=== PATIENT | male | born 1970 | race Caucasian/White ===

== ENCOUNTER 2021-04-05 02:18 | Inpatient (IN) | payer BC ==
[~2021-04-05] VITALS: Ht 180.3 cm; Wt 99.9 kg
[2021-04-05] VITALS (26 sets, daily range): BP systolic 67–100; BP diastolic 36–59
[~2021-04-05 02:18] MED LIST: ALLO300T PO; AMLO-187 PO; CELE200C PO; COLC0.6T34 PO; FEBU40TA PO; FERR325T14 PO; FOLI1TAB16 PO; LOSA100T14 PO; OMEP20CA16 PO; OXYC1TAB15 PO; OXYC1TAB7 PO; THIA100T57 PO; VALS320T2 PO
[2021-04-05] MEDS ORDERED: ALBU2.5V8 IH (04:04)
[2021-04-05] MEDS ORDERED: FEBU80TA2 PO (04:04)
[2021-04-05] MEDS ORDERED: LOSA100T14 PO (04:04)
--- NOTE | 2021-04-05 04:47 | NUR ---
Patient admitted from [facility] and arrived by ambulance. Orders verified. Patient had NG tube placed at [place] and while hooking patient up to suction patient sat up and NG tube dislodged. Attempted to replace NG unsuccessful and patient continued to cough up blood.
[2021-04-05] MEDS: PANTOPRAZOLE SODIUM IV DRIP 80 MG in IV NORMAL SALINE 100ML 100 ML IV SCH ×2 (04:56→14:00)
[2021-04-05 05:11] LABS: BASO % 0 % (0-3); EOS % 0 % (0-3); HEMATOCRIT 25.9 % (39.0-53.0); HEMOGLOBIN 8.4 g/dL (13.0-17.5); LYMPH # 1.1 x10^3/uL (1.0-4.8); LYMPH % 7 % (24-48); MEAN CORPUSCULAR HEMOGLOBIN 40 pg (25-35); MEAN CORPUSCULAR HGB CONC 33 g/dL (31-37); MONO # 1.6 x10^3/uL (0.0-1.1); MONO % 10 % (0-9); NEUT # 12.5 x10^3/uL (1.8-7.7); NEUT % 82 % (31-73); PLATELET COUNT 115 x10^3/uL (140-400); RED BLOOD COUNT 2.13 x10^6/uL (4.30-5.70); RED CELL DISTRIBUTION WIDTH 15.3 % (11.5-14.5); WHITE BLOOD COUNT 15.2 x10^3/uL (4.0-11.0)
[2021-04-05 05:20] LABS: MEAN CORPUSCULAR VOLUME 122 fL (79-100)
[2021-04-05 05:46] LABS: PLT ESTIMATE DECREASED (ADEQUATE)
[2021-04-05] MEDS ORDERED: IV NORMAL SALINE 500ML BAG 500 ML IV ONE (06:00)
[2021-04-05 06:09] LABS: ALBUMIN 1.8 g/dL (3.4-5.0); ALBUMIN/GLOBULIN RATIO 0.4 (1.0-1.7); CALCIUM 8.6 mg/dL (8.5-10.1); CREATININE 3.5 mg/dL (0.7-1.3); GFR 18.6; POTASSIUM 5.4 mmol/L (3.5-5.1); TOTAL BILIRUBIN 5.2 mg/dL (0.2-1.0); TOTAL PROTEIN 6.7 g/dL (6.4-8.2)
[2021-04-05 07:51] LABS: PROTHROMBIN TIME PATIENT 20.7 SEC (11.7-14.0)
[2021-04-05] MEDS ORDERED: PIP/TAZO PER PHARMACY MC PRN (08:00)
[2021-04-05] MEDS: IV NORMAL SALINE 1000ML BAG 1,000 ML IV SCH ×2 (08:00→16:48)
[2021-04-05] MEDS ORDERED: PIPERACILLIN/TAZOBACTAM 3.375 GM in IV NORMAL SALINE 50ML 50 ML IV SCH (08:00)
--- NOTE | 2021-04-05 08:40 | PDOC2 ---
BRINA BIGGS RETAIL SALES ASSISTANT 04/05/21 0840: CONSULT Date of Consult Date of Consult DATE: 04/05/21 TIME: 08:21 Reason for Consult Reason for Consult: pneumoperitoneum Referring Physician Referring Physician: ER [facility] Identification/Chief Complaint Chief Complaint abdominal pain Source Source: Chart review, Patient History of Present Illness Reason for Visit: Presented to [facility] ER with abdominal pain, swelling--reports started yesterday am. Does report has not felt well in about a week. Nausea and emesis for last week, low appetite. Heavy alcohol hx, reports no intake in one month. Denies ulcer hx. Uses NSAIDS on occasion, 1 ppd smoker Past Medical History Cardiovascular: HTN Pulmonary: Asthma, COPD GI: Constipation Hepatobiliary: Cirrhosis Rheumatologic: Gout Past Surgical History Past Surgical History: Hernia Repair (umbilical) Family History Family History: Family History Unknown Social History 1 pack per day ALCOHOL: heavy Drugs: None Lives: Alone Current Medications Current Medications Current Medications Pantoprazole Sodium 80 mg/ Sodium Chloride 100 ml @ 10 mls/hr Q10H IV Last administered on 04/05/21at 04:56; Start 04/05/21 at 04:00; Stop 04/08/21 at 03:59 Sodium Chloride 500 ml @ 500 mls/hr 1X ONCE IV Last administered on 04/05/21at 05:31; Start 04/05/21 at 06:00; Stop 04/05/21 at 06:59; Status DC Piperacillin Sod/ Tazobactam Sod (Zosyn Per Pharmacy) 1 each PRN DAILY PRN [facility] SEE COMMENTS; Start 04/05/21 at 08:00 Piperacillin Sod/ Tazobactam Sod 3.375 gm/Sodium Chloride 50 ml @ 100 mls/hr Q6HRS IV ; Start 04/05/21 at 08:00 Active Scripts Active Reported Proair Hfa Inhaler (Albuterol Sulfate) 8.5 Gm Hfa.aer.ad 2 Puff IH PRN Q4-6HRS PRN 21 Days Uloric (Febuxostat) 80 Mg Tablet 1 Tab PO DAILY 30 Days Losartan Potassium 100 Mg Tablet 100 Mg PO DAILY Folic Acid 1 Mg Tablet 1 Mg PO DAILY Amlodipine Besylate 10 Mg Tablet 10 Mg PO DAILY Losartan Potassium 100 Mg Tablet 100 Mg PO DAILY Colcrys (Colchicine) 0.6 Mg Tablet 0.6 Mg PO DAILY Uloric (Febuxostat) 40 Mg Tablet 1 Tab PO DAILY Allergies Allergies: Coded Allergies: No Known Drug Allergies (Unverified , 05/31/16) ROS General: YES: Chills, Fatigue, Malaise PSYCHOLOGICAL ROS: No: Anxiety, Depression Eyes: No Blurry vision, No Double vision HEENT: No: Heacaches, Sore Throat Hematological and Lymphatic: YES: Blood Clots (hx of dvt); No: Bleeding Problems Respiratory: YES: Cough, SOB with excertion Cardiovascular: No Chest Pain, No Palpitations Gastrointestinal: Yes Other (see hpi) Genitourinary: No Dysuria, No Hematuria Musculoskeletal: Yes Muscular Weakness; No Joint Pain Neurological: No Impaired Coord/balance, No Numbness/Tingling Skin: Yes Pruritus; No Rash Physical Exam General: Cooperative, Other (acute pain) HEENT: Other (jaundice) Lungs: Other (diminished) Heart: Regular rate, Normal S1, Normal S2 Abdomen: Soft, Other (distended, ttp on exam with peritoneal signs ) Extremities: No clubbing, No edema Skin: No rashes, No breakdown Neuro: Normal speech, Sensation intact Psych/Mental Status: Mental status NL, Mood NL MUSCULOSKELETAL: No deformity, No swelling Vitals VITALS Vital Signs Date Time Temp Pulse Resp B/P (MAP) Pulse Ox O2 Delivery O2 Flow Rate FiO2 04/05/21 06:22 93 79/41 (54) 98 Room Air 04/05/21 03:15 97.6 22 97.6 Labs Labs Laboratory Tests Test 04/05/21 05:03 White Blood Count 15.2 x10^3/uL (4.0-11.0) Red Blood Count 2.13 x10^6/uL (4.30-5.70) Hemoglobin 8.4 g/dL (13.0-17.5) Hematocrit 25.9 % (39.0-53.0) Mean Corpuscular Volume 122 fL (79-100) Mean Corpuscular Hemoglobin 40 pg (25-35) Mean Corpuscular Hemoglobin Concent 33 g/dL (31-37) Red Cell Distribution Width 15.3 % (11.5-14.5) Platelet Count 115 x10^3/uL (140-400) Neutrophils (%) (Auto) 82 % (31-73) Lymphocytes (%) (Auto) 7 % (24-48) Monocytes (%) (Auto) 10 % (0-9) Eosinophils (%) (Auto) 0 % (0-3) Basophils (%) (Auto) 0 % (0-3) Neutrophils # (Auto) 12.5 x10^3/uL (1.8-7.7) Lymphocytes # (Auto) 1.1 x10^3/uL (1.0-4.8) Monocytes # (Auto) 1.6 x10^3/uL (0.0-1.1) Eosinophils # (Auto) 0.0 x10^3/uL (0.0-0.7) Basophils # (Auto) 0.0 x10^3/uL (0.0-0.2) Platelet Estimate Decreased (ADEQUATE) Macrocytosis Marked Prothrombin Time 20.7 SEC (11.7-14.0) Prothromb Time International Ratio 1.8 (0.8-1.1) Sodium Level 137 mmol/L (136-145) Potassium Level 5.4 mmol/L (3.5-5.1) Chloride Level 105 mmol/L (98-107) Carbon Dioxide Level 14 mmol/L (21-32) Anion Gap 18 (6-14) Blood Urea Nitrogen 58 mg/dL (8-26) Creatinine 3.5 mg/dL (0.7-1.3) Estimated GFR (Cockcroft-Gault) 18.6 BUN/Creatinine Ratio 17 (6-20) Glucose Level 132 mg/dL (70-99) Lactic Acid Level 6.7 mmol/L (0.4-2.0) Calcium Level 8.6 mg/dL (8.5-10.1) Total Bilirubin 5.2 mg/dL (0.2-1.0) Aspartate Amino Transf (AST/SGOT) 113 U/L (15-37) Alanine Aminotransferase (ALT/SGPT) 66 U/L (16-63) Alkaline Phosphatase 107 U/L (46-116) Total Protein 6.7 g/dL (6.4-8.2) Albumin 1.8 g/dL (3.4-5.0) Albumin/Globulin Ratio 0.4 (1.0-1.7) Laboratory Tests Test 04/05/21 05:03 White Blood Count 15.2 x10^3/uL (4.0-11.0) Red Blood Count 2.13 x10^6/uL (4.30-5.70) Hemoglobin 8.4 g/dL (13.0-17.5) Hematocrit 25.9 % (39.0-53.0) Mean Corpuscular Volume 122 fL (79-100) Mean Corpuscular Hemoglobin 40 pg (25-35) Mean Corpuscular Hemoglobin Concent 33 g/dL (31-37) Red Cell Distribution Width 15.3 % (11.5-14.5) Platelet Count 115 x10^3/uL (140-400) Neutrophils (%) (Auto) 82 % (31-73) Lymphocytes (%) (Auto) 7 % (24-48) Monocytes (%) (Auto) 10 % (0-9) Eosinophils (%) (Auto) 0 % (0-3) Basophils (%) (Auto) 0 % (0-3) Neutrophils # (Auto) 12.5 x10^3/uL (1.8-7.7) Lymphocytes # (Auto) 1.1 x10^3/uL (1.0-4.8) Monocytes # (Auto) 1.6 x10^3/uL (0.0-1.1) Eosinophils # (Auto) 0.0 x10^3/uL (0.0-0.7) Basophils # (Auto) 0.0 x10^3/uL (0.0-0.2) Platelet Estimate Decreased (ADEQUATE) Macrocytosis Marked Prothrombin Time 20.7 SEC (11.7-14.0) Prothromb Time International Ratio 1.8 (0.8-1.1) Sodium Level 137 mmol/L (136-145) Potassium Level 5.4 mmol/L (3.5-5.1) Chloride Level 105 mmol/L (98-107) Carbon Dioxide Level 14 mmol/L (21-32) Anion Gap 18 (6-14) Blood Urea Nitrogen 58 mg/dL (8-26) Creatinine 3.5 mg/dL (0.7-1.3) Estimated GFR (Cockcroft-Gault) 18.6 BUN/Creatinine Ratio 17 (6-20) Glucose Level 132 mg/dL (70-99) Lactic Acid Level 6.7 mmol/L (0.4-2.0) Calcium Level 8.6 mg/dL (8.5-10.1) Total Bilirubin 5.2 mg/dL (0.2-1.0) Aspartate Amino Transf (AST/SGOT) 113 U/L (15-37) Alanine Aminotransferase (ALT/SGPT) 66 U/L (16-63) Alkaline Phosphatase 107 U/L (46-116) Total Protein 6.7 g/dL (6.4-8.2) Albumin 1.8 g/dL (3.4-5.0) Albumin/Globulin Ratio 0.4 (1.0-1.7) Assessment/Plan Assessment/Plan pneumoperitoneum, hypotension, sepsis cirrhosis INR 1.8 current MELD score 31, very high mortality PPI, FFP , abx tentative plan for OR 1130 have reviewed with LIZET Wellington MD 04/05/21 1146: CONSULT Assessment/Plan Assessment/Plan Pt seen and examined; 50 year old male reported to [facility] with acute onset abdominal pain starting yesterday; CT scan showing free fluid, pneumoperitoneum; PMH/PSH/ROS/SH as above; exam: alert, uncomfortable, conversant, no neck masses, lungs clear, heart RR and R, abdomen obese, tender diffusely, peritoneal signs present, ext with some pitting edema; labs and xrays reviewed; 50 year old male with free air, suspect perf viscus, peptic ulcer most likely, colon perf possible also; generally requires surgical correction; pt is very high risk of any surgical intervention, (Mckinley class 3, MELD score 31); very high chance of morbidity and potential mortality; his ability to heal and recover is markedly impaired by his comorbidities (ETOH cirrhosis, manager long term care smoker, hepatorenal dysfunction etc); the patient seems to understand and is agreeable for surgery. BRINA BIGGS RETAIL SALES ASSISTANT April 05, 2021 08:40 LIZET HERNANDEZ MD April 05, 2021 11:46
--- NOTE | 2021-04-05 08:47 | PDOC1 ---
History and Physical Date of Admission Date of Admission DATE: 04/05/21 TIME: 08:29 Identification/Chief Complaint Chief Complaint Abdominal pain Source Source: Chart review, Patient History of Present Illness History of Present Illness Patient is a 50-year-old male with past medical history alcohol abuse, who presents as a transfer from [facility] due to pneumoperitoneum. Initially at [facility] ER he complained of abdominal pain and abdominal swelling over the past week, 07/03. He reports associated nausea and vomiting over this time, and is not amenable to take his home medications. Patient also reports noticing some discoloration of his eyes, discoloration of the skin, and dark urine over the past several days. He denies recent NSAID use. [facility] and admitted to the ICU for further medical management. Past Medical History Past Medical History Alcoholism, COPD, HTN Past Surgical History Past Surgical History Abdominal hernia, knee surgery Family History Family History [place] Social History Smoke: 1 pack per day ALCOHOL: heavy Drugs: None Current Medications Current Medications Current Medications Pantoprazole Sodium 80 mg/ Sodium Chloride 100 ml @ 10 mls/hr Q10H IV Last administered on 04/05/21at 04:56; Start 04/05/21 at 04:00; Stop 04/08/21 at 03:59 Sodium Chloride 500 ml @ 500 mls/hr 1X ONCE IV Last administered on 04/05/21at 05:31; Start 04/05/21 at 06:00; Stop 04/05/21 at 06:59; Status DC Piperacillin Sod/ Tazobactam Sod (Zosyn Per Pharmacy) 1 each PRN DAILY PRN [facility] SEE COMMENTS; Start 04/05/21 at 08:00 Piperacillin Sod/ Tazobactam Sod 3.375 gm/Sodium Chloride 50 ml @ 100 mls/hr Q6HRS IV ; Start 04/05/21 at 08:00 Active Scripts Active Reported Proair Hfa Inhaler (Albuterol Sulfate) 8.5 Gm Hfa.aer.ad 2 Puff IH PRN Q4-6HRS PRN 21 Days Uloric (Febuxostat) 80 Mg Tablet 1 Tab PO DAILY 30 Days Losartan Potassium 100 Mg Tablet 100 Mg PO DAILY Folic Acid 1 Mg Tablet 1 Mg PO DAILY Amlodipine Besylate 10 Mg Tablet 10 Mg PO DAILY Losartan Potassium 100 Mg Tablet 100 Mg PO DAILY Colcrys (Colchicine) 0.6 Mg Tablet 0.6 Mg PO DAILY Uloric (Febuxostat) 40 Mg Tablet 1 Tab PO DAILY Allergies Allergies: Coded Allergies: No Known Drug Allergies (Unverified , 05/31/16) ROS Review of System GENERAL: No history of weight change, weakness or fevers. SKIN: No bruising, hair changes or rashes. EYES: No blurred, double or loss of vision. NOSE AND THROAT: No history of nosebleeds, hoarseness or sore throat. HEART: Denies chest pain, denies palpitations. LUNGS: Denies cough, hemoptysis, wheezing or shortness of breath. GASTROINTESTINAL: Abdominal pain, nausea, vomiting. GENITOURINARY: Denies dysuria, frequency, urgency, hematuria. NEUROLOGIC: Denies history of numbness, tingling, tremor or weakness. PSYCHIATRIC: Denies anxiety, denies depression. ENDOCRINE: No history of heat or cold intolerance, polyuria or polydipsia. EXTREMITIES: Denies muscle weakness, joint pain, pain on walking or stiffness. Physical Exam Physical Exam General: Alert, Oriented X3, Cooperative, mild distress. HEENT: PERRLA, EOMI Lungs: Clear to auscultation, Normal air movement Heart: RRR, no murmurs Cardiovascular: S1, S2 Abdomen: Abdominal distention, abdomen feels tight and rigid, generalized abdominal tenderness. Extremities: No clubbing, No cyanosis Skin: No rashes, No significant lesion Neuro: Normal speech, Normal tone, Sensation intact Psych/Mental Status: Mental status NL, Mood NL Vitals Vitals Vital Signs Date Time Temp Pulse Resp B/P (MAP) Pulse Ox O2 Delivery O2 Flow Rate FiO2 04/05/21 06:22 93 79/41 (54) 98 Room Air 04/05/21 03:15 97.6 22 97.6 Labs Labs Laboratory Tests Test 04/05/21 05:03 White Blood Count 15.2 x10^3/uL (4.0-11.0) Red Blood Count 2.13 x10^6/uL (4.30-5.70) Hemoglobin 8.4 g/dL (13.0-17.5) Hematocrit 25.9 % (39.0-53.0) Mean Corpuscular Volume 122 fL (79-100) Mean Corpuscular Hemoglobin 40 pg (25-35) Mean Corpuscular Hemoglobin Concent 33 g/dL (31-37) Red Cell Distribution Width 15.3 % (11.5-14.5) Platelet Count 115 x10^3/uL (140-400) Neutrophils (%) (Auto) 82 % (31-73) Lymphocytes (%) (Auto) 7 % (24-48) Monocytes (%) (Auto) 10 % (0-9) Eosinophils (%) (Auto) 0 % (0-3) Basophils (%) (Auto) 0 % (0-3) Neutrophils # (Auto) 12.5 x10^3/uL (1.8-7.7) Lymphocytes # (Auto) 1.1 x10^3/uL (1.0-4.8) Monocytes # (Auto) 1.6 x10^3/uL (0.0-1.1) Eosinophils # (Auto) 0.0 x10^3/uL (0.0-0.7) Basophils # (Auto) 0.0 x10^3/uL (0.0-0.2) Platelet Estimate Decreased (ADEQUATE) Macrocytosis Marked Prothrombin Time 20.7 SEC (11.7-14.0) Prothromb Time International Ratio 1.8 (0.8-1.1) Sodium Level 137 mmol/L (136-145) Potassium Level 5.4 mmol/L (3.5-5.1) Chloride Level 105 mmol/L (98-107) Carbon Dioxide Level 14 mmol/L (21-32) Anion Gap 18 (6-14) Blood Urea Nitrogen 58 mg/dL (8-26) Creatinine 3.5 mg/dL (0.7-1.3) Estimated GFR (Cockcroft-Gault) 18.6 BUN/Creatinine Ratio 17 (6-20) Glucose Level 132 mg/dL (70-99) Lactic Acid Level 6.7 mmol/L (0.4-2.0) Calcium Level 8.6 mg/dL (8.5-10.1) Total Bilirubin 5.2 mg/dL (0.2-1.0) Aspartate Amino Transf (AST/SGOT) 113 U/L (15-37) Alanine Aminotransferase (ALT/SGPT) 66 U/L (16-63) Alkaline Phosphatase 107 U/L (46-116) Total Protein 6.7 g/dL (6.4-8.2) Albumin 1.8 g/dL (3.4-5.0) Albumin/Globulin Ratio 0.4 (1.0-1.7) Laboratory Tests Test 04/05/21 05:03 White Blood Count 15.2 x10^3/uL (4.0-11.0) Red Blood Count 2.13 x10^6/uL (4.30-5.70) Hemoglobin 8.4 g/dL (13.0-17.5) Hematocrit 25.9 % (39.0-53.0) Mean Corpuscular Volume 122 fL (79-100) Mean Corpuscular Hemoglobin 40 pg (25-35) Mean Corpuscular Hemoglobin Concent 33 g/dL (31-37) Red Cell Distribution Width 15.3 % (11.5-14.5) Platelet Count 115 x10^3/uL (140-400) Neutrophils (%) (Auto) 82 % (31-73) Lymphocytes (%) (Auto) 7 % (24-48) Monocytes (%) (Auto) 10 % (0-9) Eosinophils (%) (Auto) 0 % (0-3) Basophils (%) (Auto) 0 % (0-3) Neutrophils # (Auto) 12.5 x10^3/uL (1.8-7.7) Lymphocytes # (Auto) 1.1 x10^3/uL (1.0-4.8) Monocytes # (Auto) 1.6 x10^3/uL (0.0-1.1) Eosinophils # (Auto) 0.0 x10^3/uL (0.0-0.7) Basophils # (Auto) 0.0 x10^3/uL (0.0-0.2) Platelet Estimate Decreased (ADEQUATE) Macrocytosis Marked Prothrombin Time 20.7 SEC (11.7-14.0) Prothromb Time International Ratio 1.8 (0.8-1.1) Sodium Level 137 mmol/L (136-145) Potassium Level 5.4 mmol/L (3.5-5.1) Chloride Level 105 mmol/L (98-107) Carbon Dioxide Level 14 mmol/L (21-32) Anion Gap 18 (6-14) Blood Urea Nitrogen 58 mg/dL (8-26) Creatinine 3.5 mg/dL (0.7-1.3) Estimated GFR (Cockcroft-Gault) 18.6 BUN/Creatinine Ratio 17 (6-20) Glucose Level 132 mg/dL (70-99) Lactic Acid Level 6.7 mmol/L (0.4-2.0) Calcium Level 8.6 mg/dL (8.5-10.1) Total Bilirubin 5.2 mg/dL (0.2-1.0) Aspartate Amino Transf (AST/SGOT) 113 U/L (15-37) Alanine Aminotransferase (ALT/SGPT) 66 U/L (16-63) Alkaline Phosphatase 107 U/L (46-116) Total Protein 6.7 g/dL (6.4-8.2) Albumin 1.8 g/dL (3.4-5.0) Albumin/Globulin Ratio 0.4 (1.0-1.7) VTE Prophylaxis Ordered VTE Prophylaxis Devices: No VTE Pharmacological Prophylaxi: Yes Assessment/Plan Assessment/Plan Sepsis Pneumoperitoneum Leukocytosis Duodenitis Probable cirrhosis Cholelithiasis History alcohol abuse History COPD Plan: Consultations placed to general surgery and GI Due to concern for perforation I believe patient will be taken to the OR this morning. We will continue treatment with Zosyn, and may need to broaden antibiotic coverage with metronidazole; will consider consulting ID following surgery. IV pain medication FEN - NPO PPX - Heparin FULL CODE; patient names his daughter as surrogate decision-maker. Dispo - inpatient for above Advance Care Planning: Total time spent [id number] with patient greater than 16 minutes in discussion with goals of care, comfort care, end-of-life care, pain management, code status. Total critical care time spent 30 minutes including reviewing charts, imaging studies, bedside evaluations, and discussion with RN. Justifications for Admission Other Justification FLEX GRAHAM MD April 05, 2021 08:47
--- NOTE | 2021-04-05 08:59 | PDOC2 ---
GI CONSULT Date of Service: DATE: 04/05/21 TIME: 08:59 Reason For Consult: pneumoperitoneum HPI: HPI: 50 y/o male sent from [facility]. Abd pain and bloating began suddenly yesterday. Previously had some decreased appetite, weight loss, and constipation. [place] achy for awhile, had been taking ibuprofen PRN for about a month. Labs noted leukocytosis, lactic acidosis, EDDI, elevated LFTs, coagulopathy, thrombocytopenia. On CT: small volume pneumoperitoneum in upper abdomen, proximal duodenum is thick-walled w/ mild surrounding induration (?source of free air), mild to moderate ascites, probable cirrhosis, moderate splenomegaly, cholelithiasis. We have seen in the past - h/o alcoholic liver disease (reports sobriety x 1 month), h/o MANFRED and B12 deficiency, negative Hepatitis panel. Recommended outpt EGD and colonoscopy when we saw in 2016 (Admitted for septic joint then). Additional h/o perirectal abscess. H/o GERD - untreated. No dysphagia, n/v, bleeding, or diarrhea. No previous scopes. Cholelithiasis noted in past. No pancreas or PUD history. PMH: PMH: HTN, MSSA septic joint, nephrolithiasis, COPD, DVT, CVA umbilical hernia repair, I&D perirectal abscess, left knee arthroscopy FH: Family History: No pertinent hx (no GI cancers) Social History: Smoke: 1 pack per day ALCOHOL: heavy (sober x 1 month) Drugs: None ROS: GEN: +bodyaches HEENT: Denies blurred vision, sore throat CV: Denies chest pain RESP: Denies shortness of air, cough GI: Per HPI : +dark urine ENDO: +weight loss NEURO: Denies confusion, dizziness MSK: Denies weakness SKIN: +jaundice Vitals: Vitals: Vital Signs Date Time Temp Pulse Resp B/P (MAP) Pulse Ox O2 Delivery O2 Flow Rate FiO2 04/05/21 06:22 93 79/41 (54) 98 Room Air 04/05/21 03:15 97.6 22 97.6 Labs: Labs: Laboratory Tests Test 04/05/21 05:03 White Blood Count 15.2 x10^3/uL (4.0-11.0) Red Blood Count 2.13 x10^6/uL (4.30-5.70) Hemoglobin 8.4 g/dL (13.0-17.5) Hematocrit 25.9 % (39.0-53.0) Mean Corpuscular Volume 122 fL (79-100) Mean Corpuscular Hemoglobin 40 pg (25-35) Mean Corpuscular Hemoglobin Concent 33 g/dL (31-37) Red Cell Distribution Width 15.3 % (11.5-14.5) Platelet Count 115 x10^3/uL (140-400) Neutrophils (%) (Auto) 82 % (31-73) Lymphocytes (%) (Auto) 7 % (24-48) Monocytes (%) (Auto) 10 % (0-9) Eosinophils (%) (Auto) 0 % (0-3) Basophils (%) (Auto) 0 % (0-3) Neutrophils # (Auto) 12.5 x10^3/uL (1.8-7.7) Lymphocytes # (Auto) 1.1 x10^3/uL (1.0-4.8) Monocytes # (Auto) 1.6 x10^3/uL (0.0-1.1) Eosinophils # (Auto) 0.0 x10^3/uL (0.0-0.7) Basophils # (Auto) 0.0 x10^3/uL (0.0-0.2) Platelet Estimate Decreased (ADEQUATE) Macrocytosis Marked Prothrombin Time 20.7 SEC (11.7-14.0) Prothromb Time International Ratio 1.8 (0.8-1.1) Sodium Level 137 mmol/L (136-145) Potassium Level 5.4 mmol/L (3.5-5.1) Chloride Level 105 mmol/L (98-107) Carbon Dioxide Level 14 mmol/L (21-32) Anion Gap 18 (6-14) Blood Urea Nitrogen 58 mg/dL (8-26) Creatinine 3.5 mg/dL (0.7-1.3) Estimated GFR (Cockcroft-Gault) 18.6 BUN/Creatinine Ratio 17 (6-20) Glucose Level 132 mg/dL (70-99) Lactic Acid Level 6.7 mmol/L (0.4-2.0) Calcium Level 8.6 mg/dL (8.5-10.1) Total Bilirubin 5.2 mg/dL (0.2-1.0) Aspartate Amino Transf (AST/SGOT) 113 U/L (15-37) Alanine Aminotransferase (ALT/SGPT) 66 U/L (16-63) Alkaline Phosphatase 107 U/L (46-116) Total Protein 6.7 g/dL (6.4-8.2) Albumin 1.8 g/dL (3.4-5.0) Albumin/Globulin Ratio 0.4 (1.0-1.7) Allergies: Coded Allergies: No Known Drug Allergies (Unverified , 05/31/16) Medications: Current Medications Medications (Trade) Dose Ordered Sig/Ada Route PRN Reason Start Time Stop Time Status Last Admin Dose Admin Pantoprazole Sodium 80 mg/ Sodium Chloride 100 ml @ 10 mls/hr Q10H IV 04/05/21 04:00 04/08/21 03:59 04/05/21 04:56 Sodium Chloride 500 ml @ 500 mls/hr 1X ONCE IV 04/05/21 06:00 04/05/21 06:59 DC 04/05/21 05:31 Piperacillin Sod/ Tazobactam Sod 3.375 gm/Sodium Chloride 50 ml @ 100 mls/hr Q6HRS IV 04/05/21 08:00 04/05/21 08:32 Imaging: Imaging: per HPI PE: GEN: looks ill HEENT: Atraumatic, PERRL LUNGS: CTAB HEART: RRR ABD: distended, tender to placement of stethoscope, quiet EXTREMITY: No edema SKIN: +jaundice NEURO/PSYCH: A & O 3 A/P: A/P: Abd pain - pneumoperitoneum (?DU) Lactic acidosis, leukocytosis, EDDI, hypotension Anemia - h/o iron and B12 deficiency Alcoholic liver disease w/ coagulopathy, thrombocytopenia, elevated LFTs CRC screen - none H/o perirectal abscess Cholelithiasis NSAID use -- D/w surgery - to OR today - very high risk w/ liver disease, EDDI, etc. Agree w/ PPI, FFP transfusion, atbx. CHRISTIANE BRIONES April 05, 2021 08:59
[2021-04-05] MEDS ORDERED: PROCHLORPERAZINE 10 MG/2 ML VIAL. IVP PRN (09:00)
[2021-04-05] MEDS ORDERED: IV RINGERS,LACTATED 1000ML 1,000 ML IV SCH (09:00)
[2021-04-05] MEDS ORDERED: HYDROmorphone 2 MG/ML VIAL IVP PRN (09:00)
[2021-04-05] MEDS ORDERED: fentaNYL PF VIAL 100 MCG/2 ML VIAL IVP PRN ×2 (09:00)
[2021-04-05] MEDS ORDERED: ETOMIDATE 20 MG/10 ML VIAL. IV ONE (09:22)
[2021-04-05] MEDS ORDERED: ONDANSETRON PF 4 MG/2 ML VIAL. ONE (09:22)
[2021-04-05] MEDS ORDERED: PHENYLEPHRINE 10 MG/ML VIAL. ONE (09:22)
[2021-04-05] MEDS ORDERED: DEXAMETHASONE SOD PHOS 4 MG/ML VIAL ONE (09:22)
[2021-04-05] MEDS ORDERED: fentaNYL PF VIAL 100 MCG/2 ML VIAL ONE (09:22)
[2021-04-05] MEDS ORDERED: ROCURONIUM 50 MG/5 ML VIAL. ONE ×2 (09:22→12:36)
[2021-04-05] MEDS ORDERED: LIDOCAINE 2% PF 5 ML VIAL. ONE ×2 (09:22→12:58)
--- NOTE | 2021-04-05 10:40 | PDOC2 ---
CONSULT Date of Consult Date of Consult DATE: 04/05/21 TIME: 10:33 Reason for Consult Reason for Consult: EDDI Referring Physician Referring Physician: SANTOS Identification/Chief Complaint Chief Complaint ABD PAIN Source Source: Chart review, Patient History of Present Illness Reason for Visit: THIS IS A 50 YR OLD WITH ABD PAIN. DX WITH PNEUMOPERITONEUM AND TRANSFERRED HERE FROM [facility]. HE IS UNDERGOING SURGICAL EVALUATION AT THIS TIME. IN HE ICU NOW WITH HYPOTENSION. LABS INDICATE LEUCOCYTOSIS, ACIDOSIS, HYPERKALEMIA AND EDDI WITH A CR OF 3.5. NO KNOWN CKD. HE HAS A HX OF ETOH ABUSE AND CIRRHOSIS AND COAGULOPATHY RELATED TO THAT. STATES THAT HE HAS NOT EATEN WELL IN OVER A WEEK AND HAS HAD SOME EPISODES OF N/V. NO OTHER HX. NO NEPHROTOXINS IDENTIFIED. Past Medical History Cardiovascular: HTN Pulmonary: Asthma, COPD GI: Constipation Hepatobiliary: Cirrhosis Musculoskeletal: Other Rheumatologic: Gout Past Surgical History Past Surgical History: Hernia Repair (umbilical) Family History Family History: Family History Unknown Social History 1 pack per day ALCOHOL: heavy Drugs: None Lives: Alone Current Medications Current Medications Current Medications Pantoprazole Sodium 80 mg/ Sodium Chloride 100 ml @ 10 mls/hr Q10H IV Last administered on 04/05/21at 04:56; Start 04/05/21 at 04:00; Stop 04/08/21 at 03:59 Sodium Chloride 500 ml @ 500 mls/hr 1X ONCE IV Last administered on 04/05/21at 05:31; Start 04/05/21 at 06:00; Stop 04/05/21 at 06:59; Status DC Piperacillin Sod/ Tazobactam Sod (Zosyn Per Pharmacy) 1 each PRN DAILY PRN MC SEE COMMENTS; Start 04/05/21 at 08:00 Piperacillin Sod/ Tazobactam Sod 3.375 gm/Sodium Chloride 50 ml @ 100 mls/hr Q6HRS IV Last administered on 04/05/21at 08:32; Start 04/05/21 at 08:00 Fentanyl Citrate (Fentanyl 2ml Vial) 25 mcg PRN Q5MIN PRN IVP MILD PAIN 1-3; Start 04/05/21 at 09:00; Stop 04/05/21 at 18:00 Fentanyl Citrate (Fentanyl 2ml Vial) 50 mcg PRN Q5MIN PRN IVP MODERATE PAIN 4- 6; Start 04/05/21 at 09:00; Stop 04/05/21 at 18:00 Morphine Sulfate (Morphine Sulfate) 1 mg PRN Q10MIN PRN IVP SEVERE PAIN 7-10; Start 04/05/21 at 09:00; Stop 04/05/21 at 18:00 Ringer's Solution 1,000 ml @ 30 mls/hr Q24H IV ; Start 04/05/21 at 09:00; Stop 04/05/21 at 20:59 Hydromorphone HCl (Dilaudid) 0.5 mg PRN Q10MIN PRN IVP SEVERE PAIN 7-10, 2nd CHOICE; Start 04/05/21 at 09:00; Stop 04/05/21 at 18:00 Prochlorperazine Edisylate (Compazine) 5 mg PACU PRN PRN IVP NAUSEA, MRX1; Start 04/05/21 at 09:00; Stop 04/05/21 at 18:00 Etomidate (Amidate) 20 mg STK-MED ONCE IV ; Start 04/05/21 at 09:22; Stop 04/05/21 at 09:22; Status DC Dexamethasone Sodium Phosphate (Decadron) 4 mg STK-MED ONCE .ROUTE ; Start 04/05/21 at 09:22; Stop 04/05/21 at 09:22; Status DC Lidocaine HCl (Lidocaine Pf 2% Vial) 5 ml STK-MED ONCE .ROUTE ; Start 04/05/21 at 09:22; Stop 04/05/21 at 09:22; Status DC Ondansetron HCl (Zofran) 4 mg STK-MED ONCE .ROUTE ; Start 04/05/21 at 09:22; Stop 04/05/21 at 09:22; Status DC Rocuronium [place] (Zemuron) 50 mg STK-MED ONCE .ROUTE ; Start 04/05/21 at 09:22; Stop 04/05/21 at 09:22; Status DC Fentanyl Citrate (Fentanyl 2ml Vial) 100 mcg STK-MED ONCE .ROUTE ; Start 04/05/21 at 09:22; Stop 04/05/21 at 09:23; Status DC Phenylephrine HCl (Pavel-Synephrine Inj) 10 mg STK-MED ONCE .ROUTE ; Start 04/05/21 at 09:22; Stop 04/05/21 at 09:23; Status DC Active Scripts Active Reported Proair Hfa Inhaler (Albuterol Sulfate) 8.5 Gm Hfa.aer.ad 2 Puff IH PRN Q4-6HRS PRN 21 Days Uloric (Febuxostat) 80 Mg Tablet 1 Tab PO DAILY 30 Days Losartan Potassium 100 Mg Tablet 100 Mg PO DAILY Folic Acid 1 Mg Tablet 1 Mg PO DAILY Amlodipine Besylate 10 Mg Tablet 10 Mg PO DAILY Losartan Potassium 100 Mg Tablet 100 Mg PO DAILY Colcrys (Colchicine) 0.6 Mg Tablet 0.6 Mg PO DAILY Uloric (Febuxostat) 40 Mg Tablet 1 Tab PO DAILY Allergies Allergies: Coded Allergies: No Known Drug Allergies (Unverified , 05/31/16) ROS General: YES: Fatigue, Malaise, Appetite PSYCHOLOGICAL ROS: YES: Anxiety, Depression Eyes: Yes Decreased vision Respiratory: YES: Cough Gastrointestinal: Yes Nausea, Yes Vomiting, Yes Abdominal Pain Genitourinary: YES Other (LESS UO) Musculoskeletal: Yes Gait Disturbance, Yes Muscular Weakness Neurological: Yes Dizziness, Yes Weakness Skin: Yes Dry Skin Physical Exam General: Alert, Oriented X3, Cooperative, No acute distress HEENT: Atraumatic, PERRLA Lungs: Clear to auscultation Heart: Regular rate Abdomen: Soft, Other (HYPOACTIVE) Extremities: No cyanosis Skin: No rashes Neuro: Normal speech Psych/Mental Status: Mental status NL, Mood NL MUSCULOSKELETAL: No joint tenderness, No deformity, No swelling Vitals VITALS Vital Signs Date Time Temp Pulse Resp B/P (MAP) Pulse Ox O2 Delivery O2 Flow Rate FiO2 04/05/21 09:55 97.5 78 16 87/44 97.5 04/05/21 09:00 98 Room Air Labs Labs Laboratory Tests Test 04/05/21 05:03 04/05/21 09:05 White Blood Count 15.2 x10^3/uL (4.0-11.0) Red Blood Count 2.13 x10^6/uL (4.30-5.70) Hemoglobin 8.4 g/dL (13.0-17.5) Hematocrit 25.9 % (39.0-53.0) Mean Corpuscular Volume 122 fL (79-100) Mean Corpuscular Hemoglobin 40 pg (25-35) Mean Corpuscular Hemoglobin Concent 33 g/dL (31-37) Red Cell Distribution Width 15.3 % (11.5-14.5) Platelet Count 115 x10^3/uL (140-400) Neutrophils (%) (Auto) 82 % (31-73) Lymphocytes (%) (Auto) 7 % (24-48) Monocytes (%) (Auto) 10 % (0-9) Eosinophils (%) (Auto) 0 % (0-3) Basophils (%) (Auto) 0 % (0-3) Neutrophils # (Auto) 12.5 x10^3/uL (1.8-7.7) Lymphocytes # (Auto) 1.1 x10^3/uL (1.0-4.8) Monocytes # (Auto) 1.6 x10^3/uL (0.0-1.1) Eosinophils # (Auto) 0.0 x10^3/uL (0.0-0.7) Basophils # (Auto) 0.0 x10^3/uL (0.0-0.2) Platelet Estimate Decreased (ADEQUATE) Macrocytosis Marked Prothrombin Time 20.7 SEC (11.7-14.0) Prothromb Time International Ratio 1.8 (0.8-1.1) Sodium Level 137 mmol/L (136-145) Potassium Level 5.4 mmol/L (3.5-5.1) Chloride Level 105 mmol/L (98-107) Carbon Dioxide Level 14 mmol/L (21-32) Anion Gap 18 (6-14) Blood Urea Nitrogen 58 mg/dL (8-26) Creatinine 3.5 mg/dL (0.7-1.3) Estimated GFR (Cockcroft-Gault) 18.6 BUN/Creatinine Ratio 17 (6-20) Glucose Level 132 mg/dL (70-99) Lactic Acid Level 6.7 mmol/L (0.4-2.0) 4.4 mmol/L (0.4-2.0) Calcium Level 8.6 mg/dL (8.5-10.1) Total Bilirubin 5.2 mg/dL (0.2-1.0) Aspartate Amino Transf (AST/SGOT) 113 U/L (15-37) Alanine Aminotransferase (ALT/SGPT) 66 U/L (16-63) Alkaline Phosphatase 107 U/L (46-116) Total Protein 6.7 g/dL (6.4-8.2) Albumin 1.8 g/dL (3.4-5.0) Albumin/Globulin Ratio 0.4 (1.0-1.7) Laboratory Tests Test 04/05/21 05:03 04/05/21 09:05 White Blood Count 15.2 x10^3/uL (4.0-11.0) Red Blood Count 2.13 x10^6/uL (4.30-5.70) Hemoglobin 8.4 g/dL (13.0-17.5) Hematocrit 25.9 % (39.0-53.0) Mean Corpuscular Volume 122 fL (79-100) Mean Corpuscular Hemoglobin 40 pg (25-35) Mean Corpuscular Hemoglobin Concent 33 g/dL (31-37) Red Cell Distribution Width 15.3 % (11.5-14.5) Platelet Count 115 x10^3/uL (140-400) Neutrophils (%) (Auto) 82 % (31-73) Lymphocytes (%) (Auto) 7 % (24-48) Monocytes (%) (Auto) 10 % (0-9) Eosinophils (%) (Auto) 0 % (0-3) Basophils (%) (Auto) 0 % (0-3) Neutrophils # (Auto) 12.5 x10^3/uL (1.8-7.7) Lymphocytes # (Auto) 1.1 x10^3/uL (1.0-4.8) Monocytes # (Auto) 1.6 x10^3/uL (0.0-1.1) Eosinophils # (Auto) 0.0 x10^3/uL (0.0-0.7) Basophils # (Auto) 0.0 x10^3/uL (0.0-0.2) Platelet Estimate Decreased (ADEQUATE) Macrocytosis Marked Prothrombin Time 20.7 SEC (11.7-14.0) Prothromb Time International Ratio 1.8 (0.8-1.1) Sodium Level 137 mmol/L (136-145) Potassium Level 5.4 mmol/L (3.5-5.1) Chloride Level 105 mmol/L (98-107) Carbon Dioxide Level 14 mmol/L (21-32) Anion Gap 18 (6-14) Blood Urea Nitrogen 58 mg/dL (8-26) Creatinine 3.5 mg/dL (0.7-1.3) Estimated GFR (Cockcroft-Gault) 18.6 BUN/Creatinine Ratio 17 (6-20) Glucose Level 132 mg/dL (70-99) Lactic Acid Level 6.7 mmol/L (0.4-2.0) 4.4 mmol/L (0.4-2.0) Calcium Level 8.6 mg/dL (8.5-10.1) Total Bilirubin 5.2 mg/dL (0.2-1.0) Aspartate Amino Transf (AST/SGOT) 113 U/L (15-37) Alanine Aminotransferase (ALT/SGPT) 66 U/L (16-63) Alkaline Phosphatase 107 U/L (46-116) Total Protein 6.7 g/dL (6.4-8.2) Albumin 1.8 g/dL (3.4-5.0) Albumin/Globulin Ratio 0.4 (1.0-1.7) Images Images IMAGES FROM OUTSIDE FACILITY REVIEWED. Assessment/Plan Assessment/Plan IMP EDDI-ATN MET ACIDOSIS HYPERKALEMIA HYPOTENSION PROB SEPSIS LEUCOCYTOSIS PNEUMOPERITONEUM ETOH ABUSE LIVER CIRRHOSIS COAGULOPATHY PLAN ANTIBIOTICS HYDRATION PRESSORS IF NEEDED HOLD HIS ARB SURGERY EVALUATION MAY NEED DIALYSIS IF CLEARANCE DOES NOT IMPROVE HERVE CHAVEZ MD April 05, 2021 10:40
[2021-04-05] MEDS ORDERED: BUPIVACAINE-EPI 0.5%-1:200000 MPF 30 ML VIAL. ONE ×2 (11:34→11:54)
[2021-04-05] MEDS ORDERED: METHYLENE BLUE 0.5% 10ml AMPULE. ONE (13:14)
[2021-04-05] MEDS ORDERED: GLYCOPYRROLATE 1 MG/5 ML VIAL. ONE (13:35)
[2021-04-05] MEDS ORDERED: NEOSTIGMINE METHYLSULFATE 5 MG/5 ML SYRINGE. ONE (13:36)
--- NOTE | 2021-04-05 13:55 | PDOC4 ---
Operative Note Operative Note Operative Note: Preoperative Diagnosis: Perforated Viscus Postoperative Diagnosis: Suspect spontaneous bacterial peritonitis Procedure: Diagnostic laparoscopy, culture abdominal fluid, placement of abdominal drain Surgeon: Tawanda [employer]uba [employer] Instructor: Peewee QUEEN Anesthesia: General EBL: 20 mL Specimen: Intra-abdominal fluid to microbiology Drains: 19 [place] ROCIO drain Complications: None Indication: The patient is a 50-year-old male who presented to the emergency department with abdominal pain. His evaluation included a CT scan which showed low volume free air and free fluid. There was some thickening of the duodenum concerning for potential prep viscus most likely of the duodenum. Based on these recommendations we recommend proceeding to the operating room for laparoscopy. The patient is a very high risk surgical candidate due to multiple comorbidities. The risks of surgery are very significant and were discussed with the patient. The risks include bleeding, infection, visceral injury, pain, wound healing problems, anesthetic risk, potential need for additional surgery procedure, multisystem organ dysfunction or failure, mortality risk. He understands and would like to proceed. Description: The patient was taken the operating room and placed supine on the operating table. General anesthesia was performed. The abdomen is prepped with ChloraPrep and draped in a standard surgical manner. An initial incision was made the patient's right abdomen through to visualize 5 mm trocar was inserted. Pneumoperitoneum was created and the laparoscope introduced. Initial inspection showed a large amount of infected appearing abdominal fluid. Another 5 mm port was placed in the patient's right abdomen. Nearly 3 L of infected appearing fluid was suctioned. We did obtain a sample of intra-abdominal fluid which was suctioned and sent to microbiology. The liver was nodular consistent with advanced cirrhosis. The stomach and visualized portion of the first part of the duodenum appeared unremarkable. There was no sign of an inflammatory reaction, perforation, or inflammatory response. We then proceeded with full laparoscopic examination of the rest of the abdomen with attention to the bowel. Two additional left abdomen 5 mm trochars were inserted to assist with this. The visualized portions of the colon appeared unremarkable which included the sigmoid colon and rectum. The cecum and visualized portions of the right colon appeared unremarkable. The multiple loops of small bowel appeared unremarkable with no signs of ischemia or perforation. Visualization was difficult due to a very thick omentum. However gradually we were able to see the majority of the large and small bowel and no abnormality was seen. 250 cc of methylene blue were then inserted into the NG tube and there was no evidence of extravasation from the stomach or duodenum. The overall appearance and lack of a visualized perforated viscus seem most consistent with spontaneous bacterial peritonitis due to ascites and cirrhosis. A 19 [place] ROCIO drain was then left in the upper abdomen with an exit site in the right lateral port incision. This was secured to the skin with 2-0 nylon. The remaining ports were removed and the p neumoperitoneum was relieved. Skin at all incisions was closed with 4 Monocryl. Sterile dressings were applied. The patient was returned back to the intensive care unit. LIZET HERNANDEZ MD April 05, 2021 13:55
[2021-04-05] MEDS ORDERED: SEVOFLURANE > 120 MINUTES. IH ONE (14:07)
--- NOTE | 2021-04-05 14:10 | NUR ---
SS following for discharge planning. SS reviewed pt chart and discussed with pt RN. Pt is from home and is currently on room air. COVID19 negative. GI, Nephrology, and Surgery consulted. Pt on IV Zosyn. Pt has history of ETOH. Pt had surgery today. SS will continue to follow for discharge planning.
[2021-04-05] MEDS: MORPHINE SULFATE 2 MG/ML VIAL. IVP PRN ×2 (15:24→15:35)
[2021-04-05 15:25] LABS: BASE EXCESS ABG -14 mmol/L (-3-3); HCO3 ABG 14 mmol/L (21-28); PCO2 ABG 42 mmHg (35-46); PO2 ABG 80 mmHg (75-108); SAT O2 ABG 92 % (92-99)
[2021-04-05] MEDS ORDERED: MIDAZOLAM HCL/PF 5 MG/5 ML VIAL. IV ONE (15:45)
[2021-04-05] MEDS ORDERED: SODIUM BICARB ADULT 8.4% 50 MEQ/50 ML DISP.SYRIN. IV ONE (15:45)
[2021-04-05] MEDS: fentaNYL PF VIAL 100 MCG/2 ML VIAL IVP PRN ×3 (15:47→21:55)
[2021-04-05] MEDS: MIDAZOLAM 100mg/100ml NS BAG 100 ML IV PRN (15:57)
[2021-04-05] MEDS: SODIUM BICARBONATE VIAL 150 MEQ in IV DEXTROSE 5% 1,000 ML IV SCH (15:58)
[2021-04-05] MEDS: PIPERACILLIN/TAZOBACTAM 2.25 GM in IV NORMAL SALINE 50ML 50 ML IV SCH ×3 (16:28→23:38)
[2021-04-05] MEDS: NOREPINEPHRINE VIAL 8 MG in IV DEXTROSE 5% 250 ML IV PRN (16:34)
[2021-04-05 22:36] LABS: BASE EXCESS ABG -8 mmol/L (-3-3); HCO3 ABG 17 mmol/L (21-28); PCO2 ABG 32 mmHg (35-46); PO2 ABG 123 mmHg (75-108); SAT O2 ABG 99 % (92-99)
[2021-04-05 22:38] LABS: FIO2 ABG 50
[2021-04-06] VITALS (31 sets, daily range): BP systolic 75–122; BP diastolic 35–61
[2021-04-06] MEDS: NOREPINEPHRINE VIAL 8 MG in IV DEXTROSE 5% 250 ML IV PRN ×4 (00:03→20:20)
[2021-04-06] MEDS: IV NORMAL SALINE 1000ML BAG 1,000 ML IV SCH ×3 (00:29→21:24)
[2021-04-06] MEDS: fentaNYL PF VIAL 100 MCG/2 ML VIAL IVP PRN ×2 (00:50→02:53)
[2021-04-06] MEDS: SODIUM BICARBONATE VIAL 150 MEQ in IV DEXTROSE 5% 1,000 ML IV SCH ×2 (00:50→14:28)
[2021-04-06] MEDS: MIDAZOLAM 100mg/100ml NS BAG 100 ML IV PRN ×2 (03:30→17:35)
[2021-04-06] MEDS: PIPERACILLIN/TAZOBACTAM 2.25 GM in IV NORMAL SALINE 50ML 50 ML IV SCH ×3 (05:30→20:32)
[2021-04-06 05:56] LABS: BASO # 0.4 x10^3/uL (0.0-0.2); BASO % 2 % (0-3); EOS % 0 % (0-3); HEMATOCRIT 24.9 % (39.0-53.0); HEMOGLOBIN 8.1 g/dL (13.0-17.5); LYMPH # 1.5 x10^3/uL (1.0-4.8); LYMPH % 6 % (24-48); MEAN CORPUSCULAR HEMOGLOBIN 39 pg (25-35); MEAN CORPUSCULAR HGB CONC 33 g/dL (31-37); MEAN CORPUSCULAR VOLUME 121 fL (79-100); MONO # 2.1 x10^3/uL (0.0-1.1); MONO % 8 % (0-9); NEUT # 23.4 x10^3/uL (1.8-7.7); NEUT % 85 % (31-73); PLATELET COUNT 275 x10^3/uL (140-400); RED BLOOD COUNT 2.07 x10^6/uL (4.30-5.70); RED CELL DISTRIBUTION WIDTH 15.4 % (11.5-14.5); WHITE BLOOD COUNT 27.4 x10^3/uL (4.0-11.0)
[2021-04-06 06:16] LABS: CALCIUM 7.2 mg/dL (8.5-10.1); CREATININE 3.1 mg/dL (0.7-1.3); GFR 21.3; MAGNESIUM 1.8 mg/dL (1.8-2.4); PHOSPHORUS 6.2 mg/dL (2.6-4.7); POTASSIUM 4.4 mmol/L (3.5-5.1)
[2021-04-06 06:30] LABS: % BANDS 7 % (0-9); % LYMPHS 4 % (24-48); % MONOS 3 % (0-10); % SEGS 86 % (35-66)
[2021-04-06 06:31] LABS: PLT ESTIMATE ADEQUATE (ADEQUATE)
[2021-04-06] MEDS: PANTOPRAZOLE IV PUSH 40 MG VIAL. IVP SCH (07:57)
[2021-04-06 07:58] LABS: BASE EXCESS ABG -5 mmol/L (-3-3); HCO3 ABG 20 mmol/L (21-28); PCO2 ABG 38 mmHg (35-46); PO2 ABG 90 mmHg (75-108); SAT O2 ABG 97 % (92-99)
[2021-04-06 08:01] LABS: FIO2 ABG 40
--- NOTE | 2021-04-06 08:17 | RAD ---
INDICATION: Reason: intubated / Spl. Instructions: / History: COMPARISON: May 31, 2016 FINDINGS: Single view of chest obtained. Cardiac silhouette is prominent in size. Elevated left hemidiaphragm. Linear opacities at lung bases. Right-sided vascular catheter with tip projecting over SVC. Endotracheal tube midthoracic trachea. E nteric tube coursing below the diaphragm. IMPRESSION: * Lines and tubes as above. * Elevated left hemidiaphragm with mild bilateral basilar airspace opacities which could be from ate lectasis or early infiltrate. Electronically signed by: Denis Raygoza MD (04/06/2021 8:15 AM) [id number]
[2021-04-06] MEDS: VASOPRESSIN 20 UNIT in IV DEXTROSE 5% 100ML 100 ML IV PRN ×2 (08:45→15:40)
--- NOTE | 2021-04-06 09:23 | PDOC ---
Renal-Progress Notes Subjective Notes Notes NONE History of Present Illness Hx of present illness POST OP ON THE VENT Vitals Vitals Vital Signs Date Time Temp Pulse Resp B/P (MAP) Pulse Ox O2 Delivery O2 Flow Rate FiO2 04/06/21 09:00 84 17 122/61 (81) 97 Ventilator 04/06/21 08:00 98.5 98.5 Weight Weight [ ] I.O. Intake and Output Intake and Output 04/06/21 07:00 Intake Total 6054.14 ml Output Total 6490 ml Balance -435.86 ml IV Total 5207.14 ml Blood Product 847 ml Output Urine Total 1290 ml Gastric Drainage Total 100 ml Drainage Total 2080 ml Estimated Blood Loss 20 ml Other 3000 ml # Voids 235 Labs Labs Laboratory Tests Test 04/05/21 10:35 04/05/21 13:08 04/05/21 15:20 04/05/21 20:17 SARS-CoV-2 Antigen (Rapid) Negative (NEGATIVE) Glucose (Fingerstick) 99 mg/dL (70-99) O2 Saturation 92 % (92-99) 99 % (92-99) Arterial Blood pH 7.14 (7.35-7.45) 7.33 (7.35-7.45) Arterial Blood pCO2 at Patient Temp 42 mmHg (35-46) 32 mmHg (35-46) Arterial Blood pO2 at Patient Temp 80 mmHg (75-108) 123 mmHg (75-108) Arterial Blood HCO3 14 mmol/L (21-28) 17 mmol/L (21-28) Arterial Blood Base Excess -14 mmol/L (-3-3) -8 mmol/L (-3-3) FiO2 40% 08/28 50 Test 04/06/21 05:40 04/06/21 07:35 White Blood Count 27.4 x10^3/uL (4.0-11.0) Red Blood Count 2.07 x10^6/uL (4.30-5.70) Hemoglobin 8.1 g/dL (13.0-17.5) Hematocrit 24.9 % (39.0-53.0) Mean Corpuscular Volume 121 fL (79-100) Mean Corpuscular Hemoglobin 39 pg (25-35) Mean Corpuscular Hemoglobin Concent 33 g/dL (31-37) Red Cell Distribution Width 15.4 % (11.5-14.5) Platelet Count 275 x10^3/uL (140-400) Neutrophils (%) (Auto) 85 % (31-73) Lymphocytes (%) (Auto) 6 % (24-48) Monocytes (%) (Auto) 8 % (0-9) Eosinophils (%) (Auto) 0 % (0-3) Basophils (%) (Auto) 2 % (0-3) Neutrophils # (Auto) 23.4 x10^3/uL (1.8-7.7) Lymphocytes # (Auto) 1.5 x10^3/uL (1.0-4.8) Monocytes # (Auto) 2.1 x10^3/uL (0.0-1.1) Eosinophils # (Auto) 0.0 x10^3/uL (0.0-0.7) Basophils # (Auto) 0.4 x10^3/uL (0.0-0.2) Segmented Neutrophils % 86 % (35-66) Band Neutrophils % 7 % (0-9) Lymphocytes % 4 % (24-48) Monocytes % 3 % (0-10) Platelet Estimate Adequate (ADEQUATE) Macrocytosis Present Sodium Level 139 mmol/L (136-145) Potassium Level 4.4 mmol/L (3.5-5.1) Chloride Level 106 mmol/L (98-107) Carbon Dioxide Level 21 mmol/L (21-32) Anion Gap 12 (6-14) Blood Urea Nitrogen 61 mg/dL (8-26) Creatinine 3.1 mg/dL (0.7-1.3) Estimated GFR (Cockcroft-Gault) 21.3 Glucose Level 174 mg/dL (70-99) Calcium Level 7.2 mg/dL (8.5-10.1) Phosphorus Level 6.2 mg/dL (2.6-4.7) Magnesium Level 1.8 mg/dL (1.8-2.4) O2 Saturation 97 % (92-99) Arterial Blood pH 7.34 (7.35-7.45) Arterial Blood pCO2 at Patient Temp 38 mmHg (35-46) Arterial Blood pO2 at Patient Temp 90 mmHg (75-108) Arterial Blood HCO3 20 mmol/L (21-28) Arterial Blood Base Excess -5 mmol/L (-3-3) FiO2 40 Micro Micro Microbiology 5/13/21 Gram Stain - Final, Resulted 04/05/21 Aerobic and Anaerobic Culture - Preliminary, Resulted Review of Systems Constitutional: yes: other (UNABLE TO OBTAIN) Physical Exam General Appearance: no apparent distress Skin: warm Respiratory: ventilator (Mode:A/C), decreased breath sounds Heart: S1S2 Abdomen: soft, other (HYPOACTIVE) Genitourinary: bladder flat, mcleod catheter Extremities: pulses present, no edema Musculoskeletal: Other Assessment Assessment MP EDDI-ATN-CR IMPROVED TO 3.1 FROM 3.5 MET ACIDOSIS HYPERKALEMIA-RESOLVED HYPOTENSION PROB SEPSIS LEUCOCYTOSIS PNEUMOPERITONEUM S/P REPAIR AND PLACEMENT OF DRAIN PROB SBP ETOH ABUSE LIVER CIRRHOSIS COAGULOPATHY PLAN ANTIBIOTICS HYDRATION PRESSORS IF NEEDED START TPN HOLD HIS ARB SURGERY EVALUATION MAY NEED DIALYSIS IF CLEARANCE DOES NOT IMPROVE HERVE CHAVEZ MD April 06, 2021 09:23
--- NOTE | 2021-04-06 09:48 | PDOC ---
[employer] 04/06/21 0948: SURGICAL PROGRESS NOTE DATE: 04/06/21 TIME: 09:46 Subjective vent pressors Vital Signs Vital Signs Date Time Temp Pulse Resp B/P (MAP) Pulse Ox O2 Delivery O2 Flow Rate FiO2 04/06/21 09:32 16 98 Ventilator 04/06/21 09:30 81 114/57 (76) 04/06/21 08:00 98.5 98.5 I&O Intake and Output 04/06/21 07:00 Intake Total 6054.14 ml Output Total 6490 ml Balance -435.86 ml IV Total 5207.14 ml Blood Product 847 ml Output Urine Total 1290 ml Gastric Drainage Total 100 ml Drainage Total 2080 ml Estimated Blood Loss 20 ml Other 3000 ml # Voids 235 PATIENT HAS A WARREN: Yes General: Other (sedated ) HEENT: Other (vent) Abdomen: Other (drains serosang) Labs Laboratory Tests Test 04/05/21 05:03 04/05/21 09:05 04/05/21 10:35 04/05/21 13:08 White Blood Count 15.2 x10^3/uL (4.0-11.0) Red Blood Count 2.13 x10^6/uL (4.30-5.70) Hemoglobin 8.4 g/dL (13.0-17.5) Hematocrit 25.9 % (39.0-53.0) Mean Corpuscular Volume 122 fL (79-100) Mean Corpuscular Hemoglobin 40 pg (25-35) Mean Corpuscular Hemoglobin Concent 33 g/dL (31-37) Red Cell Distribution Width 15.3 % (11.5-14.5) Platelet Count 115 x10^3/uL (140-400) Neutrophils (%) (Auto) 82 % (31-73) Lymphocytes (%) (Auto) 7 % (24-48) Monocytes (%) (Auto) 10 % (0-9) Eosinophils (%) (Auto) 0 % (0-3) Basophils (%) (Auto) 0 % (0-3) Neutrophils # (Auto) 12.5 x10^3/uL (1.8-7.7) Lymphocytes # (Auto) 1.1 x10^3/uL (1.0-4.8) Monocytes # (Auto) 1.6 x10^3/uL (0.0-1.1) Eosinophils # (Auto) 0.0 x10^3/uL (0.0-0.7) Basophils # (Auto) 0.0 x10^3/uL (0.0-0.2) Platelet Estimate Decreased (ADEQUATE) Macrocytosis Marked Prothrombin Time 20.7 SEC (11.7-14.0) Prothromb Time International Ratio 1.8 (0.8-1.1) Sodium Level 137 mmol/L (136-145) Potassium Level 5.4 mmol/L (3.5-5.1) Chloride Level 105 mmol/L (98-107) Carbon Dioxide Level 14 mmol/L (21-32) Anion Gap 18 (6-14) Blood Urea Nitrogen 58 mg/dL (8-26) Creatinine 3.5 mg/dL (0.7-1.3) Estimated GFR (Cockcroft-Gault) 18.6 BUN/Creatinine Ratio 17 (6-20) Glucose Level 132 mg/dL (70-99) Lactic Acid Level 6.7 mmol/L (0.4-2.0) 4.4 mmol/L (0.4-2.0) Calcium Level 8.6 mg/dL (8.5-10.1) Total Bilirubin 5.2 mg/dL (0.2-1.0) Aspartate Amino Transf (AST/SGOT) 113 U/L (15-37) Alanine Aminotransferase (ALT/SGPT) 66 U/L (16-63) Alkaline Phosphatase 107 U/L (46-116) Total Protein 6.7 g/dL (6.4-8.2) Albumin 1.8 g/dL (3.4-5.0) Albumin/Globulin Ratio 0.4 (1.0-1.7) SARS-CoV-2 Antigen (Rapid) Negative (NEGATIVE) Glucose (Fingerstick) 99 mg/dL (70-99) Test 04/05/21 15:20 04/05/21 20:17 04/06/21 05:40 04/06/21 07:35 O2 Saturation 92 % (92-99) 99 % (92-99) 97 % (92-99) Arterial Blood pH 7.14 (7.35-7.45) 7.33 (7.35-7.45) 7.34 (7.35-7.45) Arterial Blood pCO2 at Patient Temp 42 mmHg (35-46) 32 mmHg (35-46) 38 mmHg (35-46) Arterial Blood pO2 at Patient Temp 80 mmHg (75-108) 123 mmHg (75-108) 90 mmHg (75-108) Arterial Blood HCO3 14 mmol/L (21-28) 17 mmol/L (21-28) 20 mmol/L (21-28) Arterial Blood Base Excess -14 mmol/L (-3-3) -8 mmol/L (-3-3) -5 mmol/L (-3-3) FiO2 40% 10/5 50 40 White Blood Count 27.4 x10^3/uL (4.0-11.0) Red Blood Count 2.07 x10^6/uL (4.30-5.70) Hemoglobin 8.1 g/dL (13.0-17.5) Hematocrit 24.9 % (39.0-53.0) Mean Corpuscular Volume 121 fL (79-100) Mean Corpuscular Hemoglobin 39 pg (25-35) Mean Corpuscular Hemoglobin Concent 33 g/dL (31-37) Red Cell Distribution Width 15.4 % (11.5-14.5) Platelet Count 275 x10^3/uL (140-400) Neutrophils (%) (Auto) 85 % (31-73) Lymphocytes (%) (Auto) 6 % (24-48) Monocytes (%) (Auto) 8 % (0-9) Eosinophils (%) (Auto) 0 % (0-3) Basophils (%) (Auto) 2 % (0-3) Neutrophils # (Auto) 23.4 x10^3/uL (1.8-7.7) Lymphocytes # (Auto) 1.5 x10^3/uL (1.0-4.8) Monocytes # (Auto) 2.1 x10^3/uL (0.0-1.1) Eosinophils # (Auto) 0.0 x10^3/uL (0.0-0.7) Basophils # (Auto) 0.4 x10^3/uL (0.0-0.2) Segmented Neutrophils % 86 % (35-66) Band Neutrophils % 7 % (0-9) Lymphocytes % 4 % (24-48) Monocytes % 3 % (0-10) Platelet Estimate Adequate (ADEQUATE) Macrocytosis Present Sodium Level 139 mmol/L (136-145) Potassium Level 4.4 mmol/L (3.5-5.1) Chloride Level 106 mmol/L (98-107) Carbon Dioxide Level 21 mmol/L (21-32) Anion Gap 12 (6-14) Blood Urea Nitrogen 61 mg/dL (8-26) Creatinine 3.1 mg/dL (0.7-1.3) Estimated GFR (Cockcroft-Gault) 21.3 Glucose Level 174 mg/dL (70-99) Calcium Level 7.2 mg/dL (8.5-10.1) Phosphorus Level 6.2 mg/dL (2.6-4.7) Magnesium Level 1.8 mg/dL (1.8-2.4) Test 04/06/21 08:30 Lactic Acid Level 2.5 mmol/L (0.4-2.0) Laboratory Tests Test 04/05/21 10:35 04/05/21 13:08 04/05/21 15:20 04/05/21 20:17 SARS-CoV-2 Antigen (Rapid) Negative (NEGATIVE) Glucose (Fingerstick) 99 mg/dL (70-99) O2 Saturation 92 % (92-99) 99 % (92-99) Arterial Blood pH 7.14 (7.35-7.45) 7.33 (7.35-7.45) Arterial Blood pCO2 at Patient Temp 42 mmHg (35-46) 32 mmHg (35-46) Arterial Blood pO2 at Patient Temp 80 mmHg (75-108) 123 mmHg (75-108) Arterial Blood HCO3 14 mmol/L (21-28) 17 mmol/L (21-28) Arterial Blood Base Excess -14 mmol/L (-3-3) -8 mmol/L (-3-3) FiO2 40% 08/28 50 Test 04/06/21 05:40 04/06/21 07:35 04/06/21 08:30 White Blood Count 27.4 x10^3/uL (4.0-11.0) Red Blood Count 2.07 x10^6/uL (4.30-5.70) Hemoglobin 8.1 g/dL (13.0-17.5) Hematocrit 24.9 % (39.0-53.0) Mean Corpuscular Volume 121 fL (79-100) Mean Corpuscular Hemoglobin 39 pg (25-35) Mean Corpuscular Hemoglobin Concent 33 g/dL (31-37) Red Cell Distribution Width 15.4 % (11.5-14.5) Platelet Count 275 x10^3/uL (140-400) Neutrophils (%) (Auto) 85 % (31-73) Lymphocytes (%) (Auto) 6 % (24-48) Monocytes (%) (Auto) 8 % (0-9) Eosinophils (%) (Auto) 0 % (0-3) Basophils (%) (Auto) 2 % (0-3) Neutrophils # (Auto) 23.4 x10^3/uL (1.8-7.7) Lymphocytes # (Auto) 1.5 x10^3/uL (1.0-4.8) Monocytes # (Auto) 2.1 x10^3/uL (0.0-1.1) Eosinophils # (Auto) 0.0 x10^3/uL (0.0-0.7) Basophils # (Auto) 0.4 x10^3/uL (0.0-0.2) Segmented Neutrophils % 86 % (35-66) Band Neutrophils % 7 % (0-9) Lymphocytes % 4 % (24-48) Monocytes % 3 % (0-10) Platelet Estimate Adequate (ADEQUATE) Macrocytosis Present Sodium Level 139 mmol/L (136-145) Potassium Level 4.4 mmol/L (3.5-5.1) Chloride Level 106 mmol/L (98-107) Carbon Dioxide Level 21 mmol/L (21-32) Anion Gap 12 (6-14) Blood Urea Nitrogen 61 mg/dL (8-26) Creatinine 3.1 mg/dL (0.7-1.3) Estimated GFR (Cockcroft-Gault) 21.3 Glucose Level 174 mg/dL (70-99) Calcium Level 7.2 mg/dL (8.5-10.1) Phosphorus Level 6.2 mg/dL (2.6-4.7) Magnesium Level 1.8 mg/dL (1.8-2.4) O2 Saturation 97 % (92-99) Arterial Blood pH 7.34 (7.35-7.45) Arterial Blood pCO2 at Patient Temp 38 mmHg (35-46) Arterial Blood pO2 at Patient Temp 90 mmHg (75-108) Arterial Blood HCO3 20 mmol/L (21-28) Arterial Blood Base Excess -5 mmol/L (-3-3) FiO2 40 Lactic Acid Level 2.5 mmol/L (0.4-2.0) Problem List supportive care, critical care drain, abx Justicifation of Admission Dx: Justifications for Admission: Justification of Admission Dx: Yes Comments: sepsis LIZET HERNANDEZ MD 04/09/21 0733: SURGICAL PROGRESS NOTE Assessment/Plan Agree with above BRINA BIGGS APRN April 06, 2021 09:48 LIZET HERNANDEZ MD April 09, 2021 07:33
--- NOTE | 2021-04-06 10:01 | CONS ---
DATE OF CONSULTATION: 04/06/2021 PULMONARY CONSULTATION ATTENDING PHYSICIAN: Dr. Natty Jansen. REASON FOR CONSULTATION: Respiratory failure, septic shock. HISTORY OF PRESENT ILLNESS: The patient is a 50-year-old male who has history of alcohol abuse and history of tobacco use. He was brought in from [facility] due to pneumoperitoneum. He presented initially at [facility] with abdominal pain and abdominal distention. He had some associated nausea and vomiting. The patient was seen by General Surgery at [facility] and was taken to the operating room. The patient did not have any significant bowel perforation. The patient was found to have findings consistent with spontaneous bacterial peritonitis. The patient was kept on mechanical ventilation. He had increasing metabolic acidosis as well as lactic acidosis. He also has EDDI. This morning, he was doing paradoxical breathing. As a result, we had to put him on fentanyl drip. He is requiring 2 vasopressors. His serum chemistries from yesterday showed a BUN of 58 and a creatinine of 3.5 with a bicarbonate of 18. He has been on a bicarbonate drip. The patient's lactic acid was 6.7, now down to 4.4 and this morning it is down to 2.5. He has received aggressive IV fluid resuscitation. His INR is 1.8. White cell count has jumped up to 27,000. He was COVID negative. Chest x-ray post-intubation was reviewed. The patient has bibasilar atelectasis versus infiltrate, more on the left base than the right. His arterial blood gases latest have shown a pH of 7.34, pCO2 of 38 and a pO2 of 90 with a bicarbonate of 20 on 40% FiO2. I have been asked to see him for further evaluation. PAST MEDICAL HISTORY: Significant for history of alcoholism, history of tobaccoism, history of hypertension. PAST SURGICAL HISTORY: Abdominal hernia surgery and knee surgery. FAMILY HISTORY: FL. SOCIAL HISTORY: One pack per day for 20 years and history of heavy alcohol use. ALLERGIES: None. MEDICATIONS: Reviewed as listed in the MRAD including vasopressors and Zosyn. REVIEW OF SYSTEMS: System review is unable to obtain from the patient. PHYSICAL EXAMINATION: VITAL SIGNS: Reviewed. Blood pressure stable on 2 pressors, afebrile, pulse ox is 98%. HEENT: Sclerae are nonicteric. NECK: Supple. LUNGS: With diminished breath sounds. CARDIOVASCULAR: Regular rate. ABDOMEN: Distended. He does have bowel sounds. EXTREMITIES: With no pitting edema. LABORATORY DATA: Reviewed. His BUN is 61, creatinine of 3.1. Lactic acid is trending down. INR 1.8. ABGs discussed in my history of present illness. White cell count 27,000, platelets are 275. IMPRESSION: 1. Acute hypoxic respiratory failure secondary to septic shock. 2. Septic shock secondary to spontaneous bacterial peritonitis in a patient who has alcoholism and cirrhosis along with ascites. 3. Acute kidney injury. 4. Lactic acidosis secondary to septic shock, now improved. 5. History of tobaccoism. 6. History of alcoholism. 7. Cirrhosis secondary to alcoholism. 8. Coagulopathy secondary to cirrhosis. 9. COVID negative. RECOMMENDATIONS: 1. Continue with present assist control mode. We will make necessary adjustment based on ABGs. 2. At this point, he is not ready for any weaning trial until he is off of the vasopressors. 3. Continue present vasopressor support. 4. Broad spectrum antibiotics per infectious disease recommendation. 5. Monitor renal function. Follow renal recommendations. 6. TPN per Nephrology. 7. Follow all cultures. 8. Follow Surgery recommendations. 9. Continue bicarbonate drip. 10. Discussed with RN and RT. Chart reviewed. Imaging studies reviewed. Critical care time [address]: hPan TID: [id number]
--- NOTE | 2021-04-06 10:44 | CONS ---
DATE OF CONSULTATION: 04/06/2021 REFERRING PHYSICIAN: Dr. Gallegos. REASON FOR CONSULTATION: Spontaneous bacterial peritonitis, antibiotic management. Source, chart review and staff. HISTORY OF PRESENT ILLNESS: A 50-year-old male with history of heavy alcohol dependence, presented to [facility] ER with abdominal pain, nausea, vomiting, poor appetite, not feeling well a week prior to admission. The patient is currently intubated and admitted to ICU. Further evaluation revealed pneumoperitoneum. The patient had a leukocytosis, lactic acidosis, EDDI, hyperkalemia, elevated LFTs, coagulopathy, thrombocytopenia. The patient was evaluated by General Surgery. He underwent diagnostic laparoscopy due to high risk surgical candidate due to multiple comorbidities on 04/05/2021. Visualized portion of the colon were unremarkable. Intraoperative findings were negative for perforated viscus. It appeared that changes were suggestive of spontaneous bacterial peritonitis due to ascites and cirrhosis. The patient is currently on Zosyn. ID consultation has been requested for antibiotic management. The patient was intubated postoperatively. Currently, he is on vasopressin and Levophed, has a central line placement, Hwang catheter placement. ROCIO drain in place. Hwang catheter and NG tube placement. PAST MEDICAL HISTORY: Hypertension, MSSA septic joint, nephrolithiasis, COPD, DVT, CVA. PAST SURGICAL HISTORY: Umbilical hernia repair, I and D of perirectal abscess, left knee arthroscopy. FAMILY HISTORY: Noncontributory. SOCIAL HISTORY: Smoker, 1 pack per day, heavy ETOH use, no drug use. REVIEW OF SYSTEMS: Unable to obtain. MEDICATIONS: Zosyn. Other medications reviewed in medication list. PHYSICAL EXAMINATION: VITAL SIGNS: Temperature 98.5, pulse 81, respirations 16, blood pressure 114/57, oxygen saturation 98% on FIO2 of 40, PEEP of 5. GENERAL: Intubated and sedated. HEENT: Atraumatic. NECK: Right IJ clean. LUNGS: Decreased breath sounds at the bases, otherwise clear. No wheezing. HEART: S1, S2. ABDOMEN: Distended, laparoscopy dressing intact, not taken down. ROCIO drain in place. Bowel sounds hypoactive. EXTREMITIES: No edema. Hyperpigmentation. Slight mottling. GENITOURINARY: Hwang in place. No generalized rash except for above. PSYCHIATRIC: Unable to assess. The patient was alert, oriented x 3 prior to surgery. LABORATORY DATA: WBC 27.4, was 15.2, hemoglobin 8.1, hematocrit 24.9, platelets 275. Sodium 139, potassium 4.4, chloride 106, bicarbonate 21, BUN 61, creatinine 3.1. Lactate 6.7, was 2.5. INR 1.8. SARS-COVID rapid negative. Micro abdominal fluid, no organisms seen, WBC, moderate. IMAGING: Chest x-ray here showed lines and tubes in place, elevated left hemidiaphragm and mild bibasilar airspace opacities, could be atelectasis or early infiltrate. IMPRESSION: 1. Severe sepsis. 2. Abdominal pain, nausea, vomiting. Pneumoperitoneum on CT, status post diagnostic laparoscopy, placement of abdominal drain. No evidence of perforated viscus. Findings were consistent with spontaneous bacterial peritonitis. 3. Ascites and cirrhosis. 4. ETOH dependence. 5. Acute kidney injury with hyperkalemia. 6. Thrombocytopenia. 7. Coagulopathy. 8. Increased LFTs. 9. Postoperative intubation. RECOMMENDATIONS: 1. Continue Zosyn, renal dosing. 2. Start Zyvox. 3. Start micafungin. 4. Follow up labs and cultures. 5. Drain management as directed. 6. Critically ill. 7. Discussed with nursing staff. Thank you for allowing me to participate in this patient's care. If you have any questions, do not hesitate to contact me. VINCENZO ARGUETA: Earnestine TID: [id number]
[2021-04-06] MEDS: TPN PER PHARMACY MC PRN (10:54)
--- NOTE | 2021-04-06 10:55 | NUR ---
Pharmacy TPN Dosing Note S: ALEXANDREABHISHEK is a 50 year old M Currently receiving Central Continuous TPN started 04/06/21 B:Pertinent PMH: NPO- s/p ex lap Height: 5 feet, 11 inches Weight: 110.5 kg Current diet: NPO LABS: Sodium: 139 Potassium: 4.4 Chloride: 106 Calcium: 7.2 Corrected Calcium: 8.96 Magnesium: 1.8 CO2: 21 SCr: 3.1 Glucose: 174 Albumin: 1.8 AST: 113 ALT: 66 TPN FORMULA: TPN TYPE: Central Continuous AMINO ACIDS: 60 gm DEXTROSE: 195 gm SODIUM CHLORIDE: 90 mEq POTASSIUM CHLORIDE: 35 mEq MAGNESIUM: 10 mEq CALCIUM: 10 mEq MULTIPLE VITAMIN: 5 ml TRACE ELEMENTS: 1 ml(s) TPN PLAN: EDDI is improving but will start with lower KCl value than standard formula. Patient w/ cirrhosis and elevated LFTs- will hold lipids for now. Phos elevated- hold in TPN. -CMP, Mag, Phos and TG in AM. R: Begin TPN as noted above. Will monitor electrolytes, glucose, and tolerance to TPN. DHARA GONZALES [facility], 04/06/21 [id number]
--- NOTE | 2021-04-06 11:02 | PDOC ---
Date of Service: DATE: 04/06/21 TIME: 10:57 Objective: Objective: Operative Note: Preoperative Diagnosis: Perforated Viscus Postoperative Diagnosis: Suspect spontaneous bacterial peritonitis Procedure: Diagnostic laparoscopy, culture abdominal fluid, placement of abdominal drain D/w nurse - on pressors, 90cc/hr from drain, not much NGT output. Vital Signs: Vital Signs Date Time Temp Pulse Resp B/P (MAP) Pulse Ox O2 Delivery O2 Flow Rate FiO2 04/06/21 10:45 78 95/43 (60) 04/06/21 10:00 17 98 Ventilator 04/06/21 08:00 98.5 98.5 Labs: Laboratory Tests Test 04/05/21 13:08 04/05/21 15:20 04/05/21 20:17 04/06/21 05:40 Glucose (Fingerstick) 99 mg/dL O2 Saturation 92 % 99 % Arterial Blood pH 7.14 7.33 Arterial Blood pCO2 at Patient Temp 42 mmHg 32 mmHg Arterial Blood pO2 at Patient Temp 80 mmHg 123 mmHg Arterial Blood HCO3 14 mmol/L 17 mmol/L Arterial Blood Base Excess -14 mmol/L -8 mmol/L FiO2 40% 10/5 50 White Blood Count 27.4 x10^3/uL Red Blood Count 2.07 x10^6/uL Hemoglobin 8.1 g/dL Hematocrit 24.9 % Mean Corpuscular Volume 121 fL Mean Corpuscular Hemoglobin 39 pg Mean Corpuscular Hemoglobin Concent 33 g/dL Red Cell Distribution Width 15.4 % Platelet Count 275 x10^3/uL Neutrophils (%) (Auto) 85 % Lymphocytes (%) (Auto) 6 % Monocytes (%) (Auto) 8 % Eosinophils (%) (Auto) 0 % Basophils (%) (Auto) 2 % Neutrophils # (Auto) 23.4 x10^3/uL Lymphocytes # (Auto) 1.5 x10^3/uL Monocytes # (Auto) 2.1 x10^3/uL Eosinophils # (Auto) 0.0 x10^3/uL Basophils # (Auto) 0.4 x10^3/uL Segmented Neutrophils % 86 % Band Neutrophils % 7 % Lymphocytes % 4 % Monocytes % 3 % Platelet Estimate Adequate Macrocytosis Present Sodium Level 139 mmol/L Potassium Level 4.4 mmol/L Chloride Level 106 mmol/L Carbon Dioxide Level 21 mmol/L Anion Gap 12 Blood Urea Nitrogen 61 mg/dL Creatinine 3.1 mg/dL Estimated GFR (Cockcroft-Gault) 21.3 Glucose Level 174 mg/dL Calcium Level 7.2 mg/dL Phosphorus Level 6.2 mg/dL Magnesium Level 1.8 mg/dL Test 04/06/21 07:35 04/06/21 08:30 O2 Saturation 97 % Arterial Blood pH 7.34 Arterial Blood pCO2 at Patient Temp 38 mmHg Arterial Blood pO2 at Patient Temp 90 mmHg Arterial Blood HCO3 20 mmol/L Arterial Blood Base Excess -5 mmol/L FiO2 40 Lactic Acid Level 2.5 mmol/L GRAM STAIN Final Final NO ORGANISMS SEEN. SQUAMOUS EPI CELL:NOT APPLICABLE PMN (WBCs):MODERATE Unless otherwise specified, Testing Performed by: [address] [id number] For Inquires, the Physician may contact the Microbiology department at [phone] ANAEROBIC-AEROBIC CULTURE Preliminary Preliminary No Growth on 04/06/21 at 0838 Unless otherwise specified, Testing Performed by: [address] [address] For Inquires, the Physician may contact the Microbiology department at [phone] Imaging: CXR 04/06 IMPRESSION: * Lines and tubes as above. * Elevated left hemidiaphragm with mild bilateral basilar airspace opacities which could be from atelectasis or early infiltrate. PE: GEN: intubated LUNGS: vent HEART: RRR ABD: drain serosanguineous, distended, few quiet BS, NG bilious NEURO/PSYCH: sedated A/P: Suspected SBP Leukocytosis, EDDI, hypotension Anemia - h/o iron and B12 deficiency - stable Alcoholic liver disease w/ coagulopathy, thrombocytopenia (better s/p FFP), elevated LFTs Cholelithiasis -- Continue support, await pending studies, follow labs. Justicifation of Admission Dx: Justifications for Admission: Justification of Admission Dx: Yes CHRISTIANE BRIONES April 06, 2021 11:02
[2021-04-06] MEDS: MICAFUNGIN 100 MG in IV DEXTROSE 5% 100ML 100 ML IV SCH (12:28)
--- NOTE | 2021-04-06 14:50 | PDOC ---
[employer] PROGRESS NOTE Date of Service DOS: DATE: 04/06/21 TIME: 14:34 Chief Complaint Chief Complaint Sepsis Pneumoperitoneum Suspect spontaneous bacterial peritonitis Leukocytosis Duodenitis Ascites Probable cirrhosis Cholelithiasis History alcohol abuse History COPD Severe malnutrition Plan: Consultations placed to general surgery and GI Due to concern for perforation I believe patient will be taken to the OR this morning. We will continue treatment with Zosyn, and may need to broaden antibiotic coverage with metronidazole; will consider consulting ID following surgery. IV pain medication FEN - NPO PPX - Heparin FULL CODE; patient names his daughter as surrogate decision-maker. Dispo - inpatient for above History of Present Illness History of Present Illness Patient is a 50-year-old male with past medical history alcohol abuse, who presents as a transfer from [facility] due to pneumoperitoneum. Initially at [facility] ER he complained of abdominal pain and abdominal swelling over the past week, 07/03. He reports associated nausea and vomiting over this time, and is not amenable to take his home medications. Patient also reports noticing alysas e discoloration of his eyes, discoloration of the skin, and dark urine over the past several days. He denies recent NSAID use. He was transferred to [facility] and admitted to the ICU for further medical management. 04/06/2021 Patient seen in ICU s/p diagnostic laparoscopy with culture abdominal fluid and placement of abdominal drain. Suspect spontaneous bacterial peritonitis. He is currently on 2 vasopressors. Continue linezolid, Zosyn, and micafungin, per ID. No organisms seen on Gram stain of abdominal fluid and preliminary abdominal fluid cultures with no growth to date. 30 minutes critical care time spent reviewing charts, reviewing labs, reviewing imaging, and discussion with RN. Vitals/I&O Vitals/I&O: Vital Signs Date Time Temp Pulse Resp B/P (MAP) Pulse Ox O2 Delivery O2 Flow Rate FiO2 04/06/21 14:00 84 17 105/58 (74) 98 Ventilator 04/06/21 12:00 99.0 99.0 I & O 04/05/21 04/05/21 04/06/21 15:00 23:00 07:00 Intake Total 3000 ml 1257.44 ml 1796.7 ml Output Total 3710 ml 1275 ml 1505 ml Balance -710 ml -17.56 ml 291.7 ml Physical Exam General: Other (sedated ) Heart: Regular rate Lungs: Clear Abdomen: Other (drains serosang) Extremities: No cyanosis Skin: No rashes Labs Labs: Laboratory Tests Test 04/05/21 15:20 04/05/21 20:17 04/06/21 05:40 04/06/21 07:35 O2 Saturation 92 % (92-99) 99 % (92-99) 97 % (92-99) Arterial Blood pH 7.14 (7.35-7.45) 7.33 (7.35-7.45) 7.34 (7.35-7.45) Arterial Blood pCO2 at Patient Temp 42 mmHg (35-46) 32 mmHg (35-46) 38 mmHg (35-46) Arterial Blood pO2 at Patient Temp 80 mmHg (75-108) 123 mmHg (75-108) 90 mmHg (75-108) Arterial Blood HCO3 14 mmol/L (21-28) 17 mmol/L (21-28) 20 mmol/L (21-28) Arterial Blood Base Excess -14 mmol/L (-3-3) -8 mmol/L (-3-3) -5 mmol/L (-3-3) FiO2 40% 10/5 50 40 White Blood Count 27.4 x10^3/uL (4.0-11.0) Red Blood Count 2.07 x10^6/uL (4.30-5.70) Hemoglobin 8.1 g/dL (13.0-17.5) Hematocrit 24.9 % (39.0-53.0) Mean Corpuscular Volume 121 fL (79-100) Mean Corpuscular Hemoglobin 39 pg (25-35) Mean Corpuscular Hemoglobin Concent 33 g/dL (31-37) Red Cell Distribution Width 15.4 % (11.5-14.5) Platelet Count 275 x10^3/uL (140-400) Neutrophils (%) (Auto) 85 % (31-73) Lymphocytes (%) (Auto) 6 % (24-48) Monocytes (%) (Auto) 8 % (0-9) Eosinophils (%) (Auto) 0 % (0-3) Basophils (%) (Auto) 2 % (0-3) Neutrophils # (Auto) 23.4 x10^3/uL (1.8-7.7) Lymphocytes # (Auto) 1.5 x10^3/uL (1.0-4.8) Monocytes # (Auto) 2.1 x10^3/uL (0.0-1.1) Eosinophils # (Auto) 0.0 x10^3/uL (0.0-0.7) Basophils # (Auto) 0.4 x10^3/uL (0.0-0.2) Segmented Neutrophils % 86 % (35-66) Band Neutrophils % 7 % (0-9) Lymphocytes % 4 % (24-48) Monocytes % 3 % (0-10) Platelet Estimate Adequate (ADEQUATE) Macrocytosis Present Sodium Level 139 mmol/L (136-145) Potassium Level 4.4 mmol/L (3.5-5.1) Chloride Level 106 mmol/L (98-107) Carbon Dioxide Level 21 mmol/L (21-32) Anion Gap 12 (6-14) Blood Urea Nitrogen 61 mg/dL (8-26) Creatinine 3.1 mg/dL (0.7-1.3) Estimated GFR (Cockcroft-Gault) 21.3 Glucose Level 174 mg/dL (70-99) Calcium Level 7.2 mg/dL (8.5-10.1) Phosphorus Level 6.2 mg/dL (2.6-4.7) Magnesium Level 1.8 mg/dL (1.8-2.4) Test 04/06/21 08:30 Lactic Acid Level 2.5 mmol/L (0.4-2.0) Comment Review of Relevant I have reviewed the following items jeff (where applicable) has been applied. Medications: Current Medications Medications (Trade) Dose Ordered Sig/Ada Route PRN Reason Start Time Stop Time Status Last Admin Dose Admin Sodium Bicarbonate 150 meq/Dextrose 1,150 ml @ 100 mls/hr [id number] IV 04/05/21 16:00 04/06/21 14:28 Sodium Bicarbonate (Sodium Bicarb Adult 8.4% Syr) 100 meq 1X ONCE IV 04/05/21 15:45 04/05/21 15:46 DC 04/05/21 15:46 Midazolam HCl 100 ml @ 1 mls/hr CONT PRN IV SEE I/O RECORD 04/05/21 16:00 04/06/21 03:30 Midazolam HCl (Versed) 5 mg 1X ONCE IV 04/05/21 15:45 04/05/21 15:46 DC 04/05/21 15:46 Fentanyl Citrate (Fentanyl 2ml Vial) 100 mcg PRN Q2HR PRN IVP PAIN 04/05/21 15:45 04/06/21 08:25 DC 04/06/21 02:53 Norepinephrine Bitartrate 8 mg/ Dextrose 258 ml @ 21.537 mls/ hr CONT PRN IV PER PROTOCOL 04/05/21 16:15 04/06/21 14:00 Pantoprazole Sodium (PROTONIX VIAL for IV PUSH) 40 mg DAILYAC IVP 04/06/21 07:30 04/06/21 07:57 Vasopressin 20 unit/Dextrose 101 ml @ 12 mls/hr CONT PRN IV SEE I/O RECORD 04/06/21 08:30 04/06/21 08:45 Fentanyl Citrate 30 ml @ 0 mls/hr CONT PRN IV SEE PROTOCOL 04/06/21 08:30 04/06/21 08:50 Info (Tpn Per Pharmacy) 1 each PRN DAILY PRN MC SEE COMMENTS 04/06/21 09:30 04/06/21 10:54 Linezolid/Dextrose 300 ml @ 300 mls/hr Q12HR IV 04/06/21 11:00 04/06/21 11:16 Micafungin Sodium 100 mg/Dextrose 100 ml @ 100 mls/hr Q24H IV 04/06/21 12:00 04/06/21 12:28 Justifications for Admission Other Justification LFEX GRAHAM MD April 06, 2021 14:50
--- NOTE | 2021-04-06 15:38 | NUR ---
SS following up with discharge planning. SS reviewed pt chart and discussed with pt RN. Pt is currently on the vent at 40%. COVID19 negative. Pt had surgery on 04/05/2021. Pt on IV Zyvox, IV Micafungin, and IV Zosyn. TPN. NG tube in place. Pt has Hwang and ROCIO drain. Pt on Vasopressin, Levophed, and Bicarb drip. Not stable. SS will continue to follow for discharge planning.
[2021-04-06] MEDS ORDERED: TOTAL PARENTERAL NUTRITION IV SCH (22:00)
[2021-04-06] MEDS ORDERED: [UNRECOGNIZED DRUG - OTHER] IV SCH (22:00)
[2021-04-06] MEDS ORDERED: DEXTROSE 70% IV SCH (22:00)
[2021-04-06] MEDS ORDERED: AMINO ACID IV SCH (22:00)
[2021-04-07] VITALS (25 sets, daily range): BP systolic 96–117; BP diastolic 46–60
[2021-04-07] MEDS: VASOPRESSIN 20 UNIT in IV DEXTROSE 5% 100ML 100 ML IV PRN ×3 (00:27→18:06)
[2021-04-07] MEDS: PIPERACILLIN/TAZOBACTAM 2.25 GM in IV NORMAL SALINE 50ML 50 ML IV SCH ×5 (00:28→23:59)
[2021-04-07] MEDS: SODIUM BICARBONATE VIAL 150 MEQ in IV DEXTROSE 5% 1,000 ML IV SCH (03:21)
[2021-04-07] MEDS: NOREPINEPHRINE VIAL 8 MG in IV DEXTROSE 5% 250 ML IV PRN ×3 (04:04→22:54)
[2021-04-07 06:12] LABS: HEMATOCRIT 22.7 % (39.0-53.0); HEMOGLOBIN 7.6 g/dL (13.0-17.5); RED BLOOD COUNT 1.89 x10^6/uL (4.30-5.70); RED CELL DISTRIBUTION WIDTH 15.2 % (11.5-14.5); WHITE BLOOD COUNT 15.7 x10^3/uL (4.0-11.0)
[2021-04-07 06:24] LABS: PROTHROMBIN TIME PATIENT 17.8 SEC (11.7-14.0)
[2021-04-07 06:38] LABS: ALBUMIN 1.5 g/dL (3.4-5.0); ALBUMIN/GLOBULIN RATIO 0.3 (1.0-1.7); CALCIUM 6.7 mg/dL (8.5-10.1); CREATININE 1.7 mg/dL (0.7-1.3); GFR 42.7; MAGNESIUM 1.4 mg/dL (1.8-2.4); PHOSPHORUS 4.2 mg/dL (2.6-4.7); POTASSIUM 3.7 mmol/L (3.5-5.1); TOTAL BILIRUBIN 3.3 mg/dL (0.2-1.0); TOTAL PROTEIN 6.2 g/dL (6.4-8.2)
--- NOTE | 2021-04-07 06:41 | PDOC ---
PULMONARY PROGRESS NOTES DATE: 04/07/21 TIME: 06:40 Subjective on vent sedated on fentanyl versed small ett secretion on vaso and levo Vitals Vital Signs Date Time Temp Pulse Resp B/P (MAP) Pulse Ox O2 Delivery O2 Flow Rate FiO2 04/07/21 04:30 99 Ventilator 04/07/21 04:05 16 04/07/21 04:00 100.0 90 106/53 (70) 100.0 Comments on vent sedated not able to obtain ros HEENT: Other (nc at perrl nose clear orally intubated neck no lad thyromegaly) Lungs: Crackles Cardiovascular: S1, S2 Abdomen: Soft, Non-tender, Other (obese) Extremities: Other (edema ) Skin: Warm Labs Laboratory Tests Test 04/05/21 09:05 04/05/21 10:35 04/05/21 13:08 04/05/21 15:20 Lactic Acid Level 4.4 mmol/L (0.4-2.0) SARS-CoV-2 Antigen (Rapid) Negative (NEGATIVE) Glucose (Fingerstick) 99 mg/dL (70-99) O2 Saturation 92 % (92-99) Arterial Blood pH 7.14 (7.35-7.45) Arterial Blood pCO2 at Patient Temp 42 mmHg (35-46) Arterial Blood pO2 at Patient Temp 80 mmHg (75-108) Arterial Blood HCO3 14 mmol/L (21-28) Arterial Blood Base Excess -14 mmol/L (-3-3) FiO2 40% 08/28 Test 04/05/21 20:17 04/06/21 05:40 04/06/21 07:35 04/06/21 08:30 O2 Saturation 99 % (92-99) 97 % (92-99) Arterial Blood pH 7.33 (7.35-7.45) 7.34 (7.35-7.45) Arterial Blood pCO2 at Patient Temp 32 mmHg (35-46) 38 mmHg (35-46) Arterial Blood pO2 at Patient Temp 123 mmHg (75-108) 90 mmHg (75-108) Arterial Blood HCO3 17 mmol/L (21-28) 20 mmol/L (21-28) Arterial Blood Base Excess -8 mmol/L (-3-3) -5 mmol/L (-3-3) FiO2 50 40 White Blood Count 27.4 x10^3/uL (4.0-11.0) Red Blood Count 2.07 x10^6/uL (4.30-5.70) Hemoglobin 8.1 g/dL (13.0-17.5) Hematocrit 24.9 % (39.0-53.0) Mean Corpuscular Volume 121 fL (79-100) Mean Corpuscular Hemoglobin 39 pg (25-35) Mean Corpuscular Hemoglobin Concent 33 g/dL (31-37) Red Cell Distribution Width 15.4 % (11.5-14.5) Platelet Count 275 x10^3/uL (140-400) Neutrophils (%) (Auto) 85 % (31-73) Lymphocytes (%) (Auto) 6 % (24-48) Monocytes (%) (Auto) 8 % (0-9) Eosinophils (%) (Auto) 0 % (0-3) Basophils (%) (Auto) 2 % (0-3) Neutrophils # (Auto) 23.4 x10^3/uL (1.8-7.7) Lymphocytes # (Auto) 1.5 x10^3/uL (1.0-4.8) Monocytes # (Auto) 2.1 x10^3/uL (0.0-1.1) Eosinophils # (Auto) 0.0 x10^3/uL (0.0-0.7) Basophils # (Auto) 0.4 x10^3/uL (0.0-0.2) Segmented Neutrophils % 86 % (35-66) Band Neutrophils % 7 % (0-9) Lymphocytes % 4 % (24-48) Monocytes % 3 % (0-10) Platelet Estimate Adequate (ADEQUATE) Macrocytosis Present Sodium Level 139 mmol/L (136-145) Potassium Level 4.4 mmol/L (3.5-5.1) Chloride Level 106 mmol/L (98-107) Carbon Dioxide Level 21 mmol/L (21-32) Anion Gap 12 (6-14) Blood Urea Nitrogen 61 mg/dL (8-26) Creatinine 3.1 mg/dL (0.7-1.3) Estimated GFR (Cockcroft-Gault) 21.3 Glucose Level 174 mg/dL (70-99) Calcium Level 7.2 mg/dL (8.5-10.1) Phosphorus Level 6.2 mg/dL (2.6-4.7) Magnesium Level 1.8 mg/dL (1.8-2.4) Lactic Acid Level 2.5 mmol/L (0.4-2.0) Test 04/07/21 05:55 White Blood Count 15.7 x10^3/uL (4.0-11.0) Red Blood Count 1.89 x10^6/uL (4.30-5.70) Hemoglobin 7.6 g/dL (13.0-17.5) Hematocrit 22.7 % (39.0-53.0) Mean Corpuscular Volume 120 fL (79-100) Mean Corpuscular Hemoglobin 40 pg (25-35) Mean Corpuscular Hemoglobin Concent 33 g/dL (31-37) Red Cell Distribution Width 15.2 % (11.5-14.5) Platelet Count 151 x10^3/uL (140-400) Prothrombin Time 17.8 SEC (11.7-14.0) Prothromb Time International Ratio 1.5 (0.8-1.1) Laboratory Tests Test 04/06/21 07:35 04/06/21 08:30 04/07/21 05:55 O2 Saturation 97 % (92-99) Arterial Blood pH 7.34 (7.35-7.45) Arterial Blood pCO2 at Patient Temp 38 mmHg (35-46) Arterial Blood pO2 at Patient Temp 90 mmHg (75-108) Arterial Blood HCO3 20 mmol/L (21-28) Arterial Blood Base Excess -5 mmol/L (-3-3) FiO2 40 Lactic Acid Level 2.5 mmol/L (0.4-2.0) White Blood Count 15.7 x10^3/uL (4.0-11.0) Red Blood Count 1.89 x10^6/uL (4.30-5.70) Hemoglobin 7.6 g/dL (13.0-17.5) Hematocrit 22.7 % (39.0-53.0) Mean Corpuscular Volume 120 fL (79-100) Mean Corpuscular Hemoglobin 40 pg (25-35) Mean Corpuscular Hemoglobin Concent 33 g/dL (31-37) Red Cell Distribution Width 15.2 % (11.5-14.5) Platelet Count 151 x10^3/uL (140-400) Prothrombin Time 17.8 SEC (11.7-14.0) Prothromb Time International Ratio 1.5 (0.8-1.1) Medications Active Scripts Medications Dose Route/Sig Max Daily Dose Days Date Category Proair Hfa Inhaler (Albuterol Sulfate) 8.5 Gm Hfa.aer.ad 2 Puff IH PRN Q4-6HRS PRN 21 04/05/21 Reported Uloric (Febuxostat) 80 Mg Tablet 1 Tab PO DAILY 30 04/05/21 Reported Losartan Potassium 100 Mg Tablet 100 Mg PO DAILY 04/05/21 Reported Folic Acid 1 Mg Tablet 1 Mg PO DAILY 08/05/16 Reported Amlodipine Besylate 10 Mg Tablet 10 Mg PO DAILY 08/05/16 Reported Losartan Potassium 100 Mg Tablet 100 Mg PO DAILY 08/05/16 Reported Colcrys (Colchicine) 0.6 Mg Tablet 0.6 Mg PO DAILY 08/05/16 Reported Uloric (Febuxostat) 40 Mg Tablet 1 Tab PO DAILY 08/05/16 Reported Comments cxr reviewed ett ok Elevated left hemidiaphragm with mild bilateral basilar airspace opacities which could be from atelectasis or early infiltrate. Impression . IMPRESSION: 1. Acute hypoxic respiratory failure secondary to septic shock. 2. Septic shock secondary to spontaneous bacterial peritonitis in a patient who has alcoholism and cirrhosis along with ascites. 3. Acute kidney injury. cr coming down 1.7 4. Lactic acidosis secondary to septic shock, now improved. 5. History of tobaccoism. ? copd 6. History of alcoholism. 7. Cirrhosis secondary to alcoholism. 8. Coagulopathy secondary to cirrhosis. 9. COVID negative. Plan . RECOMMENDATIONS: 1. cont vent support setting reviewed, not stable for sbt. We will make necessary adjustment based on ABGs. 2. cont pressors to keep map 65 3. protonix for stress ulcer prophylaxis. 4. Broad spectrum antibiotics per infectious disease recommendation. 5. Monitor renal function. Follow renal recommendations. 6. TPN per Nephrology. 7. Follow all cultures. 8. Follow Surgery recommendations. 9. bicarbonate drip per nephro. 10. Discussed with ALEXIA COFFEY MD April 07, 2021 06:41
[2021-04-07] MEDS: PANTOPRAZOLE IV PUSH 40 MG VIAL. IVP SCH (08:09)
[2021-04-07 08:32] LABS: BASE EXCESS ABG -1 mmol/L (-3-3); HCO3 ABG 25 mmol/L (21-28); PCO2 ABG 46 mmHg (35-46); PO2 ABG 113 mmHg (75-108); SAT O2 ABG 98 % (92-99)
[2021-04-07 08:34] LABS: FIO2 ABG 40/VENT
[2021-04-07] MEDS: TPN PER PHARMACY MC PRN ×2 (10:13→12:14)
[2021-04-07] MEDS: MICAFUNGIN 100 MG in IV DEXTROSE 5% 100ML 100 ML IV SCH (11:29)
--- NOTE | 2021-04-07 12:49 | PDOC ---
DATE OF SERVICE: DOS: DATE: 04/07/21 TIME: 12:46 SUBJECTIVE ROS Follow-up for acute kidney injury Patient remains sedated intubated on the ventilator. Intraoperative findings noted OBJECTIVE Vital Signs Vital Signs Date Time Temp Pulse Resp B/P (MAP) Pulse Ox O2 Delivery O2 Flow Rate FiO2 04/07/21 11:41 96 Ventilator 04/07/21 11:00 80 16 110/54 (72) 04/07/21 08:03 98.9 98.9 I & 0 Intake and Output 04/07/21 07:00 Intake Total 6053.2 ml Output Total 6975 ml Balance -921.8 ml IV Total 6053.2 ml Output Urine Total 2745 ml Gastric Drainage Total 1550 ml Drainage Total 2680 ml PHYSICAL EXAM Physical Exam GEN: Sedated intubated on the ventilator EYES: Sclera anicteric, Conjunctiva Normal EN: No EN Drainage, Mucous Membranes moist, orally intubated NECK: no JVD, no JVP, Supple, no Thyromegaly CVS: S1S2, no obvious audible murmur, No Gallop, No Rub,no Edema RESP: no Rales, no Rhonchi,no Acc. Muscle Use GI: BS minimal, NO Bruit, Non Tender, Non Distended : no CVA tenderness, no Suprapubic Tenderness DIAGNOSIS/ASSESSMENT Diagnosis EDDI-ATN-CR IMPROVED with good urine output MET ACIDOSIS: Much improved HYPOTENSION: Much improved PROB SEPSIS suspect intra-abdominal source in the setting of pneumoperitoneum. Status post repair and drain. ETOH ABUSE with possible LIVER CIRRHOSIS underlying. May explain hypoalbuminemia Hypomagnesemia: Replace Continue TPN for now COMMENT/RELEVANT DATA Meds Current Medications Medications (Trade) Dose Ordered Sig/Ada Start Time Stop Time Status Last Admin Dose Admin Bupivacaine HCl/ Epinephrine Bitart (Sensorcain-Epi 0.5%-1:[id number] Mpf) 30 ml STK-MED ONCE 04/05/21 11:54 04/05/21 11:54 DC Dexamethasone Sodium Phosphate (Decadron) 4 mg STK-MED ONCE 04/05/21 09:22 04/05/21 09:22 DC Etomidate (Amidate) 20 mg STK-MED ONCE 04/05/21 09:22 04/05/21 09:22 DC Fentanyl Citrate 30 ml @ 0 mls/hr CONT PRN 04/06/21 08:30 04/07/21 04:05 2.5 MLS/HR Fentanyl Citrate (Fentanyl 2ml Vial) 100 mcg PRN Q2HR PRN 04/05/21 15:45 04/06/21 08:25 DC 04/06/21 02:53 100 MCG Glycopyrrolate (Robinul) 1 mg STK-MED ONCE 04/05/21 13:35 04/05/21 13:35 DC Hydromorphone HCl (Dilaudid) 0.5 mg PRN Q10MIN PRN 04/05/21 09:00 04/05/21 18:00 DC Info (Tpn Per Pharmacy) 1 each PRN DAILY PRN 04/06/21 09:30 04/07/21 12:14 1 EACH Lidocaine HCl (Lidocaine Pf 2% Vial) 5 ml STK-MED ONCE 04/05/21 12:58 04/05/21 12:59 DC Linezolid/Dextrose 300 ml @ 300 mls/hr Q12HR 04/06/21 11:00 04/07/21 08:10 300 MLS/HR Magnesium Sulfate 50 ml @ 25 mls/hr 1X ONCE 04/07/21 13:00 04/07/21 14:59 Methylene Blue (Provayblue) 10 ml STK-MED ONCE 04/05/21 13:14 04/05/21 13:14 DC Micafungin Sodium 100 mg/Dextrose 100 ml @ 100 mls/hr Q24H 04/06/21 12:00 04/07/21 11:29 100 MLS/HR Midazolam HCl (Versed) 5 mg 1X ONCE 04/05/21 15:45 04/05/21 15:46 DC 04/05/21 15:46 5 MG Morphine Sulfate (Morphine Sulfate) 1 mg PRN Q10MIN PRN 04/05/21 09:00 04/05/21 18:00 DC 04/05/21 15:35 1 MG Neostigmine [place] (Neostigmine Methylsulfate) 5 mg STK-MED ONCE 04/05/21 13:36 04/05/21 13:36 DC Norepinephrine Bitartrate 8 mg/ Dextrose 258 ml @ 21.537 mls/ hr CONT PRN 04/05/21 16:15 04/07/21 04:04 30.151 MLS/HR Ondansetron HCl (Zofran) 4 mg STK-MED ONCE 04/05/21 09:22 04/05/21 09:22 DC Pantoprazole Sodium (PROTONIX VIAL for IV PUSH) 40 mg DAILYAC 04/06/21 07:30 04/07/21 08:09 40 MG Pantoprazole Sodium 80 mg/ Sodium Chloride 100 ml @ 10 mls/hr Q10H 04/05/21 04:00 04/05/21 16:46 DC 04/05/21 04:56 10 MLS/HR Phenylephrine HCl (Pavel-Synephrine Inj) 10 mg STK-MED ONCE 04/05/21 09:22 04/05/21 09:23 DC Piperacillin Sod/ Tazobactam Sod (Zosyn Per Pharmacy) 1 each PRN DAILY PRN 04/05/21 08:00 Piperacillin Sod/ Tazobactam Sod 2.25 gm/Sodium Chloride 50 ml @ 100 mls/hr Q6HRS 04/05/21 13:00 04/07/21 05:55 100 MLS/HR Piperacillin Sod/ Tazobactam Sod 3.375 gm/Sodium Chloride 50 ml @ 100 mls/hr Q6HRS 04/05/21 08:00 04/05/21 10:49 DC 04/05/21 08:32 100 MLS/HR Prochlorperazine Edisylate (Compazine) 5 mg PACU PRN PRN 04/05/21 09:00 04/05/21 18:00 DC Ringer's Solution 1,000 ml @ 30 mls/hr Q24H 04/05/21 09:00 04/05/21 20:59 DC Rocuronium [place] (Zemuron) 50 mg STK-MED ONCE 04/05/21 12:36 04/05/21 12:36 DC Sevoflurane (Ultane) 90 ml STK-MED ONCE 04/05/21 14:07 04/05/21 14:07 DC Sodium Bicarbonate 150 meq/Dextrose 1,150 ml @ 100 mls/hr [id number] 04/05/21 16:00 04/07/21 03:21 100 MLS/HR Sodium Bicarbonate (Sodium Bicarb Adult 8.4% Syr) 100 meq 1X ONCE 04/05/21 15:45 04/05/21 15:46 DC 04/05/21 15:46 100 MEQ Sodium Chloride 90 meq/Potassium Chloride 35 meq/ Magnesium Sulfate 10 meq/Calcium Gluconate 10 meq/ Multivitamins 5 ml/Zinc/Copper/ Manganese/ Selenium 1 ml/ Total Parenteral Nutrition/Amino Acids/Dextrose 1,512 ml @ 63 mls/hr TPN CONT 04/06/21 22:00 04/07/21 21:59 04/06/21 21:25 63 MLS/HR Sodium Chloride 90 meq/Potassium Chloride 50 meq/ Magnesium Sulfate 12 meq/Calcium Gluconate 10 meq/ Multivitamins 5 ml/Zinc/Copper/ Manganese/ Selenium 1 ml/ Total Parenteral Nutrition/Amino Acids/Dextrose 1,512 ml @ 63 mls/hr TPN CONT 04/07/21 22:00 04/08/21 21:59 Vasopressin 20 unit/Dextrose 101 ml @ 12 mls/hr CONT PRN 04/06/21 08:30 04/07/21 08:09 12 MLS/HR Lab Laboratory Tests Test 04/07/21 05:55 04/07/21 08:00 White Blood Count 15.7 x10^3/uL (4.0-11.0) Red Blood Count 1.89 x10^6/uL (4.30-5.70) Hemoglobin 7.6 g/dL (13.0-17.5) Hematocrit 22.7 % (39.0-53.0) Mean Corpuscular Volume 120 fL (79-100) Mean Corpuscular Hemoglobin 40 pg (25-35) Mean Corpuscular Hemoglobin Concent 33 g/dL (31-37) Red Cell Distribution Width 15.2 % (11.5-14.5) Platelet Count 151 x10^3/uL (140-400) Prothrombin Time 17.8 SEC (11.7-14.0) Prothromb Time International Ratio 1.5 (0.8-1.1) Sodium Level 140 mmol/L (136-145) Potassium Level 3.7 mmol/L (3.5-5.1) Chloride Level 106 mmol/L (98-107) Carbon Dioxide Level 27 mmol/L (21-32) Anion Gap 7 (6-14) Blood Urea Nitrogen 51 mg/dL (8-26) Creatinine 1.7 mg/dL (0.7-1.3) Estimated GFR (Cockcroft-Gault) 42.7 BUN/Creatinine Ratio 30 (6-20) Glucose Level 186 mg/dL (70-99) Calcium Level 6.7 mg/dL (8.5-10.1) Phosphorus Level 4.2 mg/dL (2.6-4.7) Magnesium Level 1.4 mg/dL (1.8-2.4) Total Bilirubin 3.3 mg/dL (0.2-1.0) Aspartate Amino Transf (AST/SGOT) 80 U/L (15-37) Alanine Aminotransferase (ALT/SGPT) 52 U/L (16-63) Alkaline Phosphatase 79 U/L (46-116) Total Protein 6.2 g/dL (6.4-8.2) Albumin 1.5 g/dL (3.4-5.0) Albumin/Globulin Ratio 0.3 (1.0-1.7) Triglycerides Level 138 mg/dL (0-150) O2 Saturation 98 % (92-99) Arterial Blood pH 7.34 (7.35-7.45) Arterial Blood pCO2 at Patient Temp 46 mmHg (35-46) Arterial Blood pO2 at Patient Temp 113 mmHg (75-108) Arterial Blood HCO3 25 mmol/L (21-28) Arterial Blood Base Excess -1 mmol/L (-3-3) FiO2 40/vent Results All relevant outside records, renal labs, imaging studies, telemetry/EKG's were reviewed. Justicifation of Admission Dx: Justifications for Admission: Justification of Admission Dx: Yes PARESH BANSAL MD April 07, 2021 12:49
[2021-04-07] MEDS ORDERED: MAGNESIUM SULFATE 2GM 50 ML IV ONE (13:00)
--- NOTE | 2021-04-07 13:28 | NUR ---
Pharmacy TPN Dosing Note S: ALEXANDREABHISHEK is a 50 year old M Currently receiving Central Continuous TPN started 04/06/21 B:Pertinent PMH: NPO- s/p ex lap Height: 5 feet, 11 inches Weight: 111.1 kg Current diet: NPO LABS: Sodium: 140 Potassium: 3.7 Chloride: 106 Calcium: 6.7 Corrected Calcium: 8.70 Magnesium: 1.4 CO2: 27 SCr: 3.1 Glucose: 186 Albumin: 1.5 AST: 80 ALT: 66 TPN FORMULA: TPN TYPE: Central Continuous AMINO ACIDS: 60 gm DEXTROSE: 195 gm LIPIDS: 0 gm SODIUM CHLORIDE: 90 mEq SODIUM ACETATE: -- mEq SODIUM PHOSPHATE: -- mmol POTASSIUM CHLORIDE: 50 mEq POTASSIUM ACETATE: -- mEq POTASSIUM PHOSPHATE: -- mmol MAGNESIUM: 12 mEq CALCIUM: 10 mEq INSULIN: -- units MULTIPLE VITAMIN: 5 ml TRACE ELEMENTS: 1 ml(s) TPN PLAN: MAG LEVEL 1.4, 2GM MAGSO4 BOLUS AND INCREASE KCL 50 MEQ, MAGSO4 TO 12 MEQ, R: Continue TPN AT 63 ML/HR Will monitor electrolytes, glucose, and tolerance to TPN. [facility], 04/07/21 [id number]
--- NOTE | 2021-04-07 13:33 | PDOC ---
Infectious Disease Note Subjective Subjective pt is intubated on vent ROS ROS no n/v/d/ Vital Sign Vital Signs Vital Signs Date Time Temp Pulse Resp B/P (MAP) Pulse Ox O2 Delivery O2 Flow Rate FiO2 04/07/21 12:00 Mechanical Ventilator 04/07/21 11:41 96 04/07/21 11:00 80 16 110/54 (72) 04/07/21 08:03 98.9 98.9 Physical Exam PHYSICAL EXAM VITAL SIGNS: stable GENERAL: Intubated and sedated. HEENT: Atraumatic. NECK: Right IJ clean. LUNGS: Decreased breath sounds at the bases, otherwise clear. No wheezing. HEART: S1, S2. ABDOMEN: Distended, laparoscopy dressing intact, not taken down. ROCIO drain in place. Bowel sounds hypoactive. EXTREMITIES: No edema. Hyperpigmentation. Slight mottling. GENITOURINARY: Hwang in place. No generalized rash except for above. PSYCHIATRIC: Unable to assess. The patient was alert, oriented x 3 prior to surgery. Labs Lab Laboratory Tests Test 04/07/21 05:55 04/07/21 08:00 White Blood Count 15.7 x10^3/uL (4.0-11.0) Red Blood Count 1.89 x10^6/uL (4.30-5.70) Hemoglobin 7.6 g/dL (13.0-17.5) Hematocrit 22.7 % (39.0-53.0) Mean Corpuscular Volume 120 fL (79-100) Mean Corpuscular Hemoglobin 40 pg (25-35) Mean Corpuscular Hemoglobin Concent 33 g/dL (31-37) Red Cell Distribution Width 15.2 % (11.5-14.5) Platelet Count 151 x10^3/uL (140-400) Prothrombin Time 17.8 SEC (11.7-14.0) Prothromb Time International Ratio 1.5 (0.8-1.1) Sodium Level 140 mmol/L (136-145) Potassium Level 3.7 mmol/L (3.5-5.1) Chloride Level 106 mmol/L (98-107) Carbon Dioxide Level 27 mmol/L (21-32) Anion Gap 7 (6-14) Blood Urea Nitrogen 51 mg/dL (8-26) Creatinine 1.7 mg/dL (0.7-1.3) Estimated GFR (Cockcroft-Gault) 42.7 BUN/Creatinine Ratio 30 (6-20) Glucose Level 186 mg/dL (70-99) Calcium Level 6.7 mg/dL (8.5-10.1) Phosphorus Level 4.2 mg/dL (2.6-4.7) Magnesium Level 1.4 mg/dL (1.8-2.4) Total Bilirubin 3.3 mg/dL (0.2-1.0) Aspartate Amino Transf (AST/SGOT) 80 U/L (15-37) Alanine Aminotransferase (ALT/SGPT) 52 U/L (16-63) Alkaline Phosphatase 79 U/L (46-116) Total Protein 6.2 g/dL (6.4-8.2) Albumin 1.5 g/dL (3.4-5.0) Albumin/Globulin Ratio 0.3 (1.0-1.7) Triglycerides Level 138 mg/dL (0-150) O2 Saturation 98 % (92-99) Arterial Blood pH 7.34 (7.35-7.45) Arterial Blood pCO2 at Patient Temp 46 mmHg (35-46) Arterial Blood pO2 at Patient Temp 113 mmHg (75-108) Arterial Blood HCO3 25 mmol/L (21-28) Arterial Blood Base Excess -1 mmol/L (-3-3) FiO2 40/vent Micro Microbiology 04/06/21 Blood Culture - Preliminary, Resulted NO GROWTH AFTER 1 DAY 04/05/21 Gram Stain - Final, Resulted 04/05/21 Aerobic and Anaerobic Culture - Preliminary, Resulted Objective Assessment 1. Severe sepsis. 2. Abdominal pain, nausea, vomiting. Pneumoperitoneum on CT, status post diagnostic laparoscopy, placement of abdominal drain. No evidence of perforated viscus. Findings were consistent with spontaneous bacterial peritonitis. 3. Ascites and cirrhosis. 4. ETOH dependence. 5. Acute kidney injury with hyperkalemia. 6. Thrombocytopenia. 7. Coagulopathy. 8. Increased LFTs. 9. Postoperative intubation. Plan Plan of Care cont antibiotics cont supportive care HIREN BANSAL MD April 07, 2021 13:33
[2021-04-07] MEDS: ALBUMIN HUMAN 25% 100 ML IV SCH ×2 (13:37→21:02)
--- NOTE | 2021-04-07 13:51 | PDOC ---
[employer] PROGRESS NOTE Date of Service DOS: DATE: 04/07/21 TIME: 13:45 Chief Complaint Chief Complaint Sepsis Pneumoperitoneum Suspect spontaneous bacterial peritonitis Leukocytosis Duodenitis Ascites Probable cirrhosis Cholelithiasis History alcohol abuse History COPD Severe malnutrition Plan: Consultations placed to general surgery and GI Due to concern for perforation I believe patient will be taken to the OR this morning. We will continue treatment with Zosyn, and may need to broaden antibiotic coverage with metronidazole; will consider consulting ID following surgery. IV pain medication FEN - NPO PPX - Heparin FULL CODE; patient names his daughter as surrogate decision-maker. Dispo - inpatient for above History of Present Illness History of Present Illness Patient is a 50-year-old male with past medical history alcohol abuse, who presents as a transfer from [facility] due to pneumoperitoneum. Initially at [facility] ER he complained of abdominal pain and abdominal swelling over the past week, 07/03. He reports associated nausea and vomiting over this time, and is not amenable to take his home medications. Patient also reports noticing alyssa e discoloration of his eyes, discoloration of the skin, and dark urine over the past several days. He denies recent NSAID use. He was transferred to [facility] and admitted to the ICU for further medical management. 04/07/2021 Afebrile. Intubated, with FiO2 40%, PEEP 5. Requiring 2 vasopressors. Abdominal drain with clear serous output. Continue Zosyn, Zyvox, and micafungin, per ID. Blood cultures and abdominal fluid cultures with no growth to date. 30 minutes critical care time spent reviewing charts, reviewing labs, and discussion with RN. 04/06/2021 Patient seen in ICU s/p diagnostic laparoscopy with culture abdominal fluid and placement of abdominal drain. Suspect spontaneous bacterial peritonitis. He is currently on 2 vasopressors. Continue linezolid, Zosyn, and micafungin, per ID. No organisms seen on Gram stain of abdominal fluid and preliminary abdominal fluid cultures with no growth to date. 30 minutes critical care time spent reviewing charts, reviewing labs, reviewing imaging, and discussion with RN. Vitals/I&O Vitals/I&O: Vital Signs Date Time Temp Pulse Resp B/P (MAP) Pulse Ox O2 Delivery O2 Flow Rate FiO2 04/07/21 13:39 96 Ventilator 04/07/21 11:00 80 16 110/54 (72) 04/07/21 08:03 98.9 98.9 I & O 04/06/21 04/06/21 04/07/21 15:00 23:00 07:00 Intake Total 450 ml 1790 ml 3813.2 ml Output Total 1415 ml 2430 ml 3130 ml Balance -965 ml -640 ml 683.2 ml Physical Exam Physical Exam: VITAL SIGNS: stable GENERAL: Intubated and sedated. HEENT: Atraumatic. NECK: Right IJ clean. LUNGS: Decreased breath sounds at the bases, otherwise clear. No wheezing. HEART: S1, S2. ABDOMEN: Distended, laparoscopy dressing intact, not taken down. ROCIO drain in place. Bowel sounds hypoactive. EXTREMITIES: No edema. Hyperpigmentation. Slight mottling. GENITOURINARY: Hwang in place. No generalized rash except for above. PSYCHIATRIC: Unable to assess. The patient was alert, oriented x 3 prior to surgery. General: Other (sedated ) Heart: Regular rate Lungs: Crackles Abdomen: Other (drains serosang) Extremities: No cyanosis Skin: No rashes Labs Labs: Laboratory Tests Test 04/07/21 05:55 04/07/21 08:00 White Blood Count 15.7 x10^3/uL (4.0-11.0) Red Blood Count 1.89 x10^6/uL (4.30-5.70) Hemoglobin 7.6 g/dL (13.0-17.5) Hematocrit 22.7 % (39.0-53.0) Mean Corpuscular Volume 120 fL (79-100) Mean Corpuscular Hemoglobin 40 pg (25-35) Mean Corpuscular Hemoglobin Concent 33 g/dL (31-37) Red Cell Distribution Width 15.2 % (11.5-14.5) Platelet Count 151 x10^3/uL (140-400) Prothrombin Time 17.8 SEC (11.7-14.0) Prothromb Time International Ratio 1.5 (0.8-1.1) Sodium Level 140 mmol/L (136-145) Potassium Level 3.7 mmol/L (3.5-5.1) Chloride Level 106 mmol/L (98-107) Carbon Dioxide Level 27 mmol/L (21-32) Anion Gap 7 (6-14) Blood Urea Nitrogen 51 mg/dL (8-26) Creatinine 1.7 mg/dL (0.7-1.3) Estimated GFR (Cockcroft-Gault) 42.7 BUN/Creatinine Ratio 30 (6-20) Glucose Level 186 mg/dL (70-99) Calcium Level 6.7 mg/dL (8.5-10.1) Phosphorus Level 4.2 mg/dL (2.6-4.7) Magnesium Level 1.4 mg/dL (1.8-2.4) Total Bilirubin 3.3 mg/dL (0.2-1.0) Aspartate Amino Transf (AST/SGOT) 80 U/L (15-37) Alanine Aminotransferase (ALT/SGPT) 52 U/L (16-63) Alkaline Phosphatase 79 U/L (46-116) Total Protein 6.2 g/dL (6.4-8.2) Albumin 1.5 g/dL (3.4-5.0) Albumin/Globulin Ratio 0.3 (1.0-1.7) Triglycerides Level 138 mg/dL (0-150) O2 Saturation 98 % (92-99) Arterial Blood pH 7.34 (7.35-7.45) Arterial Blood pCO2 at Patient Temp 46 mmHg (35-46) Arterial Blood pO2 at Patient Temp 113 mmHg (75-108) Arterial Blood HCO3 25 mmol/L (21-28) Arterial Blood Base Excess -1 mmol/L (-3-3) FiO2 40/vent Comment Review of Relevant I have reviewed the following items jeff (where applicable) has been applied. Medications: Current Medications Medications (Trade) Dose Ordered Sig/Ada Route PRN Reason Start Time Stop Time Status Last Admin Dose Admin Sodium Chloride 90 meq/Potassium Chloride 35 meq/ Magnesium Sulfate 10 meq/Calcium Gluconate 10 meq/ Multivitamins 5 ml/Zinc/Copper/ Manganese/ Selenium 1 ml/ Total Parenteral Nutrition/Amino Acids/Dextrose 1,512 ml @ 63 mls/hr TPN CONT IV 04/06/21 22:00 04/07/21 21:59 04/06/21 21:25 Magnesium Sulfate 50 ml @ 25 mls/hr 1X ONCE IV 04/07/21 13:00 04/07/21 14:59 04/07/21 13:42 Albumin Human 100 ml @ 100 mls/hr TID IV 04/07/21 14:00 04/09/21 09:59 04/07/21 13:37 Justifications for Admission Other Justification FLEX GRAHAM MD April 07, 2021 13:51
--- NOTE | 2021-04-07 13:59 | PDOC ---
SURGICAL PROGRESS NOTE DATE: 04/07/21 TIME: 13:58 Subjective Pt intubated and sedated, on pressors Vital Signs Vital Signs Date Time Temp Pulse Resp B/P (MAP) Pulse Ox O2 Delivery O2 Flow Rate FiO2 04/07/21 13:39 96 Ventilator 04/07/21 13:00 80 16 103/52 (69) 04/07/21 12:00 99.1 99.1 I&O Intake and Output 04/07/21 07:00 Intake Total 6053.2 ml Output Total 6975 ml Balance -921.8 ml IV Total 6053.2 ml Output Urine Total 2745 ml Gastric Drainage Total 1550 ml Drainage Total 2680 ml PATIENT HAS A WARREN: Yes (accurate i and os) General: No acute distress Abdomen: Soft, No tenderness, Other (ROCIO serous) Labs Laboratory Tests Test 04/05/21 15:20 04/05/21 20:17 04/06/21 05:40 04/06/21 07:35 O2 Saturation 92 % (92-99) 99 % (92-99) 97 % (92-99) Arterial Blood pH 7.14 (7.35-7.45) 7.33 (7.35-7.45) 7.34 (7.35-7.45) Arterial Blood pCO2 at Patient Temp 42 mmHg (35-46) 32 mmHg (35-46) 38 mmHg (35-46) Arterial Blood pO2 at Patient Temp 80 mmHg (75-108) 123 mmHg (75-108) 90 mmHg (75-108) Arterial Blood HCO3 14 mmol/L (21-28) 17 mmol/L (21-28) 20 mmol/L (21-28) Arterial Blood Base Excess -14 mmol/L (-3-3) -8 mmol/L (-3-3) -5 mmol/L (-3-3) FiO2 40% 10/5 50 40 White Blood Count 27.4 x10^3/uL (4.0-11.0) Red Blood Count 2.07 x10^6/uL (4.30-5.70) Hemoglobin 8.1 g/dL (13.0-17.5) Hematocrit 24.9 % (39.0-53.0) Mean Corpuscular Volume 121 fL (79-100) Mean Corpuscular Hemoglobin 39 pg (25-35) Mean Corpuscular Hemoglobin Concent 33 g/dL (31-37) Red Cell Distribution Width 15.4 % (11.5-14.5) Platelet Count 275 x10^3/uL (140-400) Neutrophils (%) (Auto) 85 % (31-73) Lymphocytes (%) (Auto) 6 % (24-48) Monocytes (%) (Auto) 8 % (0-9) Eosinophils (%) (Auto) 0 % (0-3) Basophils (%) (Auto) 2 % (0-3) Neutrophils # (Auto) 23.4 x10^3/uL (1.8-7.7) Lymphocytes # (Auto) 1.5 x10^3/uL (1.0-4.8) Monocytes # (Auto) 2.1 x10^3/uL (0.0-1.1) Eosinophils # (Auto) 0.0 x10^3/uL (0.0-0.7) Basophils # (Auto) 0.4 x10^3/uL (0.0-0.2) Segmented Neutrophils % 86 % (35-66) Band Neutrophils % 7 % (0-9) Lymphocytes % 4 % (24-48) Monocytes % 3 % (0-10) Platelet Estimate Adequate (ADEQUATE) Macrocytosis Present Sodium Level 139 mmol/L (136-145) Potassium Level 4.4 mmol/L (3.5-5.1) Chloride Level 106 mmol/L (98-107) Carbon Dioxide Level 21 mmol/L (21-32) Anion Gap 12 (6-14) Blood Urea Nitrogen 61 mg/dL (8-26) Creatinine 3.1 mg/dL (0.7-1.3) Estimated GFR (Cockcroft-Gault) 21.3 Glucose Level 174 mg/dL (70-99) Calcium Level 7.2 mg/dL (8.5-10.1) Phosphorus Level 6.2 mg/dL (2.6-4.7) Magnesium Level 1.8 mg/dL (1.8-2.4) Test 04/06/21 08:30 04/07/21 05:55 04/07/21 08:00 Lactic Acid Level 2.5 mmol/L (0.4-2.0) White Blood Count 15.7 x10^3/uL (4.0-11.0) Red Blood Count 1.89 x10^6/uL (4.30-5.70) Hemoglobin 7.6 g/dL (13.0-17.5) Hematocrit 22.7 % (39.0-53.0) Mean Corpuscular Volume 120 fL (79-100) Mean Corpuscular Hemoglobin 40 pg (25-35) Mean Corpuscular Hemoglobin Concent 33 g/dL (31-37) Red Cell Distribution Width 15.2 % (11.5-14.5) Platelet Count 151 x10^3/uL (140-400) Prothrombin Time 17.8 SEC (11.7-14.0) Prothromb Time International Ratio 1.5 (0.8-1.1) Sodium Level 140 mmol/L (136-145) Potassium Level 3.7 mmol/L (3.5-5.1) Chloride Level 106 mmol/L (98-107) Carbon Dioxide Level 27 mmol/L (21-32) Anion Gap 7 (6-14) Blood Urea Nitrogen 51 mg/dL (8-26) Creatinine 1.7 mg/dL (0.7-1.3) Estimated GFR (Cockcroft-Gault) 42.7 BUN/Creatinine Ratio 30 (6-20) Glucose Level 186 mg/dL (70-99) Calcium Level 6.7 mg/dL (8.5-10.1) Phosphorus Level 4.2 mg/dL (2.6-4.7) Magnesium Level 1.4 mg/dL (1.8-2.4) Total Bilirubin 3.3 mg/dL (0.2-1.0) Aspartate Amino Transf (AST/SGOT) 80 U/L (15-37) Alanine Aminotransferase (ALT/SGPT) 52 U/L (16-63) Alkaline Phosphatase 79 U/L (46-116) Total Protein 6.2 g/dL (6.4-8.2) Albumin 1.5 g/dL (3.4-5.0) Albumin/Globulin Ratio 0.3 (1.0-1.7) Triglycerides Level 138 mg/dL (0-150) O2 Saturation 98 % (92-99) Arterial Blood pH 7.34 (7.35-7.45) Arterial Blood pCO2 at Patient Temp 46 mmHg (35-46) Arterial Blood pO2 at Patient Temp 113 mmHg (75-108) Arterial Blood HCO3 25 mmol/L (21-28) Arterial Blood Base Excess -1 mmol/L (-3-3) FiO2 40/vent Laboratory Tests Test 04/07/21 05:55 04/07/21 08:00 White Blood Count 15.7 x10^3/uL (4.0-11.0) Red Blood Count 1.89 x10^6/uL (4.30-5.70) Hemoglobin 7.6 g/dL (13.0-17.5) Hematocrit 22.7 % (39.0-53.0) Mean Corpuscular Volume 120 fL (79-100) Mean Corpuscular Hemoglobin 40 pg (25-35) Mean Corpuscular Hemoglobin Concent 33 g/dL (31-37) Red Cell Distribution Width 15.2 % (11.5-14.5) Platelet Count 151 x10^3/uL (140-400) Prothrombin Time 17.8 SEC (11.7-14.0) Prothromb Time International Ratio 1.5 (0.8-1.1) Sodium Level 140 mmol/L (136-145) Potassium Level 3.7 mmol/L (3.5-5.1) Chloride Level 106 mmol/L (98-107) Carbon Dioxide Level 27 mmol/L (21-32) Anion Gap 7 (6-14) Blood Urea Nitrogen 51 mg/dL (8-26) Creatinine 1.7 mg/dL (0.7-1.3) Estimated GFR (Cockcroft-Gault) 42.7 BUN/Creatinine Ratio 30 (6-20) Glucose Level 186 mg/dL (70-99) Calcium Level 6.7 mg/dL (8.5-10.1) Phosphorus Level 4.2 mg/dL (2.6-4.7) Magnesium Level 1.4 mg/dL (1.8-2.4) Total Bilirubin 3.3 mg/dL (0.2-1.0) Aspartate Amino Transf (AST/SGOT) 80 U/L (15-37) Alanine Aminotransferase (ALT/SGPT) 52 U/L (16-63) Alkaline Phosphatase 79 U/L (46-116) Total Protein 6.2 g/dL (6.4-8.2) Albumin 1.5 g/dL (3.4-5.0) Albumin/Globulin Ratio 0.3 (1.0-1.7) Triglycerides Level 138 mg/dL (0-150) O2 Saturation 98 % (92-99) Arterial Blood pH 7.34 (7.35-7.45) Arterial Blood pCO2 at Patient Temp 46 mmHg (35-46) Arterial Blood pO2 at Patient Temp 113 mmHg (75-108) Arterial Blood HCO3 25 mmol/L (21-28) Arterial Blood Base Excess -1 mmol/L (-3-3) FiO2 40/vent Problem List s/p lap exploration cont critical care pt is poor prognosis Justicifation of Admission Dx: Justifications for Admission: Justification of Admission Dx: Yes URSZULA WATSON MD April 07, 2021 13:59
[2021-04-07] MEDS: MIDAZOLAM 100mg/100ml NS BAG 100 ML IV PRN (15:46)
[2021-04-07] MEDS ORDERED: TOTAL PARENTERAL NUTRITION IV SCH (22:00)
[2021-04-07] MEDS ORDERED: [UNRECOGNIZED DRUG - OTHER] IV SCH (22:00)
[2021-04-07] MEDS ORDERED: AMINO ACID IV SCH (22:00)
[2021-04-07] MEDS ORDERED: DEXTROSE 70% IV SCH (22:00)
[2021-04-08] VITALS (25 sets, daily range): BP systolic 90–135; BP diastolic 44–70
[2021-04-08] MEDS: VASOPRESSIN 20 UNIT in IV DEXTROSE 5% 100ML 100 ML IV PRN ×3 (02:36→20:06)
[2021-04-08] MEDS: PIPERACILLIN/TAZOBACTAM 2.25 GM in IV NORMAL SALINE 50ML 50 ML IV SCH ×3 (05:53→18:14)
[2021-04-08 06:20] LABS: ALBUMIN 2.1 g/dL (3.4-5.0); CALCIUM 7.4 mg/dL (8.5-10.1); CREATININE 1.1 mg/dL (0.7-1.3); GFR 70.6; POTASSIUM 3.5 mmol/L (3.5-5.1)
--- NOTE | 2021-04-08 06:42 | PDOC ---
PULMONARY PROGRESS NOTES DATE: 04/08/21 TIME: 06:34 Subjective on vent peep 5 fio2 35%, sedated on fentanyl versed small ett secretion on vaso and levo Vitals Vital Signs Date Time Temp Pulse Resp B/P (MAP) Pulse Ox O2 Delivery O2 Flow Rate FiO2 04/08/21 05:19 99 Ventilator 04/08/21 05:00 67 16 108/56 (73) 04/08/21 04:00 98.6 98.6 Comments on vent sedated not able to obtain ros HEENT: Other (nc at perrl nose clear orally intubated neck no lad thyromegaly) Lungs: Crackles Cardiovascular: S1, S2 Abdomen: Soft, Non-tender, Other (obese) Extremities: Other (edema ) Skin: Warm Labs Laboratory Tests Test 04/06/21 07:35 04/06/21 08:30 04/07/21 05:55 04/07/21 08:00 O2 Saturation 97 % (92-99) 98 % (92-99) Arterial Blood pH 7.34 (7.35-7.45) 7.34 (7.35-7.45) Arterial Blood pCO2 at Patient Temp 38 mmHg (35-46) 46 mmHg (35-46) Arterial Blood pO2 at Patient Temp 90 mmHg (75-108) 113 mmHg (75-108) Arterial Blood HCO3 20 mmol/L (21-28) 25 mmol/L (21-28) Arterial Blood Base Excess -5 mmol/L (-3-3) -1 mmol/L (-3-3) FiO2 40 40/vent Lactic Acid Level 2.5 mmol/L (0.4-2.0) White Blood Count 15.7 x10^3/uL (4.0-11.0) Red Blood Count 1.89 x10^6/uL (4.30-5.70) Hemoglobin 7.6 g/dL (13.0-17.5) Hematocrit 22.7 % (39.0-53.0) Mean Corpuscular Volume 120 fL (79-100) Mean Corpuscular Hemoglobin 40 pg (25-35) Mean Corpuscular Hemoglobin Concent 33 g/dL (31-37) Red Cell Distribution Width 15.2 % (11.5-14.5) Platelet Count 151 x10^3/uL (140-400) Prothrombin Time 17.8 SEC (11.7-14.0) Prothromb Time International Ratio 1.5 (0.8-1.1) Sodium Level 140 mmol/L (136-145) Potassium Level 3.7 mmol/L (3.5-5.1) Chloride Level 106 mmol/L (98-107) Carbon Dioxide Level 27 mmol/L (21-32) Anion Gap 7 (6-14) Blood Urea Nitrogen 51 mg/dL (8-26) Creatinine 1.7 mg/dL (0.7-1.3) Estimated GFR (Cockcroft-Gault) 42.7 BUN/Creatinine Ratio 30 (6-20) Glucose Level 186 mg/dL (70-99) Calcium Level 6.7 mg/dL (8.5-10.1) Phosphorus Level 4.2 mg/dL (2.6-4.7) Magnesium Level 1.4 mg/dL (1.8-2.4) Total Bilirubin 3.3 mg/dL (0.2-1.0) Aspartate Amino Transf (AST/SGOT) 80 U/L (15-37) Alanine Aminotransferase (ALT/SGPT) 52 U/L (16-63) Alkaline Phosphatase 79 U/L (46-116) Total Protein 6.2 g/dL (6.4-8.2) Albumin 1.5 g/dL (3.4-5.0) Albumin/Globulin Ratio 0.3 (1.0-1.7) Triglycerides Level 138 mg/dL (0-150) Test 04/08/21 05:45 Hemoglobin 7.4 g/dL (13.0-17.5) Sodium Level 141 mmol/L (136-145) Potassium Level 3.5 mmol/L (3.5-5.1) Chloride Level 105 mmol/L (98-107) Carbon Dioxide Level 29 mmol/L (21-32) Anion Gap 7 (6-14) Blood Urea Nitrogen 41 mg/dL (8-26) Creatinine 1.1 mg/dL (0.7-1.3) Estimated GFR (Cockcroft-Gault) 70.6 Glucose Level 160 mg/dL (70-99) Calcium Level 7.4 mg/dL (8.5-10.1) Phosphorus Level 2.0 mg/dL (2.6-4.7) Albumin 2.1 g/dL (3.4-5.0) Laboratory Tests Test 04/07/21 08:00 04/08/21 05:45 O2 Saturation 98 % (92-99) Arterial Blood pH 7.34 (7.35-7.45) Arterial Blood pCO2 at Patient Temp 46 mmHg (35-46) Arterial Blood pO2 at Patient Temp 113 mmHg (75-108) Arterial Blood HCO3 25 mmol/L (21-28) Arterial Blood Base Excess -1 mmol/L (-3-3) FiO2 40/vent Hemoglobin 7.4 g/dL (13.0-17.5) Sodium Level 141 mmol/L (136-145) Potassium Level 3.5 mmol/L (3.5-5.1) Chloride Level 105 mmol/L (98-107) Carbon Dioxide Level 29 mmol/L (21-32) Anion Gap 7 (6-14) Blood Urea Nitrogen 41 mg/dL (8-26) Creatinine 1.1 mg/dL (0.7-1.3) Estimated GFR (Cockcroft-Gault) 70.6 Glucose Level 160 mg/dL (70-99) Calcium Level 7.4 mg/dL (8.5-10.1) Phosphorus Level 2.0 mg/dL (2.6-4.7) Albumin 2.1 g/dL (3.4-5.0) Medications Active Scripts Medications Dose Route/Sig Max Daily Dose Days Date Category Proair Hfa Inhaler (Albuterol Sulfate) 8.5 Gm Hfa.aer.ad 2 Puff IH PRN Q4-6HRS PRN 21 04/05/21 Reported Uloric (Febuxostat) 80 Mg Tablet 1 Tab PO DAILY 30 04/05/21 Reported Losartan Potassium 100 Mg Tablet 100 Mg PO DAILY 04/05/21 Reported Folic Acid 1 Mg Tablet 1 Mg PO DAILY 08/05/16 Reported Amlodipine Besylate 10 Mg Tablet 10 Mg PO DAILY 08/05/16 Reported Losartan Potassium 100 Mg Tablet 100 Mg PO DAILY 08/05/16 Reported Colcrys (Colchicine) 0.6 Mg Tablet 0.6 Mg PO DAILY 08/05/16 Reported Uloric (Febuxostat) 40 Mg Tablet 1 Tab PO DAILY 08/05/16 Reported Comments cxr reviewed ett ok Elevated left hemidiaphragm with mild bilateral basilar airspace opacities which could be from atelectasis or early infiltrate. Impression . IMPRESSION: 1. Acute hypoxic respiratory failure secondary to septic shock. 2. Septic shock secondary to spontaneous bacterial peritonitis in a patient who has alcoholism and cirrhosis along with ascites. s/p Diagnostic laparoscopy, culture abdominal fluid, placement of abdominal drain 04/05 3. Acute kidney injury. cr coming down 1.7 4. Lactic acidosis secondary to septic shock, now improved. 5. History of tobaccoism. ? copd 6. History of alcoholism. 7. Cirrhosis secondary to alcoholism. 8. Coagulopathy secondary to cirrhosis. 9. COVID negative. Plan . updated 04/08 1. cont vent support setting reviewed, still on 2 pressors, not stable for sbt. abg reviewed no vent change 2. cont pressors to keep map 65 3. protonix for stress ulcer prophylaxis. 4. Broad spectrum antibiotics per infectious disease recommendation. 5. Monitor renal function. Follow renal recommendations. 6. TPN per Nephrology. 7. Follow all cultures. neg so far 8. Follow Surgery recommendations. 9. bicarbonate drip stopped by nephro. 10. Discussed with RN RECOMMENDATIONS: 1. cont vent support setting reviewed, not stable for sbt. We will make necessary adjustment based on ABGs. 2. cont pressors to keep map 65 3. protonix for stress ulcer prophylaxis. 4. Broad spectrum antibiotics per infectious disease recommendation. 5. Monitor renal function. Follow renal recommendations. 6. TPN per Nephrology. 7. Follow all cultures. 8. Follow Surgery recommendations. 9. bicarbonate drip per nephro. 10. Discussed with RN ALEXIA BLACKWELL MD April 08, 2021 06:42
[2021-04-08] MEDS: NOREPINEPHRINE VIAL 8 MG in IV DEXTROSE 5% 250 ML IV PRN ×2 (07:33→20:23)
[2021-04-08] MEDS: PANTOPRAZOLE IV PUSH 40 MG VIAL. IVP SCH (07:50)
[2021-04-08] MEDS: ALBUMIN HUMAN 25% 100 ML IV SCH ×3 (07:59→20:52)
[2021-04-08 08:16] LABS: BASE EXCESS ABG 1 mmol/L (-3-3); HCO3 ABG 26 mmol/L (21-28); PCO2 ABG 42 mmHg (35-46); PO2 ABG 102 mmHg (75-108); SAT O2 ABG 98 % (92-99)
[2021-04-08] MEDS: POTASSIUM PHOSPHATE DIBASIC IV SCH ×2 (10:59→12:52)
[2021-04-08] MEDS: NS IV SCH ×2 (10:59→12:52)
[2021-04-08] MEDS: MAGNESIUM SULFATE 2GM 50 ML IV PRN (11:03)
--- NOTE | 2021-04-08 11:39 | PDOC ---
Infectious Disease Note Subjective Subjective pt is intubated on vent ROS ROS no n/v/d/ Vital Sign Vital Signs Vital Signs Date Time Temp Pulse Resp B/P (MAP) Pulse Ox O2 Delivery O2 Flow Rate FiO2 04/08/21 11:00 82 16 118/65 (82) 97 Ventilator 04/08/21 08:00 98.7 98.7 Physical Exam PHYSICAL EXAM VITAL SIGNS: stable GENERAL: Intubated and sedated. HEENT: Atraumatic. NECK: Right IJ clean. LUNGS: Decreased breath sounds at the bases, otherwise clear. No wheezing. HEART: S1, S2. ABDOMEN: Distended, laparoscopy dressing intact, not taken down. ROCIO drain in place. Bowel sounds hypoactive. EXTREMITIES: No edema. Hyperpigmentation. Slight mottling. GENITOURINARY: Hwang in place. No generalized rash except for above. PSYCHIATRIC: Unable to assess. The patient was alert, oriented x 3 prior to surgery. Labs Lab Laboratory Tests Test 04/08/21 05:45 04/08/21 08:00 Hemoglobin 7.4 g/dL (13.0-17.5) Sodium Level 141 mmol/L (136-145) Potassium Level 3.5 mmol/L (3.5-5.1) Chloride Level 105 mmol/L (98-107) Carbon Dioxide Level 29 mmol/L (21-32) Anion Gap 7 (6-14) Blood Urea Nitrogen 41 mg/dL (8-26) Creatinine 1.1 mg/dL (0.7-1.3) Estimated GFR (Cockcroft-Gault) 70.6 Glucose Level 160 mg/dL (70-99) Calcium Level 7.4 mg/dL (8.5-10.1) Phosphorus Level 2.0 mg/dL (2.6-4.7) Magnesium Level 1.6 mg/dL (1.8-2.4) Albumin 2.1 g/dL (3.4-5.0) O2 Saturation 98 % (92-99) Arterial Blood pH 7.41 (7.35-7.45) Arterial Blood pCO2 at Patient Temp 42 mmHg (35-46) Arterial Blood pO2 at Patient Temp 102 mmHg (75-108) Arterial Blood HCO3 26 mmol/L (21-28) Arterial Blood Base Excess 1 mmol/L (-3-3) FiO2 35/vent Micro Microbiology 04/06/21 Blood Culture - Preliminary, Resulted NO GROWTH AFTER 1 DAY 04/05/21 Gram Stain - Final, Resulted 04/05/21 Aerobic and Anaerobic Culture - Preliminary, Resulted Objective Assessment 1. Severe sepsis. 2. Abdominal pain, nausea, vomiting. Pneumoperitoneum on CT, status post diagnostic laparoscopy, placement of abdominal drain. No evidence of perforated viscus. Findings were consistent with spontaneous bacterial peritonitis. 3. Ascites and cirrhosis. 4. ETOH dependence. 5. Acute kidney injury with hyperkalemia. 6. Thrombocytopenia. 7. Coagulopathy. 8. Increased LFTs. 9. Postoperative intubation. Plan Plan of Care cont antibiotics cont supportive care HIREN BANSAL MD April 08, 2021 11:39
--- NOTE | 2021-04-08 12:25 | PDOC ---
DATE OF SERVICE: DOS: DATE: 04/08/21 TIME: 12:19 SUBJECTIVE ROS Follow-up for acute kidney injury Patient remains sedated intubated on the ventilator. OBJECTIVE Vital Signs Vital Signs Date Time Temp Pulse Resp B/P (MAP) Pulse Ox O2 Delivery O2 Flow Rate FiO2 04/08/21 11:00 82 16 118/65 (82) 97 Ventilator 04/08/21 08:00 98.7 98.7 I & 0 Intake and Output 04/08/21 07:00 Intake Total 5032.08 ml Output Total 7705 ml Balance -2672.92 ml IV Total 5032.08 ml Output Urine Total 2570 ml Gastric Drainage Total 1850 ml Drainage Total 3285 ml PHYSICAL EXAM Physical Exam GEN: Sedated intubated on the ventilator EYES: Sclera anicteric, Conjunctiva Normal EN: No EN Drainage, Mucous Membranes moist, orally intubated NECK: no JVD, no JVP, Supple, no Thyromegaly CVS: S1S2, no obvious audible murmur, No Gallop, No Rub,no Edema RESP: no Rales, no Rhonchi,no Acc. Muscle Use GI: BS minimal, NO Bruit, Non Tender, Non Distended : no CVA tenderness, no Suprapubic Tenderness DIAGNOSIS/ASSESSMENT Diagnosis EDDI-ATN-CR IMPROVED with good urine output. PROB SEPSIS suspect intra-abdominal source in the setting of pneumoperitoneum. Status post repair and drainage. ETOH ABUSE with possible LIVER CIRRHOSIS underlying. May explain hypoalbuminemia Hypomagnesemia: Replace as ordered Continue TPN for now. Pharmacy to manage electrolytes via TPN. Resume tube feeds when okayed by general surgery We will be available if needed please call with questions concerns COMMENT/RELEVANT DATA Meds Current Medications Medications (Trade) Dose Ordered Sig/Ada Start Time Stop Time Status Last Admin Dose Admin Albumin Human 100 ml @ 100 mls/hr TID 04/07/21 14:00 04/09/21 09:59 04/08/21 07:59 100 MLS/HR Bupivacaine HCl/ Epinephrine Bitart (Sensorcain-Epi 0.5%-1:037559 Mpf) 30 ml STK-MED ONCE 04/05/21 11:54 04/05/21 11:54 DC Dexamethasone Sodium Phosphate (Decadron) 4 mg STK-MED ONCE 04/05/21 09:22 04/05/21 09:22 DC Etomidate (Amidate) 20 mg STK-MED ONCE 04/05/21 09:22 04/05/21 09:22 DC Fentanyl Citrate 30 ml @ 0 mls/hr CONT PRN 04/06/21 08:30 04/08/21 04:28 2.5 MLS/HR Fentanyl Citrate (Fentanyl 2ml Vial) 100 mcg PRN Q2HR PRN 04/05/21 15:45 04/06/21 08:25 DC 04/06/21 02:53 100 MCG Glycopyrrolate (Robinul) 1 mg STK-MED ONCE 04/05/21 13:35 04/05/21 13:35 DC Hydromorphone HCl (Dilaudid) 0.5 mg PRN Q10MIN PRN 04/05/21 09:00 04/05/21 18:00 DC Info (Tpn Per Pharmacy) 1 each PRN DAILY PRN 04/06/21 09:30 04/07/21 12:14 1 EACH Lidocaine HCl (Lidocaine Pf 2% Vial) 5 ml STK-MED ONCE 04/05/21 12:58 04/05/21 12:59 DC Linezolid/Dextrose 300 ml @ 300 mls/hr Q12HR 04/06/21 11:00 04/08/21 07:59 300 MLS/HR Magnesium Sulfate 50 ml @ 25 mls/hr PRN DAILY PRN 04/07/21 13:00 04/08/21 11:03 25 MLS/HR Methylene Blue (Provayblue) 10 ml STK-MED ONCE 04/05/21 13:14 04/05/21 13:14 DC Micafungin Sodium 100 mg/Dextrose 100 ml @ 100 mls/hr Q24H 04/06/21 12:00 04/07/21 11:29 100 MLS/HR Midazolam HCl (Versed) 5 mg 1X ONCE 04/05/21 15:45 04/05/21 15:46 DC 04/05/21 15:46 5 MG Morphine Sulfate (Morphine Sulfate) 1 mg PRN Q10MIN PRN 04/05/21 09:00 04/05/21 18:00 DC 04/05/21 15:35 1 MG Neostigmine [place] (Neostigmine Methylsulfate) 5 mg STK-MED ONCE 04/05/21 13:36 04/05/21 13:36 DC Norepinephrine Bitartrate 8 mg/ Dextrose 258 ml @ 21.537 mls/ hr CONT PRN 04/05/21 16:15 04/08/21 07:33 25 MLS/HR Ondansetron HCl (Zofran) 4 mg STK-MED ONCE 04/05/21 09:22 04/05/21 09:22 DC Pantoprazole Sodium (PROTONIX VIAL for IV PUSH) 40 mg DAILYAC 04/06/21 07:30 04/08/21 07:50 40 MG Pantoprazole Sodium 80 mg/ Sodium Chloride 100 ml @ 10 mls/hr Q10H 04/05/21 04:00 04/05/21 16:46 DC 04/05/21 04:56 10 MLS/HR Phenylephrine HCl (Pavel-Synephrine Inj) 10 mg STK-MED ONCE 04/05/21 09:22 04/05/21 09:23 DC Piperacillin Sod/ Tazobactam Sod (Zosyn Per Pharmacy) 1 each PRN DAILY PRN 04/05/21 08:00 Piperacillin Sod/ Tazobactam Sod 2.25 gm/Sodium Chloride 50 ml @ 100 mls/hr Q6HRS 04/05/21 13:00 04/08/21 05:53 100 MLS/HR Piperacillin Sod/ Tazobactam Sod 3.375 gm/Sodium Chloride 50 ml @ 100 mls/hr Q6HRS 04/05/21 08:00 04/05/21 10:49 DC 04/05/21 08:32 100 MLS/HR Potassium Phosphate 10 mmol/ Sodium Chloride 103.3333 ml @ 51.667 m... Q2H 04/08/21 09:00 04/08/21 12:59 04/08/21 10:59 51.667 MLS/HR Prochlorperazine Edisylate (Compazine) 5 mg PACU PRN PRN 04/05/21 09:00 04/05/21 18:00 DC Ringer's Solution 1,000 ml @ 30 mls/hr Q24H 04/05/21 09:00 04/05/21 20:59 DC Rocuronium [place] (Zemuron) 50 mg STK-MED ONCE 04/05/21 12:36 04/05/21 12:36 DC Sevoflurane (Ultane) 90 ml STK-MED ONCE 04/05/21 14:07 04/05/21 14:07 DC Sodium Bicarbonate 150 meq/Dextrose 1,150 ml @ 100 mls/hr [id number] 04/05/21 16:00 04/07/21 13:34 DC 04/07/21 03:21 100 MLS/HR Sodium Bicarbonate (Sodium Bicarb Adult 8.4% Syr) 100 meq 1X ONCE 04/05/21 15:45 04/05/21 15:46 DC 04/05/21 15:46 100 MEQ Sodium Chloride 90 meq/Potassium Chloride 35 meq/ Magnesium Sulfate 10 meq/Calcium Gluconate 10 meq/ Multivitamins 5 ml/Zinc/Copper/ Manganese/ Selenium 1 ml/ Total Parenteral Nutrition/Amino Acids/Dextrose 1,512 ml @ 63 mls/hr TPN CONT 04/06/21 22:00 04/07/21 21:59 DC 04/06/21 21:25 63 MLS/HR Sodium Chloride 90 meq/Potassium Chloride 50 meq/ Magnesium Sulfate 12 meq/Calcium Gluconate 10 meq/ Multivitamins 5 ml/Zinc/Copper/ Manganese/ Selenium 1 ml/ Total Parenteral Nutrition/Amino Acids/Dextrose 1,512 ml @ 63 mls/hr TPN CONT 04/07/21 22:00 04/08/21 21:59 04/07/21 22:55 63 MLS/HR Vasopressin 20 unit/Dextrose 101 ml @ 12 mls/hr CONT PRN 04/06/21 08:30 04/08/21 11:51 12 MLS/HR Lab Laboratory Tests Test 04/08/21 05:45 04/08/21 08:00 Hemoglobin 7.4 g/dL (13.0-17.5) Sodium Level 141 mmol/L (136-145) Potassium Level 3.5 mmol/L (3.5-5.1) Chloride Level 105 mmol/L (98-107) Carbon Dioxide Level 29 mmol/L (21-32) Anion Gap 7 (6-14) Blood Urea Nitrogen 41 mg/dL (8-26) Creatinine 1.1 mg/dL (0.7-1.3) Estimated GFR (Cockcroft-Gault) 70.6 Glucose Level 160 mg/dL (70-99) Calcium Level 7.4 mg/dL (8.5-10.1) Phosphorus Level 2.0 mg/dL (2.6-4.7) Magnesium Level 1.6 mg/dL (1.8-2.4) Albumin 2.1 g/dL (3.4-5.0) O2 Saturation 98 % (92-99) Arterial Blood pH 7.41 (7.35-7.45) Arterial Blood pCO2 at Patient Temp 42 mmHg (35-46) Arterial Blood pO2 at Patient Temp 102 mmHg (75-108) Arterial Blood HCO3 26 mmol/L (21-28) Arterial Blood Base Excess 1 mmol/L (-3-3) FiO2 35/vent Results All relevant outside records, renal labs, imaging studies, telemetry/EKG's were reviewed. Justicifation of Admission Dx: Justifications for Admission: Justification of Admission Dx: Yes PARESH BANSAL MD April 08, 2021 12:25
[2021-04-08] MEDS: TPN PER PHARMACY MC PRN (12:55)
[2021-04-08] MEDS: MICAFUNGIN 100 MG in IV DEXTROSE 5% 100ML 100 ML IV SCH (13:36)
--- NOTE | 2021-04-08 14:50 | PDOC ---
[employer] PROGRESS NOTE Date of Service DOS: DATE: 04/08/21 TIME: 14:48 Chief Complaint Chief Complaint Sepsis Pneumoperitoneum Suspect spontaneous bacterial peritonitis Leukocytosis Duodenitis Ascites Probable cirrhosis Cholelithiasis History alcohol abuse History COPD Severe malnutrition Plan: Consultations placed to general surgery and GI Due to concern for perforation I believe patient will be taken to the OR this morning. We will continue treatment with Zosyn, and may need to broaden antibiotic coverage with metronidazole; will consider consulting ID following surgery. IV pain medication FEN - NPO PPX - Heparin FULL CODE; patient names his daughter as surrogate decision-maker. Dispo - inpatient for above History of Present Illness History of Present Illness Patient is a 50-year-old male with past medical history alcohol abuse, who presents as a transfer from [facility] due to pneumoperitoneum. Initially at [facility] ER he complained of abdominal pain and abdominal swelling over the past week, 07/03. He reports associated nausea and vomiting over this time, and is not amenable to take his home medications. Patient also reports noticing alyssa e discoloration of his eyes, discoloration of the skin, and dark urine over the past several days. He denies recent NSAID use. He was transferred to [facility] and admitted to the ICU for further medical management. 04/08/2021 Patient remains intubated, FiO2 35%, PEEP 5. Afebrile. Continue antibiotics, per ID. Abdominal fluid cultures and blood cultures with no growth to date. 30 minutes critical care time spent, reviewing labs, reviewing charts, and discussion with RN. 04/07/2021 Afebrile. Intubated, with FiO2 40%, PEEP 5. Requiring 2 vasopressors. Abdominal drain with clear serous output. Continue Zosyn, Zyvox, and micafungin, per ID. Blood cultures and abdominal fluid cultures with no growth to date. 30 minutes critical care time spent reviewing charts, reviewing labs, and discussion with RN. 04/06/2021 Patient seen in ICU s/p diagnostic laparoscopy with culture abdominal fluid and placement of abdominal drain. Suspect spontaneous bacterial peritonitis. He is currently on 2 vasopressors. Continue linezolid, Zosyn, and micafungin, per ID. No organisms seen on Gram stain of abdominal fluid and preliminary abdominal fluid cultures with no growth to date. 30 minutes critical care time spent reviewing charts, reviewing labs, reviewing imaging, and discussion with RN. Vitals/I&O Vitals/I&O: Vital Signs Date Time Temp Pulse Resp B/P (MAP) Pulse Ox O2 Delivery O2 Flow Rate FiO2 04/08/21 14:42 98 Ventilator 04/08/21 14:00 83 16 119/66 (83) 04/08/21 12:00 98.1 98.1 I & O 04/07/21 04/07/21 04/08/21 15:00 23:00 07:00 Intake Total 2261.48 ml 683.6 ml 2087 ml Output Total 2875 ml 2855 ml 1975 ml Balance -613.52 ml -2171.4 ml 112 ml Physical Exam Physical Exam: VITAL SIGNS: stable GENERAL: Intubated and sedated. HEENT: Atraumatic. NECK: Right IJ clean. LUNGS: Decreased breath sounds at the bases, otherwise clear. No wheezing. HEART: S1, S2. ABDOMEN: Distended, laparoscopy dressing intact, not taken down. ROCIO drain in place. Bowel sounds hypoactive. EXTREMITIES: No edema. Hyperpigmentation. Slight mottling. GENITOURINARY: Hwang in place. No generalized rash except for above. PSYCHIATRIC: Unable to assess. The patient was alert, oriented x 3 prior to surgery. General: No acute distress Heart: Regular rate Lungs: Crackles Abdomen: Soft, No tenderness, Other (ROCIO serous) Extremities: No cyanosis Skin: No rashes Labs Labs: Laboratory Tests Test 04/08/21 05:45 04/08/21 08:00 Hemoglobin 7.4 g/dL (13.0-17.5) Sodium Level 141 mmol/L (136-145) Potassium Level 3.5 mmol/L (3.5-5.1) Chloride Level 105 mmol/L (98-107) Carbon Dioxide Level 29 mmol/L (21-32) Anion Gap 7 (6-14) Blood Urea Nitrogen 41 mg/dL (8-26) Creatinine 1.1 mg/dL (0.7-1.3) Estimated GFR (Cockcroft-Gault) 70.6 Glucose Level 160 mg/dL (70-99) Calcium Level 7.4 mg/dL (8.5-10.1) Phosphorus Level 2.0 mg/dL (2.6-4.7) Magnesium Level 1.6 mg/dL (1.8-2.4) Albumin 2.1 g/dL (3.4-5.0) O2 Saturation 98 % (92-99) Arterial Blood pH 7.41 (7.35-7.45) Arterial Blood pCO2 at Patient Temp 42 mmHg (35-46) Arterial Blood pO2 at Patient Temp 102 mmHg (75-108) Arterial Blood HCO3 26 mmol/L (21-28) Arterial Blood Base Excess 1 mmol/L (-3-3) FiO2 35/vent Comment Review of Relevant I have reviewed the following items jeff (where applicable) has been applied. Medications: Current Medications Medications (Trade) Dose Ordered Sig/Ada Route PRN Reason Start Time Stop Time Status Last Admin Dose Admin Sodium Chloride 90 meq/Potassium Chloride 50 meq/ Magnesium Sulfate 12 meq/Calcium Gluconate 10 meq/ Multivitamins 5 ml/Zinc/Copper/ Manganese/ Selenium 1 ml/ Total Parenteral Nutrition/Amino Acids/Dextrose 1,512 ml @ 63 mls/hr TPN CONT IV 04/07/21 22:00 04/08/21 21:59 04/07/21 22:55 Potassium Phosphate 10 mmol/ Sodium Chloride 103.3333 ml @ 51.667 m... Q2H IV 04/08/21 09:00 04/08/21 13:00 DC 04/08/21 12:52 Justifications for Admission Other Justification FLEX GRAHAM MD April 08, 2021 14:50
[2021-04-08] MEDS ORDERED: MINERAL OIL/PETROLATUM,WHITE OPHTH OINT 3.5GM TUBE. OU PRN (15:30)
[2021-04-08] MEDS: MIDAZOLAM 100mg/100ml NS BAG 100 ML IV PRN (16:17)
--- NOTE | 2021-04-08 16:43 | PDOC ---
SURGICAL PROGRESS NOTE DATE: 04/08/21 TIME: 16:42 Subjective Pt intubated and sedated Vital Signs Vital Signs Date Time Temp Pulse Resp B/P (MAP) Pulse Ox O2 Delivery O2 Flow Rate FiO2 04/08/21 16:31 99 Ventilator 04/08/21 16:00 98.4 80 16 98/48 (65) 98.4 I&O Intake and Output 04/08/21 07:00 Intake Total 5032.08 ml Output Total 7705 ml Balance -2672.92 ml IV Total 5032.08 ml Output Urine Total 2570 ml Gastric Drainage Total 1850 ml Drainage Total 3285 ml General: No acute distress Abdomen: Soft, No tenderness, Other (ROCIO serous) Labs Laboratory Tests Test 04/07/21 05:55 04/07/21 08:00 04/08/21 05:45 04/08/21 08:00 White Blood Count 15.7 x10^3/uL (4.0-11.0) Red Blood Count 1.89 x10^6/uL (4.30-5.70) Hemoglobin 7.6 g/dL (13.0-17.5) 7.4 g/dL (13.0-17.5) Hematocrit 22.7 % (39.0-53.0) Mean Corpuscular Volume 120 fL (79-100) Mean Corpuscular Hemoglobin 40 pg (25-35) Mean Corpuscular Hemoglobin Concent 33 g/dL (31-37) Red Cell Distribution Width 15.2 % (11.5-14.5) Platelet Count 151 x10^3/uL (140-400) Prothrombin Time 17.8 SEC (11.7-14.0) Prothromb Time International Ratio 1.5 (0.8-1.1) Sodium Level 140 mmol/L (136-145) 141 mmol/L (136-145) Potassium Level 3.7 mmol/L (3.5-5.1) 3.5 mmol/L (3.5-5.1) Chloride Level 106 mmol/L (98-107) 105 mmol/L (98-107) Carbon Dioxide Level 27 mmol/L (21-32) 29 mmol/L (21-32) Anion Gap 7 (6-14) 7 (6-14) Blood Urea Nitrogen 51 mg/dL (8-26) 41 mg/dL (8-26) Creatinine 1.7 mg/dL (0.7-1.3) 1.1 mg/dL (0.7-1.3) Estimated GFR (Cockcroft-Gault) 42.7 70.6 BUN/Creatinine Ratio 30 (6-20) Glucose Level 186 mg/dL (70-99) 160 mg/dL (70-99) Calcium Level 6.7 mg/dL (8.5-10.1) 7.4 mg/dL (8.5-10.1) Phosphorus Level 4.2 mg/dL (2.6-4.7) 2.0 mg/dL (2.6-4.7) Magnesium Level 1.4 mg/dL (1.8-2.4) 1.6 mg/dL (1.8-2.4) Total Bilirubin 3.3 mg/dL (0.2-1.0) Aspartate Amino Transf (AST/SGOT) 80 U/L (15-37) Alanine Aminotransferase (ALT/SGPT) 52 U/L (16-63) Alkaline Phosphatase 79 U/L (46-116) Total Protein 6.2 g/dL (6.4-8.2) Albumin 1.5 g/dL (3.4-5.0) 2.1 g/dL (3.4-5.0) Albumin/Globulin Ratio 0.3 (1.0-1.7) Triglycerides Level 138 mg/dL (0-150) O2 Saturation 98 % (92-99) 98 % (92-99) Arterial Blood pH 7.34 (7.35-7.45) 7.41 (7.35-7.45) Arterial Blood pCO2 at Patient Temp 46 mmHg (35-46) 42 mmHg (35-46) Arterial Blood pO2 at Patient Temp 113 mmHg (75-108) 102 mmHg (75-108) Arterial Blood HCO3 25 mmol/L (21-28) 26 mmol/L (21-28) Arterial Blood Base Excess -1 mmol/L (-3-3) 1 mmol/L (-3-3) FiO2 40/vent 35/vent Laboratory Tests Test 04/08/21 05:45 04/08/21 08:00 Hemoglobin 7.4 g/dL (13.0-17.5) Sodium Level 141 mmol/L (136-145) Potassium Level 3.5 mmol/L (3.5-5.1) Chloride Level 105 mmol/L (98-107) Carbon Dioxide Level 29 mmol/L (21-32) Anion Gap 7 (6-14) Blood Urea Nitrogen 41 mg/dL (8-26) Creatinine 1.1 mg/dL (0.7-1.3) Estimated GFR (Cockcroft-Gault) 70.6 Glucose Level 160 mg/dL (70-99) Calcium Level 7.4 mg/dL (8.5-10.1) Phosphorus Level 2.0 mg/dL (2.6-4.7) Magnesium Level 1.6 mg/dL (1.8-2.4) Albumin 2.1 g/dL (3.4-5.0) O2 Saturation 98 % (92-99) Arterial Blood pH 7.41 (7.35-7.45) Arterial Blood pCO2 at Patient Temp 42 mmHg (35-46) Arterial Blood pO2 at Patient Temp 102 mmHg (75-108) Arterial Blood HCO3 26 mmol/L (21-28) Arterial Blood Base Excess 1 mmol/L (-3-3) FiO2 35/vent Problem List s/p lap exploration appears stable although buttermaker prognosis grim Justicifation of Admission Dx: Justifications for Admission: Justification of Admission Dx: Yes URSZULA WATSON MD April 08, 2021 16:43
[2021-04-08] MEDS ORDERED: AMINO ACID IV SCH (22:00)
[2021-04-08] MEDS ORDERED: DEXTROSE 70% IV SCH (22:00)
[2021-04-08] MEDS ORDERED: TOTAL PARENTERAL NUTRITION IV SCH (22:00)
[2021-04-08] MEDS ORDERED: [UNRECOGNIZED DRUG - OTHER] IV SCH (22:00)
[2021-04-09] VITALS (35 sets, daily range): BP systolic 80–129; BP diastolic 44–71
[2021-04-09] MEDS: PIPERACILLIN/TAZOBACTAM 2.25 GM in IV NORMAL SALINE 50ML 50 ML IV SCH ×5 (00:42→23:49)
[2021-04-09] MEDS: VASOPRESSIN 20 UNIT in IV DEXTROSE 5% 100ML 100 ML IV PRN ×2 (05:22→16:30)
[2021-04-09 06:53] LABS: BASO # 0.1 x10^3/uL (0.0-0.2); BASO % 1 % (0-3); EOS # 0.5 x10^3/uL (0.0-0.7); EOS % 4 % (0-3); LYMPH # 1.8 x10^3/uL (1.0-4.8); LYMPH % 15 % (24-48); MEAN CORPUSCULAR HEMOGLOBIN 40 pg (25-35); MEAN CORPUSCULAR HGB CONC 33 g/dL (31-37); MEAN CORPUSCULAR VOLUME 121 fL (79-100); MONO % 9 % (0-9); NEUT # 8.4 x10^3/uL (1.8-7.7); NEUT % 72 % (31-73); PLATELET COUNT 99 x10^3/uL (140-400); RED BLOOD COUNT 1.71 x10^6/uL (4.30-5.70); RED CELL DISTRIBUTION WIDTH 14.6 % (11.5-14.5); WHITE BLOOD COUNT 11.7 x10^3/uL (4.0-11.0)
[2021-04-09 07:07] LABS: HEMOGLOBIN 6.8 g/dL (13.0-17.5)
[2021-04-09 07:08] LABS: HEMATOCRIT 20.7 % (39.0-53.0)
[2021-04-09] MEDS: NOREPINEPHRINE VIAL 8 MG in IV DEXTROSE 5% 250 ML IV PRN (08:29)
--- NOTE | 2021-04-09 08:34 | RAD ---
EXAM: Chest, single view. HISTORY: Respiratory support. COMPARISON: 04/06/2021. FINDINGS: A frontal view of the chest is obtained. There is an endotracheal tube within the trachea. There is nasogastric tube within the stomach. There is a right internal jugular catheter with the tip in the superior vena cava or superior cavoatrial junction. There is bilateral infrahilar linear atel ectasis or interstitial infiltrate. No consolidation is seen. There is no pneumothorax or pleural eff usion. There is a stable prominent cardiac silhouette. IMPRESSION: 1. Bilateral infrahilar linear atelectasis or interstitial infiltrate. 2. Support lines and tubes, described above. Electronically signed by: Silke Jimenez MD (04/09/2021 8:31 AM) [id number]
[2021-04-09 08:37] LABS: BASE EXCESS ABG 0 mmol/L (-3-3); HCO3 ABG 25 mmol/L (21-28); PCO2 ABG 44 mmHg (35-46); PO2 ABG 116 mmHg (75-108); SAT O2 ABG 98 % (92-99)
[2021-04-09 08:39] LABS: FIO2 ABG 35
--- NOTE | 2021-04-09 08:49 | PDOC ---
Infectious Disease Note Subjective Subjective pt is intubated on vent ROS ROS no n/v/d/ Vital Sign Vital Signs Vital Signs Date Time Temp Pulse Resp B/P (MAP) Pulse Ox O2 Delivery O2 Flow Rate FiO2 04/09/21 07:55 99 Ventilator 04/09/21 07:00 98.5 75 16 118/71 (87) 98.5 Physical Exam PHYSICAL EXAM VITAL SIGNS: stable GENERAL: Intubated and sedated. HEENT: Atraumatic. NECK: Right IJ clean. LUNGS: Decreased breath sounds at the bases, otherwise clear. No wheezing. HEART: S1, S2. ABDOMEN: Distended, laparoscopy dressing intact, not taken down. ROCIO drain in place. Bowel sounds hypoactive. EXTREMITIES: No edema. Hyperpigmentation. Slight mottling. GENITOURINARY: Hwang in place. No generalized rash except for above. PSYCHIATRIC: Unable to assess. The patient was alert, oriented x 3 prior to surgery. Labs Lab Laboratory Tests Test 04/09/21 05:50 04/09/21 08:00 White Blood Count 11.7 x10^3/uL (4.0-11.0) Red Blood Count 1.71 x10^6/uL (4.30-5.70) Hemoglobin 6.8 g/dL (13.0-17.5) Hematocrit 20.7 % (39.0-53.0) Mean Corpuscular Volume 121 fL (79-100) Mean Corpuscular Hemoglobin 40 pg (25-35) Mean Corpuscular Hemoglobin Concent 33 g/dL (31-37) Red Cell Distribution Width 14.6 % (11.5-14.5) Platelet Count 99 x10^3/uL (140-400) Neutrophils (%) (Auto) 72 % (31-73) Lymphocytes (%) (Auto) 15 % (24-48) Monocytes (%) (Auto) 9 % (0-9) Eosinophils (%) (Auto) 4 % (0-3) Basophils (%) (Auto) 1 % (0-3) Neutrophils # (Auto) 8.4 x10^3/uL (1.8-7.7) Lymphocytes # (Auto) 1.8 x10^3/uL (1.0-4.8) Monocytes # (Auto) 1.0 x10^3/uL (0.0-1.1) Eosinophils # (Auto) 0.5 x10^3/uL (0.0-0.7) Basophils # (Auto) 0.1 x10^3/uL (0.0-0.2) Sodium Level 143 mmol/L (136-145) Potassium Level 3.7 mmol/L (3.5-5.1) Chloride Level 107 mmol/L (98-107) Carbon Dioxide Level 29 mmol/L (21-32) Anion Gap 7 (6-14) Blood Urea Nitrogen 33 mg/dL (8-26) Creatinine 0.9 mg/dL (0.7-1.3) Estimated GFR (Cockcroft-Gault) 89.0 Glucose Level 156 mg/dL (70-99) Calcium Level 8.1 mg/dL (8.5-10.1) Magnesium Level 1.7 mg/dL (1.8-2.4) O2 Saturation 98 % (92-99) Arterial Blood pH 7.38 (7.35-7.45) Arterial Blood pCO2 at Patient Temp 44 mmHg (35-46) Arterial Blood pO2 at Patient Temp 116 mmHg (75-108) Arterial Blood HCO3 25 mmol/L (21-28) Arterial Blood Base Excess 0 mmol/L (-3-3) FiO2 35 Micro Microbiology 04/06/21 Blood Culture - Preliminary, Resulted NO GROWTH AFTER 1 DAY 04/05/21 Gram Stain - Final, Resulted 04/05/21 Aerobic and Anaerobic Culture - Preliminary, Resulted Objective Assessment 1. Severe sepsis. 2. Abdominal pain, nausea, vomiting. Pneumoperitoneum on CT, status post diagnostic laparoscopy, placement of abdominal drain. No evidence of perforated viscus. Findings were consistent with spontaneous bacterial peritonitis. 3. Ascites and cirrhosis. 4. ETOH dependence. 5. Acute kidney injury with hyperkalemia. 6. Thrombocytopenia. 7. Coagulopathy. 8. Increased LFTs. 9. Postoperative intubation. Plan Plan of Care cont antibiotics cont supportive care HIREN BANSAL MD April 09, 2021 08:49
[2021-04-09] MEDS: PANTOPRAZOLE IV PUSH 40 MG VIAL. IVP SCH (08:52)
[2021-04-09] MEDS: MAGNESIUM SULFATE 2GM 50 ML IV PRN (08:52)
[2021-04-09] MEDS: ALBUMIN HUMAN 25% 100 ML IV SCH (10:13)
--- NOTE | 2021-04-09 10:54 | PDOC ---
Date of Service: DATE: 04/09/21 TIME: 10:46 Objective: Objective: D/w nurse - on pressors, 100cc from every 30-60 minutes, plans for transfusion. Vital Signs: Vital Signs Date Time Temp Pulse Resp B/P (MAP) Pulse Ox O2 Delivery O2 Flow Rate FiO2 04/09/21 08:00 70 16 120/62 (81) 99 Ventilator 04/09/21 07:00 98.5 98.5 Labs: Laboratory Tests Test 04/09/21 05:50 04/09/21 08:00 White Blood Count 11.7 x10^3/uL Red Blood Count 1.71 x10^6/uL Hemoglobin 6.8 g/dL Hematocrit 20.7 % Mean Corpuscular Volume 121 fL Mean Corpuscular Hemoglobin 40 pg Mean Corpuscular Hemoglobin Concent 33 g/dL Red Cell Distribution Width 14.6 % Platelet Count 99 x10^3/uL Neutrophils (%) (Auto) 72 % Lymphocytes (%) (Auto) 15 % Monocytes (%) (Auto) 9 % Eosinophils (%) (Auto) 4 % Basophils (%) (Auto) 1 % Neutrophils # (Auto) 8.4 x10^3/uL Lymphocytes # (Auto) 1.8 x10^3/uL Monocytes # (Auto) 1.0 x10^3/uL Eosinophils # (Auto) 0.5 x10^3/uL Basophils # (Auto) 0.1 x10^3/uL Phosphorus Level 1.7 mg/dL O2 Saturation 98 % Arterial Blood pH 7.38 Arterial Blood pCO2 at Patient Temp 44 mmHg Arterial Blood pO2 at Patient Temp 116 mmHg Arterial Blood HCO3 25 mmol/L Arterial Blood Base Excess 0 mmol/L FiO2 35 GRAM STAIN Final Final NO ORGANISMS SEEN. SQUAMOUS EPI CELL:NOT APPLICABLE PMN (WBCs):MODERATE ANAEROBIC-AEROBIC CULTURE Preliminary Preliminary BLOOD CULTURE Preliminary NO GROWTH AFTER 2 DAYS Imaging: CXR 04/09 IMPRESSION: 1. Bilateral infrahilar linear atelectasis or interstitial infiltrate. 2. Support lines and tubes, described above. PE: GEN: intubated LUNGS: vent/clear HEART: RRR ABD: softer, drain serous NEURO/PSYCH: sedated A/P: Suspected SBP - on atbx Hypotension, resp failure - intubated on pressors, TPN Anemia - h/o iron and B12 deficiency - Hgb drift, plans for transfusion Alcoholic liver disease w/ coagulopathy, thrombocytopenia (s/p FFP), elevated LFTs -- Plans as above, continue support. Justicifation of Admission Dx: Justifications for Admission: Justification of Admission Dx: Yes CHRISTIANE BRIONES April 09, 2021 10:54
[2021-04-09 11:01] LABS: ALBUMIN 2.7 g/dL (3.4-5.0); CALCIUM 8.1 mg/dL (8.5-10.1); CREATININE 0.9 mg/dL (0.7-1.3); PHOSPHORUS 1.6 mg/dL (2.6-4.7); POTASSIUM 3.8 mmol/L (3.5-5.1)
--- NOTE | 2021-04-09 11:31 | PDOC ---
[employer] PROGRESS NOTE Date of Service DOS: DATE: 04/09/21 TIME: 11:27 Chief Complaint Chief Complaint Sepsis Respiratory failure Postop exploratory laparotomy Severe cirrhosis Coagulopathy Pneumoperitoneum Suspect spontaneous bacterial peritonitis Leukocytosis Duodenitis Ascites Cholelithiasis History alcohol abuse History COPD Severe malnutrition History of Present Illness History of Present Illness 04/09/2021 Patient seen and examined in the ICU He remains mechanically ventilated ///30 5% with 5 of PEEP Discussed with case management Discussed with RN Chart reviewed He is sedated with fentanyl He is on IV vasopressin Has TPN hanging Abdomen with 4 clean dry intact trocar sites and a ROCIO drain in the lower right quadrant He remains critically ill Patient is a 50-year-old male with past medical history alcohol abuse, who presents as a transfer from [facility] due to pneumoperitoneum. Initially at [facility] ER he complained of abdominal pain and abdominal swelling over the past week, 07/03. He reports associated nausea and vomiting over this time, and is not amenable to take his home medications. Patient also reports noticing some discoloration of his eyes, discoloration of the skin, and dark urine over the past several days. He denies recent NSAID use. He was transferred to [facility] and admitted to the ICU for further medical management. 04/08/2021 Patient remains intubated, FiO2 35%, PEEP 5. Afebrile. Continue antibiotics, per ID. Abdominal fluid cultures and blood cultures with no growth to date. 30 minutes critical care time spent, reviewing labs, reviewing charts, and discussion with RN. 04/07/2021 Afebrile. Intubated, with FiO2 40%, PEEP 5. Requiring 2 vasopressors. Abdominal drain with clear serous output. Continue Zosyn, Zyvox, and micafungin, per ID. Blood cultures and abdominal fluid cultures with no growth to date. 30 minutes critical care time spent reviewing charts, reviewing labs, and discussion with RN. 04/06/2021 Patient seen in ICU s/p diagnostic laparoscopy with culture abdominal fluid and placement of abdominal drain. Suspect spontaneous bacterial peritonitis. He is currently on 2 vasopressors. Continue linezolid, Zosyn, and micafungin, per ID. No organisms seen on Gram stain of abdominal fluid and preliminary abdominal fluid cultures with no growth to date. 30 minutes critical care time spent reviewing charts, reviewing labs, reviewing imaging, and discussion with RN. Vitals/I&O Vitals/I&O: Vital Signs Date Time Temp Pulse Resp B/P (MAP) Pulse Ox O2 Delivery O2 Flow Rate FiO2 04/09/21 08:00 70 16 120/62 (81) 99 Ventilator 04/09/21 07:00 98.5 98.5 I & O 04/08/21 04/08/21 04/09/21 15:00 23:00 07:00 Intake Total 2548 ml 823 ml Output Total 1860 ml 2425 ml 1370 ml Balance -1860 ml 123 ml -547 ml Physical Exam Physical Exam: VITAL SIGNS: stable GENERAL: Intubated and sedated. HEENT: Atraumatic. NECK: Right IJ clean. LUNGS: Decreased breath sounds at the bases, otherwise clear. No wheezing. HEART: S1, S2. ABDOMEN: Distended, laparoscopy dressing intact, not taken down. ROCIO drain in place. Bowel sounds hypoactive. EXTREMITIES: No edema. Hyperpigmentation. Slight mottling. GENITOURINARY: Hwang in place. No generalized rash except for above. PSYCHIATRIC: Unable to assess. The patient was alert, oriented x 3 prior to surgery. General: No acute distress Heart: Regular rate Lungs: Crackles Abdomen: Soft, No tenderness, Other (ROCIO serous) Extremities: No cyanosis Skin: No rashes Labs Labs: Laboratory Tests Test 04/09/21 05:50 04/09/21 08:00 White Blood Count 11.7 x10^3/uL (4.0-11.0) Red Blood Count 1.71 x10^6/uL (4.30-5.70) Hemoglobin 6.8 g/dL (13.0-17.5) Hematocrit 20.7 % (39.0-53.0) Mean Corpuscular Volume 121 fL (79-100) Mean Corpuscular Hemoglobin 40 pg (25-35) Mean Corpuscular Hemoglobin Concent 33 g/dL (31-37) Red Cell Distribution Width 14.6 % (11.5-14.5) Platelet Count 99 x10^3/uL (140-400) Neutrophils (%) (Auto) 72 % (31-73) Lymphocytes (%) (Auto) 15 % (24-48) Monocytes (%) (Auto) 9 % (0-9) Eosinophils (%) (Auto) 4 % (0-3) Basophils (%) (Auto) 1 % (0-3) Neutrophils # (Auto) 8.4 x10^3/uL (1.8-7.7) Lymphocytes # (Auto) 1.8 x10^3/uL (1.0-4.8) Monocytes # (Auto) 1.0 x10^3/uL (0.0-1.1) Eosinophils # (Auto) 0.5 x10^3/uL (0.0-0.7) Basophils # (Auto) 0.1 x10^3/uL (0.0-0.2) Sodium Level 142 mmol/L (136-145) Potassium Level 3.8 mmol/L (3.5-5.1) Chloride Level 107 mmol/L (98-107) Carbon Dioxide Level 27 mmol/L (21-32) Anion Gap 8 (6-14) Blood Urea Nitrogen 32 mg/dL (8-26) Creatinine 0.9 mg/dL (0.7-1.3) Estimated GFR (Cockcroft-Gault) 89.0 Glucose Level 155 mg/dL (70-99) Calcium Level 8.1 mg/dL (8.5-10.1) Phosphorus Level 1.6 mg/dL (2.6-4.7) Albumin 2.7 g/dL (3.4-5.0) O2 Saturation 98 % (92-99) Arterial Blood pH 7.38 (7.35-7.45) Arterial Blood pCO2 at Patient Temp 44 mmHg (35-46) Arterial Blood pO2 at Patient Temp 116 mmHg (75-108) Arterial Blood HCO3 25 mmol/L (21-28) Arterial Blood Base Excess 0 mmol/L (-3-3) FiO2 35 Assessment and Plan Assessmemt and Plan Sepsis Respiratory failure Postop exploratory laparotomy Severe cirrhosis Coagulopathy Pneumoperitoneum Suspect spontaneous bacterial peritonitis Leukocytosis Duodenitis Ascites Cholelithiasis History alcohol abuse History COPD Severe malnutrition Plan: ICU monitoring Wound care Monitor right lower quadrant ROCIO drain Trend labs Home meds if possible DVT prophylaxis Full code Prognosis extremely guarded at best Might need hospice if he does not improve soon Appreciate subspecialist input He remains critically ill Consultations placed to general surgery and GI CC time 34 minutes Comment Review of Relevant I have reviewed the following items jeff (where applicable) has been applied. Medications: Current Medications Medications (Trade) Dose Ordered Sig/Ada Route PRN Reason Start Time Stop Time Status Last Admin Dose Admin Sodium Chloride 90 meq/Potassium Chloride 70 meq/ Magnesium Sulfate 15 meq/Calcium Gluconate 10 meq/ Multivitamins 5 ml/Zinc/Copper/ Manganese/ Selenium 1 ml/ Potassium Phosphate 10 mmol/ Total Parenteral Nutrition/Amino Acids/Dextrose 1,512 ml @ 63 mls/hr TPN CONT IV 04/08/21 22:00 04/09/21 21:59 04/08/21 22:08 Multi-Ingred Cream/Lotion/Oil/ Oint (Artificial Tears Eye Ointment) 1 jennifer PRN Q1HR PRN OU DRY EYE 04/08/21 15:30 04/08/21 18:16 Justifications for Admission Other Justification MANUEL CARDONA III DO April 09, 2021 11:31
--- NOTE | 2021-04-09 11:39 | PDOC ---
PULMONARY PROGRESS NOTES DATE: 04/09/21 TIME: 11:36 Subjective Patient remains on ventilatory support Sedated with Versed and fentanyl Continues on vasopressor medications currently on vasopressin and Levophed Anemia today on lab values Vitals Vital Signs Date Time Temp Pulse Resp B/P (MAP) Pulse Ox O2 Delivery O2 Flow Rate FiO2 04/09/21 08:00 70 16 120/62 (81) 99 Ventilator 04/09/21 07:00 98.5 98.5 Comments on vent sedated not able to obtain ros HEENT: Other (Orally intubated) Lungs: Crackles Cardiovascular: S1, S2 Abdomen: Soft, Non-tender Extremities: Other (edema ) Skin: Warm Labs Laboratory Tests Test 04/08/21 05:45 04/08/21 08:00 04/09/21 05:50 04/09/21 08:00 Hemoglobin 7.4 g/dL (13.0-17.5) 6.8 g/dL (13.0-17.5) Sodium Level 141 mmol/L (136-145) 142 mmol/L (136-145) Potassium Level 3.5 mmol/L (3.5-5.1) 3.8 mmol/L (3.5-5.1) Chloride Level 105 mmol/L (98-107) 107 mmol/L (98-107) Carbon Dioxide Level 29 mmol/L (21-32) 27 mmol/L (21-32) Anion Gap 7 (6-14) 8 (6-14) Blood Urea Nitrogen 41 mg/dL (8-26) 32 mg/dL (8-26) Creatinine 1.1 mg/dL (0.7-1.3) 0.9 mg/dL (0.7-1.3) Estimated GFR (Cockcroft-Gault) 70.6 89.0 Glucose Level 160 mg/dL (70-99) 155 mg/dL (70-99) Calcium Level 7.4 mg/dL (8.5-10.1) 8.1 mg/dL (8.5-10.1) Phosphorus Level 2.0 mg/dL (2.6-4.7) 1.6 mg/dL (2.6-4.7) Magnesium Level 1.6 mg/dL (1.8-2.4) Albumin 2.1 g/dL (3.4-5.0) 2.7 g/dL (3.4-5.0) O2 Saturation 98 % (92-99) 98 % (92-99) Arterial Blood pH 7.41 (7.35-7.45) 7.38 (7.35-7.45) Arterial Blood pCO2 at Patient Temp 42 mmHg (35-46) 44 mmHg (35-46) Arterial Blood pO2 at Patient Temp 102 mmHg (75-108) 116 mmHg (75-108) Arterial Blood HCO3 26 mmol/L (21-28) 25 mmol/L (21-28) Arterial Blood Base Excess 1 mmol/L (-3-3) 0 mmol/L (-3-3) FiO2 35/vent 35 White Blood Count 11.7 x10^3/uL (4.0-11.0) Red Blood Count 1.71 x10^6/uL (4.30-5.70) Hematocrit 20.7 % (39.0-53.0) Mean Corpuscular Volume 121 fL (79-100) Mean Corpuscular Hemoglobin 40 pg (25-35) Mean Corpuscular Hemoglobin Concent 33 g/dL (31-37) Red Cell Distribution Width 14.6 % (11.5-14.5) Platelet Count 99 x10^3/uL (140-400) Neutrophils (%) (Auto) 72 % (31-73) Lymphocytes (%) (Auto) 15 % (24-48) Monocytes (%) (Auto) 9 % (0-9) Eosinophils (%) (Auto) 4 % (0-3) Basophils (%) (Auto) 1 % (0-3) Neutrophils # (Auto) 8.4 x10^3/uL (1.8-7.7) Lymphocytes # (Auto) 1.8 x10^3/uL (1.0-4.8) Monocytes # (Auto) 1.0 x10^3/uL (0.0-1.1) Eosinophils # (Auto) 0.5 x10^3/uL (0.0-0.7) Basophils # (Auto) 0.1 x10^3/uL (0.0-0.2) Laboratory Tests Test 04/09/21 05:50 04/09/21 08:00 White Blood Count 11.7 x10^3/uL (4.0-11.0) Red Blood Count 1.71 x10^6/uL (4.30-5.70) Hemoglobin 6.8 g/dL (13.0-17.5) Hematocrit 20.7 % (39.0-53.0) Mean Corpuscular Volume 121 fL (79-100) Mean Corpuscular Hemoglobin 40 pg (25-35) Mean Corpuscular Hemoglobin Concent 33 g/dL (31-37) Red Cell Distribution Width 14.6 % (11.5-14.5) Platelet Count 99 x10^3/uL (140-400) Neutrophils (%) (Auto) 72 % (31-73) Lymphocytes (%) (Auto) 15 % (24-48) Monocytes (%) (Auto) 9 % (0-9) Eosinophils (%) (Auto) 4 % (0-3) Basophils (%) (Auto) 1 % (0-3) Neutrophils # (Auto) 8.4 x10^3/uL (1.8-7.7) Lymphocytes # (Auto) 1.8 x10^3/uL (1.0-4.8) Monocytes # (Auto) 1.0 x10^3/uL (0.0-1.1) Eosinophils # (Auto) 0.5 x10^3/uL (0.0-0.7) Basophils # (Auto) 0.1 x10^3/uL (0.0-0.2) Sodium Level 142 mmol/L (136-145) Potassium Level 3.8 mmol/L (3.5-5.1) Chloride Level 107 mmol/L (98-107) Carbon Dioxide Level 27 mmol/L (21-32) Anion Gap 8 (6-14) Blood Urea Nitrogen 32 mg/dL (8-26) Creatinine 0.9 mg/dL (0.7-1.3) Estimated GFR (Cockcroft-Gault) 89.0 Glucose Level 155 mg/dL (70-99) Calcium Level 8.1 mg/dL (8.5-10.1) Phosphorus Level 1.6 mg/dL (2.6-4.7) Albumin 2.7 g/dL (3.4-5.0) O2 Saturation 98 % (92-99) Arterial Blood pH 7.38 (7.35-7.45) Arterial Blood pCO2 at Patient Temp 44 mmHg (35-46) Arterial Blood pO2 at Patient Temp 116 mmHg (75-108) Arterial Blood HCO3 25 mmol/L (21-28) Arterial Blood Base Excess 0 mmol/L (-3-3) FiO2 35 Medications Active Scripts Medications Dose Route/Sig Max Daily Dose Days Date Category Proair Hfa Inhaler (Albuterol Sulfate) 8.5 Gm Hfa.aer.ad 2 Puff IH PRN Q4-6HRS PRN 21 04/05/21 Reported Uloric (Febuxostat) 80 Mg Tablet 1 Tab PO DAILY 30 04/05/21 Reported Losartan Potassium 100 Mg Tablet 100 Mg PO DAILY 04/05/21 Reported Folic Acid 1 Mg Tablet 1 Mg PO DAILY 08/05/16 Reported Amlodipine Besylate 10 Mg Tablet 10 Mg PO DAILY 08/05/16 Reported Losartan Potassium 100 Mg Tablet 100 Mg PO DAILY 08/05/16 Reported Colcrys (Colchicine) 0.6 Mg Tablet 0.6 Mg PO DAILY 08/05/16 Reported Uloric (Febuxostat) 40 Mg Tablet 1 Tab PO DAILY 08/05/16 Reported Comments CXR IMPRESSION: 1. Bilateral infrahilar linear atelectasis or interstitial infiltrate. 2. Support lines and tubes, described above. Impression . IMPRESSION: 1. Acute hypoxic respiratory failure secondary to septic shock. 2. Septic shock secondary to spontaneous bacterial peritonitis in a patient who has alcoholism and cirrhosis along with ascites. s/p Diagnostic laparoscopy, culture abdominal fluid, placement of abdominal drain 04/05 3. Acute kidney injury. cr coming down 1.7 4. Lactic acidosis secondary to septic shock, now improved. 5. History of tobaccoism. ? copd 6. History of alcoholism. 7. Cirrhosis secondary to alcoholism. 8. Coagulopathy secondary to cirrhosis. 9. COVID negative. Plan . updated 04/09/21 Continue current vent support, /35% Nebs Follow chest x-ray/ABG--no changes Continue vasopressors to keep MAP greater than 65 Follow GI recommendations, monitor hemoglobin, transfuse as needed Follow nephrology recommendations Follow surgery recommendations--- status post diagnostic laparoscopic, follow abdominal cultures, continue drain to abdomen placed on 04/05 Continue antibiotics per infectious disease Continue TPN for nutritional support DVT/GI prophylaxis Discussed with RN and RT Critical care time 30 minutes updated 04/08 1. cont vent support setting reviewed, still on 2 pressors, not stable for sbt. abg reviewed no vent change 2. cont pressors to keep map 65 3. protonix for stress ulcer prophylaxis. 4. Broad spectrum antibiotics per infectious disease recommendation. 5. Monitor renal function. Follow renal recommendations. 6. TPN per Nephrology. 7. Follow all cultures. neg so far 8. Follow Surgery recommendations. 9. bicarbonate drip stopped by nephro. 10. Discussed with RN RECOMMENDATIONS: 1. cont vent support setting reviewed, not stable for sbt. We will make necessary adjustment based on ABGs. 2. cont pressors to keep map 65 3. protonix for stress ulcer prophylaxis. 4. Broad spectrum antibiotics per infectious disease recommendation. 5. Monitor renal function. Follow renal recommendations. 6. TPN per Nephrology. 7. Follow all cultures. 8. Follow Surgery recommendations. 9. bicarbonate drip per nephro. 10. Discussed with RN ISRRAEL WALTERS MD April 09, 2021 11:39
--- NOTE | 2021-04-09 12:04 | PDOC ---
BRINA BIGGS [employer] 04/09/21 1204: SURGICAL PROGRESS NOTE DATE: 04/09/21 TIME: 12:02 Subjective vent, family present Vital Signs Vital Signs Date Time Temp Pulse Resp B/P (MAP) Pulse Ox O2 Delivery O2 Flow Rate FiO2 04/09/21 08:00 70 16 120/62 (81) 99 Ventilator 04/09/21 07:00 98.5 98.5 I&O Intake and Output 04/09/21 07:00 Intake Total 3371 ml Output Total 5655 ml Balance -2284 ml IV Total 3141 ml Other 230 ml Output Urine Total 2505 ml Gastric Drainage Total 1100 ml Drainage Total 2050 ml PATIENT HAS A WARREN: Yes General: Other (sedated ) HEENT: Other (vent) Abdomen: Soft, Other (drain serous, ascites ) Labs Laboratory Tests Test 04/08/21 05:45 04/08/21 08:00 04/09/21 05:50 04/09/21 08:00 Hemoglobin 7.4 g/dL (13.0-17.5) 6.8 g/dL (13.0-17.5) Sodium Level 141 mmol/L (136-145) 142 mmol/L (136-145) Potassium Level 3.5 mmol/L (3.5-5.1) 3.8 mmol/L (3.5-5.1) Chloride Level 105 mmol/L (98-107) 107 mmol/L (98-107) Carbon Dioxide Level 29 mmol/L (21-32) 27 mmol/L (21-32) Anion Gap 7 (6-14) 8 (6-14) Blood Urea Nitrogen 41 mg/dL (8-26) 32 mg/dL (8-26) Creatinine 1.1 mg/dL (0.7-1.3) 0.9 mg/dL (0.7-1.3) Estimated GFR (Cockcroft-Gault) 70.6 89.0 Glucose Level 160 mg/dL (70-99) 155 mg/dL (70-99) Calcium Level 7.4 mg/dL (8.5-10.1) 8.1 mg/dL (8.5-10.1) Phosphorus Level 2.0 mg/dL (2.6-4.7) 1.6 mg/dL (2.6-4.7) Magnesium Level 1.6 mg/dL (1.8-2.4) Albumin 2.1 g/dL (3.4-5.0) 2.7 g/dL (3.4-5.0) O2 Saturation 98 % (92-99) 98 % (92-99) Arterial Blood pH 7.41 (7.35-7.45) 7.38 (7.35-7.45) Arterial Blood pCO2 at Patient Temp 42 mmHg (35-46) 44 mmHg (35-46) Arterial Blood pO2 at Patient Temp 102 mmHg (75-108) 116 mmHg (75-108) Arterial Blood HCO3 26 mmol/L (21-28) 25 mmol/L (21-28) Arterial Blood Base Excess 1 mmol/L (-3-3) 0 mmol/L (-3-3) FiO2 35/vent 35 White Blood Count 11.7 x10^3/uL (4.0-11.0) Red Blood Count 1.71 x10^6/uL (4.30-5.70) Hematocrit 20.7 % (39.0-53.0) Mean Corpuscular Volume 121 fL (79-100) Mean Corpuscular Hemoglobin 40 pg (25-35) Mean Corpuscular Hemoglobin Concent 33 g/dL (31-37) Red Cell Distribution Width 14.6 % (11.5-14.5) Platelet Count 99 x10^3/uL (140-400) Neutrophils (%) (Auto) 72 % (31-73) Lymphocytes (%) (Auto) 15 % (24-48) Monocytes (%) (Auto) 9 % (0-9) Eosinophils (%) (Auto) 4 % (0-3) Basophils (%) (Auto) 1 % (0-3) Neutrophils # (Auto) 8.4 x10^3/uL (1.8-7.7) Lymphocytes # (Auto) 1.8 x10^3/uL (1.0-4.8) Monocytes # (Auto) 1.0 x10^3/uL (0.0-1.1) Eosinophils # (Auto) 0.5 x10^3/uL (0.0-0.7) Basophils # (Auto) 0.1 x10^3/uL (0.0-0.2) Laboratory Tests Test 04/09/21 05:50 04/09/21 08:00 White Blood Count 11.7 x10^3/uL (4.0-11.0) Red Blood Count 1.71 x10^6/uL (4.30-5.70) Hemoglobin 6.8 g/dL (13.0-17.5) Hematocrit 20.7 % (39.0-53.0) Mean Corpuscular Volume 121 fL (79-100) Mean Corpuscular Hemoglobin 40 pg (25-35) Mean Corpuscular Hemoglobin Concent 33 g/dL (31-37) Red Cell Distribution Width 14.6 % (11.5-14.5) Platelet Count 99 x10^3/uL (140-400) Neutrophils (%) (Auto) 72 % (31-73) Lymphocytes (%) (Auto) 15 % (24-48) Monocytes (%) (Auto) 9 % (0-9) Eosinophils (%) (Auto) 4 % (0-3) Basophils (%) (Auto) 1 % (0-3) Neutrophils # (Auto) 8.4 x10^3/uL (1.8-7.7) Lymphocytes # (Auto) 1.8 x10^3/uL (1.0-4.8) Monocytes # (Auto) 1.0 x10^3/uL (0.0-1.1) Eosinophils # (Auto) 0.5 x10^3/uL (0.0-0.7) Basophils # (Auto) 0.1 x10^3/uL (0.0-0.2) Sodium Level 142 mmol/L (136-145) Potassium Level 3.8 mmol/L (3.5-5.1) Chloride Level 107 mmol/L (98-107) Carbon Dioxide Level 27 mmol/L (21-32) Anion Gap 8 (6-14) Blood Urea Nitrogen 32 mg/dL (8-26) Creatinine 0.9 mg/dL (0.7-1.3) Estimated GFR (Cockcroft-Gault) 89.0 Glucose Level 155 mg/dL (70-99) Calcium Level 8.1 mg/dL (8.5-10.1) Phosphorus Level 1.6 mg/dL (2.6-4.7) Albumin 2.7 g/dL (3.4-5.0) O2 Saturation 98 % (92-99) Arterial Blood pH 7.38 (7.35-7.45) Arterial Blood pCO2 at Patient Temp 44 mmHg (35-46) Arterial Blood pO2 at Patient Temp 116 mmHg (75-108) Arterial Blood HCO3 25 mmol/L (21-28) Arterial Blood Base Excess 0 mmol/L (-3-3) FiO2 35 Assessment/Plan supportive care, ongoing critical care needed vent, pressor support, transfusions Justicifation of Admission Dx: Justifications for Admission: Justification of Admission Dx: Yes LIZET HERNANDEZ MD 04/10/21 0718: SURGICAL PROGRESS NOTE Assessment/Plan Agree with above BRINA BIGGS APRN April 09, 2021 12:04 LIZET HERNANDEZ MD April 10, 2021 07:18
[2021-04-09] MEDS: MICAFUNGIN 100 MG in IV DEXTROSE 5% 100ML 100 ML IV SCH (12:39)
[2021-04-09] MEDS: NS IV SCH ×2 (14:10→17:05)
[2021-04-09] MEDS: POTASSIUM PHOSPHATE DIBASIC IV SCH ×2 (14:10→17:05)
[2021-04-09] MEDS: TPN PER PHARMACY MC PRN (14:27)
--- NOTE | 2021-04-09 14:27 | NUR ---
Pharmacy TPN Dosing Note S: ALEXANDREABHISHEK is a 50 year old M Currently receiving Central Continuous TPN started 04/06/21 B:Pertinent PMH: NPO- s/p ex lap Height: 5 feet, 11 inches Weight: 104.6 kg Current diet: NPO LABS: Sodium: 142 Potassium: 3.8 Chloride: 107 Calcium: 8.1 Corrected Calcium: 9.14 Magnesium: 1.7 CO2: 27 SCr: 0.9 Glucose: 155-166 Albumin: 2.7 AST: 80 ALT: 66 TPN FORMULA: TPN TYPE: Central Continuous AMINO ACIDS: 60 gm DEXTROSE: 195 gm SODIUM CHLORIDE: 90 mEq POTASSIUM CHLORIDE: 70 mEq POTASSIUM PHOSPHATE: 18 mmol MAGNESIUM: 20 mEq CALCIUM: 10 mEq MULTIPLE VITAMIN: 5 ml TRACE ELEMENTS: 1 ml(s) TPN PLAN: MagSul 2 gm IVPB x 1 dose and increase to 20 meq in the TPN. KPhos 20 mmol IVPB x 1 dose and increase to 18 mmol in TPN. -Renal Panel ordered for AM R: Change TPN as noted above. Will monitor electrolytes, glucose, and tolerance to TPN. DHARA GONZALES [facility], 04/09/21 [id number]
[2021-04-09] MEDS: MIDAZOLAM 100mg/100ml NS BAG 100 ML IV PRN (14:40)
--- NOTE | 2021-04-09 15:58 | NUR ---
SS following up with discharge planning. SS reviewed pt chart and discussed with pt RN. Pt is currently on the vent at 35%. COVID19 negative. Pt on Levophed and Vasopressin. Pt on IV Micafungin, IV Zyvox, and IV Zosyn. NG tube in place. Pt on TPN. ROCIO drain with significant output. Not stable. SS will continue to follow for discharge planning.
[2021-04-09] MEDS ORDERED: [UNRECOGNIZED DRUG - OTHER] IV SCH (22:00)
[2021-04-09] MEDS ORDERED: AMINO ACID IV SCH (22:00)
[2021-04-09] MEDS ORDERED: DEXTROSE 70% IV SCH (22:00)
[2021-04-09] MEDS ORDERED: TOTAL PARENTERAL NUTRITION IV SCH (22:00)
[2021-04-10] VITALS (31 sets, daily range): BP systolic 78–122; BP diastolic 43–63
[2021-04-10] MEDS: VASOPRESSIN 20 UNIT in IV DEXTROSE 5% 100ML 100 ML IV PRN ×3 (00:01→15:46)
[2021-04-10] MEDS: PIPERACILLIN/TAZOBACTAM 2.25 GM in IV NORMAL SALINE 50ML 50 ML IV SCH (05:39)
[2021-04-10 05:53] LABS: BASO # 0.1 x10^3/uL (0.0-0.2); BASO % 1 % (0-3); EOS # 0.4 x10^3/uL (0.0-0.7); EOS % 4 % (0-3); HEMATOCRIT 21.7 % (39.0-53.0); HEMOGLOBIN 7.4 g/dL (13.0-17.5); LYMPH # 1.3 x10^3/uL (1.0-4.8); LYMPH % 13 % (24-48); MEAN CORPUSCULAR HEMOGLOBIN 40 pg (25-35); MEAN CORPUSCULAR HGB CONC 34 g/dL (31-37); MEAN CORPUSCULAR VOLUME 116 fL (79-100); MONO # 0.8 x10^3/uL (0.0-1.1); MONO % 7 % (0-9); NEUT # 7.9 x10^3/uL (1.8-7.7); NEUT % 75 % (31-73); PLATELET COUNT 95 x10^3/uL (140-400); RED BLOOD COUNT 1.86 x10^6/uL (4.30-5.70); RED CELL DISTRIBUTION WIDTH 19.2 % (11.5-14.5); WHITE BLOOD COUNT 10.5 x10^3/uL (4.0-11.0)
[2021-04-10 06:08] LABS: ALBUMIN 2.6 g/dL (3.4-5.0); CALCIUM 8.3 mg/dL (8.5-10.1); CREATININE 0.9 mg/dL (0.7-1.3); PHOSPHORUS 2.8 mg/dL (2.6-4.7); POTASSIUM 4.5 mmol/L (3.5-5.1)
[2021-04-10] MEDS: PANTOPRAZOLE IV PUSH 40 MG VIAL. IVP SCH (07:46)
--- NOTE | 2021-04-10 08:07 | PDOC ---
Infectious Disease Note Subjective Subjective pt is intubated on vent ROS ROS no n/v/d/ Vital Sign Vital Signs Vital Signs Date Time Temp Pulse Resp B/P (MAP) Pulse Ox O2 Delivery O2 Flow Rate FiO2 04/10/21 07:00 98.4 66 16 107/55 (72) 99 Ventilator 98.4 Physical Exam PHYSICAL EXAM VITAL SIGNS: stable GENERAL: Intubated and sedated. HEENT: Atraumatic. NECK: Right IJ clean. LUNGS: Decreased breath sounds at the bases, otherwise clear. No wheezing. HEART: S1, S2. ABDOMEN: Distended, laparoscopy dressing intact, not taken down. ROCIO drain in place. Bowel sounds hypoactive. EXTREMITIES: No edema. Hyperpigmentation. Slight mottling. GENITOURINARY: Hwang in place. No generalized rash except for above. PSYCHIATRIC: Unable to assess. The patient was alert, oriented x 3 prior to surgery. Labs Lab Laboratory Tests Test 04/09/21 12:38 04/09/21 17:11 04/09/21 23:53 04/10/21 05:40 Glucose (Fingerstick) 161 mg/dL (70-99) 151 mg/dL (70-99) 181 mg/dL (70-99) White Blood Count 10.5 x10^3/uL (4.0-11.0) Red Blood Count 1.86 x10^6/uL (4.30-5.70) Hemoglobin 7.4 g/dL (13.0-17.5) Hematocrit 21.7 % (39.0-53.0) Mean Corpuscular Volume 116 fL (79-100) Mean Corpuscular Hemoglobin 40 pg (25-35) Mean Corpuscular Hemoglobin Concent 34 g/dL (31-37) Red Cell Distribution Width 19.2 % (11.5-14.5) Platelet Count 95 x10^3/uL (140-400) Neutrophils (%) (Auto) 75 % (31-73) Lymphocytes (%) (Auto) 13 % (24-48) Monocytes (%) (Auto) 7 % (0-9) Eosinophils (%) (Auto) 4 % (0-3) Basophils (%) (Auto) 1 % (0-3) Neutrophils # (Auto) 7.9 x10^3/uL (1.8-7.7) Lymphocytes # (Auto) 1.3 x10^3/uL (1.0-4.8) Monocytes # (Auto) 0.8 x10^3/uL (0.0-1.1) Eosinophils # (Auto) 0.4 x10^3/uL (0.0-0.7) Basophils # (Auto) 0.1 x10^3/uL (0.0-0.2) Sodium Level 141 mmol/L (136-145) Potassium Level 4.5 mmol/L (3.5-5.1) Chloride Level 108 mmol/L (98-107) Carbon Dioxide Level 27 mmol/L (21-32) Anion Gap 6 (6-14) Blood Urea Nitrogen 38 mg/dL (8-26) Creatinine 0.9 mg/dL (0.7-1.3) Estimated GFR (Cockcroft-Gault) 89.0 Glucose Level 146 mg/dL (70-99) Calcium Level 8.3 mg/dL (8.5-10.1) Phosphorus Level 2.8 mg/dL (2.6-4.7) Magnesium Level 2.1 mg/dL (1.8-2.4) Albumin 2.6 g/dL (3.4-5.0) Micro GRAM STAIN Final Final NO ORGANISMS SEEN. SQUAMOUS EPI CELL:NOT APPLICABLE PMN (WBCs):MODERATE Unless otherwise specified, Testing Performed by: [address] [id number] For Inquires, the Physician may contact the Microbiology department at [phone] ANAEROBIC-AEROBIC CULTURE Preliminary Preliminary No Growth on 04/06/21 at 0838 No Growth on 04/07/21 at 1116 Unless otherwise specified, Testing Performed by: [address] [address] For Inquires, the Physician may contact the Microbiology department at [phone] Objective Assessment 1. Severe sepsis. 2. Abdominal pain, nausea, vomiting. Pneumoperitoneum on CT, status post diagnostic laparoscopy, placement of abdominal drain. No evidence of perforated viscus. Findings were consistent with spontaneous bacterial peritonitis. 3. Ascites and cirrhosis. 4. ETOH dependence. 5. Acute kidney injury with hyperkalemia. 6. Thrombocytopenia. 7. Coagulopathy. 8. Increased LFTs. 9. Postoperative intubation. Plan Plan of Care cont zosyn, d/c neeru and zyvox cont supportive care HIREN BANSAL MD April 10, 2021 08:07
--- NOTE | 2021-04-10 08:13 | RAD ---
EXAM: Chest, single view. HISTORY: Ventilatory support. COMPARISON: 04/09/2021 FINDINGS: A frontal view of the chest obtained. There is an endotracheal tube within the mid trachea. There is a nasogastric tube within the stomach. There is a right internal jugular catheter with the tip in the superior cavoatrial junction. There is stable small pleural effusions and bilateral lower lobe interstitial infiltrate. There is no pneumothorax. There is a stable prominent cardiac silhouett e. IMPRESSION: 1. Stable suspected small pleural effusions and bilateral lower lobe atelectasis or interstitial infi ltrate. 2. Stable support lines and tubes. Electronically signed by: Silke Jimenez MD (04/10/2021 8:11 AM) [id number]
[2021-04-10 08:46] LABS: BASE EXCESS ABG -1 mmol/L (-3-3); HCO3 ABG 24 mmol/L (21-28); PCO2 ABG 40 mmHg (35-46); PO2 ABG 133 mmHg (75-108); SAT O2 ABG 99 % (92-99)
[2021-04-10 08:49] LABS: FIO2 ABG 35
--- NOTE | 2021-04-10 10:02 | PDOC ---
SURGICAL PROGRESS NOTE DATE: 04/10/21 TIME: 10:01 Subjective unchanged pressor support d/w nurse Vital Signs Vital Signs Date Time Temp Pulse Resp B/P (MAP) Pulse Ox O2 Delivery O2 Flow Rate FiO2 04/10/21 09:30 80 16 93/49 (64) 100 Ventilator 04/10/21 07:00 98.4 98.4 I&O Intake and Output 04/10/21 07:00 Intake Total 3258.5 ml Output Total 4038 ml Balance -779.5 ml Intake Oral 47 ml IV Total 2566.5 ml Blood Product 320 ml Blood Product IV Normal Saline Flush 325 ml Output Urine Total 578 ml Gastric Drainage Total 2115 ml Drainage Total 1345 ml PATIENT HAS A WARREN: Yes General: Other (sedated ) Abdomen: Soft, Other (drain serous ) Labs Laboratory Tests Test 04/09/21 05:50 04/09/21 08:00 04/09/21 12:38 04/09/21 17:11 White Blood Count 11.7 x10^3/uL (4.0-11.0) Red Blood Count 1.71 x10^6/uL (4.30-5.70) Hemoglobin 6.8 g/dL (13.0-17.5) Hematocrit 20.7 % (39.0-53.0) Mean Corpuscular Volume 121 fL (79-100) Mean Corpuscular Hemoglobin 40 pg (25-35) Mean Corpuscular Hemoglobin Concent 33 g/dL (31-37) Red Cell Distribution Width 14.6 % (11.5-14.5) Platelet Count 99 x10^3/uL (140-400) Neutrophils (%) (Auto) 72 % (31-73) Lymphocytes (%) (Auto) 15 % (24-48) Monocytes (%) (Auto) 9 % (0-9) Eosinophils (%) (Auto) 4 % (0-3) Basophils (%) (Auto) 1 % (0-3) Neutrophils # (Auto) 8.4 x10^3/uL (1.8-7.7) Lymphocytes # (Auto) 1.8 x10^3/uL (1.0-4.8) Monocytes # (Auto) 1.0 x10^3/uL (0.0-1.1) Eosinophils # (Auto) 0.5 x10^3/uL (0.0-0.7) Basophils # (Auto) 0.1 x10^3/uL (0.0-0.2) Sodium Level 142 mmol/L (136-145) Potassium Level 3.8 mmol/L (3.5-5.1) Chloride Level 107 mmol/L (98-107) Carbon Dioxide Level 27 mmol/L (21-32) Anion Gap 8 (6-14) Blood Urea Nitrogen 32 mg/dL (8-26) Creatinine 0.9 mg/dL (0.7-1.3) Estimated GFR (Cockcroft-Gault) 89.0 Glucose Level 155 mg/dL (70-99) Calcium Level 8.1 mg/dL (8.5-10.1) Phosphorus Level 1.6 mg/dL (2.6-4.7) Albumin 2.7 g/dL (3.4-5.0) O2 Saturation 98 % (92-99) Arterial Blood pH 7.38 (7.35-7.45) Arterial Blood pCO2 at Patient Temp 44 mmHg (35-46) Arterial Blood pO2 at Patient Temp 116 mmHg (75-108) Arterial Blood HCO3 25 mmol/L (21-28) Arterial Blood Base Excess 0 mmol/L (-3-3) FiO2 35 Glucose (Fingerstick) 161 mg/dL (70-99) 151 mg/dL (70-99) Test 04/09/21 23:53 04/10/21 05:40 04/10/21 08:00 Glucose (Fingerstick) 181 mg/dL (70-99) White Blood Count 10.5 x10^3/uL (4.0-11.0) Red Blood Count 1.86 x10^6/uL (4.30-5.70) Hemoglobin 7.4 g/dL (13.0-17.5) Hematocrit 21.7 % (39.0-53.0) Mean Corpuscular Volume 116 fL (79-100) Mean Corpuscular Hemoglobin 40 pg (25-35) Mean Corpuscular Hemoglobin Concent 34 g/dL (31-37) Red Cell Distribution Width 19.2 % (11.5-14.5) Platelet Count 95 x10^3/uL (140-400) Neutrophils (%) (Auto) 75 % (31-73) Lymphocytes (%) (Auto) 13 % (24-48) Monocytes (%) (Auto) 7 % (0-9) Eosinophils (%) (Auto) 4 % (0-3) Basophils (%) (Auto) 1 % (0-3) Neutrophils # (Auto) 7.9 x10^3/uL (1.8-7.7) Lymphocytes # (Auto) 1.3 x10^3/uL (1.0-4.8) Monocytes # (Auto) 0.8 x10^3/uL (0.0-1.1) Eosinophils # (Auto) 0.4 x10^3/uL (0.0-0.7) Basophils # (Auto) 0.1 x10^3/uL (0.0-0.2) Sodium Level 141 mmol/L (136-145) Potassium Level 4.5 mmol/L (3.5-5.1) Chloride Level 108 mmol/L (98-107) Carbon Dioxide Level 27 mmol/L (21-32) Anion Gap 6 (6-14) Blood Urea Nitrogen 38 mg/dL (8-26) Creatinine 0.9 mg/dL (0.7-1.3) Estimated GFR (Cockcroft-Gault) 89.0 Glucose Level 146 mg/dL (70-99) Calcium Level 8.3 mg/dL (8.5-10.1) Phosphorus Level 2.8 mg/dL (2.6-4.7) Magnesium Level 2.1 mg/dL (1.8-2.4) Albumin 2.6 g/dL (3.4-5.0) O2 Saturation 99 % (92-99) Arterial Blood pH 7.39 (7.35-7.45) Arterial Blood pCO2 at Patient Temp 40 mmHg (35-46) Arterial Blood pO2 at Patient Temp 133 mmHg (75-108) Arterial Blood HCO3 24 mmol/L (21-28) Arterial Blood Base Excess -1 mmol/L (-3-3) FiO2 35 Laboratory Tests Test 04/09/21 12:38 04/09/21 17:11 04/09/21 23:53 04/10/21 05:40 Glucose (Fingerstick) 161 mg/dL (70-99) 151 mg/dL (70-99) 181 mg/dL (70-99) White Blood Count 10.5 x10^3/uL (4.0-11.0) Red Blood Count 1.86 x10^6/uL (4.30-5.70) Hemoglobin 7.4 g/dL (13.0-17.5) Hematocrit 21.7 % (39.0-53.0) Mean Corpuscular Volume 116 fL (79-100) Mean Corpuscular Hemoglobin 40 pg (25-35) Mean Corpuscular Hemoglobin Concent 34 g/dL (31-37) Red Cell Distribution Width 19.2 % (11.5-14.5) Platelet Count 95 x10^3/uL (140-400) Neutrophils (%) (Auto) 75 % (31-73) Lymphocytes (%) (Auto) 13 % (24-48) Monocytes (%) (Auto) 7 % (0-9) Eosinophils (%) (Auto) 4 % (0-3) Basophils (%) (Auto) 1 % (0-3) Neutrophils # (Auto) 7.9 x10^3/uL (1.8-7.7) Lymphocytes # (Auto) 1.3 x10^3/uL (1.0-4.8) Monocytes # (Auto) 0.8 x10^3/uL (0.0-1.1) Eosinophils # (Auto) 0.4 x10^3/uL (0.0-0.7) Basophils # (Auto) 0.1 x10^3/uL (0.0-0.2) Sodium Level 141 mmol/L (136-145) Potassium Level 4.5 mmol/L (3.5-5.1) Chloride Level 108 mmol/L (98-107) Carbon Dioxide Level 27 mmol/L (21-32) Anion Gap 6 (6-14) Blood Urea Nitrogen 38 mg/dL (8-26) Creatinine 0.9 mg/dL (0.7-1.3) Estimated GFR (Cockcroft-Gault) 89.0 Glucose Level 146 mg/dL (70-99) Calcium Level 8.3 mg/dL (8.5-10.1) Phosphorus Level 2.8 mg/dL (2.6-4.7) Magnesium Level 2.1 mg/dL (1.8-2.4) Albumin 2.6 g/dL (3.4-5.0) Test 04/10/21 08:00 O2 Saturation 99 % (92-99) Arterial Blood pH 7.39 (7.35-7.45) Arterial Blood pCO2 at Patient Temp 40 mmHg (35-46) Arterial Blood pO2 at Patient Temp 133 mmHg (75-108) Arterial Blood HCO3 24 mmol/L (21-28) Arterial Blood Base Excess -1 mmol/L (-3-3) FiO2 35 Assessment/Plan supportive care, critical, poor prognosis Justicifation of Admission Dx: Justifications for Admission: Justification of Admission Dx: Yes BRINA BIGGS [employer] April 10, 2021 10:02
[2021-04-10] MEDS: TPN PER PHARMACY MC PRN (10:19)
--- NOTE | 2021-04-10 10:21 | NUR ---
Pharmacy TPN Dosing Note S: ALEXANDREABHISHEK is a 50 year old M Currently receiving Central Continuous TPN started 04/06/21 B:Pertinent PMH: NPO- s/p ex lap Height: 5 feet, 11 inches Weight: 104.3 kg Current diet: NPO LABS: Sodium: 141 Potassium: 4.5 Chloride: 108 Calcium: 8.3 Corrected Calcium: 9.42 Magnesium: 2.1 CO2: 27 SCr: 0.9 Glucose: 146 Albumin: 2.6 AST: 80 ALT: 66 TPN FORMULA: TPN TYPE: Central Continuous AMINO ACIDS: 115 gm DEXTROSE: 225 gm LIPIDS: 20 gm SODIUM CHLORIDE: 90 mEq POTASSIUM CHLORIDE: 50 mEq POTASSIUM PHOSPHATE: 18 mmol MAGNESIUM: 18 mEq CALCIUM: 10 mEq MULTIPLE VITAMIN: 5 ml TRACE ELEMENTS: 1 ml(s) TPN PLAN: K and Mag trending up, decrease slightly in TPN. Adjusted macros per RD recommendations. -Renal panel and Mag labs in AM. R: Change TPN as noted above. Will monitor electrolytes, glucose, and tolerance to TPN. DHARA GONZALES [facility], 04/10/21 1024
--- NOTE | 2021-04-10 11:25 | PDOC ---
[employer] PROGRESS NOTE Date of Service DOS: DATE: 04/10/21 TIME: 11:23 Chief Complaint Chief Complaint Sepsis Respiratory failure Postop exploratory laparotomy Severe cirrhosis Coagulopathy Pneumoperitoneum Suspect spontaneous bacterial peritonitis Leukocytosis Duodenitis Ascites Cholelithiasis History alcohol abuse History COPD Severe malnutrition History of Present Illness History of Present Illness 04/10/2021 Patient seen and examined in the ICU He is still mechanically ventilated AC/16/500/30 5% with 5 of PEEP Sedated with Versed fentanyl On epinephrine drip and vasopressin drip Also getting IV TPN Also on IV micafungin and IV antibiotics Discussed with RN Discussed with case management Chart reviewed He remains extremely critically ill 04/09/2021 Patient seen and examined in the ICU He remains mechanically ventilated AC/16/500/30 5% with 5 of PEEP Discussed with case management Discussed with RN Chart reviewed He is sedated with fentanyl He is on IV vasopressin Has TPN hanging Abdomen with 4 clean dry intact trocar sites and a ROCIO drain in the lower right quadrant He remains critically ill Patient is a 50-year-old male with past medical history alcohol abuse, who presents as a transfer from [facility] due to pneumoperitoneum. Initially at [facility] ER he complained of abdominal pain and abdominal swelling over the past week, 07/03. He reports associated nausea and vomiting over this time, and is not amenable to take his home medications. Patient also reports noticing some discoloration of his eyes, discoloration of the skin, and dark urine over the past several days. He denies recent NSAID use. He was transferred to [facility] and admitted to the ICU for further medical management. 04/08/2021 Patient remains intubated, FiO2 35%, PEEP 5. Afebrile. Continue antibiotics, per ID. Abdominal fluid cultures and blood cultures with no growth to date. 30 minutes critical care time spent, reviewing labs, reviewing charts, and discussion with RN. 04/07/2021 Afebrile. Intubated, with FiO2 40%, PEEP 5. Requiring 2 vasopressors. Abdominal drain with clear serous output. Continue Zosyn, Zyvox, and micafungin, per ID. Blood cultures and abdominal fluid cultures with no growth to date. 30 minutes critical care time spent reviewing charts, reviewing labs, and discussion with RN. 04/06/2021 Patient seen in ICU s/p diagnostic laparoscopy with culture abdominal fluid and placement of abdominal drain. Suspect spontaneous bacterial peritonitis. He is currently on 2 vasopressors. Continue linezolid, Zosyn, and micafungin, per ID. No organisms seen on Gram stain of abdominal fluid and preliminary abdominal fluid cultures with no growth to date. 30 minutes critical care time spent reviewing charts, reviewing labs, reviewing imaging, and discussion with RN. Vitals/I&O Vitals/I&O: Vital Signs Date Time Temp Pulse Resp B/P (MAP) Pulse Ox O2 Delivery O2 Flow Rate FiO2 04/10/21 09:30 80 16 93/49 (64) 100 Ventilator 04/10/21 07:00 98.4 98.4 I & O 04/09/21 04/09/21 04/10/21 15:00 23:00 07:00 Intake Total 375 ml 2314.5 ml 569 ml Output Total 1680 ml 1585 ml 773 ml Balance -1305 ml 729.5 ml -204 ml Physical Exam Physical Exam: VITAL SIGNS: stable GENERAL: Intubated and sedated. HEENT: Atraumatic. NECK: Right IJ clean. LUNGS: Decreased breath sounds at the bases, otherwise clear. No wheezing. HEART: S1, S2. ABDOMEN: Distended, laparoscopy dressing intact, not taken down. ROCIO drain in place. Bowel sounds hypoactive. EXTREMITIES: No edema. Hyperpigmentation. Slight mottling. GENITOURINARY: Hwang in place. No generalized rash except for above. PSYCHIATRIC: Unable to assess. The patient was alert, oriented x 3 prior to surgery. General: Other (sedated ) Heart: Regular rate Lungs: Crackles Abdomen: Soft, Other (drain serous ) Extremities: No cyanosis Skin: No rashes Labs Labs: Laboratory Tests Test 04/09/21 12:38 04/09/21 17:11 04/09/21 23:53 04/10/21 05:40 Glucose (Fingerstick) 161 mg/dL (70-99) 151 mg/dL (70-99) 181 mg/dL (70-99) White Blood Count 10.5 x10^3/uL (4.0-11.0) Red Blood Count 1.86 x10^6/uL (4.30-5.70) Hemoglobin 7.4 g/dL (13.0-17.5) Hematocrit 21.7 % (39.0-53.0) Mean Corpuscular Volume 116 fL (79-100) Mean Corpuscular Hemoglobin 40 pg (25-35) Mean Corpuscular Hemoglobin Concent 34 g/dL (31-37) Red Cell Distribution Width 19.2 % (11.5-14.5) Platelet Count 95 x10^3/uL (140-400) Neutrophils (%) (Auto) 75 % (31-73) Lymphocytes (%) (Auto) 13 % (24-48) Monocytes (%) (Auto) 7 % (0-9) Eosinophils (%) (Auto) 4 % (0-3) Basophils (%) (Auto) 1 % (0-3) Neutrophils # (Auto) 7.9 x10^3/uL (1.8-7.7) Lymphocytes # (Auto) 1.3 x10^3/uL (1.0-4.8) Monocytes # (Auto) 0.8 x10^3/uL (0.0-1.1) Eosinophils # (Auto) 0.4 x10^3/uL (0.0-0.7) Basophils # (Auto) 0.1 x10^3/uL (0.0-0.2) Sodium Level 141 mmol/L (136-145) Potassium Level 4.5 mmol/L (3.5-5.1) Chloride Level 108 mmol/L (98-107) Carbon Dioxide Level 27 mmol/L (21-32) Anion Gap 6 (6-14) Blood Urea Nitrogen 38 mg/dL (8-26) Creatinine 0.9 mg/dL (0.7-1.3) Estimated GFR (Cockcroft-Gault) 89.0 Glucose Level 146 mg/dL (70-99) Calcium Level 8.3 mg/dL (8.5-10.1) Phosphorus Level 2.8 mg/dL (2.6-4.7) Magnesium Level 2.1 mg/dL (1.8-2.4) Albumin 2.6 g/dL (3.4-5.0) Test 04/10/21 08:00 O2 Saturation 99 % (92-99) Arterial Blood pH 7.39 (7.35-7.45) Arterial Blood pCO2 at Patient Temp 40 mmHg (35-46) Arterial Blood pO2 at Patient Temp 133 mmHg (75-108) Arterial Blood HCO3 24 mmol/L (21-28) Arterial Blood Base Excess -1 mmol/L (-3-3) FiO2 35 Assessment and Plan Assessmemt and Plan Sepsis Respiratory failure Postop exploratory laparotomy Severe cirrhosis Coagulopathy Pneumoperitoneum Suspect spontaneous bacterial peritonitis Leukocytosis Duodenitis Ascites Cholelithiasis History alcohol abuse History COPD Severe malnutrition Plan: ICU monitoring Wound care IV microfungi IV antibiotics Vent weaning Monitor right lower quadrant ROCIO drain Trend labs Home meds if possible DVT prophylaxis Full code Prognosis extremely guarded at best Might need hospice if he does not improve soon Appreciate subspecialist input He remains critically ill CC time 33 minutes Comment Review of Relevant I have reviewed the following items jeff (where applicable) has been applied. Medications: Current Medications Medications (Trade) Dose Ordered Sig/Ada Route PRN Reason Start Time Stop Time Status Last Admin Dose Admin Potassium Phosphate 10 mmol/ Sodium Chloride 103.3333 ml @ 51.667 m... Q2H IV 04/09/21 14:00 04/09/21 17:59 DC 04/09/21 17:05 Sodium Chloride 90 meq/Potassium Chloride 70 meq/ Magnesium Sulfate 20 meq/Calcium Gluconate 10 meq/ Multivitamins 5 ml/Zinc/Copper/ Manganese/ Selenium 1 ml/ Potassium Phosphate 18 mmol/ Total Parenteral Nutrition/Amino Acids/Dextrose 1,512 ml @ 63 mls/hr TPN CONT IV 04/09/21 22:00 04/10/21 21:59 04/09/21 22:18 Justifications for Admission Other Justification MANUEL CARDONA III DO April 10, 2021 11:25
[2021-04-10] MEDS: PIPERACILLIN/TAZOBACTAM 3.375 GM in IV NORMAL SALINE 50ML 50 ML IV SCH ×2 (13:21→18:29)
[2021-04-10] MEDS ORDERED: ALBUMIN HUMAN 5% 250 ML IV ONE ×2 (13:30)
--- NOTE | 2021-04-10 15:21 | NUR ---
SS following up with discharge planning. SS reviewed pt chart and discussed with pt RN. Pt is currently on the vent at 35%. COVID19 negative. Pt on Levophed and Vasopressin. ROCIO drain in place with significant output. Pt on IV Zosyn. NG tube in place. TPN. SS will continue to follow for discharge planning.
--- NOTE | 2021-04-10 15:51 | PDOC ---
Date of Service: DATE: 04/10/21 TIME: 15:47 Subjective: Subjective: Family in room. Objective: Objective: Reviewed chart - on pressors, maybe a little less drain output. Vital Signs: Vital Signs Date Time Temp Pulse Resp B/P (MAP) Pulse Ox O2 Delivery O2 Flow Rate FiO2 04/10/21 15:46 16 100 Ventilator 04/10/21 12:30 66 117/58 (77) 04/10/21 12:00 98.4 98.4 Labs: Laboratory Tests Test 04/09/21 17:11 04/09/21 23:53 04/10/21 05:40 04/10/21 08:00 Glucose (Fingerstick) 151 mg/dL 181 mg/dL White Blood Count 10.5 x10^3/uL Red Blood Count 1.86 x10^6/uL Hemoglobin 7.4 g/dL Hematocrit 21.7 % Mean Corpuscular Volume 116 fL Mean Corpuscular Hemoglobin 40 pg Mean Corpuscular Hemoglobin Concent 34 g/dL Red Cell Distribution Width 19.2 % Platelet Count 95 x10^3/uL Neutrophils (%) (Auto) 75 % Lymphocytes (%) (Auto) 13 % Monocytes (%) (Auto) 7 % Eosinophils (%) (Auto) 4 % Basophils (%) (Auto) 1 % Neutrophils # (Auto) 7.9 x10^3/uL Lymphocytes # (Auto) 1.3 x10^3/uL Monocytes # (Auto) 0.8 x10^3/uL Eosinophils # (Auto) 0.4 x10^3/uL Basophils # (Auto) 0.1 x10^3/uL Sodium Level 141 mmol/L Potassium Level 4.5 mmol/L Chloride Level 108 mmol/L Carbon Dioxide Level 27 mmol/L Anion Gap 6 Blood Urea Nitrogen 38 mg/dL Creatinine 0.9 mg/dL Estimated GFR (Cockcroft-Gault) 89.0 Glucose Level 146 mg/dL Calcium Level 8.3 mg/dL Phosphorus Level 2.8 mg/dL Magnesium Level 2.1 mg/dL Albumin 2.6 g/dL O2 Saturation 99 % Arterial Blood pH 7.39 Arterial Blood pCO2 at Patient Temp 40 mmHg Arterial Blood pO2 at Patient Temp 133 mmHg Arterial Blood HCO3 24 mmol/L Arterial Blood Base Excess -1 mmol/L FiO2 35 BLOOD CULTURE Preliminary NO GROWTH AFTER 4 DAYS PE: GEN: intubated LUNGS: vent ABD: some distention NEURO/PSYCH: sedated A/P: SBP - on atbx Hypotension, resp failure Anemia - improved w/ transfusion Alcoholic liver disease -- Continue support, antibiotics. Justicifation of Admission Dx: Justifications for Admission: Justification of Admission Dx: Yes CHRISTIANE BRIONES April 10, 2021 15:51
[2021-04-10] MEDS ORDERED: TOTAL PARENTERAL NUTRITION IV SCH (22:00)
[2021-04-10] MEDS ORDERED: AMINO ACID IV SCH (22:00)
[2021-04-10] MEDS ORDERED: [UNRECOGNIZED DRUG - OTHER] IV SCH (22:00)
[2021-04-10] MEDS ORDERED: DEXTROSE 70% IV SCH (22:00)
[2021-04-11] VITALS (24 sets, daily range): BP systolic 76–122; BP diastolic 40–65
[2021-04-11] MEDS: PIPERACILLIN/TAZOBACTAM 3.375 GM in IV NORMAL SALINE 50ML 50 ML IV SCH ×4 (00:38→18:33)
[2021-04-11] MEDS: VASOPRESSIN 20 UNIT in IV DEXTROSE 5% 100ML 100 ML IV PRN ×3 (01:15→19:44)
[2021-04-11 06:37] LABS: BASO # 0.1 x10^3/uL (0.0-0.2); BASO % 1 % (0-3); EOS # 0.5 x10^3/uL (0.0-0.7); EOS % 5 % (0-3); HEMATOCRIT 21.1 % (39.0-53.0); HEMOGLOBIN 7.1 g/dL (13.0-17.5); LYMPH # 1.4 x10^3/uL (1.0-4.8); LYMPH % 14 % (24-48); MEAN CORPUSCULAR HEMOGLOBIN 40 pg (25-35); MEAN CORPUSCULAR HGB CONC 34 g/dL (31-37); MEAN CORPUSCULAR VOLUME 118 fL (79-100); MONO # 0.7 x10^3/uL (0.0-1.1); MONO % 7 % (0-9); NEUT # 7.1 x10^3/uL (1.8-7.7); NEUT % 73 % (31-73); PLATELET COUNT 99 x10^3/uL (140-400); RED BLOOD COUNT 1.79 x10^6/uL (4.30-5.70); RED CELL DISTRIBUTION WIDTH 19.2 % (11.5-14.5); WHITE BLOOD COUNT 9.7 x10^3/uL (4.0-11.0)
[2021-04-11 06:51] LABS: ALBUMIN 2.6 g/dL (3.4-5.0); CALCIUM 8.7 mg/dL (8.5-10.1); GFR 78.8; PHOSPHORUS 3.7 mg/dL (2.6-4.7); POTASSIUM 4.8 mmol/L (3.5-5.1)
--- NOTE | 2021-04-11 07:46 | PDOC ---
Infectious Disease Note Subjective Subjective pt is sedated intubated on vent ROS ROS no n/v/d/ Vital Sign Vital Signs Vital Signs Date Time Temp Pulse Resp B/P (MAP) Pulse Ox O2 Delivery O2 Flow Rate FiO2 04/11/21 06:00 93 17 101/52 (68) 98 Ventilator 04/11/21 04:00 98.1 98.1 Physical Exam PHYSICAL EXAM VITAL SIGNS: stable GENERAL: Intubated and sedated. HEENT: Atraumatic. NECK: Right IJ clean. LUNGS: Decreased breath sounds at the bases, otherwise clear. No wheezing. HEART: S1, S2. ABDOMEN: Distended, laparoscopy dressing intact, not taken down. ROCIO drain in place. Bowel sounds hypoactive. EXTREMITIES: No edema. Hyperpigmentation. Slight mottling. GENITOURINARY: Hwang in place. No generalized rash except for above. PSYCHIATRIC: Unable to assess. The patient was alert, oriented x 3 prior to surgery. Labs Lab Laboratory Tests Test 04/10/21 08:00 04/11/21 06:15 O2 Saturation 99 % (92-99) Arterial Blood pH 7.39 (7.35-7.45) Arterial Blood pCO2 at Patient Temp 40 mmHg (35-46) Arterial Blood pO2 at Patient Temp 133 mmHg (75-108) Arterial Blood HCO3 24 mmol/L (21-28) Arterial Blood Base Excess -1 mmol/L (-3-3) FiO2 35 Sodium Level 142 mmol/L (136-145) Potassium Level 4.8 mmol/L (3.5-5.1) Chloride Level 110 mmol/L (98-107) Carbon Dioxide Level 26 mmol/L (21-32) Anion Gap 6 (6-14) Blood Urea Nitrogen 52 mg/dL (8-26) Creatinine 1.0 mg/dL (0.7-1.3) Estimated GFR (Cockcroft-Gault) 78.8 Glucose Level 148 mg/dL (70-99) Calcium Level 8.7 mg/dL (8.5-10.1) Phosphorus Level 3.7 mg/dL (2.6-4.7) Magnesium Level 2.4 mg/dL (1.8-2.4) Albumin 2.6 g/dL (3.4-5.0) Micro GRAM STAIN Final Final NO ORGANISMS SEEN. SQUAMOUS EPI CELL:NOT APPLICABLE PMN (WBCs):MODERATE Unless otherwise specified, Testing Performed by: [facility] [address] [place] [address] For Inquires, the Physician may contact the Microbiology department at [phone] ANAEROBIC-AEROBIC CULTURE Preliminary Preliminary No Growth on 04/06/21 at 0838 No Growth on 04/07/21 at 1116 Unless otherwise specified, Testing Performed by: [facility] [address] [place] [address] For Inquires, the Physician may contact the Microbiology department at [phone] Objective Assessment 1. Severe sepsis. 2. Abdominal pain, nausea, vomiting. Pneumoperitoneum on CT, status post diagnostic laparoscopy, placement of abdominal drain. No evidence of perforated viscus. Findings were consistent with spontaneous bacterial peritonitis. 3. Ascites and cirrhosis. 4. ETOH dependence. 5. Acute kidney injury with hyperkalemia. 6. Thrombocytopenia. 7. Coagulopathy. 8. Increased LFTs. 9. Postoperative intubation. Plan Plan of Care cont zosyn, cont supportive care HIREN BANSAL MD April 11, 2021 07:46
[2021-04-11 08:20] LABS: BASE EXCESS ABG -3 mmol/L (-3-3); HCO3 ABG 23 mmol/L (21-28); PCO2 ABG 45 mmHg (35-46); PO2 ABG 113 mmHg (75-108); SAT O2 ABG 98 % (92-99)
[2021-04-11 08:22] LABS: FIO2 ABG 35
--- NOTE | 2021-04-11 08:33 | PDOC ---
[employer] PROGRESS NOTE Date of Service DOS: DATE: 04/11/21 TIME: 08:32 Chief Complaint Chief Complaint Sepsis Respiratory failure Postop exploratory laparotomy Severe cirrhosis Coagulopathy Pneumoperitoneum Suspect spontaneous bacterial peritonitis Leukocytosis Duodenitis Ascites Cholelithiasis History alcohol abuse History COPD Severe malnutrition History of Present Illness History of Present Illness 04/11/2021 Patient seen and examined in the ICU He remains mechanically ventilated AC//500/30 5% with 5 of PEEP Has IV Zosyn hanging Sedated with fentanyl and Versed Has IV TPN On vasopressin and Levophed Has Hwang bedside drainage Abdomen distended Chart reviewed Discussed with RN Remains very critically ill 04/10/2021 Patient seen and examined in the ICU He is still mechanically ventilated AC/500/30 5% with 5 of PEEP Sedated with Versed fentanyl On epinephrine drip and vasopressin drip Also getting IV TPN Also on IV micafungin and IV antibiotics Discussed with RN Discussed with case management Chart reviewed He remains extremely critically ill 04/09/2021 Patient seen and examined in the ICU He remains mechanically ventilated AC/500/30 5% with 5 of PEEP Discussed with case management Discussed with RN Chart reviewed He is sedated with fentanyl He is on IV vasopressin Has TPN hanging Abdomen with 4 clean dry intact trocar sites and a ROCIO drain in the lower right quadrant He remains critically ill Patient is a 50-year-old male with past medical history alcohol abuse, who presents as a transfer from [facility] due to pneumoperitoneum. Initially at [facility] ER he complained of abdominal pain and abdominal swelling over the past week, 07/03. He reports associated nausea and vomiting over this time, and is not amenable to take his home medications. Patient also reports noticing some discoloration of his eyes, discoloration of the skin, and dark urine over the past several days. He denies recent NSAID use. He was transferred to [facility] and admitted to the ICU for further medical management. 04/08/2021 Patient remains intubated, FiO2 35%, PEEP 5. Afebrile. Continue antibiotics, per ID. Abdominal fluid cultures and blood cultures with no growth to date. 30 minutes critical care time spent, reviewing labs, reviewing charts, and discussion with RN. 04/07/2021 Afebrile. Intubated, with FiO2 40%, PEEP 5. Requiring 2 vasopressors. Abdominal drain with clear serous output. Continue Zosyn, Zyvox, and micafungin, per ID. Blood cultures and abdominal fluid cultures with no growth to date. 30 minutes critical care time spent reviewing charts, reviewing labs, and discussion with RN. 04/06/2021 Patient seen in ICU s/p diagnostic laparoscopy with culture abdominal fluid and placement of abdominal drain. Suspect spontaneous bacterial peritonitis. He is currently on 2 vasopressors. Continue linezolid, Zosyn, and micafungin, per ID. No organisms seen on Gram stain of abdominal fluid and preliminary abdominal fluid cultures with no growth to date. 30 minutes critical care time spent reviewing charts, reviewing labs, reviewing imaging, and discussion with RN. Vitals/I&O Vitals/I&O: Vital Signs Date Time Temp Pulse Resp B/P (MAP) Pulse Ox O2 Delivery O2 Flow Rate FiO2 04/11/21 07:45 98 Ventilator 04/11/21 06:00 93 17 101/52 (68) 04/11/21 04:00 98.1 98.1 I & O 04/10/21 04/10/21 04/11/21 15:00 23:00 07:00 Intake Total 50 ml 2094.93 ml 818.6 ml Output Total 1305 ml 905 ml 790 ml Balance -1255 ml 1189.93 ml 28.6 ml Physical Exam Physical Exam: VITAL SIGNS: stable GENERAL: Intubated and sedated. HEENT: Atraumatic. NECK: Right IJ clean. LUNGS: Decreased breath sounds at the bases, otherwise clear. No wheezing. HEART: S1, S2. ABDOMEN: Distended, laparoscopy dressing intact, not taken down. ROCIO drain in place. Bowel sounds hypoactive. EXTREMITIES: No edema. Hyperpigmentation. Slight mottling. GENITOURINARY: Hwang in place. No generalized rash except for above. PSYCHIATRIC: Unable to assess. The patient was alert, oriented x 3 prior to surgery. General: Other (sedated ) Heart: Regular rate Lungs: Crackles Abdomen: Soft, Other (drain serous ) Extremities: No cyanosis Skin: No rashes Labs Labs: Laboratory Tests Test 04/11/21 06:15 04/11/21 07:45 White Blood Count 9.7 x10^3/uL (4.0-11.0) Red Blood Count 1.79 x10^6/uL (4.30-5.70) Hemoglobin 7.1 g/dL (13.0-17.5) Hematocrit 21.1 % (39.0-53.0) Mean Corpuscular Volume 118 fL (79-100) Mean Corpuscular Hemoglobin 40 pg (25-35) Mean Corpuscular Hemoglobin Concent 34 g/dL (31-37) Red Cell Distribution Width 19.2 % (11.5-14.5) Platelet Count 99 x10^3/uL (140-400) Neutrophils (%) (Auto) 73 % (31-73) Lymphocytes (%) (Auto) 14 % (24-48) Monocytes (%) (Auto) 7 % (0-9) Eosinophils (%) (Auto) 5 % (0-3) Basophils (%) (Auto) 1 % (0-3) Neutrophils # (Auto) 7.1 x10^3/uL (1.8-7.7) Lymphocytes # (Auto) 1.4 x10^3/uL (1.0-4.8) Monocytes # (Auto) 0.7 x10^3/uL (0.0-1.1) Eosinophils # (Auto) 0.5 x10^3/uL (0.0-0.7) Basophils # (Auto) 0.1 x10^3/uL (0.0-0.2) Sodium Level 142 mmol/L (136-145) Potassium Level 4.8 mmol/L (3.5-5.1) Chloride Level 110 mmol/L (98-107) Carbon Dioxide Level 26 mmol/L (21-32) Anion Gap 6 (6-14) Blood Urea Nitrogen 52 mg/dL (8-26) Creatinine 1.0 mg/dL (0.7-1.3) Estimated GFR (Cockcroft-Gault) 78.8 Glucose Level 148 mg/dL (70-99) Calcium Level 8.7 mg/dL (8.5-10.1) Phosphorus Level 3.7 mg/dL (2.6-4.7) Magnesium Level 2.4 mg/dL (1.8-2.4) Albumin 2.6 g/dL (3.4-5.0) O2 Saturation 98 % (92-99) Arterial Blood pH 7.32 (7.35-7.45) Arterial Blood pCO2 at Patient Temp 45 mmHg (35-46) Arterial Blood pO2 at Patient Temp 113 mmHg (75-108) Arterial Blood HCO3 23 mmol/L (21-28) Arterial Blood Base Excess -3 mmol/L (-3-3) FiO2 35 Assessment and Plan Assessmemt and Plan Sepsis Cirrhosis Respiratory failure Postop exploratory laparotomy Coagulopathy Pneumoperitoneum Suspect spontaneous bacterial peritonitis Leukocytosis Duodenitis Ascites Cholelithiasis History alcohol abuse History COPD Severe malnutrition Plan: ICU monitoring Wound care IV microfungi IV antibiotics Vent weaning Monitor right lower quadrant ROCIO drain Trend labs Home meds if possible DVT prophylaxis Full code Prognosis extremely guarded at best Possible hospice candidate? Appreciate subspecialist input He remains critically ill CC time 31 minutes Comment Review of Relevant I have reviewed the following items jeff (where applicable) has been applied. Medications: Current Medications Medications (Trade) Dose Ordered Sig/Ada Route PRN Reason Start Time Stop Time Status Last Admin Dose Admin Piperacillin Sod/ Tazobactam Sod 3.375 gm/Sodium Chloride 50 ml @ 100 mls/hr Q6HRS IV 04/10/21 12:00 04/11/21 06:37 Sodium Chloride 90 meq/Potassium Chloride 50 meq/ Magnesium Sulfate 18 meq/Calcium Gluconate 10 meq/ Multivitamins 5 ml/Zinc/Copper/ Manganese/ Selenium 1 ml/ Potassium Phosphate 18 mmol/ Total Parenteral Nutrition/Amino Acids/Dextrose/ Fat Emulsion Intravenous 1,512 ml @ 63 mls/hr TPN CONT IV 04/10/21 22:00 04/11/21 21:59 04/10/21 22:25 Albumin Human 250 ml @ 62.5 mls/hr 1X ONCE IV 04/10/21 13:30 04/10/21 17:29 DC 04/10/21 14:27 Albumin Human 250 ml @ 62.5 mls/hr 1X ONCE IV 04/10/21 13:30 04/10/21 17:29 DC 04/10/21 15:26 Justifications for Admission Other Justification MANUEL CARDONA III DO April 11, 2021 08:33
[2021-04-11 09:11] LABS: ANISOCYTOSIS PRESENT; PLT ESTIMATE DECREASED (ADEQUATE)
--- NOTE | 2021-04-11 09:19 | PDOC ---
Date of Service: DATE: 04/11/21 TIME: 09:17 Objective: Objective: NG canister nearly full - not sure how much output recently, 60cc/hr from drain, sedation holiday since 7:00 today. Vital Signs: Vital Signs Date Time Temp Pulse Resp B/P (MAP) Pulse Ox O2 Delivery O2 Flow Rate FiO2 04/11/21 07:45 98 Ventilator 04/11/21 06:00 93 17 101/52 (68) 04/11/21 04:00 98.1 98.1 Labs: Laboratory Tests Test 04/11/21 06:15 04/11/21 07:45 White Blood Count 9.7 x10^3/uL Red Blood Count 1.79 x10^6/uL Hemoglobin 7.1 g/dL Hematocrit 21.1 % Mean Corpuscular Volume 118 fL Mean Corpuscular Hemoglobin 40 pg Mean Corpuscular Hemoglobin Concent 34 g/dL Red Cell Distribution Width 19.2 % Platelet Count 99 x10^3/uL Neutrophils (%) (Auto) 73 % Lymphocytes (%) (Auto) 14 % Monocytes (%) (Auto) 7 % Eosinophils (%) (Auto) 5 % Basophils (%) (Auto) 1 % Neutrophils # (Auto) 7.1 x10^3/uL Lymphocytes # (Auto) 1.4 x10^3/uL Monocytes # (Auto) 0.7 x10^3/uL Eosinophils # (Auto) 0.5 x10^3/uL Basophils # (Auto) 0.1 x10^3/uL Platelet Estimate Decreased Anisocytosis Present Macrocytosis Present Sodium Level 142 mmol/L Potassium Level 4.8 mmol/L Chloride Level 110 mmol/L Carbon Dioxide Level 26 mmol/L Anion Gap 6 Blood Urea Nitrogen 52 mg/dL Creatinine 1.0 mg/dL Estimated GFR (Cockcroft-Gault) 78.8 Glucose Level 148 mg/dL Calcium Level 8.7 mg/dL Phosphorus Level 3.7 mg/dL Magnesium Level 2.4 mg/dL Albumin 2.6 g/dL O2 Saturation 98 % Arterial Blood pH 7.32 Arterial Blood pCO2 at Patient Temp 45 mmHg Arterial Blood pO2 at Patient Temp 113 mmHg Arterial Blood HCO3 23 mmol/L Arterial Blood Base Excess -3 mmol/L FiO2 35 PE: GEN: intubated LUNGS: vent/clear HEART: RRR ABD: large, perhaps slightly more distended than yesterday but soft, ROCIO serous NEURO/PSYCH: did not respond A/P: SBP - on atbx Hypotension, resp failure Alcoholic liver disease -- Continue same per GI. Justicifation of Admission Dx: Justifications for Admission: Justification of Admission Dx: Yes CHRISTIANE BRIONES April 11, 2021 09:19
--- NOTE | 2021-04-11 11:00 | PDOC ---
PULMONARY PROGRESS NOTES DATE: 04/11/21 TIME: 10:57 Subjective Patient remains on ventilatory support Sedated with Versed and fentanyl Continues on vasopressor medications: on vasopressin and Levophed Nursing reports increased abdominal firmness and increased drainage from abdominal drains Vitals Vital Signs Date Time Temp Pulse Resp B/P (MAP) Pulse Ox O2 Delivery O2 Flow Rate FiO2 04/11/21 07:45 98 Ventilator 04/11/21 06:00 93 17 101/52 (68) 04/11/21 04:00 98.1 98.1 Comments on vent sedated not able to obtain ros HEENT: Other (Orally intubated) Lungs: Crackles Cardiovascular: S1, S2 Abdomen: Non-tender, Other (Firm) Extremities: Other (edema ) Skin: Warm Labs Laboratory Tests Test 04/09/21 12:38 04/09/21 17:11 04/09/21 23:53 04/10/21 05:40 Glucose (Fingerstick) 161 mg/dL (70-99) 151 mg/dL (70-99) 181 mg/dL (70-99) White Blood Count 10.5 x10^3/uL (4.0-11.0) Red Blood Count 1.86 x10^6/uL (4.30-5.70) Hemoglobin 7.4 g/dL (13.0-17.5) Hematocrit 21.7 % (39.0-53.0) Mean Corpuscular Volume 116 fL (79-100) Mean Corpuscular Hemoglobin 40 pg (25-35) Mean Corpuscular Hemoglobin Concent 34 g/dL (31-37) Red Cell Distribution Width 19.2 % (11.5-14.5) Platelet Count 95 x10^3/uL (140-400) Neutrophils (%) (Auto) 75 % (31-73) Lymphocytes (%) (Auto) 13 % (24-48) Monocytes (%) (Auto) 7 % (0-9) Eosinophils (%) (Auto) 4 % (0-3) Basophils (%) (Auto) 1 % (0-3) Neutrophils # (Auto) 7.9 x10^3/uL (1.8-7.7) Lymphocytes # (Auto) 1.3 x10^3/uL (1.0-4.8) Monocytes # (Auto) 0.8 x10^3/uL (0.0-1.1) Eosinophils # (Auto) 0.4 x10^3/uL (0.0-0.7) Basophils # (Auto) 0.1 x10^3/uL (0.0-0.2) Sodium Level 141 mmol/L (136-145) Potassium Level 4.5 mmol/L (3.5-5.1) Chloride Level 108 mmol/L (98-107) Carbon Dioxide Level 27 mmol/L (21-32) Anion Gap 6 (6-14) Blood Urea Nitrogen 38 mg/dL (8-26) Creatinine 0.9 mg/dL (0.7-1.3) Estimated GFR (Cockcroft-Gault) 89.0 Glucose Level 146 mg/dL (70-99) Calcium Level 8.3 mg/dL (8.5-10.1) Phosphorus Level 2.8 mg/dL (2.6-4.7) Magnesium Level 2.1 mg/dL (1.8-2.4) Albumin 2.6 g/dL (3.4-5.0) Test 04/10/21 08:00 04/11/21 06:15 04/11/21 07:45 O2 Saturation 99 % (92-99) 98 % (92-99) Arterial Blood pH 7.39 (7.35-7.45) 7.32 (7.35-7.45) Arterial Blood pCO2 at Patient Temp 40 mmHg (35-46) 45 mmHg (35-46) Arterial Blood pO2 at Patient Temp 133 mmHg (75-108) 113 mmHg (75-108) Arterial Blood HCO3 24 mmol/L (21-28) 23 mmol/L (21-28) Arterial Blood Base Excess -1 mmol/L (-3-3) -3 mmol/L (-3-3) FiO2 35 35 White Blood Count 9.7 x10^3/uL (4.0-11.0) Red Blood Count 1.79 x10^6/uL (4.30-5.70) Hemoglobin 7.1 g/dL (13.0-17.5) Hematocrit 21.1 % (39.0-53.0) Mean Corpuscular Volume 118 fL (79-100) Mean Corpuscular Hemoglobin 40 pg (25-35) Mean Corpuscular Hemoglobin Concent 34 g/dL (31-37) Red Cell Distribution Width 19.2 % (11.5-14.5) Platelet Count 99 x10^3/uL (140-400) Neutrophils (%) (Auto) 73 % (31-73) Lymphocytes (%) (Auto) 14 % (24-48) Monocytes (%) (Auto) 7 % (0-9) Eosinophils (%) (Auto) 5 % (0-3) Basophils (%) (Auto) 1 % (0-3) Neutrophils # (Auto) 7.1 x10^3/uL (1.8-7.7) Lymphocytes # (Auto) 1.4 x10^3/uL (1.0-4.8) Monocytes # (Auto) 0.7 x10^3/uL (0.0-1.1) Eosinophils # (Auto) 0.5 x10^3/uL (0.0-0.7) Basophils # (Auto) 0.1 x10^3/uL (0.0-0.2) Platelet Estimate Decreased (ADEQUATE) Anisocytosis Present Macrocytosis Present Sodium Level 142 mmol/L (136-145) Potassium Level 4.8 mmol/L (3.5-5.1) Chloride Level 110 mmol/L (98-107) Carbon Dioxide Level 26 mmol/L (21-32) Anion Gap 6 (6-14) Blood Urea Nitrogen 52 mg/dL (8-26) Creatinine 1.0 mg/dL (0.7-1.3) Estimated GFR (Cockcroft-Gault) 78.8 Glucose Level 148 mg/dL (70-99) Calcium Level 8.7 mg/dL (8.5-10.1) Phosphorus Level 3.7 mg/dL (2.6-4.7) Magnesium Level 2.4 mg/dL (1.8-2.4) Albumin 2.6 g/dL (3.4-5.0) Laboratory Tests Test 04/11/21 06:15 04/11/21 07:45 White Blood Count 9.7 x10^3/uL (4.0-11.0) Red Blood Count 1.79 x10^6/uL (4.30-5.70) Hemoglobin 7.1 g/dL (13.0-17.5) Hematocrit 21.1 % (39.0-53.0) Mean Corpuscular Volume 118 fL (79-100) Mean Corpuscular Hemoglobin 40 pg (25-35) Mean Corpuscular Hemoglobin Concent 34 g/dL (31-37) Red Cell Distribution Width 19.2 % (11.5-14.5) Platelet Count 99 x10^3/uL (140-400) Neutrophils (%) (Auto) 73 % (31-73) Lymphocytes (%) (Auto) 14 % (24-48) Monocytes (%) (Auto) 7 % (0-9) Eosinophils (%) (Auto) 5 % (0-3) Basophils (%) (Auto) 1 % (0-3) Neutrophils # (Auto) 7.1 x10^3/uL (1.8-7.7) Lymphocytes # (Auto) 1.4 x10^3/uL (1.0-4.8) Monocytes # (Auto) 0.7 x10^3/uL (0.0-1.1) Eosinophils # (Auto) 0.5 x10^3/uL (0.0-0.7) Basophils # (Auto) 0.1 x10^3/uL (0.0-0.2) Platelet Estimate Decreased (ADEQUATE) Anisocytosis Present Macrocytosis Present Sodium Level 142 mmol/L (136-145) Potassium Level 4.8 mmol/L (3.5-5.1) Chloride Level 110 mmol/L (98-107) Carbon Dioxide Level 26 mmol/L (21-32) Anion Gap 6 (6-14) Blood Urea Nitrogen 52 mg/dL (8-26) Creatinine 1.0 mg/dL (0.7-1.3) Estimated GFR (Cockcroft-Gault) 78.8 Glucose Level 148 mg/dL (70-99) Calcium Level 8.7 mg/dL (8.5-10.1) Phosphorus Level 3.7 mg/dL (2.6-4.7) Magnesium Level 2.4 mg/dL (1.8-2.4) Albumin 2.6 g/dL (3.4-5.0) O2 Saturation 98 % (92-99) Arterial Blood pH 7.32 (7.35-7.45) Arterial Blood pCO2 at Patient Temp 45 mmHg (35-46) Arterial Blood pO2 at Patient Temp 113 mmHg (75-108) Arterial Blood HCO3 23 mmol/L (21-28) Arterial Blood Base Excess -3 mmol/L (-3-3) FiO2 35 Medications Active Scripts Medications Dose Route/Sig Max Daily Dose Days Date Category Proair Hfa Inhaler (Albuterol Sulfate) 8.5 Gm Hfa.aer.ad 2 Puff IH PRN Q4-6HRS PRN 21 04/05/21 Reported Uloric (Febuxostat) 80 Mg Tablet 1 Tab PO DAILY 30 04/05/21 Reported Losartan Potassium 100 Mg Tablet 100 Mg PO DAILY 04/05/21 Reported Folic Acid 1 Mg Tablet 1 Mg PO DAILY 08/05/16 Reported Amlodipine Besylate 10 Mg Tablet 10 Mg PO DAILY 08/05/16 Reported Losartan Potassium 100 Mg Tablet 100 Mg PO DAILY 08/05/16 Reported Colcrys (Colchicine) 0.6 Mg Tablet 0.6 Mg PO DAILY 08/05/16 Reported Uloric (Febuxostat) 40 Mg Tablet 1 Tab PO DAILY 08/05/16 Reported Comments CXR IMPRESSION: 1. Bilateral infrahilar linear atelectasis or interstitial infiltrate. 2. Support lines and tubes, described above. Impression . IMPRESSION: 1. Acute hypoxic respiratory failure secondary to septic shock. 2. Septic shock secondary to spontaneous bacterial peritonitis in a patient who has alcoholism and cirrhosis along with ascites. s/p Diagnostic laparoscopy, culture abdominal fluid, placement of abdominal drain 04/05 3. Acute kidney injury. cr coming down 1.7 4. Lactic acidosis secondary to septic shock, now improved. 5. History of tobaccoism. ? copd 6. History of alcoholism. 7. Cirrhosis secondary to alcoholism. 8. Coagulopathy secondary to cirrhosis. 9. COVID negative. Plan . updated 04/11/21 Continue current vent support, 16/500//35% Nebs Follow chest x-ray/ABG--no changes Continue vasopressors to keep MAP greater than 65--remains on Levophed and vasopressin Follow GI recommendations, monitor hemoglobin, transfuse as needed Follow nephrology recommendations Follow surgery recommendations--- status post diagnostic laparoscopic, follow abdominal cultures, continue drain to abdomen placed on 04/05 Continue antibiotics per infectious disease Continue TPN for nutritional support DVT/GI prophylaxis Discussed with RN and RT I do long discussion with the patient's daughter at the bedside. Knowing patient's wishes she does not want to prolong current aggressive care if prognosis remains grim. The family is leaning towards comfort care if he does not make any clinical improvement. We will continue to review patient's clinical status. In the meantime if patient has any cardiac arrest we will not do CPR. Patient will be DNR. Critical care time 30 minutes updated 04/09/21 Continue current vent support, 16/500//35% Nebs Follow chest x-ray/ABG--no changes Continue vasopressors to keep MAP greater than 65 Follow GI recommendations, monitor hemoglobin, transfuse as needed Follow nephrology recommendations Follow surgery recommendations--- status post diagnostic laparoscopic, follow abdominal cultures, continue drain to abdomen placed on 04/05 Continue antibiotics per infectious disease Continue TPN for nutritional support DVT/GI prophylaxis Discussed with RN and RT Critical care time 30 minutes updated 04/08 1. cont vent support setting reviewed, still on 2 pressors, not stable for sbt. abg reviewed no vent change 2. cont pressors to keep map 65 3. protonix for stress ulcer prophylaxis. 4. Broad spectrum antibiotics per infectious disease recommendation. 5. Monitor renal function. Follow renal recommendations. 6. TPN per Nephrology. 7. Follow all cultures. neg so far 8. Follow Surgery recommendations. 9. bicarbonate drip stopped by nephro. 10. Discussed with RN RECOMMENDATIONS: 1. cont vent support setting reviewed, not stable for sbt. We will make necessary adjustment based on ABGs. 2. cont pressors to keep map 65 3. protonix for stress ulcer prophylaxis. 4. Broad spectrum antibiotics per infectious disease recommendation. 5. Monitor renal function. Follow renal recommendations. 6. TPN per Nephrology. 7. Follow all cultures. 8. Follow Surgery recommendations. 9. bicarbonate drip per nephro. 10. Discussed with RN ISRRAEL WALTERS MD April 11, 2021 11:00
[2021-04-11] MEDS: PANTOPRAZOLE IV PUSH 40 MG VIAL. IVP SCH (12:55)
[2021-04-11] MEDS: TPN PER PHARMACY MC PRN (13:01)
--- NOTE | 2021-04-11 13:01 | NUR ---
Pharmacy TPN Dosing Note S: ALEXANDREABHISHEK Menon is a 50 year old M Currently receiving Central Continuous TPN started 04/06/21 B:Pertinent PMH: NPO- s/p ex lap Height: 5 feet, 11 inches Weight: 104.3 kg Current diet: NPO LABS: Sodium: 142 Potassium: 4.8 Chloride: 110 Calcium: 8.7 Corrected Calcium: 9.82 Magnesium: 2.4 CO2: 26 SCr: 1 Glucose: 148 Albumin: 2.6 AST: 80 ALT: 66 TPN FORMULA: TPN TYPE: Central Continuous AMINO ACIDS: 115 gm DEXTROSE: 225 gm LIPIDS: 20 gm SODIUM CHLORIDE: 90 mEq POTASSIUM CHLORIDE: 20 mEq POTASSIUM PHOSPHATE: 18 mmol MAGNESIUM: 13 mEq CALCIUM: 10 mEq MULTIPLE VITAMIN: 5 ml TRACE ELEMENTS: 1 ml TPN PLAN: -Serum potassium and magnesium trending up still, reduce KCl and mag sulfate in TPN. -CMP, mag, phos, TG tomorrow per protocol. R: Continue TPN @ 63 ml/hr and above formula. Will monitor electrolytes, glucose, and tolerance to TPN. NICOLLE VILLA [facility], 04/11/21 1301
[2021-04-11] MEDS: NOREPINEPHRINE VIAL 8 MG in IV DEXTROSE 5% 250 ML IV PRN (19:44)
[2021-04-11] MEDS: MIDAZOLAM 100mg/100ml NS BAG 100 ML IV PRN (20:49)
[2021-04-11] MEDS ORDERED: DEXTROSE 70% IV SCH (22:00)
[2021-04-11] MEDS ORDERED: AMINO ACID IV SCH (22:00)
[2021-04-11] MEDS ORDERED: TOTAL PARENTERAL NUTRITION IV SCH (22:00)
[2021-04-11] MEDS ORDERED: [UNRECOGNIZED DRUG - OTHER] IV SCH (22:00)
--- NOTE | 2021-04-11 23:31 | NUR ---
Versed restarted at low dose for erratic tidal volumes and increased diaphoresis. Will continue to monitor.
[2021-04-12] VITALS (41 sets, daily range): BP systolic 71–116; BP diastolic 37–70
[2021-04-12] MEDS: PIPERACILLIN/TAZOBACTAM 3.375 GM in IV NORMAL SALINE 50ML 50 ML IV SCH ×5 (00:21→23:55)
[2021-04-12] MEDS: VASOPRESSIN 20 UNIT in IV DEXTROSE 5% 100ML 100 ML IV PRN ×3 (04:23→22:38)
--- NOTE | 2021-04-12 07:59 | PDOC ---
Infectious Disease Note Subjective Subjective pt is sedated intubated on vent ROS ROS no n/v/d/sob Vital Sign Vital Signs Vital Signs Date Time Temp Pulse Resp B/P (MAP) Pulse Ox O2 Delivery O2 Flow Rate FiO2 04/12/21 06:39 17 99 04/12/21 06:00 93 110/54 (72) Ventilator 04/12/21 04:00 98.7 98.7 Physical Exam PHYSICAL EXAM VITAL SIGNS: stable GENERAL: Intubated and sedated. HEENT: Atraumatic. NECK: Right IJ clean. LUNGS: Decreased breath sounds at the bases, otherwise clear. No wheezing. HEART: S1, S2. ABDOMEN: Distended, laparoscopy dressing intact, not taken down. ROCIO drain in place. Bowel sounds hypoactive. EXTREMITIES: No edema. Hyperpigmentation. Slight mottling. GENITOURINARY: Hwang in place. No generalized rash except for above. PSYCHIATRIC: Unable to assess. The patient was alert, oriented x 3 prior to surgery. Labs Micro GRAM STAIN Final Final NO ORGANISMS SEEN. SQUAMOUS EPI CELL:NOT APPLICABLE PMN (WBCs):MODERATE Unless otherwise specified, Testing Performed by: [address] [id number] For Inquires, the Physician may contact the Microbiology department at [phone] ANAEROBIC-AEROBIC CULTURE Preliminary Preliminary No Growth on 04/06/21 at 0838 No Growth on 04/07/21 at 1116 Unless otherwise specified, Testing Performed by: [address] [id number] For Inquires, the Physician may contact the Microbiology department at [phone] Objective Assessment 1. Severe sepsis. 2. Abdominal pain, nausea, vomiting. Pneumoperitoneum on CT, status post diagnostic laparoscopy, placement of abdominal drain. No evidence of perforated viscus. Findings were consistent with spontaneous bacterial peritonitis. 3. Ascites and cirrhosis. 4. ETOH dependence. 5. Acute kidney injury with hyperkalemia. 6. Thrombocytopenia. 7. Coagulopathy. 8. Increased LFTs. 9. Postoperative intubation. Plan Plan of Care cont zosyn, cont supportive care family to decide on further coarse d/w Pulmonary d/w HIREN LOFTON MD April 12, 2021 07:59
[2021-04-12 08:14] LABS: BASE EXCESS ABG -4 mmol/L (-3-3); HCO3 ABG 22 mmol/L (21-28); PCO2 ABG 44 mmHg (35-46); PO2 ABG 117 mmHg (75-108); SAT O2 ABG 98 % (92-99)
[2021-04-12 08:20] LABS: FIO2 ABG 35
[2021-04-12] MEDS: PANTOPRAZOLE IV PUSH 40 MG VIAL. IVP SCH (08:32)
[2021-04-12 09:28] LABS: BASO # 0.1 x10^3/uL (0.0-0.2); BASO % 1 % (0-3); EOS # 0.2 x10^3/uL (0.0-0.7); EOS % 2 % (0-3); HEMATOCRIT 22.6 % (39.0-53.0); HEMOGLOBIN 7.5 g/dL (13.0-17.5); LYMPH # 1.3 x10^3/uL (1.0-4.8); LYMPH % 13 % (24-48); MEAN CORPUSCULAR HEMOGLOBIN 39 pg (25-35); MEAN CORPUSCULAR HGB CONC 33 g/dL (31-37); MEAN CORPUSCULAR VOLUME 119 fL (79-100); MONO # 0.9 x10^3/uL (0.0-1.1); MONO % 8 % (0-9); NEUT % 76 % (31-73); PLATELET COUNT 95 x10^3/uL (140-400); RED CELL DISTRIBUTION WIDTH 18.9 % (11.5-14.5); WHITE BLOOD COUNT 10.6 x10^3/uL (4.0-11.0)
[2021-04-12 09:30] LABS: PROTHROMBIN TIME PATIENT 19.8 SEC (11.7-14.0)
[2021-04-12 09:35] LABS: ALBUMIN 2.6 g/dL (3.4-5.0); ALBUMIN/GLOBULIN RATIO 0.7 (1.0-1.7); CALCIUM 9.2 mg/dL (8.5-10.1); GFR 78.8; MAGNESIUM 2.5 mg/dL (1.8-2.4); PHOSPHORUS 4.2 mg/dL (2.6-4.7); POTASSIUM 5.2 mmol/L (3.5-5.1); TOTAL BILIRUBIN 8.5 mg/dL (0.2-1.0); TOTAL PROTEIN 6.4 g/dL (6.4-8.2)
--- NOTE | 2021-04-12 09:46 | PDOC ---
PULMONARY PROGRESS NOTES DATE: 04/12/21 TIME: 09:44 Subjective Patient remains on ventilatory support Sedated with Versed and fentanyl Continues on vasopressor medications: on vasopressin and Levophed Nursing reports increased abdominal firmness and increased drainage from abdominal drains Vitals Vital Signs Date Time Temp Pulse Resp B/P (MAP) Pulse Ox O2 Delivery O2 Flow Rate FiO2 04/12/21 09:35 98 Ventilator 04/12/21 07:10 16 04/12/21 06:00 93 110/54 (72) 04/12/21 04:00 98.7 98.7 Comments on vent sedated not able to obtain ros HEENT: Other (Orally intubated) Lungs: Crackles Cardiovascular: S1, S2 Abdomen: Non-tender, Other (Firm) Extremities: Other (edema ) Skin: Warm Labs Laboratory Tests Test 04/11/21 06:15 04/11/21 07:45 04/12/21 08:12 04/12/21 09:03 White Blood Count 9.7 x10^3/uL (4.0-11.0) 10.6 x10^3/uL (4.0-11.0) Red Blood Count 1.79 x10^6/uL (4.30-5.70) 1.90 x10^6/uL (4.30-5.70) Hemoglobin 7.1 g/dL (13.0-17.5) 7.5 g/dL (13.0-17.5) Hematocrit 21.1 % (39.0-53.0) 22.6 % (39.0-53.0) Mean Corpuscular Volume 118 fL (79-100) 119 fL (79-100) Mean Corpuscular Hemoglobin 40 pg (25-35) 39 pg (25-35) Mean Corpuscular Hemoglobin Concent 34 g/dL (31-37) 33 g/dL (31-37) Red Cell Distribution Width 19.2 % (11.5-14.5) 18.9 % (11.5-14.5) Platelet Count 99 x10^3/uL (140-400) 95 x10^3/uL (140-400) Neutrophils (%) (Auto) 73 % (31-73) 76 % (31-73) Lymphocytes (%) (Auto) 14 % (24-48) 13 % (24-48) Monocytes (%) (Auto) 7 % (0-9) 8 % (0-9) Eosinophils (%) (Auto) 5 % (0-3) 2 % (0-3) Basophils (%) (Auto) 1 % (0-3) 1 % (0-3) Neutrophils # (Auto) 7.1 x10^3/uL (1.8-7.7) 8.0 x10^3/uL (1.8-7.7) Lymphocytes # (Auto) 1.4 x10^3/uL (1.0-4.8) 1.3 x10^3/uL (1.0-4.8) Monocytes # (Auto) 0.7 x10^3/uL (0.0-1.1) 0.9 x10^3/uL (0.0-1.1) Eosinophils # (Auto) 0.5 x10^3/uL (0.0-0.7) 0.2 x10^3/uL (0.0-0.7) Basophils # (Auto) 0.1 x10^3/uL (0.0-0.2) 0.1 x10^3/uL (0.0-0.2) Platelet Estimate Decreased (ADEQUATE) Anisocytosis Present Macrocytosis Present Sodium Level 142 mmol/L (136-145) 146 mmol/L (136-145) Potassium Level 4.8 mmol/L (3.5-5.1) 5.2 mmol/L (3.5-5.1) Chloride Level 110 mmol/L (98-107) 114 mmol/L (98-107) Carbon Dioxide Level 26 mmol/L (21-32) 25 mmol/L (21-32) Anion Gap 6 (6-14) 7 (6-14) Blood Urea Nitrogen 52 mg/dL (8-26) 68 mg/dL (8-26) Creatinine 1.0 mg/dL (0.7-1.3) 1.0 mg/dL (0.7-1.3) Estimated GFR (Cockcroft-Gault) 78.8 78.8 Glucose Level 148 mg/dL (70-99) 177 mg/dL (70-99) Calcium Level 8.7 mg/dL (8.5-10.1) 9.2 mg/dL (8.5-10.1) Phosphorus Level 3.7 mg/dL (2.6-4.7) 4.2 mg/dL (2.6-4.7) Magnesium Level 2.4 mg/dL (1.8-2.4) 2.5 mg/dL (1.8-2.4) Albumin 2.6 g/dL (3.4-5.0) 2.6 g/dL (3.4-5.0) O2 Saturation 98 % (92-99) 98 % (92-99) Arterial Blood pH 7.32 (7.35-7.45) 7.31 (7.35-7.45) Arterial Blood pCO2 at Patient Temp 45 mmHg (35-46) 44 mmHg (35-46) Arterial Blood pO2 at Patient Temp 113 mmHg (75-108) 117 mmHg (75-108) Arterial Blood HCO3 23 mmol/L (21-28) 22 mmol/L (21-28) Arterial Blood Base Excess -3 mmol/L (-3-3) -4 mmol/L (-3-3) FiO2 35 35 Prothrombin Time 19.8 SEC (11.7-14.0) Prothromb Time International Ratio 1.7 (0.8-1.1) BUN/Creatinine Ratio 68 (6-20) Total Bilirubin 8.5 mg/dL (0.2-1.0) Aspartate Amino Transf (AST/SGOT) 158 U/L (15-37) Alanine Aminotransferase (ALT/SGPT) 78 U/L (16-63) Alkaline Phosphatase 83 U/L (46-116) Total Protein 6.4 g/dL (6.4-8.2) Albumin/Globulin Ratio 0.7 (1.0-1.7) Triglycerides Level 103 mg/dL (0-150) Laboratory Tests Test 04/12/21 08:12 04/12/21 09:03 O2 Saturation 98 % (92-99) Arterial Blood pH 7.31 (7.35-7.45) Arterial Blood pCO2 at Patient Temp 44 mmHg (35-46) Arterial Blood pO2 at Patient Temp 117 mmHg (75-108) Arterial Blood HCO3 22 mmol/L (21-28) Arterial Blood Base Excess -4 mmol/L (-3-3) FiO2 35 White Blood Count 10.6 x10^3/uL (4.0-11.0) Red Blood Count 1.90 x10^6/uL (4.30-5.70) Hemoglobin 7.5 g/dL (13.0-17.5) Hematocrit 22.6 % (39.0-53.0) Mean Corpuscular Volume 119 fL (79-100) Mean Corpuscular Hemoglobin 39 pg (25-35) Mean Corpuscular Hemoglobin Concent 33 g/dL (31-37) Red Cell Distribution Width 18.9 % (11.5-14.5) Platelet Count 95 x10^3/uL (140-400) Neutrophils (%) (Auto) 76 % (31-73) Lymphocytes (%) (Auto) 13 % (24-48) Monocytes (%) (Auto) 8 % (0-9) Eosinophils (%) (Auto) 2 % (0-3) Basophils (%) (Auto) 1 % (0-3) Neutrophils # (Auto) 8.0 x10^3/uL (1.8-7.7) Lymphocytes # (Auto) 1.3 x10^3/uL (1.0-4.8) Monocytes # (Auto) 0.9 x10^3/uL (0.0-1.1) Eosinophils # (Auto) 0.2 x10^3/uL (0.0-0.7) Basophils # (Auto) 0.1 x10^3/uL (0.0-0.2) Prothrombin Time 19.8 SEC (11.7-14.0) Prothromb Time International Ratio 1.7 (0.8-1.1) Sodium Level 146 mmol/L (136-145) Potassium Level 5.2 mmol/L (3.5-5.1) Chloride Level 114 mmol/L (98-107) Carbon Dioxide Level 25 mmol/L (21-32) Anion Gap 7 (6-14) Blood Urea Nitrogen 68 mg/dL (8-26) Creatinine 1.0 mg/dL (0.7-1.3) Estimated GFR (Cockcroft-Gault) 78.8 BUN/Creatinine Ratio 68 (6-20) Glucose Level 177 mg/dL (70-99) Calcium Level 9.2 mg/dL (8.5-10.1) Phosphorus Level 4.2 mg/dL (2.6-4.7) Magnesium Level 2.5 mg/dL (1.8-2.4) Total Bilirubin 8.5 mg/dL (0.2-1.0) Aspartate Amino Transf (AST/SGOT) 158 U/L (15-37) Alanine Aminotransferase (ALT/SGPT) 78 U/L (16-63) Alkaline Phosphatase 83 U/L (46-116) Total Protein 6.4 g/dL (6.4-8.2) Albumin 2.6 g/dL (3.4-5.0) Albumin/Globulin Ratio 0.7 (1.0-1.7) Triglycerides Level 103 mg/dL (0-150) Medications Active Scripts Medications Dose Route/Sig Max Daily Dose Days Date Category Proair Hfa Inhaler (Albuterol Sulfate) 8.5 Gm Hfa.aer.ad 2 Puff IH PRN Q4-6HRS PRN 21 04/05/21 Reported Uloric (Febuxostat) 80 Mg Tablet 1 Tab PO DAILY 30 04/05/21 Reported Losartan Potassium 100 Mg Tablet 100 Mg PO DAILY 04/05/21 Reported Folic Acid 1 Mg Tablet 1 Mg PO DAILY 08/05/16 Reported Amlodipine Besylate 10 Mg Tablet 10 Mg PO DAILY 08/05/16 Reported Losartan Potassium 100 Mg Tablet 100 Mg PO DAILY 08/05/16 Reported Colcrys (Colchicine) 0.6 Mg Tablet 0.6 Mg PO DAILY 08/05/16 Reported Uloric (Febuxostat) 40 Mg Tablet 1 Tab PO DAILY 08/05/16 Reported Comments CXR IMPRESSION: 1. Bilateral infrahilar linear atelectasis or interstitial infiltrate. 2. Support lines and tubes, described above. Impression . IMPRESSION: 1. Acute hypoxic respiratory failure secondary to septic shock. 2. Septic shock secondary to spontaneous bacterial peritonitis in a patient who has alcoholism and cirrhosis along with ascites. s/p Diagnostic laparoscopy, culture abdominal fluid, placement of abdominal drain 04/05 3. Acute kidney injury. cr coming down 1.7 4. Lactic acidosis secondary to septic shock, now improved. 5. History of tobaccoism. ? copd 6. History of alcoholism. 7. Cirrhosis secondary to alcoholism. 8. Coagulopathy secondary to cirrhosis. 9. COVID negative. Plan . updated 04/12/21 Continue current vent support, 16/500/5/35% Nebs Follow chest x-ray/ABG--no changes Continue vasopressors to keep MAP greater than 65--remains on Levophed and vasopressin Follow GI recommendations, monitor hemoglobin, transfuse as needed Follow nephrology recommendations Follow surgery recommendations--- status post diagnostic laparoscopic, follow abdominal cultures, continue drain to abdomen placed on 04/05 Continue antibiotics per infectious disease Continue TPN for nutritional support DVT/GI prophylaxis Discussed with RN and RT I did long discussion with the patient's daughter at the bedside 04/11. Knowing patient's wishes she does not want to prolong current aggressive care if prognosis remains grim. The family is leaning towards comfort care if he does not make any clinical improvement. We will continue to review patient's clinical status. In the meantime if patient has any cardiac arrest we will not do CPR. Patient will be DNR. Another discussion with family today. Both the daughters were present. They want to withdraw care by Friday if there is no clinical improvement. I concur with them. Critical care time 30 minutes updated 04/11/21 Continue current vent support, 16500/5/35% Nebs Follow chest x-ray/ABG--no changes Continue vasopressors to keep MAP greater than 65--remains on Levophed and vasopressin Follow GI recommendations, monitor hemoglobin, transfuse as needed Follow nephrology recommendations Follow surgery recommendations--- status post diagnostic laparoscopic, follow abdominal cultures, continue drain to abdomen placed on 04/05 Continue antibiotics per infectious disease Continue TPN for nutritional support DVT/GI prophylaxis Discussed with RN and RT I do long discussion with the patient's daughter at the bedside. Knowing patie nt's wishes she does not want to prolong current aggressive care if prognosis remains grim. The family is leaning towards comfort care if he does not make any clinical improvement. We will continue to review patient's clinical status. In the meantime if patient has any cardiac arrest we will not do CPR. Patient will be DNR. Critical care time 30 minutes updated 04/09/21 Continue current vent support, 16/500/5/35% Nebs Follow chest x-ray/ABG--no changes Continue vasopressors to keep MAP greater than 65 Follow GI recommendations, monitor hemoglobin, transfuse as needed Follow nephrology recommendations Follow surgery recommendations--- status post diagnostic laparoscopic, follow abdominal cultures, continue drain to abdomen placed on 04/05 Continue antibiotics per infectious disease Continue TPN for nutritional support DVT/GI prophylaxis Discussed with RN and RT Critical care time 30 minutes updated 04/08 1. cont vent support setting reviewed, still on 2 pressors, not stable for sbt. abg reviewed no vent change 2. cont pressors to keep map 65 3. protonix for stress ulcer prophylaxis. 4. Broad spectrum antibiotics per infectious disease recommendation. 5. Monitor renal function. Follow renal recommendations. 6. TPN per Nephrology. 7. Follow all cultures. neg so far 8. Follow Surgery recommendations. 9. bicarbonate drip stopped by nephro. 10. Discussed with RN RECOMMENDATIONS: 1. cont vent support setting reviewed, not stable for sbt. We will make necessary adjustment based on ABGs. 2. cont pressors to keep map 65 3. protonix for stress ulcer prophylaxis. 4. Broad spectrum antibiotics per infectious disease recommendation. 5. Monitor renal function. Follow renal recommendations. 6. TPN per Nephrology. 7. Follow all cultures. 8. Follow Surgery recommendations. 9. bicarbonate drip per nephro. 10. Discussed with RN ISRRAEL WALTERS MD April 12, 2021 09:46
--- NOTE | 2021-04-12 11:09 | PDOC ---
Date of Service: DATE: 04/12/21 TIME: 11:06 Subjective: Subjective: Two daughters present. Objective: Objective: Reviewed chart - possible withdrawal care on Friday if no improvement. D/w nurse - sedated again, still significant NG and ROCIO output. Vital Signs: Vital Signs Date Time Temp Pulse Resp B/P (MAP) Pulse Ox O2 Delivery O2 Flow Rate FiO2 04/12/21 11:00 94 16 100/53 (69) 97 Ventilator 04/12/21 08:00 98.5 98.5 Labs: Laboratory Tests Test 04/12/21 08:12 04/12/21 09:03 O2 Saturation 98 % Arterial Blood pH 7.31 Arterial Blood pCO2 at Patient Temp 44 mmHg Arterial Blood pO2 at Patient Temp 117 mmHg Arterial Blood HCO3 22 mmol/L Arterial Blood Base Excess -4 mmol/L FiO2 35 White Blood Count 10.6 x10^3/uL Red Blood Count 1.90 x10^6/uL Hemoglobin 7.5 g/dL Hematocrit 22.6 % Mean Corpuscular Volume 119 fL Mean Corpuscular Hemoglobin 39 pg Mean Corpuscular Hemoglobin Concent 33 g/dL Red Cell Distribution Width 18.9 % Platelet Count 95 x10^3/uL Neutrophils (%) (Auto) 76 % Lymphocytes (%) (Auto) 13 % Monocytes (%) (Auto) 8 % Eosinophils (%) (Auto) 2 % Basophils (%) (Auto) 1 % Neutrophils # (Auto) 8.0 x10^3/uL Lymphocytes # (Auto) 1.3 x10^3/uL Monocytes # (Auto) 0.9 x10^3/uL Eosinophils # (Auto) 0.2 x10^3/uL Basophils # (Auto) 0.1 x10^3/uL Prothrombin Time 19.8 SEC Prothromb Time International Ratio 1.7 Sodium Level 146 mmol/L Potassium Level 5.2 mmol/L Chloride Level 114 mmol/L Carbon Dioxide Level 25 mmol/L Anion Gap 7 Blood Urea Nitrogen 68 mg/dL Creatinine 1.0 mg/dL Estimated GFR (Cockcroft-Gault) 78.8 BUN/Creatinine Ratio 68 Glucose Level 177 mg/dL Calcium Level 9.2 mg/dL Phosphorus Level 4.2 mg/dL Magnesium Level 2.5 mg/dL Total Bilirubin 8.5 mg/dL Aspartate Amino Transf (AST/SGOT) 158 U/L Alanine Aminotransferase (ALT/SGPT) 78 U/L Alkaline Phosphatase 83 U/L Total Protein 6.4 g/dL Albumin 2.6 g/dL Albumin/Globulin Ratio 0.7 Triglycerides Level 103 mg/dL BLOOD CULTURE Final NO GROWTH AFTER 5 DAYS PE: GEN: chronically ill LUNGS: vent HEART: RRR ABD: distended, ROCIO serous, NGT dark bilious NEURO/PSYCH: sedated A/P: SBP, resp failure, alcoholic liver disease -- Plans as above. Justicifation of Admission Dx: Justifications for Admission: Justification of Admission Dx: Yes CHRISTIANE BRIONES April 12, 2021 11:09
--- NOTE | 2021-04-12 11:53 | PDOC ---
[employer] PROGRESS NOTE Date of Service DOS: DATE: 04/12/21 TIME: 11:50 Chief Complaint Chief Complaint Sepsis Respiratory failure Postop exploratory laparotomy Severe cirrhosis Coagulopathy Pneumoperitoneum Suspect spontaneous bacterial peritonitis Leukocytosis Duodenitis Ascites Cholelithiasis History alcohol abuse History COPD Severe malnutrition History of Present Illness History of Present Illness 04/12/2021 Patient seen and examined in the ICU He remains mechanically ventilated AC/16/500/30 percent with 5 of PEEP Has a right lower quadrant ROCIO drain His abdominal wounds look clean Has NG to suction On IV vasopressin and Levophed Sedated with fentanyl and Versed He has 2 daughters present with Valyssa and Camacho They are very good support for him Chart reviewed Discussed with RN Discussed with case management He remains very critically ill Advance Care Planning: Total time spent [id number] with patient greater than 16 minutes in discussion with goals of care, comfort care, end-of-life care, pain management, code status 04/11/2021 Patient seen and examined in the ICU He remains mechanically ventilated AC/500/30 5% with 5 of PEEP Has IV Zosyn hanging Sedated with fentanyl and Versed Has IV TPN On vasopressin and Levophed Has Hwang bedside drainage Abdomen distended Chart reviewed Discussed with RN Remains very critically ill 04/10/2021 Patient seen and examined in the ICU He is still mechanically ventilated AC/16/500/30 5% with 5 of PEEP Sedated with Versed fentanyl On epinephrine drip and vasopressin drip Also getting IV TPN Also on IV micafungin and IV antibiotics Discussed with RN Discussed with case management Chart reviewed He remains extremely critically ill 04/09/2021 Patient seen and examined in the ICU He remains mechanically ventilated AC/500/30 5% with 5 of PEEP Discussed with case management Discussed with RN Chart reviewed He is sedated with fentanyl He is on IV vasopressin Has TPN hanging Abdomen with 4 clean dry intact trocar sites and a ROCIO drain in the lower right quadrant He remains critically ill Patient is a 50-year-old male with past medical history alcohol abuse, who presents as a transfer from [facility] due to pneumoperitoneum. Initially at [facility] ER he complained of abdominal pain and abdominal swelling over the past week, 07/03. He reports associated nausea and vomiting over this time, and is not amenable to take his home medications. Patient also reports noticing some discoloration of his eyes, discoloration of the skin, and dark urine over the past several days. He denies recent NSAID use. He was transferred to [facility] and admitted to the ICU for further medical management. 04/08/2021 Patient remains intubated, FiO2 35%, PEEP 5. Afebrile. Continue antibiotics, per ID. Abdominal fluid cultures and blood cultures with no growth to date. 30 minutes critical care time spent, reviewing labs, reviewing charts, and discussion with RN. 04/07/2021 Afebrile. Intubated, with FiO2 40%, PEEP 5. Requiring 2 vasopressors. Abdominal drain with clear serous output. Continue Zosyn, Zyvox, and micafungin, per ID. Blood cultures and abdominal fluid cultures with no growth to date. 30 minutes critical care time spent reviewing charts, reviewing labs, and discussion with RN. 04/06/2021 Patient seen in ICU s/p diagnostic laparoscopy with culture abdominal fluid and placement of abdominal drain. Suspect spontaneous bacterial peritonitis. He is currently on 2 vasopressors. Continue linezolid, Zosyn, and micafungin, per ID. No organisms seen on Gram stain of abdominal fluid and preliminary abdominal fluid cultures with no growth to date. 30 minutes critical care time spent reviewing charts, reviewing labs, reviewing imaging, and discussion with RN. Vitals/I&O Vitals/I&O: Vital Signs Date Time Temp Pulse Resp B/P (MAP) Pulse Ox O2 Delivery O2 Flow Rate FiO2 04/12/21 11:30 98 96/65 (75) 04/12/21 11:29 98 Ventilator 04/12/21 11:00 16 04/12/21 08:00 98.5 98.5 I & O 04/11/21 04/11/21 04/12/21 15:00 23:00 07:00 Intake Total 102 ml 916 ml 1024.3 ml Output Total 930 ml 1595 ml 830 ml Balance -828 ml -679 ml 194.3 ml Physical Exam Physical Exam: VITAL SIGNS: stable GENERAL: Intubated and sedated. HEENT: Atraumatic. NECK: Right IJ clean. LUNGS: Decreased breath sounds at the bases, otherwise clear. No wheezing. HEART: S1, S2. ABDOMEN: Distended, laparoscopy dressing intact, not taken down. ROCIO drain in place. Bowel sounds hypoactive. EXTREMITIES: No edema. Hyperpigmentation. Slight mottling. GENITOURINARY: Hwang in place. No generalized rash except for above. PSYCHIATRIC: Unable to assess. The patient was alert, oriented x 3 prior to surgery. General: Other (sedated ) Heart: Regular rate Lungs: Crackles Abdomen: Soft, Other (drain serous ) Extremities: No cyanosis Skin: No rashes Labs Labs: Laboratory Tests Test 04/12/21 08:12 04/12/21 09:03 04/12/21 11:39 O2 Saturation 98 % (92-99) Arterial Blood pH 7.31 (7.35-7.45) Arterial Blood pCO2 at Patient Temp 44 mmHg (35-46) Arterial Blood pO2 at Patient Temp 117 mmHg (75-108) Arterial Blood HCO3 22 mmol/L (21-28) Arterial Blood Base Excess -4 mmol/L (-3-3) FiO2 35 White Blood Count 10.6 x10^3/uL (4.0-11.0) Red Blood Count 1.90 x10^6/uL (4.30-5.70) Hemoglobin 7.5 g/dL (13.0-17.5) Hematocrit 22.6 % (39.0-53.0) Mean Corpuscular Volume 119 fL (79-100) Mean Corpuscular Hemoglobin 39 pg (25-35) Mean Corpuscular Hemoglobin Concent 33 g/dL (31-37) Red Cell Distribution Width 18.9 % (11.5-14.5) Platelet Count 95 x10^3/uL (140-400) Neutrophils (%) (Auto) 76 % (31-73) Lymphocytes (%) (Auto) 13 % (24-48) Monocytes (%) (Auto) 8 % (0-9) Eosinophils (%) (Auto) 2 % (0-3) Basophils (%) (Auto) 1 % (0-3) Neutrophils # (Auto) 8.0 x10^3/uL (1.8-7.7) Lymphocytes # (Auto) 1.3 x10^3/uL (1.0-4.8) Monocytes # (Auto) 0.9 x10^3/uL (0.0-1.1) Eosinophils # (Auto) 0.2 x10^3/uL (0.0-0.7) Basophils # (Auto) 0.1 x10^3/uL (0.0-0.2) Prothrombin Time 19.8 SEC (11.7-14.0) Prothromb Time International Ratio 1.7 (0.8-1.1) Sodium Level 146 mmol/L (136-145) Potassium Level 5.2 mmol/L (3.5-5.1) Chloride Level 114 mmol/L (98-107) Carbon Dioxide Level 25 mmol/L (21-32) Anion Gap 7 (6-14) Blood Urea Nitrogen 68 mg/dL (8-26) Creatinine 1.0 mg/dL (0.7-1.3) Estimated GFR (Cockcroft-Gault) 78.8 BUN/Creatinine Ratio 68 (6-20) Glucose Level 177 mg/dL (70-99) Calcium Level 9.2 mg/dL (8.5-10.1) Phosphorus Level 4.2 mg/dL (2.6-4.7) Magnesium Level 2.5 mg/dL (1.8-2.4) Total Bilirubin 8.5 mg/dL (0.2-1.0) Aspartate Amino Transf (AST/SGOT) 158 U/L (15-37) Alanine Aminotransferase (ALT/SGPT) 78 U/L (16-63) Alkaline Phosphatase 83 U/L (46-116) Total Protein 6.4 g/dL (6.4-8.2) Albumin 2.6 g/dL (3.4-5.0) Albumin/Globulin Ratio 0.7 (1.0-1.7) Triglycerides Level 103 mg/dL (0-150) Glucose (Fingerstick) 172 mg/dL (70-99) Assessment and Plan Assessmemt and Plan Sepsis Cirrhosis Respiratory failure Postop exploratory laparotomy Coagulopathy Pneumoperitoneum Suspect spontaneous bacterial peritonitis Leukocytosis Duodenitis Ascites Cholelithiasis History alcohol abuse History COPD Severe malnutrition Plan: ICU monitoring for now but the family wants to go to comfort measures on Friday morning if he is not improved Wound care IV microfungi IV antibiotics Vent weaning Monitor right lower quadrant ROCIO drain Trend labs Home meds if possible DVT prophylaxis Full code Prognosis extremely guarded at best Possible hospice candidate? Appreciate subspecialist input He remains critically ill CC time 35 minutes Comment Review of Relevant I have reviewed the following items jeff (where applicable) has been applied. Medications: Current Medications Medications (Trade) Dose Ordered Sig/Ada Route PRN Reason Start Time Stop Time Status Last Admin Dose Admin Sodium Chloride 90 meq/Potassium Chloride 20 meq/ Potassium Phosphate 18 mmol/ Magnesium Sulfate 13 meq/Calcium Gluconate 10 meq/ Multivitamins 5 ml/Zinc/Copper/ Manganese/ Selenium 1 ml/ Total Parenteral Nutrition/Amino Acids/Dextrose/ Fat Emulsion Intravenous 1,512 ml @ 63 mls/hr TPN CONT IV 04/11/21 22:00 04/12/21 21:59 04/11/21 22:16 Justifications for Admission Other Justification MANUEL CARDONA III DO April 12, 2021 11:53
--- NOTE | 2021-04-12 12:36 | PDOC ---
BRINA BIGGS OPERATIONS CLERK 04/12/21 1236: SURGICAL PROGRESS NOTE DATE: 04/12/21 TIME: 12:35 Subjective vent family plans withdrawal of care if not improved by Friday Vital Signs Vital Signs Date Time Temp Pulse Resp B/P (MAP) Pulse Ox O2 Delivery O2 Flow Rate FiO2 04/12/21 11:57 Mechanical Ventilator 04/12/21 11:30 98 96/65 (75) 04/12/21 11:29 98 04/12/21 11:00 16 04/12/21 08:00 98.5 98.5 I&O Intake and Output 04/12/21 07:00 Intake Total 2042.3 ml Output Total 3355 ml Balance -1312.7 ml IV Total 1987.3 ml Blood Product IV Normal Saline Flush 55 ml Output Urine Total 2040 ml Drainage Total 1315 ml General: Other (sedated ) Abdomen: Soft, Other (drain serous ) Labs Laboratory Tests Test 04/11/21 06:15 04/11/21 07:45 04/12/21 08:12 04/12/21 09:03 White Blood Count 9.7 x10^3/uL (4.0-11.0) 10.6 x10^3/uL (4.0-11.0) Red Blood Count 1.79 x10^6/uL (4.30-5.70) 1.90 x10^6/uL (4.30-5.70) Hemoglobin 7.1 g/dL (13.0-17.5) 7.5 g/dL (13.0-17.5) Hematocrit 21.1 % (39.0-53.0) 22.6 % (39.0-53.0) Mean Corpuscular Volume 118 fL (79-100) 119 fL (79-100) Mean Corpuscular Hemoglobin 40 pg (25-35) 39 pg (25-35) Mean Corpuscular Hemoglobin Concent 34 g/dL (31-37) 33 g/dL (31-37) Red Cell Distribution Width 19.2 % (11.5-14.5) 18.9 % (11.5-14.5) Platelet Count 99 x10^3/uL (140-400) 95 x10^3/uL (140-400) Neutrophils (%) (Auto) 73 % (31-73) 76 % (31-73) Lymphocytes (%) (Auto) 14 % (24-48) 13 % (24-48) Monocytes (%) (Auto) 7 % (0-9) 8 % (0-9) Eosinophils (%) (Auto) 5 % (0-3) 2 % (0-3) Basophils (%) (Auto) 1 % (0-3) 1 % (0-3) Neutrophils # (Auto) 7.1 x10^3/uL (1.8-7.7) 8.0 x10^3/uL (1.8-7.7) Lymphocytes # (Auto) 1.4 x10^3/uL (1.0-4.8) 1.3 x10^3/uL (1.0-4.8) Monocytes # (Auto) 0.7 x10^3/uL (0.0-1.1) 0.9 x10^3/uL (0.0-1.1) Eosinophils # (Auto) 0.5 x10^3/uL (0.0-0.7) 0.2 x10^3/uL (0.0-0.7) Basophils # (Auto) 0.1 x10^3/uL (0.0-0.2) 0.1 x10^3/uL (0.0-0.2) Platelet Estimate Decreased (ADEQUATE) Anisocytosis Present Macrocytosis Present Sodium Level 142 mmol/L (136-145) 146 mmol/L (136-145) Potassium Level 4.8 mmol/L (3.5-5.1) 5.2 mmol/L (3.5-5.1) Chloride Level 110 mmol/L (98-107) 114 mmol/L (98-107) Carbon Dioxide Level 26 mmol/L (21-32) 25 mmol/L (21-32) Anion Gap 6 (6-14) 7 (6-14) Blood Urea Nitrogen 52 mg/dL (8-26) 68 mg/dL (8-26) Creatinine 1.0 mg/dL (0.7-1.3) 1.0 mg/dL (0.7-1.3) Estimated GFR (Cockcroft-Gault) 78.8 78.8 Glucose Level 148 mg/dL (70-99) 177 mg/dL (70-99) Calcium Level 8.7 mg/dL (8.5-10.1) 9.2 mg/dL (8.5-10.1) Phosphorus Level 3.7 mg/dL (2.6-4.7) 4.2 mg/dL (2.6-4.7) Magnesium Level 2.4 mg/dL (1.8-2.4) 2.5 mg/dL (1.8-2.4) Albumin 2.6 g/dL (3.4-5.0) 2.6 g/dL (3.4-5.0) O2 Saturation 98 % (92-99) 98 % (92-99) Arterial Blood pH 7.32 (7.35-7.45) 7.31 (7.35-7.45) Arterial Blood pCO2 at Patient Temp 45 mmHg (35-46) 44 mmHg (35-46) Arterial Blood pO2 at Patient Temp 113 mmHg (75-108) 117 mmHg (75-108) Arterial Blood HCO3 23 mmol/L (21-28) 22 mmol/L (21-28) Arterial Blood Base Excess -3 mmol/L (-3-3) -4 mmol/L (-3-3) FiO2 35 35 Prothrombin Time 19.8 SEC (11.7-14.0) Prothromb Time International Ratio 1.7 (0.8-1.1) BUN/Creatinine Ratio 68 (6-20) Total Bilirubin 8.5 mg/dL (0.2-1.0) Aspartate Amino Transf (AST/SGOT) 158 U/L (15-37) Alanine Aminotransferase (ALT/SGPT) 78 U/L (16-63) Alkaline Phosphatase 83 U/L (46-116) Total Protein 6.4 g/dL (6.4-8.2) Albumin/Globulin Ratio 0.7 (1.0-1.7) Triglycerides Level 103 mg/dL (0-150) Test 04/12/21 11:39 Glucose (Fingerstick) 172 mg/dL (70-99) Laboratory Tests Test 04/12/21 08:12 04/12/21 09:03 04/12/21 11:39 O2 Saturation 98 % (92-99) Arterial Blood pH 7.31 (7.35-7.45) Arterial Blood pCO2 at Patient Temp 44 mmHg (35-46) Arterial Blood pO2 at Patient Temp 117 mmHg (75-108) Arterial Blood HCO3 22 mmol/L (21-28) Arterial Blood Base Excess -4 mmol/L (-3-3) FiO2 35 White Blood Count 10.6 x10^3/uL (4.0-11.0) Red Blood Count 1.90 x10^6/uL (4.30-5.70) Hemoglobin 7.5 g/dL (13.0-17.5) Hematocrit 22.6 % (39.0-53.0) Mean Corpuscular Volume 119 fL (79-100) Mean Corpuscular Hemoglobin 39 pg (25-35) Mean Corpuscular Hemoglobin Concent 33 g/dL (31-37) Red Cell Distribution Width 18.9 % (11.5-14.5) Platelet Count 95 x10^3/uL (140-400) Neutrophils (%) (Auto) 76 % (31-73) Lymphocytes (%) (Auto) 13 % (24-48) Monocytes (%) (Auto) 8 % (0-9) Eosinophils (%) (Auto) 2 % (0-3) Basophils (%) (Auto) 1 % (0-3) Neutrophils # (Auto) 8.0 x10^3/uL (1.8-7.7) Lymphocytes # (Auto) 1.3 x10^3/uL (1.0-4.8) Monocytes # (Auto) 0.9 x10^3/uL (0.0-1.1) Eosinophils # (Auto) 0.2 x10^3/uL (0.0-0.7) Basophils # (Auto) 0.1 x10^3/uL (0.0-0.2) Prothrombin Time 19.8 SEC (11.7-14.0) Prothromb Time International Ratio 1.7 (0.8-1.1) Sodium Level 146 mmol/L (136-145) Potassium Level 5.2 mmol/L (3.5-5.1) Chloride Level 114 mmol/L (98-107) Carbon Dioxide Level 25 mmol/L (21-32) Anion Gap 7 (6-14) Blood Urea Nitrogen 68 mg/dL (8-26) Creatinine 1.0 mg/dL (0.7-1.3) Estimated GFR (Cockcroft-Gault) 78.8 BUN/Creatinine Ratio 68 (6-20) Glucose Level 177 mg/dL (70-99) Calcium Level 9.2 mg/dL (8.5-10.1) Phosphorus Level 4.2 mg/dL (2.6-4.7) Magnesium Level 2.5 mg/dL (1.8-2.4) Total Bilirubin 8.5 mg/dL (0.2-1.0) Aspartate Amino Transf (AST/SGOT) 158 U/L (15-37) Alanine Aminotransferase (ALT/SGPT) 78 U/L (16-63) Alkaline Phosphatase 83 U/L (46-116) Total Protein 6.4 g/dL (6.4-8.2) Albumin 2.6 g/dL (3.4-5.0) Albumin/Globulin Ratio 0.7 (1.0-1.7) Triglycerides Level 103 mg/dL (0-150) Glucose (Fingerstick) 172 mg/dL (70-99) Assessment/Plan supportive care no new surgical recommendations Justicifation of Admission Dx: Justifications for Admission: Justification of Admission Dx: Yes LIZET HERNANDEZ MD 04/12/21 1329: SURGICAL PROGRESS NOTE Assessment/Plan Agree with above BRINA BIGGS APRN April 12, 2021 12:36 LIZET HERNANDEZ MD April 12, 2021 13:29
[2021-04-12] MEDS: TPN PER PHARMACY MC PRN (13:24)
--- NOTE | 2021-04-12 13:28 | NUR ---
Pharmacy TPN Dosing Note S: ALEXANDREABHISHEK is a 50 year old M Currently receiving Central Continuous TPN started 04/06/21 B:Pertinent PMH: NPO- s/p ex lap Height: 5 feet, 11 inches Weight: 100.7 kg Current diet: NPO LABS: Sodium: 146 Potassium: 5.2 Chloride: 114 Calcium: 9.2 Corrected Calcium: 10.32 Magnesium: 2.5 CO2: 25 SCr: 1 Glucose: 177 Albumin: 2.6 AST: 158 ALT: 78 TPN FORMULA: TPN TYPE: Central Continuous AMINO ACIDS: 115 gm DEXTROSE: 225 gm LIPIDS: 20 gm SODIUM CHLORIDE: 70 mEq SODIUM ACETATE: -- mEq SODIUM PHOSPHATE: -- mmol POTASSIUM CHLORIDE: - mEq POTASSIUM ACETATE: 20 mEq POTASSIUM PHOSPHATE: 13.6 mmol MAGNESIUM: 8 mEq CALCIUM: 10 mEq INSULIN: -- units MULTIPLE VITAMIN: 5 ml TRACE ELEMENTS: 1 ml(s) TPN PLAN: decrease NACL TO 70 MEQ, PHOSPHATE TO 13.6MM, MAGSO4 TO 8 MEQ, CHANGE KCL TO KACETATE. R: Continue TPN Will monitor electrolytes, glucose, and tolerance to TPN. CALE RIVERA [facility], 04/12/21 [id number]
--- NOTE | 2021-04-12 16:10 | NUR ---
SS following up with discharge planning. SS reviewed pt chart and discussed with pt RN. Pt is currently on the vent at 30%. Pt on TPN and IV Zosyn. Pt on Levophed and Vasopressin. ROCIO drain in place. Possible withdrawal of care on Friday if not improved. SS will continue to follow for discharge planning.
[2021-04-12] MEDS: INSULIN LISPRO 300 UNITS/3 ML VIAL. SQ SCH (17:43)
[2021-04-12] MEDS ORDERED: DEXTROSE 50% 25 GM / 50ML DISP.SYRIN. IV PRN (17:45)
[2021-04-12] MEDS ORDERED: [UNRECOGNIZED DRUG - OTHER] IV SCH (22:00)
[2021-04-12] MEDS ORDERED: TOTAL PARENTERAL NUTRITION IV SCH (22:00)
[2021-04-12] MEDS ORDERED: AMINO ACID IV SCH (22:00)
[2021-04-12] MEDS ORDERED: DEXTROSE 70% IV SCH (22:00)
[2021-04-13] VITALS (28 sets, daily range): BP systolic 82–122; BP diastolic 33–57
[2021-04-13] MEDS: INSULIN LISPRO 300 UNITS/3 ML VIAL. SQ SCH ×5 (00:09→23:30)
[2021-04-13] MEDS: MIDAZOLAM 100mg/100ml NS BAG 100 ML IV PRN (02:14)
[2021-04-13] MEDS: NOREPINEPHRINE VIAL 8 MG in IV DEXTROSE 5% 250 ML IV PRN (03:08)
--- NOTE | 2021-04-13 04:47 | NUR ---
After bath patient overbreathing the vent with erratic tidal volumes and sao2 decreased <92. Suctioned and increased sedation. Will continue to monitor.
[2021-04-13 05:21] LABS: BASO # 0.1 x10^3/uL (0.0-0.2); BASO % 1 % (0-3); EOS # 0.3 x10^3/uL (0.0-0.7); EOS % 2 % (0-3); HEMATOCRIT 24.4 % (39.0-53.0); HEMOGLOBIN 7.8 g/dL (13.0-17.5); LYMPH # 1.7 x10^3/uL (1.0-4.8); LYMPH % 12 % (24-48); MEAN CORPUSCULAR HEMOGLOBIN 38 pg (25-35); MEAN CORPUSCULAR HGB CONC 32 g/dL (31-37); MEAN CORPUSCULAR VOLUME 120 fL (79-100); MONO # 1.5 x10^3/uL (0.0-1.1); MONO % 11 % (0-9); NEUT # 10.4 x10^3/uL (1.8-7.7); NEUT % 74 % (31-73); PLATELET COUNT 110 x10^3/uL (140-400); RED BLOOD COUNT 2.03 x10^6/uL (4.30-5.70); RED CELL DISTRIBUTION WIDTH 19.1 % (11.5-14.5); WHITE BLOOD COUNT 14.1 x10^3/uL (4.0-11.0)
[2021-04-13] MEDS: PIPERACILLIN/TAZOBACTAM 3.375 GM in IV NORMAL SALINE 50ML 50 ML IV SCH ×4 (05:35→23:29)
[2021-04-13 06:24] LABS: ALBUMIN 2.5 g/dL (3.4-5.0); CALCIUM 9.6 mg/dL (8.5-10.1); CREATININE 1.1 mg/dL (0.7-1.3); GFR 70.6; PHOSPHORUS 4.5 mg/dL (2.6-4.7)
[2021-04-13 07:37] LABS: BASE EXCESS ABG -6 mmol/L (-3-3); HCO3 ABG 19 mmol/L (21-28); PCO2 ABG 36 mmHg (35-46); PO2 ABG 108 mmHg (75-108); SAT O2 ABG 98 % (92-99)
[2021-04-13] MEDS: PANTOPRAZOLE IV PUSH 40 MG VIAL. IVP SCH (07:44)
[2021-04-13] MEDS: VASOPRESSIN 20 UNIT in IV DEXTROSE 5% 100ML 100 ML IV PRN ×2 (07:51→16:39)
[2021-04-13 08:11] LABS: FIO2 ABG 30/VENT
--- NOTE | 2021-04-13 08:38 | RAD ---
EXAM: Chest, single view. HISTORY: Ventilatory support. COMPARISON: 04/10/2021 FINDINGS: A frontal view of the chest is obtained. There is an endotracheal tube within the mid trach ea. There is nasogastric tube within the stomach. There is a right internal jugular catheter with the tip in the superior cavoatrial junction. There is a stable small left pleural effusion with suspecte d left lower lobe atelectasis or infiltrate. The heart is normal in size. IMPRESSION: 1. Stable suspected small left pleural effusion with lower lobe atelectasis or infiltrate. 2. Stable support lines and tubes. Electronically signed by: Silke Jimenez MD (04/13/2021 8:36 AM) [id number]
--- NOTE | 2021-04-13 09:03 | PDOC ---
Date of Service: DATE: 04/13/21 TIME: 09:01 Objective: Objective: D/w nurse - no change. Vital Signs: Vital Signs Date Time Temp Pulse Resp B/P (MAP) Pulse Ox O2 Delivery O2 Flow Rate FiO2 04/13/21 08:00 73 16 95/53 (67) 97 Ventilator 04/13/21 04:00 98.7 98.7 Labs: Laboratory Tests Test 04/12/21 09:03 04/12/21 11:39 04/12/21 17:34 04/13/21 00:07 White Blood Count 10.6 x10^3/uL Red Blood Count 1.90 x10^6/uL Hemoglobin 7.5 g/dL Hematocrit 22.6 % Mean Corpuscular Volume 119 fL Mean Corpuscular Hemoglobin 39 pg Mean Corpuscular Hemoglobin Concent 33 g/dL Red Cell Distribution Width 18.9 % Platelet Count 95 x10^3/uL Neutrophils (%) (Auto) 76 % Lymphocytes (%) (Auto) 13 % Monocytes (%) (Auto) 8 % Eosinophils (%) (Auto) 2 % Basophils (%) (Auto) 1 % Neutrophils # (Auto) 8.0 x10^3/uL Lymphocytes # (Auto) 1.3 x10^3/uL Monocytes # (Auto) 0.9 x10^3/uL Eosinophils # (Auto) 0.2 x10^3/uL Basophils # (Auto) 0.1 x10^3/uL Prothrombin Time 19.8 SEC Prothromb Time International Ratio 1.7 Sodium Level 146 mmol/L Potassium Level 5.2 mmol/L Chloride Level 114 mmol/L Carbon Dioxide Level 25 mmol/L Anion Gap 7 Blood Urea Nitrogen 68 mg/dL Creatinine 1.0 mg/dL Estimated GFR (Cockcroft-Gault) 78.8 BUN/Creatinine Ratio 68 Glucose Level 177 mg/dL Calcium Level 9.2 mg/dL Phosphorus Level 4.2 mg/dL Magnesium Level 2.5 mg/dL Total Bilirubin 8.5 mg/dL Aspartate Amino Transf (AST/SGOT) 158 U/L Alanine Aminotransferase (ALT/SGPT) 78 U/L Alkaline Phosphatase 83 U/L Total Protein 6.4 g/dL Albumin 2.6 g/dL Albumin/Globulin Ratio 0.7 Triglycerides Level 103 mg/dL Glucose (Fingerstick) 172 mg/dL 214 mg/dL 180 mg/dL Test 04/13/21 05:05 04/13/21 05:12 04/13/21 07:30 White Blood Count 14.1 x10^3/uL Red Blood Count 2.03 x10^6/uL Hemoglobin 7.8 g/dL Hematocrit 24.4 % Mean Corpuscular Volume 120 fL Mean Corpuscular Hemoglobin 38 pg Mean Corpuscular Hemoglobin Concent 32 g/dL Red Cell Distribution Width 19.1 % Platelet Count 110 x10^3/uL Neutrophils (%) (Auto) 74 % Lymphocytes (%) (Auto) 12 % Monocytes (%) (Auto) 11 % Eosinophils (%) (Auto) 2 % Basophils (%) (Auto) 1 % Neutrophils # (Auto) 10.4 x10^3/uL Lymphocytes # (Auto) 1.7 x10^3/uL Monocytes # (Auto) 1.5 x10^3/uL Eosinophils # (Auto) 0.3 x10^3/uL Basophils # (Auto) 0.1 x10^3/uL Sodium Level 147 mmol/L Potassium Level 5.0 mmol/L Chloride Level 115 mmol/L Carbon Dioxide Level 24 mmol/L Anion Gap 8 Blood Urea Nitrogen 84 mg/dL Creatinine 1.1 mg/dL Estimated GFR (Cockcroft-Gault) 70.6 Glucose Level 206 mg/dL Calcium Level 9.6 mg/dL Phosphorus Level 4.5 mg/dL Albumin 2.5 g/dL Glucose (Fingerstick) 207 mg/dL O2 Saturation 98 % Arterial Blood pH 7.35 Arterial Blood pCO2 at Patient Temp 36 mmHg Arterial Blood pO2 at Patient Temp 108 mmHg Arterial Blood HCO3 19 mmol/L Arterial Blood Base Excess -6 mmol/L FiO2 30/vent Imaging: CXR 04/13 IMPRESSION: 1. Stable suspected small left pleural effusion with lower lobe atelectasis or infiltrate. 2. Stable support lines and tubes. PE: GEN: intubated LUNGS: vent ABD: distended, ROCIO serous, NG canister empty - bile in NGT NEURO/PSYCH: sedated A/P: SBP/alcoholic liver disease -- Continue support. Justicifation of Admission Dx: Justifications for Admission: Justification of Admission Dx: Yes CHRISTIANE BRIONES April 13, 2021 09:03
--- NOTE | 2021-04-13 09:11 | PDOC ---
Infectious Disease Note Subjective Subjective pt is sedated intubated on vent ROS ROS No nausea vomiting diarrhea Vital Sign Vital Signs Vital Signs Date Time Temp Pulse Resp B/P (MAP) Pulse Ox O2 Delivery O2 Flow Rate FiO2 04/13/21 08:00 73 16 95/53 (67) 97 Ventilator 04/13/21 04:00 98.7 98.7 Physical Exam PHYSICAL EXAM VITAL SIGNS: stable GENERAL: Intubated and sedated. HEENT: Atraumatic. NECK: Right IJ clean. LUNGS: Decreased breath sounds at the bases, otherwise clear. No wheezing. HEART: S1, S2. ABDOMEN: Distended, laparoscopy dressing intact, not taken down. ROCIO drain in place. Bowel sounds hypoactive. EXTREMITIES: No edema. Hyperpigmentation. Slight mottling. GENITOURINARY: Hwang in place. No generalized rash except for above. PSYCHIATRIC: Unable to assess. The patient was alert, oriented x 3 prior to surgery. Labs Lab Laboratory Tests Test 04/12/21 11:39 04/12/21 17:34 04/13/21 00:07 04/13/21 05:05 Glucose (Fingerstick) 172 mg/dL (70-99) 214 mg/dL (70-99) 180 mg/dL (70-99) White Blood Count 14.1 x10^3/uL (4.0-11.0) Red Blood Count 2.03 x10^6/uL (4.30-5.70) Hemoglobin 7.8 g/dL (13.0-17.5) Hematocrit 24.4 % (39.0-53.0) Mean Corpuscular Volume 120 fL (79-100) Mean Corpuscular Hemoglobin 38 pg (25-35) Mean Corpuscular Hemoglobin Concent 32 g/dL (31-37) Red Cell Distribution Width 19.1 % (11.5-14.5) Platelet Count 110 x10^3/uL (140-400) Neutrophils (%) (Auto) 74 % (31-73) Lymphocytes (%) (Auto) 12 % (24-48) Monocytes (%) (Auto) 11 % (0-9) Eosinophils (%) (Auto) 2 % (0-3) Basophils (%) (Auto) 1 % (0-3) Neutrophils # (Auto) 10.4 x10^3/uL (1.8-7.7) Lymphocytes # (Auto) 1.7 x10^3/uL (1.0-4.8) Monocytes # (Auto) 1.5 x10^3/uL (0.0-1.1) Eosinophils # (Auto) 0.3 x10^3/uL (0.0-0.7) Basophils # (Auto) 0.1 x10^3/uL (0.0-0.2) Sodium Level 147 mmol/L (136-145) Potassium Level 5.0 mmol/L (3.5-5.1) Chloride Level 115 mmol/L (98-107) Carbon Dioxide Level 24 mmol/L (21-32) Anion Gap 8 (6-14) Blood Urea Nitrogen 84 mg/dL (8-26) Creatinine 1.1 mg/dL (0.7-1.3) Estimated GFR (Cockcroft-Gault) 70.6 Glucose Level 206 mg/dL (70-99) Calcium Level 9.6 mg/dL (8.5-10.1) Phosphorus Level 4.5 mg/dL (2.6-4.7) Albumin 2.5 g/dL (3.4-5.0) Test 04/13/21 05:12 04/13/21 07:30 Glucose (Fingerstick) 207 mg/dL (70-99) O2 Saturation 98 % (92-99) Arterial Blood pH 7.35 (7.35-7.45) Arterial Blood pCO2 at Patient Temp 36 mmHg (35-46) Arterial Blood pO2 at Patient Temp 108 mmHg (75-108) Arterial Blood HCO3 19 mmol/L (21-28) Arterial Blood Base Excess -6 mmol/L (-3-3) FiO2 30/vent Micro GRAM STAIN Final Final NO ORGANISMS SEEN. SQUAMOUS EPI CELL:NOT APPLICABLE PMN (WBCs):MODERATE Unless otherwise specified, Testing Performed by: [address] [address] For Inquires, the Physician may contact the Microbiology department at [phone] ANAEROBIC-AEROBIC CULTURE Preliminary Preliminary No Growth on 04/06/21 at 0838 No Growth on 04/07/21 at 1116 Unless otherwise specified, Testing Performed by: [address] [address] For Inquires, the Physician may contact the Microbiology department at [phone] Objective Assessment 1. Severe sepsis. 2. Abdominal pain, nausea, vomiting. Pneumoperitoneum on CT, status post diagnostic laparoscopy, placement of abdominal drain. No evidence of perforated viscus. Findings were consistent with spontaneous bacterial peritonitis. 3. Ascites and cirrhosis. 4. ETOH dependence. 5. Acute kidney injury with hyperkalemia. 6. Thrombocytopenia. 7. Coagulopathy. 8. Increased LFTs. 9. Postoperative intubation. Plan Plan of Care cont zosyn, cont supportive care family to decide on further coarse d/w Pulmonary d/w HIREN LOFTON MD April 13, 2021 09:11
[2021-04-13] MEDS ORDERED: ALBUMIN HUMAN 5% 500 ML IV ONE (09:30)
--- NOTE | 2021-04-13 10:33 | PDOC ---
PULMONARY PROGRESS NOTES DATE: 04/13/21 TIME: 10:31 Subjective Patient remains on ventilatory support Sedated with Versed and fentanyl Continues on vasopressor medications: on vasopressin and Levophed Nursing reports increased abdominal firmness and increased drainage from abdominal drains Vitals Vital Signs Date Time Temp Pulse Resp B/P (MAP) Pulse Ox O2 Delivery O2 Flow Rate FiO2 04/13/21 10:00 85 16 99/49 (66) 97 Ventilator 04/13/21 09:00 98.2 98.2 Comments on vent sedated not able to obtain ros HEENT: Other (Orally intubated) Lungs: Crackles Cardiovascular: S1, S2 Abdomen: Non-tender, Other (Firm) Extremities: Other (edema ) Skin: Warm Labs Laboratory Tests Test 04/12/21 08:12 04/12/21 09:03 04/12/21 11:39 04/12/21 17:34 O2 Saturation 98 % (92-99) Arterial Blood pH 7.31 (7.35-7.45) Arterial Blood pCO2 at Patient Temp 44 mmHg (35-46) Arterial Blood pO2 at Patient Temp 117 mmHg (75-108) Arterial Blood HCO3 22 mmol/L (21-28) Arterial Blood Base Excess -4 mmol/L (-3-3) FiO2 35 White Blood Count 10.6 x10^3/uL (4.0-11.0) Red Blood Count 1.90 x10^6/uL (4.30-5.70) Hemoglobin 7.5 g/dL (13.0-17.5) Hematocrit 22.6 % (39.0-53.0) Mean Corpuscular Volume 119 fL (79-100) Mean Corpuscular Hemoglobin 39 pg (25-35) Mean Corpuscular Hemoglobin Concent 33 g/dL (31-37) Red Cell Distribution Width 18.9 % (11.5-14.5) Platelet Count 95 x10^3/uL (140-400) Neutrophils (%) (Auto) 76 % (31-73) Lymphocytes (%) (Auto) 13 % (24-48) Monocytes (%) (Auto) 8 % (0-9) Eosinophils (%) (Auto) 2 % (0-3) Basophils (%) (Auto) 1 % (0-3) Neutrophils # (Auto) 8.0 x10^3/uL (1.8-7.7) Lymphocytes # (Auto) 1.3 x10^3/uL (1.0-4.8) Monocytes # (Auto) 0.9 x10^3/uL (0.0-1.1) Eosinophils # (Auto) 0.2 x10^3/uL (0.0-0.7) Basophils # (Auto) 0.1 x10^3/uL (0.0-0.2) Prothrombin Time 19.8 SEC (11.7-14.0) Prothromb Time International Ratio 1.7 (0.8-1.1) Sodium Level 146 mmol/L (136-145) Potassium Level 5.2 mmol/L (3.5-5.1) Chloride Level 114 mmol/L (98-107) Carbon Dioxide Level 25 mmol/L (21-32) Anion Gap 7 (6-14) Blood Urea Nitrogen 68 mg/dL (8-26) Creatinine 1.0 mg/dL (0.7-1.3) Estimated GFR (Cockcroft-Gault) 78.8 BUN/Creatinine Ratio 68 (6-20) Glucose Level 177 mg/dL (70-99) Calcium Level 9.2 mg/dL (8.5-10.1) Phosphorus Level 4.2 mg/dL (2.6-4.7) Magnesium Level 2.5 mg/dL (1.8-2.4) Total Bilirubin 8.5 mg/dL (0.2-1.0) Aspartate Amino Transf (AST/SGOT) 158 U/L (15-37) Alanine Aminotransferase (ALT/SGPT) 78 U/L (16-63) Alkaline Phosphatase 83 U/L (46-116) Total Protein 6.4 g/dL (6.4-8.2) Albumin 2.6 g/dL (3.4-5.0) Albumin/Globulin Ratio 0.7 (1.0-1.7) Triglycerides Level 103 mg/dL (0-150) Glucose (Fingerstick) 172 mg/dL (70-99) 214 mg/dL (70-99) Test 04/13/21 00:07 04/13/21 05:05 04/13/21 05:12 04/13/21 07:30 Glucose (Fingerstick) 180 mg/dL (70-99) 207 mg/dL (70-99) White Blood Count 14.1 x10^3/uL (4.0-11.0) Red Blood Count 2.03 x10^6/uL (4.30-5.70) Hemoglobin 7.8 g/dL (13.0-17.5) Hematocrit 24.4 % (39.0-53.0) Mean Corpuscular Volume 120 fL (79-100) Mean Corpuscular Hemoglobin 38 pg (25-35) Mean Corpuscular Hemoglobin Concent 32 g/dL (31-37) Red Cell Distribution Width 19.1 % (11.5-14.5) Platelet Count 110 x10^3/uL (140-400) Neutrophils (%) (Auto) 74 % (31-73) Lymphocytes (%) (Auto) 12 % (24-48) Monocytes (%) (Auto) 11 % (0-9) Eosinophils (%) (Auto) 2 % (0-3) Basophils (%) (Auto) 1 % (0-3) Neutrophils # (Auto) 10.4 x10^3/uL (1.8-7.7) Lymphocytes # (Auto) 1.7 x10^3/uL (1.0-4.8) Monocytes # (Auto) 1.5 x10^3/uL (0.0-1.1) Eosinophils # (Auto) 0.3 x10^3/uL (0.0-0.7) Basophils # (Auto) 0.1 x10^3/uL (0.0-0.2) Sodium Level 147 mmol/L (136-145) Potassium Level 5.0 mmol/L (3.5-5.1) Chloride Level 115 mmol/L (98-107) Carbon Dioxide Level 24 mmol/L (21-32) Anion Gap 8 (6-14) Blood Urea Nitrogen 84 mg/dL (8-26) Creatinine 1.1 mg/dL (0.7-1.3) Estimated GFR (Cockcroft-Gault) 70.6 Glucose Level 206 mg/dL (70-99) Calcium Level 9.6 mg/dL (8.5-10.1) Phosphorus Level 4.5 mg/dL (2.6-4.7) Magnesium Level 2.6 mg/dL (1.8-2.4) Albumin 2.5 g/dL (3.4-5.0) O2 Saturation 98 % (92-99) Arterial Blood pH 7.35 (7.35-7.45) Arterial Blood pCO2 at Patient Temp 36 mmHg (35-46) Arterial Blood pO2 at Patient Temp 108 mmHg (75-108) Arterial Blood HCO3 19 mmol/L (21-28) Arterial Blood Base Excess -6 mmol/L (-3-3) FiO2 30/vent Laboratory Tests Test 04/12/21 11:39 04/12/21 17:34 04/13/21 00:07 04/13/21 05:05 Glucose (Fingerstick) 172 mg/dL (70-99) 214 mg/dL (70-99) 180 mg/dL (70-99) White Blood Count 14.1 x10^3/uL (4.0-11.0) Red Blood Count 2.03 x10^6/uL (4.30-5.70) Hemoglobin 7.8 g/dL (13.0-17.5) Hematocrit 24.4 % (39.0-53.0) Mean Corpuscular Volume 120 fL (79-100) Mean Corpuscular Hemoglobin 38 pg (25-35) Mean Corpuscular Hemoglobin Concent 32 g/dL (31-37) Red Cell Distribution Width 19.1 % (11.5-14.5) Platelet Count 110 x10^3/uL (140-400) Neutrophils (%) (Auto) 74 % (31-73) Lymphocytes (%) (Auto) 12 % (24-48) Monocytes (%) (Auto) 11 % (0-9) Eosinophils (%) (Auto) 2 % (0-3) Basophils (%) (Auto) 1 % (0-3) Neutrophils # (Auto) 10.4 x10^3/uL (1.8-7.7) Lymphocytes # (Auto) 1.7 x10^3/uL (1.0-4.8) Monocytes # (Auto) 1.5 x10^3/uL (0.0-1.1) Eosinophils # (Auto) 0.3 x10^3/uL (0.0-0.7) Basophils # (Auto) 0.1 x10^3/uL (0.0-0.2) Sodium Level 147 mmol/L (136-145) Potassium Level 5.0 mmol/L (3.5-5.1) Chloride Level 115 mmol/L (98-107) Carbon Dioxide Level 24 mmol/L (21-32) Anion Gap 8 (6-14) Blood Urea Nitrogen 84 mg/dL (8-26) Creatinine 1.1 mg/dL (0.7-1.3) Estimated GFR (Cockcroft-Gault) 70.6 Glucose Level 206 mg/dL (70-99) Calcium Level 9.6 mg/dL (8.5-10.1) Phosphorus Level 4.5 mg/dL (2.6-4.7) Magnesium Level 2.6 mg/dL (1.8-2.4) Albumin 2.5 g/dL (3.4-5.0) Test 04/13/21 05:12 04/13/21 07:30 Glucose (Fingerstick) 207 mg/dL (70-99) O2 Saturation 98 % (92-99) Arterial Blood pH 7.35 (7.35-7.45) Arterial Blood pCO2 at Patient Temp 36 mmHg (35-46) Arterial Blood pO2 at Patient Temp 108 mmHg (75-108) Arterial Blood HCO3 19 mmol/L (21-28) Arterial Blood Base Excess -6 mmol/L (-3-3) FiO2 30/vent Medications Active Scripts Medications Dose Route/Sig Max Daily Dose Days Date Category Proair Hfa Inhaler (Albuterol Sulfate) 8.5 Gm Hfa.aer.ad 2 Puff IH PRN Q4-6HRS PRN 21 04/05/21 Reported Uloric (Febuxostat) 80 Mg Tablet 1 Tab PO DAILY 30 04/05/21 Reported Losartan Potassium 100 Mg Tablet 100 Mg PO DAILY 04/05/21 Reported Folic Acid 1 Mg Tablet 1 Mg PO DAILY 08/05/16 Reported Amlodipine Besylate 10 Mg Tablet 10 Mg PO DAILY 08/05/16 Reported Losartan Potassium 100 Mg Tablet 100 Mg PO DAILY 08/05/16 Reported Colcrys (Colchicine) 0.6 Mg Tablet 0.6 Mg PO DAILY 08/05/16 Reported Uloric (Febuxostat) 40 Mg Tablet 1 Tab PO DAILY 08/05/16 Reported Comments CXR IMPRESSION: 1. Bilateral infrahilar linear atelectasis or interstitial infiltrate. 2. Support lines and tubes, described above. Impression . IMPRESSION: 1. Acute hypoxic respiratory failure secondary to septic shock. 2. Septic shock secondary to spontaneous bacterial peritonitis in a patient who has alcoholism and cirrhosis along with ascites. s/p Diagnostic laparoscopy, culture abdominal fluid, placement of abdominal drain 04/05 3. Acute kidney injury. 4. Lactic acidosis secondary to septic shock, now improved. 5. History of tobaccoism. ? copd 6. History of alcoholism. 7. Cirrhosis secondary to alcoholism. 8. Coagulopathy secondary to cirrhosis. 9. COVID negative. Plan . updated 04/13/21 Continue current vent support, 16/500/5/35% Nebs Follow chest x-ray/ABG--no changes Continue vasopressors to keep MAP greater than 60--remains on Levophed and vasopressin Follow GI recommendations, monitor hemoglobin, transfuse as needed Follow nephrology recommendations Follow surgery recommendations--- status post diagnostic laparoscopic, follow abdominal cultures, continue drain to abdomen placed on 04/05 Continue antibiotics per infectious disease Continue TPN for nutritional support DVT/GI prophylaxis Discussed with RN and RT Another discussion with family04/12. Both the daughters were present. They want to withdraw care by Friday if there is no clinical improvement. I concur with them. updated 04/12/21 Continue current vent support, 16/500/5/35% Nebs Follow chest x-ray/ABG--no changes Continue vasopressors to keep MAP greater than 65--remains on Levophed and vasopressin Follow GI recommendations, monitor hemoglobin, transfuse as needed Follow nephrology recommendations Follow surgery recommendations--- status post diagnostic laparoscopic, follow abdominal cultures, continue drain to abdomen placed on 04/05 Continue antibiotics per infectious disease Continue TPN for nutritional support DVT/GI prophylaxis Discussed with RN and RT I did long discussion with the patient's daughter at the bedside 04/11. Knowing patient's wishes she does not want to prolong current aggressive care if prognosis remains grim. The family is leaning towards comfort care if he does not make any clinical improvement. We will continue to review patient's clinical status. In the meantime if patient has any cardiac arrest we will not do CPR. Patient will be DNR. Another discussion with family today. Both the daughters were present. They want to withdraw care by Friday if there is no clinical improvement. I concur with them. Critical care time 30 minutes updated 04/11/21 Continue current vent support, 16/500/5/35% Nebs Follow chest x-ray/ABG--no changes Continue vasopressors to keep MAP greater than 65--remains on Levophed and vasopressin Follow GI recommendations, monitor hemoglobin, transfuse as needed Follow nephrology recommendations Follow surgery recommendations--- status post diagnostic laparoscopic, follow abdominal cultures, continue drain to abdomen placed on 04/05 Continue antibiotics per infectious disease Continue TPN for nutritional support DVT/GI prophylaxis Discussed with RN and RT I do long discussion with the patient's daughter at the bedside. Knowing patient's wishes she does not want to prolong current aggressive care if prognosis remains grim. The family is leaning towards comfort care if he does not make any clinical improvement. We will continue to review patient's clinical status. In the meantime if patient has any cardiac arrest we will not do CPR. Patient will be DNR. Critical care time 30 minutes updated 04/09/21 Continue current vent support, 16/500/5/35% Nebs Follow chest x-ray/ABG--no changes Continue vasopressors to keep MAP greater than 65 Follow GI recommendations, monitor hemoglobin, transfuse as needed Follow nephrology recommendations Follow surgery recommendations--- status post diagnostic laparoscopic, follow abdominal cultures, continue drain to abdomen placed on 04/05 Continue antibiotics per infectious disease Continue TPN for nutritional support DVT/GI prophylaxis Discussed with RN and RT Critical care time 30 minutes updated 04/08 1. cont vent support setting reviewed, still on 2 pressors, not stable for sbt. abg reviewed no vent change 2. cont pressors to keep map 65 3. protonix for stress ulcer prophylaxis. 4. Broad spectrum antibiotics per infectious disease recommendation. 5. Monitor renal function. Follow renal recommendations. 6. TPN per Nephrology. 7. Follow all cultures. neg so far 8. Follow Surgery recommendations. 9. bicarbonate drip stopped by nephro. 10. Discussed with RN RECOMMENDATIONS: 1. cont vent support setting reviewed, not stable for sbt. We will make necessary adjustment based on ABGs. 2. cont pressors to keep map 65 3. protonix for stress ulcer prophylaxis. 4. Broad spectrum antibiotics per infectious disease recommendation. 5. Monitor renal function. Follow renal recommendations. 6. TPN per Nephrology. 7. Follow all cultures. 8. Follow Surgery recommendations. 9. bicarbonate drip per nephro. 10. Discussed with ISRRAEL MCKEON MD April 13, 2021 10:33
--- NOTE | 2021-04-13 11:00 | PDOC ---
BRINA [employer]GS [employer] 04/13/21 1100: SURGICAL PROGRESS NOTE DATE: 04/13/21 TIME: 10:59 Subjective vent, sedated d/w nurse, no changes Vital Signs Vital Signs Date Time Temp Pulse Resp B/P (MAP) Pulse Ox O2 Delivery O2 Flow Rate FiO2 04/13/21 10:00 85 16 99/49 (66) 97 Ventilator 04/13/21 09:00 98.2 98.2 I&O Intake and Output 04/13/21 07:00 Intake Total 3701.15 ml Output Total 3075 ml Balance 626.15 ml IV Total 2521.15 ml Other 1180 ml Output Urine Total 1555 ml Gastric Drainage Total 550 ml Drainage Total 970 ml General: Other (sedated ) HEENT: Other (vent) Abdomen: Soft, Other (drain serous ) Labs Laboratory Tests Test 04/12/21 08:12 04/12/21 09:03 04/12/21 11:39 04/12/21 17:34 O2 Saturation 98 % (92-99) Arterial Blood pH 7.31 (7.35-7.45) Arterial Blood pCO2 at Patient Temp 44 mmHg (35-46) Arterial Blood pO2 at Patient Temp 117 mmHg (75-108) Arterial Blood HCO3 22 mmol/L (21-28) Arterial Blood Base Excess -4 mmol/L (-3-3) FiO2 35 White Blood Count 10.6 x10^3/uL (4.0-11.0) Red Blood Count 1.90 x10^6/uL (4.30-5.70) Hemoglobin 7.5 g/dL (13.0-17.5) Hematocrit 22.6 % (39.0-53.0) Mean Corpuscular Volume 119 fL (79-100) Mean Corpuscular Hemoglobin 39 pg (25-35) Mean Corpuscular Hemoglobin Concent 33 g/dL (31-37) Red Cell Distribution Width 18.9 % (11.5-14.5) Platelet Count 95 x10^3/uL (140-400) Neutrophils (%) (Auto) 76 % (31-73) Lymphocytes (%) (Auto) 13 % (24-48) Monocytes (%) (Auto) 8 % (0-9) Eosinophils (%) (Auto) 2 % (0-3) Basophils (%) (Auto) 1 % (0-3) Neutrophils # (Auto) 8.0 x10^3/uL (1.8-7.7) Lymphocytes # (Auto) 1.3 x10^3/uL (1.0-4.8) Monocytes # (Auto) 0.9 x10^3/uL (0.0-1.1) Eosinophils # (Auto) 0.2 x10^3/uL (0.0-0.7) Basophils # (Auto) 0.1 x10^3/uL (0.0-0.2) Prothrombin Time 19.8 SEC (11.7-14.0) Prothromb Time International Ratio 1.7 (0.8-1.1) Sodium Level 146 mmol/L (136-145) Potassium Level 5.2 mmol/L (3.5-5.1) Chloride Level 114 mmol/L (98-107) Carbon Dioxide Level 25 mmol/L (21-32) Anion Gap 7 (6-14) Blood Urea Nitrogen 68 mg/dL (8-26) Creatinine 1.0 mg/dL (0.7-1.3) Estimated GFR (Cockcroft-Gault) 78.8 BUN/Creatinine Ratio 68 (6-20) Glucose Level 177 mg/dL (70-99) Calcium Level 9.2 mg/dL (8.5-10.1) Phosphorus Level 4.2 mg/dL (2.6-4.7) Magnesium Level 2.5 mg/dL (1.8-2.4) Total Bilirubin 8.5 mg/dL (0.2-1.0) Aspartate Amino Transf (AST/SGOT) 158 U/L (15-37) Alanine Aminotransferase (ALT/SGPT) 78 U/L (16-63) Alkaline Phosphatase 83 U/L (46-116) Total Protein 6.4 g/dL (6.4-8.2) Albumin 2.6 g/dL (3.4-5.0) Albumin/Globulin Ratio 0.7 (1.0-1.7) Triglycerides Level 103 mg/dL (0-150) Glucose (Fingerstick) 172 mg/dL (70-99) 214 mg/dL (70-99) Test 04/13/21 00:07 04/13/21 05:05 04/13/21 05:12 04/13/21 07:30 Glucose (Fingerstick) 180 mg/dL (70-99) 207 mg/dL (70-99) White Blood Count 14.1 x10^3/uL (4.0-11.0) Red Blood Count 2.03 x10^6/uL (4.30-5.70) Hemoglobin 7.8 g/dL (13.0-17.5) Hematocrit 24.4 % (39.0-53.0) Mean Corpuscular Volume 120 fL (79-100) Mean Corpuscular Hemoglobin 38 pg (25-35) Mean Corpuscular Hemoglobin Concent 32 g/dL (31-37) Red Cell Distribution Width 19.1 % (11.5-14.5) Platelet Count 110 x10^3/uL (140-400) Neutrophils (%) (Auto) 74 % (31-73) Lymphocytes (%) (Auto) 12 % (24-48) Monocytes (%) (Auto) 11 % (0-9) Eosinophils (%) (Auto) 2 % (0-3) Basophils (%) (Auto) 1 % (0-3) Neutrophils # (Auto) 10.4 x10^3/uL (1.8-7.7) Lymphocytes # (Auto) 1.7 x10^3/uL (1.0-4.8) Monocytes # (Auto) 1.5 x10^3/uL (0.0-1.1) Eosinophils # (Auto) 0.3 x10^3/uL (0.0-0.7) Basophils # (Auto) 0.1 x10^3/uL (0.0-0.2) Sodium Level 147 mmol/L (136-145) Potassium Level 5.0 mmol/L (3.5-5.1) Chloride Level 115 mmol/L (98-107) Carbon Dioxide Level 24 mmol/L (21-32) Anion Gap 8 (6-14) Blood Urea Nitrogen 84 mg/dL (8-26) Creatinine 1.1 mg/dL (0.7-1.3) Estimated GFR (Cockcroft-Gault) 70.6 Glucose Level 206 mg/dL (70-99) Calcium Level 9.6 mg/dL (8.5-10.1) Phosphorus Level 4.5 mg/dL (2.6-4.7) Magnesium Level 2.6 mg/dL (1.8-2.4) Albumin 2.5 g/dL (3.4-5.0) O2 Saturation 98 % (92-99) Arterial Blood pH 7.35 (7.35-7.45) Arterial Blood pCO2 at Patient Temp 36 mmHg (35-46) Arterial Blood pO2 at Patient Temp 108 mmHg (75-108) Arterial Blood HCO3 19 mmol/L (21-28) Arterial Blood Base Excess -6 mmol/L (-3-3) FiO2 30/vent Laboratory Tests Test 04/12/21 11:39 04/12/21 17:34 04/13/21 00:07 04/13/21 05:05 Glucose (Fingerstick) 172 mg/dL (70-99) 214 mg/dL (70-99) 180 mg/dL (70-99) White Blood Count 14.1 x10^3/uL (4.0-11.0) Red Blood Count 2.03 x10^6/uL (4.30-5.70) Hemoglobin 7.8 g/dL (13.0-17.5) Hematocrit 24.4 % (39.0-53.0) Mean Corpuscular Volume 120 fL (79-100) Mean Corpuscular Hemoglobin 38 pg (25-35) Mean Corpuscular Hemoglobin Concent 32 g/dL (31-37) Red Cell Distribution Width 19.1 % (11.5-14.5) Platelet Count 110 x10^3/uL (140-400) Neutrophils (%) (Auto) 74 % (31-73) Lymphocytes (%) (Auto) 12 % (24-48) Monocytes (%) (Auto) 11 % (0-9) Eosinophils (%) (Auto) 2 % (0-3) Basophils (%) (Auto) 1 % (0-3) Neutrophils # (Auto) 10.4 x10^3/uL (1.8-7.7) Lymphocytes # (Auto) 1.7 x10^3/uL (1.0-4.8) Monocytes # (Auto) 1.5 x10^3/uL (0.0-1.1) Eosinophils # (Auto) 0.3 x10^3/uL (0.0-0.7) Basophils # (Auto) 0.1 x10^3/uL (0.0-0.2) Sodium Level 147 mmol/L (136-145) Potassium Level 5.0 mmol/L (3.5-5.1) Chloride Level 115 mmol/L (98-107) Carbon Dioxide Level 24 mmol/L (21-32) Anion Gap 8 (6-14) Blood Urea Nitrogen 84 mg/dL (8-26) Creatinine 1.1 mg/dL (0.7-1.3) Estimated GFR (Cockcroft-Gault) 70.6 Glucose Level 206 mg/dL (70-99) Calcium Level 9.6 mg/dL (8.5-10.1) Phosphorus Level 4.5 mg/dL (2.6-4.7) Magnesium Level 2.6 mg/dL (1.8-2.4) Albumin 2.5 g/dL (3.4-5.0) Test 04/13/21 05:12 04/13/21 07:30 Glucose (Fingerstick) 207 mg/dL (70-99) O2 Saturation 98 % (92-99) Arterial Blood pH 7.35 (7.35-7.45) Arterial Blood pCO2 at Patient Temp 36 mmHg (35-46) Arterial Blood pO2 at Patient Temp 108 mmHg (75-108) Arterial Blood HCO3 19 mmol/L (21-28) Arterial Blood Base Excess -6 mmol/L (-3-3) FiO2 30/vent Assessment/Plan no new surgical recs will be available over the weekend if needed, please call Justicifation of Admission Dx: Justifications for Admission: Justification of Admission Dx: Yes LIZET HERNANDEZ MD 04/16/21 1007: SURGICAL PROGRESS NOTE Assessment/Plan Agree with above BRINA [employer] April 13, 2021 11:00 LIZET HERNANDEZ MD April 16, 2021 10:07
--- NOTE | 2021-04-13 11:57 | PDOC ---
[employer] PROGRESS NOTE Date of Service DOS: DATE: 04/13/21 TIME: 11:55 Chief Complaint Chief Complaint Sepsis Respiratory failure Postop exploratory laparotomy Severe cirrhosis Coagulopathy Pneumoperitoneum Suspect spontaneous bacterial peritonitis Leukocytosis Duodenitis Ascites Cholelithiasis History alcohol abuse History COPD Severe malnutrition History of Present Illness History of Present Illness 04/13/2021 Patient seen and examined in the ICU He remains mechanically ventilated Assist-control//30 percent with 5 of PEEP Sedated with Versed and fentanyl Has IV vasopressin Also has IV TPN Also has IV albumin Discussed with RN Discussed with case management He remains critically ill 04/12/2021 Patient seen and examined in the ICU He remains mechanically ventilated AC/16500/30 percent with 5 of PEEP Has a right lower quadrant ROCIO drain His abdominal wounds look clean Has NG to suction On IV vasopressin and Levophed Sedated with fentanyl and Versed He has 2 daughters present with Valyssa and Camacho They are very good support for him Chart reviewed Discussed with RN Discussed with case management He remains very critically ill Advance Care Planning: Total time spent [id number] with patient greater than 16 minutes in discussion with goals of care, comfort care, end-of-life care, pain management, code status 04/11/2021 Patient seen and examined in the ICU He remains mechanically ventilated AC//30 5% with 5 of PEEP Has IV Zosyn hanging Sedated with fentanyl and Versed Has IV TPN On vasopressin and Levophed Has Hwang bedside drainage Abdomen distended Chart reviewed Discussed with RN Remains very critically ill 04/10/2021 Patient seen and examined in the ICU He is still mechanically ventilated AC//30 5% with 5 of PEEP Sedated with Versed fentanyl On epinephrine drip and vasopressin drip Also getting IV TPN Also on IV micafungin and IV antibiotics Discussed with RN Discussed with case management Chart reviewed He remains extremely critically ill 04/09/2021 Patient seen and examined in the ICU He remains mechanically ventilated AC//30 5% with 5 of PEEP Discussed with case management Discussed with RN Chart reviewed He is sedated with fentanyl He is on IV vasopressin Has TPN hanging Abdomen with 4 clean dry intact trocar sites and a ROCIO drain in the lower right quadrant He remains critically ill Patient is a 50-year-old male with past medical history alcohol abuse, who pre sents as a transfer from [facility] due to pneumoperitoneum. Initially at [facility] ER he complained of abdominal pain and abdominal swelling over the past week, 07/03. He reports associated nausea and vomiting over this time, and is not amenable to take his home medications. Patient also reports noticing some discoloration of his eyes, discoloration of the skin, and dark urine over the past several days. He denies recent NSAID use. He was transferred to [facility] and admitted to the ICU for further medical management. 04/08/2021 Patient remains intubated, FiO2 35%, PEEP 5. Afebrile. Continue antibiotics, per ID. Abdominal fluid cultures and blood cultures with no growth to date. 30 minutes critical care time spent, reviewing labs, reviewing charts, and discussion with RN. 04/07/2021 Afebrile. Intubated, with FiO2 40%, PEEP 5. Requiring 2 vasopressors. Abd ominal drain with clear serous output. Continue Zosyn, Zyvox, and micafungin, per ID. Blood cultures and abdominal fluid cultures with no growth to date. 30 minutes critical care time spent reviewing charts, reviewing labs, and discussion with RN. 04/06/2021 Patient seen in ICU s/p diagnostic laparoscopy with culture abdominal fluid and placement of abdominal drain. Suspect spontaneous bacterial peritonitis. He is currently on 2 vasopressors. Continue linezolid, Zosyn, and micafungin, per ID. No organisms seen on Gram stain of abdominal fluid and preliminary abdominal fluid cultures with no growth to date. 30 minutes critical care time spent reviewing charts, reviewing labs, reviewing imaging, and discussion with RN. Vitals/I&O Vitals/I&O: Vital Signs Date Time Temp Pulse Resp B/P (MAP) Pulse Ox O2 Delivery O2 Flow Rate FiO2 04/13/21 11:36 Mechanical Ventilator 04/13/21 11:26 97 04/13/21 11:00 84 16 92/47 (62) 04/13/21 09:00 98.2 98.2 I & O 04/12/21 04/12/21 04/13/21 15:00 23:00 07:00 Intake Total 70 ml 1605.15 ml 2026 ml Output Total 980 ml 1195 ml 900 ml Balance -910 ml 410.15 ml 1126 ml Physical Exam Physical Exam: VITAL SIGNS: stable GENERAL: Intubated and sedated. HEENT: Atraumatic. NECK: Right IJ clean. LUNGS: Decreased breath sounds at the bases, otherwise clear. No wheezing. HEART: S1, S2. ABDOMEN: Distended, laparoscopy dressing intact, not taken down. ROCIO drain in place. Bowel sounds hypoactive. EXTREMITIES: No edema. Hyperpigmentation. Slight mottling. GENITOURINARY: Hwang in place. No generalized rash except for above. PSYCHIATRIC: Unable to assess. The patient was alert, oriented x 3 prior to surgery. General: Other (sedated ) Heart: Regular rate Lungs: Crackles Abdomen: Soft, Other (drain serous ) Extremities: No cyanosis Skin: No rashes Labs Labs: Laboratory Tests Test 04/12/21 17:34 04/13/21 00:07 04/13/21 05:05 04/13/21 05:12 Glucose (Fingerstick) 214 mg/dL (70-99) 180 mg/dL (70-99) 207 mg/dL (70-99) White Blood Count 14.1 x10^3/uL (4.0-11.0) Red Blood Count 2.03 x10^6/uL (4.30-5.70) Hemoglobin 7.8 g/dL (13.0-17.5) Hematocrit 24.4 % (39.0-53.0) Mean Corpuscular Volume 120 fL (79-100) Mean Corpuscular Hemoglobin 38 pg (25-35) Mean Corpuscular Hemoglobin Concent 32 g/dL (31-37) Red Cell Distribution Width 19.1 % (11.5-14.5) Platelet Count 110 x10^3/uL (140-400) Neutrophils (%) (Auto) 74 % (31-73) Lymphocytes (%) (Auto) 12 % (24-48) Monocytes (%) (Auto) 11 % (0-9) Eosinophils (%) (Auto) 2 % (0-3) Basophils (%) (Auto) 1 % (0-3) Neutrophils # (Auto) 10.4 x10^3/uL (1.8-7.7) Lymphocytes # (Auto) 1.7 x10^3/uL (1.0-4.8) Monocytes # (Auto) 1.5 x10^3/uL (0.0-1.1) Eosinophils # (Auto) 0.3 x10^3/uL (0.0-0.7) Basophils # (Auto) 0.1 x10^3/uL (0.0-0.2) Sodium Level 147 mmol/L (136-145) Potassium Level 5.0 mmol/L (3.5-5.1) Chloride Level 115 mmol/L (98-107) Carbon Dioxide Level 24 mmol/L (21-32) Anion Gap 8 (6-14) Blood Urea Nitrogen 84 mg/dL (8-26) Creatinine 1.1 mg/dL (0.7-1.3) Estimated GFR (Cockcroft-Gault) 70.6 Glucose Level 206 mg/dL (70-99) Calcium Level 9.6 mg/dL (8.5-10.1) Phosphorus Level 4.5 mg/dL (2.6-4.7) Magnesium Level 2.6 mg/dL (1.8-2.4) Albumin 2.5 g/dL (3.4-5.0) Test 04/13/21 07:30 O2 Saturation 98 % (92-99) Arterial Blood pH 7.35 (7.35-7.45) Arterial Blood pCO2 at Patient Temp 36 mmHg (35-46) Arterial Blood pO2 at Patient Temp 108 mmHg (75-108) Arterial Blood HCO3 19 mmol/L (21-28) Arterial Blood Base Excess -6 mmol/L (-3-3) FiO2 30/vent Assessment and Plan Assessmemt and Plan Sepsis Cirrhosis Respiratory failure Postop exploratory laparotomy Coagulopathy Pneumoperitoneum Suspect spontaneous bacterial peritonitis Leukocytosis Duodenitis Ascites Cholelithiasis History alcohol abuse History COPD Severe malnutrition Plan: Probable comfort care Friday if he has not improved! For now continue the following; ICU monitoring IV microfungi IV antibiotics Vent weaning Monitor right lower quadrant ROCIO drain Trend labs Home meds if possible DVT prophylaxis Full code Prognosis extremely guarded at best Possible hospice candidate? Appreciate subspecialist input He remains critically ill CC time 33 minutes Comment Review of Relevant I have reviewed the following items jeff (where applicable) has been applied. Medications: Current Medications Medications (Trade) Dose Ordered Sig/Ada Route PRN Reason Start Time Stop Time Status Last Admin Dose Admin Sodium Chloride 70 meq/Potassium Acetate 20 meq/ Potassium Phosphate 13.6 mmol/Magnesium Sulfate 8 meq/ Calcium Gluconate 10 meq/ Multivitamins 5 ml/Zinc/Copper/ Manganese/ Selenium 1 ml/ Total Parenteral Nutrition/Amino Acids/Dextrose/ Fat Emulsion Intravenous 1,512 ml @ 63 mls/hr TPN CONT IV 04/12/21 22:00 04/13/21 21:59 04/12/21 22:39 Insulin Human Lispro (HumaLOG) 0-5 UNITS Q6HRS SQ 04/12/21 18:00 04/13/21 05:36 Albumin Human 500 ml @ 125 mls/hr 1X ONCE IV 04/13/21 09:30 04/13/21 13:29 04/13/21 09:49 Justifications for Admission Other Justification MANUEL CARDONA III DO April 13, 2021 11:57
[2021-04-13] MEDS: TPN PER PHARMACY MC PRN (12:39)
--- NOTE | 2021-04-13 12:46 | NUR ---
Pharmacy TPN Dosing Note S: CHEMACHELEABHISHEK is a 50 year old M Currently receiving Central Continuous TPN started 04/06/21 B:Pertinent PMH: NPO- s/p ex lap Height: 5 feet, 11 inches Weight: 100.7 kg Current diet: NPO LABS: Sodium: 147 Potassium: 5 Chloride: 115 Calcium: 9.6 Corrected Calcium: 10.80 Magnesium: 2.6 CO2: 24 SCr: 1.1 Glucose: 180-214 Albumin: 2.5 AST: 158 (04/12) ALT: 78 (04/12) TPN FORMULA: TPN TYPE: Central Continuous AMINO ACIDS: 115 gm DEXTROSE: 225 gm LIPIDS: 20 gm SODIUM CHLORIDE: 70 mEq SODIUM ACETATE: -- mEq SODIUM PHOSPHATE: -- mmol POTASSIUM CHLORIDE: -- mEq POTASSIUM ACETATE: 20 mEq POTASSIUM PHOSPHATE: 8 mmol MAGNESIUM: -- mEq CALCIUM: 10 mEq INSULIN: -- units MULTIPLE VITAMIN: 5 ml TRACE ELEMENTS: 1 ml(s) TPN PLAN: Macros per passport application examiner recommendations. Potassium = 5 today, magnesium remains elevated and phosphorus level continues to trend up. For these reasons will reduce Kphos and remove Mag from TPN at this time. Sodium and chloride slightly above normal. Sodium reduced in TPN yesterday and changed from potassium chloride to potassium acetate. Additionally patient's I&O's have overall been a negative balance and albumin given this AM. Renal panel, mag, and phos ordered for tomorrow. Per progress notes in the family discussion on 04/12 both daughters said they want to withdraw care Friday if not clinical improvement. R: Continue TPN with reduction in Kphos and removal or Mag at this time. Will monitor electrolytes, glucose, and tolerance to TPN. GILBERT WILLETT, [facility], 04/13/21 [id number]
--- NOTE | 2021-04-13 15:12 | NUR ---
SS following up with discharge planning. SS reviewed pt chart and discussed with pt RN. Pt is currently on the vent at 30%. Pt on TPN, IV Zosyn, Levophed, and Vasopressin. ROCIO drain in place. Possible withdrawal of care on Friday if no improvement. SS will continue to follow for discharge planning.
[2021-04-13] MEDS ORDERED: AMINO ACID IV SCH (22:00)
[2021-04-13] MEDS ORDERED: TOTAL PARENTERAL NUTRITION IV SCH (22:00)
[2021-04-13] MEDS ORDERED: DEXTROSE 70% IV SCH (22:00)
[2021-04-13] MEDS ORDERED: [UNRECOGNIZED DRUG - OTHER] IV SCH (22:00)
[2021-04-14] VITALS (22 sets, daily range): BP systolic 83–121; BP diastolic 43–52
[2021-04-14] MEDS: VASOPRESSIN 20 UNIT in IV DEXTROSE 5% 100ML 100 ML IV PRN ×2 (01:46→10:29)
[2021-04-14] MEDS: MIDAZOLAM 100mg/100ml NS BAG 100 ML IV PRN (04:04)
[2021-04-14] MEDS: PIPERACILLIN/TAZOBACTAM 3.375 GM in IV NORMAL SALINE 50ML 50 ML IV SCH ×4 (05:31→23:29)
[2021-04-14] MEDS: INSULIN LISPRO 300 UNITS/3 ML VIAL. SQ SCH ×4 (05:33→23:29)
--- NOTE | 2021-04-14 06:21 | PDOC ---
Infectious Disease Note Subjective Subjective pt is sedated intubated on vent Vital Sign Vital Signs Vital Signs Date Time Temp Pulse Resp B/P (MAP) Pulse Ox O2 Delivery O2 Flow Rate FiO2 04/14/21 06:00 81 16 98/47 (64) 97 Ventilator 04/14/21 04:00 97.9 97.9 Physical Exam PHYSICAL EXAM GENERAL: Intubated and sedated. HEENT: Atraumatic. PERRL NECK: Right IJ clean. LUNGS: Decreased breath sounds at the bases, otherwise clear. No wheezing. HEART: S1, S2. ABDOMEN: Distended, laparoscopy dressing intact, not taken down. ROCIO drain in place. Bowel sounds hypoactive. : Hwang EXTREMITIES: No edema. Hyperpigmentation. GENITOURINARY: Hwang in place. No generalized rash except for above. PSYCHIATRIC: Unable to assess. The patient was alert, oriented x 3 prior to surgery. Labs Lab Laboratory Tests Test 04/13/21 07:30 04/13/21 12:53 04/13/21 17:14 04/13/21 23:28 O2 Saturation 98 % (92-99) Arterial Blood pH 7.35 (7.35-7.45) Arterial Blood pCO2 at Patient Temp 36 mmHg (35-46) Arterial Blood pO2 at Patient Temp 108 mmHg (75-108) Arterial Blood HCO3 19 mmol/L (21-28) Arterial Blood Base Excess -6 mmol/L (-3-3) FiO2 30/vent Glucose (Fingerstick) 196 mg/dL (70-99) 175 mg/dL (70-99) 197 mg/dL (70-99) Test 04/14/21 05:30 Glucose (Fingerstick) 176 mg/dL (70-99) Micro Microbiology 04/06/21 Blood Culture - Final, Complete NO GROWTH AFTER 5 DAYS 04/05/21 Gram Stain - Final, Complete 04/05/21 Aerobic and Anaerobic Culture - Final, Complete Objective Assessment 1. Severe sepsis. 2. Abdominal pain, nausea, vomiting. Pneumoperitoneum on CT, status post diagnostic laparoscopy, placement of abdominal drain. No evidence of perforated viscus. Findings were consistent with spontaneous bacterial peritonitis.04/05 3. Ascites and cirrhosis. 4. ETOH dependence. 5. Acute kidney injury with hyperkalemia. 6. Thrombocytopenia. 7. Coagulopathy. 8. Increased LFTs. 9. Postoperative intubation 30 % Fi02 and 5 PEEP Plan Plan of Care Consider placing PICC and D/c IJ (place 04/05) if aggressive measures are pursued cont zosyn, cont supportive care family to decide on further coarse d/w RN LAURA STYLES MD April 14, 2021 06:21
[2021-04-14 06:25] LABS: ALBUMIN 2.5 g/dL (3.4-5.0); CREATININE 1.6 mg/dL (0.7-1.3); GFR 45.8
[2021-04-14 06:26] LABS: PHOSPHORUS 4.9 mg/dL (2.6-4.7); POTASSIUM 4.9 mmol/L (3.5-5.1)
[2021-04-14] MEDS: PANTOPRAZOLE IV PUSH 40 MG VIAL. IVP SCH (07:30)
[2021-04-14 07:37] LABS: BASO # 0.1 x10^3/uL (0.0-0.2); BASO % 1 % (0-3); EOS # 0.3 x10^3/uL (0.0-0.7); EOS % 3 % (0-3); LYMPH # 1.5 x10^3/uL (1.0-4.8); LYMPH % 13 % (24-48); MEAN CORPUSCULAR HEMOGLOBIN 39 pg (25-35); MEAN CORPUSCULAR HGB CONC 32 g/dL (31-37); MEAN CORPUSCULAR VOLUME 121 fL (79-100); MONO # 1.4 x10^3/uL (0.0-1.1); MONO % 13 % (0-9); NEUT % 71 % (31-73); PLATELET COUNT 78 x10^3/uL (140-400); RED BLOOD COUNT 1.71 x10^6/uL (4.30-5.70); RED CELL DISTRIBUTION WIDTH 19.1 % (11.5-14.5); WHITE BLOOD COUNT 11.3 x10^3/uL (4.0-11.0)
[2021-04-14 08:13] LABS: HEMATOCRIT 20.7 % (39.0-53.0); HEMOGLOBIN 6.7 g/dL (13.0-17.5)
[2021-04-14 08:45] LABS: BASE EXCESS ABG -11 mmol/L (-3-3); HCO3 ABG 15 mmol/L (21-28); PCO2 ABG 32 mmHg (35-46); PO2 ABG 100 mmHg (75-108); SAT O2 ABG 96 % (92-99)
[2021-04-14 08:55] LABS: FIO2 ABG 30% VENT
[2021-04-14] MEDS ORDERED: SODIUM BICARB ADULT 8.4% 50 MEQ/50 ML DISP.SYRIN. IV ONE (09:30)
--- NOTE | 2021-04-14 09:52 | PDOC ---
PULMONARY PROGRESS NOTES DATE: 04/14/21 TIME: 09:49 Subjective Patient remains on ventilatory support Sedated with Versed and fentanyl Continues on vasopressor medications: on vasopressin and Levophed Nursing reports increased abdominal firmness and increased drainage from abdominal drains worsening LFT/ anemia Vitals Vital Signs Date Time Temp Pulse Resp B/P (MAP) Pulse Ox O2 Delivery O2 Flow Rate FiO2 04/14/21 09:36 98 Ventilator 04/14/21 06:00 81 16 98/47 (64) 04/14/21 04:00 97.9 97.9 Comments on vent sedated not able to obtain ros HEENT: Other (Orally intubated) Lungs: Crackles Cardiovascular: S1, S2 Abdomen: Non-tender, Other (Firm) Extremities: Other (edema ) Skin: Warm Labs Laboratory Tests Test 04/12/21 11:39 04/12/21 17:34 04/13/21 00:07 04/13/21 05:05 Glucose (Fingerstick) 172 mg/dL (70-99) 214 mg/dL (70-99) 180 mg/dL (70-99) White Blood Count 14.1 x10^3/uL (4.0-11.0) Red Blood Count 2.03 x10^6/uL (4.30-5.70) Hemoglobin 7.8 g/dL (13.0-17.5) Hematocrit 24.4 % (39.0-53.0) Mean Corpuscular Volume 120 fL (79-100) Mean Corpuscular Hemoglobin 38 pg (25-35) Mean Corpuscular Hemoglobin Concent 32 g/dL (31-37) Red Cell Distribution Width 19.1 % (11.5-14.5) Platelet Count 110 x10^3/uL (140-400) Neutrophils (%) (Auto) 74 % (31-73) Lymphocytes (%) (Auto) 12 % (24-48) Monocytes (%) (Auto) 11 % (0-9) Eosinophils (%) (Auto) 2 % (0-3) Basophils (%) (Auto) 1 % (0-3) Neutrophils # (Auto) 10.4 x10^3/uL (1.8-7.7) Lymphocytes # (Auto) 1.7 x10^3/uL (1.0-4.8) Monocytes # (Auto) 1.5 x10^3/uL (0.0-1.1) Eosinophils # (Auto) 0.3 x10^3/uL (0.0-0.7) Basophils # (Auto) 0.1 x10^3/uL (0.0-0.2) Sodium Level 147 mmol/L (136-145) Potassium Level 5.0 mmol/L (3.5-5.1) Chloride Level 115 mmol/L (98-107) Carbon Dioxide Level 24 mmol/L (21-32) Anion Gap 8 (6-14) Blood Urea Nitrogen 84 mg/dL (8-26) Creatinine 1.1 mg/dL (0.7-1.3) Estimated GFR (Cockcroft-Gault) 70.6 Glucose Level 206 mg/dL (70-99) Calcium Level 9.6 mg/dL (8.5-10.1) Phosphorus Level 4.5 mg/dL (2.6-4.7) Magnesium Level 2.6 mg/dL (1.8-2.4) Albumin 2.5 g/dL (3.4-5.0) Test 04/13/21 05:12 04/13/21 07:30 04/13/21 12:53 04/13/21 17:14 Glucose (Fingerstick) 207 mg/dL (70-99) 196 mg/dL (70-99) 175 mg/dL (70-99) O2 Saturation 98 % (92-99) Arterial Blood pH 7.35 (7.35-7.45) Arterial Blood pCO2 at Patient Temp 36 mmHg (35-46) Arterial Blood pO2 at Patient Temp 108 mmHg (75-108) Arterial Blood HCO3 19 mmol/L (21-28) Arterial Blood Base Excess -6 mmol/L (-3-3) FiO2 30/vent Test 04/13/21 23:28 04/14/21 05:30 04/14/21 06:00 04/14/21 08:00 Glucose (Fingerstick) 197 mg/dL (70-99) 176 mg/dL (70-99) Sodium Level 148 mmol/L (136-145) Potassium Level 4.9 mmol/L (3.5-5.1) Chloride Level 116 mmol/L (98-107) Carbon Dioxide Level 23 mmol/L (21-32) Anion Gap 9 (6-14) Blood Urea Nitrogen 109 mg/dL (8-26) Creatinine 1.6 mg/dL (0.7-1.3) Estimated GFR (Cockcroft-Gault) 45.8 Glucose Level 183 mg/dL (70-99) Calcium Level 10.0 mg/dL (8.5-10.1) Phosphorus Level 4.9 mg/dL (2.6-4.7) Magnesium Level 2.8 mg/dL (1.8-2.4) Albumin 2.5 g/dL (3.4-5.0) White Blood Count 11.3 x10^3/uL (4.0-11.0) Red Blood Count 1.71 x10^6/uL (4.30-5.70) Hemoglobin 6.7 g/dL (13.0-17.5) Hematocrit 20.7 % (39.0-53.0) Mean Corpuscular Volume 121 fL (79-100) Mean Corpuscular Hemoglobin 39 pg (25-35) Mean Corpuscular Hemoglobin Concent 32 g/dL (31-37) Red Cell Distribution Width 19.1 % (11.5-14.5) Platelet Count 78 x10^3/uL (140-400) Neutrophils (%) (Auto) 71 % (31-73) Lymphocytes (%) (Auto) 13 % (24-48) Monocytes (%) (Auto) 13 % (0-9) Eosinophils (%) (Auto) 3 % (0-3) Basophils (%) (Auto) 1 % (0-3) Neutrophils # (Auto) 8.0 x10^3/uL (1.8-7.7) Lymphocytes # (Auto) 1.5 x10^3/uL (1.0-4.8) Monocytes # (Auto) 1.4 x10^3/uL (0.0-1.1) Eosinophils # (Auto) 0.3 x10^3/uL (0.0-0.7) Basophils # (Auto) 0.1 x10^3/uL (0.0-0.2) O2 Saturation 96 % (92-99) Arterial Blood pH 7.29 (7.35-7.45) Arterial Blood pCO2 at Patient Temp 32 mmHg (35-46) Arterial Blood pO2 at Patient Temp 100 mmHg (75-108) Arterial Blood HCO3 15 mmol/L (21-28) Arterial Blood Base Excess -11 mmol/L (-3-3) FiO2 30% vent Laboratory Tests Test 04/13/21 12:53 04/13/21 17:14 04/13/21 23:28 04/14/21 05:30 Glucose (Fingerstick) 196 mg/dL (70-99) 175 mg/dL (70-99) 197 mg/dL (70-99) 176 mg/dL (70-99) Sodium Level 148 mmol/L (136-145) Potassium Level 4.9 mmol/L (3.5-5.1) Chloride Level 116 mmol/L (98-107) Carbon Dioxide Level 23 mmol/L (21-32) Anion Gap 9 (6-14) Blood Urea Nitrogen 109 mg/dL (8-26) Creatinine 1.6 mg/dL (0.7-1.3) Estimated GFR (Cockcroft-Gault) 45.8 Glucose Level 183 mg/dL (70-99) Calcium Level 10.0 mg/dL (8.5-10.1) Phosphorus Level 4.9 mg/dL (2.6-4.7) Magnesium Level 2.8 mg/dL (1.8-2.4) Albumin 2.5 g/dL (3.4-5.0) Test 04/14/21 06:00 04/14/21 08:00 White Blood Count 11.3 x10^3/uL (4.0-11.0) Red Blood Count 1.71 x10^6/uL (4.30-5.70) Hemoglobin 6.7 g/dL (13.0-17.5) Hematocrit 20.7 % (39.0-53.0) Mean Corpuscular Volume 121 fL (79-100) Mean Corpuscular Hemoglobin 39 pg (25-35) Mean Corpuscular Hemoglobin Concent 32 g/dL (31-37) Red Cell Distribution Width 19.1 % (11.5-14.5) Platelet Count 78 x10^3/uL (140-400) Neutrophils (%) (Auto) 71 % (31-73) Lymphocytes (%) (Auto) 13 % (24-48) Monocytes (%) (Auto) 13 % (0-9) Eosinophils (%) (Auto) 3 % (0-3) Basophils (%) (Auto) 1 % (0-3) Neutrophils # (Auto) 8.0 x10^3/uL (1.8-7.7) Lymphocytes # (Auto) 1.5 x10^3/uL (1.0-4.8) Monocytes # (Auto) 1.4 x10^3/uL (0.0-1.1) Eosinophils # (Auto) 0.3 x10^3/uL (0.0-0.7) Basophils # (Auto) 0.1 x10^3/uL (0.0-0.2) O2 Saturation 96 % (92-99) Arterial Blood pH 7.29 (7.35-7.45) Arterial Blood pCO2 at Patient Temp 32 mmHg (35-46) Arterial Blood pO2 at Patient Temp 100 mmHg (75-108) Arterial Blood HCO3 15 mmol/L (21-28) Arterial Blood Base Excess -11 mmol/L (-3-3) FiO2 30% vent Medications Active Scripts Medications Dose Route/Sig Max Daily Dose Days Date Category Proair Hfa Inhaler (Albuterol Sulfate) 8.5 Gm Hfa.aer.ad 2 Puff IH PRN Q4-6HRS PRN 21 04/05/21 Reported Uloric (Febuxostat) 80 Mg Tablet 1 Tab PO DAILY 30 04/05/21 Reported Losartan Potassium 100 Mg Tablet 100 Mg PO DAILY 04/05/21 Reported Folic Acid 1 Mg Tablet 1 Mg PO DAILY 08/05/16 Reported Amlodipine Besylate 10 Mg Tablet 10 Mg PO DAILY 08/05/16 Reported Losartan Potassium 100 Mg Tablet 100 Mg PO DAILY 08/05/16 Reported Colcrys (Colchicine) 0.6 Mg Tablet 0.6 Mg PO DAILY 08/05/16 Reported Uloric (Febuxostat) 40 Mg Tablet 1 Tab PO DAILY 08/05/16 Reported Comments CXR IMPRESSION: 1. Bilateral infrahilar linear atelectasis or interstitial infiltrate. 2. Support lines and tubes, described above. Impression . IMPRESSION: 1. Acute hypoxic respiratory failure secondary to septic shock. 2. Septic shock secondary to spontaneous bacterial peritonitis in a patient who has alcoholism and cirrhosis along with ascites. s/p Diagnostic laparoscopy, culture abdominal fluid, placement of abdominal drain 04/05 3. Acute kidney injury. 4. Lactic acidosis secondary to septic shock, now improved. 5. History of tobaccoism. ? copd 6. History of alcoholism. 7. Cirrhosis secondary to alcoholism. 8. Coagulopathy secondary to cirrhosis. 9. COVID negative. 10. Worsening LFT 11. anemia Plan . updated 04/14/21 Continue current vent support, 16/500/5/35% Nebs Follow chest x-ray/ABG--no changes Continue vasopressors to keep MAP greater than 60--remains on Levophed and vasopressin Follow GI recommendations, monitor hemoglobin, transfuse as needed Follow nephrology recommendations Follow surgery recommendations--- status post diagnostic laparoscopic, follow abdominal cultures, continue drain to abdomen placed on 04/05 Continue antibiotics per infectious disease Continue TPN for nutritional support DVT/GI prophylaxis Discussed with RN and RT Family withdraw care by Friday if there is no clinical improvement. I concur with them. Patient with worsening multi system organ failure, unlikely to survive. Rec comfort care Friday updated 04/12/21 updated 04/13/21 Continue current vent support, 16/500/5/35% Nebs Follow chest x-ray/ABG--no changes Continue vasopressors to keep MAP greater than 60--remains on Levophed and vasopressin Follow GI recommendations, monitor hemoglobin, transfuse as needed Follow nephrology recommendations Follow surgery recommendations--- status post diagnostic laparoscopic, follow abdominal cultures, continue drain to abdomen placed on 04/05 Continue antibiotics per infectious disease Continue TPN for nutritional support DVT/GI prophylaxis Discussed with RN and RT Another discussion with family04/12. Both the daughters were present. They want to withdraw care by Friday if there is no clinical improvement. I concur with them. updated 04/12/21 Continue current vent support, 16/500/5/35% Nebs Follow chest x-ray/ABG--no changes Continue vasopressors to keep MAP greater than 65--remains on Levophed and vasopressin Follow GI recommendations, monitor hemoglobin, transfuse as needed Follow nephrology recommendations Follow surgery recommendations--- status post diagnostic laparoscopic, follow abdominal cultures, continue drain to abdomen placed on 04/05 Continue antibiotics per infectious disease Continue TPN for nutritional support DVT/GI prophylaxis Discussed with RN and RT I did long discussion with the patient's daughter at the bedside 04/11. Knowing patient's wishes she does not want to prolong current aggressive care if prognosis remains grim. The family is leaning towards comfort care if he does n ot make any clinical improvement. We will continue to review patient's clinical status. In the meantime if patient has any cardiac arrest we will not do CPR. Patient will be DNR. Another discussion with family today. Both the daughters were present. They want to withdraw care by Friday if there is no clinical improvement. I concur with them. Critical care time 30 minutes updated 04/11/21 Continue current vent support, 500/5/35% Nebs Follow chest x-ray/ABG--no changes Continue vasopressors to keep MAP greater than 65--remains on Levophed and vasopressin Follow GI recommendations, monitor hemoglobin, transfuse as needed Follow nephrology recommendations Follow surgery recommendations--- status post diagnostic laparoscopic, follow a bdominal cultures, continue drain to abdomen placed on 04/05 Continue antibiotics per infectious disease Continue TPN for nutritional support DVT/GI prophylaxis Discussed with RN and RT I do long discussion with the patient's daughter at the bedside. Knowing patient's wishes she does not want to prolong current aggressive care if prognosis remains grim. The family is leaning towards comfort care if he does not make any clinical improvement. We will continue to review patient's clinical status. In the meantime if patient has any cardiac arrest we will not do CPR. Patient will be DNR. Critical care time 30 minutes updated 04/09/21 Continue current vent support, 500/5/35% Nebs Follow chest x-ray/ABG--no changes Continue vasopressors to keep MAP greater than 65 Follow GI recommendations, monitor hemoglobin, transfuse as needed Follow nephrology recommendations Follow surgery recommendations--- status post diagnostic laparoscopic, follow abdominal cultures, continue drain to abdomen placed on 04/05 Continue antibiotics per infectious disease Continue TPN for nutritional support DVT/GI prophylaxis Discussed with RN and RT Critical care time 30 minutes updated 04/08 1. cont vent support setting reviewed, still on 2 pressors, not stable for sbt. abg reviewed no vent change 2. cont pressors to keep map 65 3. protonix for stress ulcer prophylaxis. 4. Broad spectrum antibiotics per infectious disease recommendation. 5. Monitor renal function. Follow renal recommendations. 6. TPN per Nephrology. 7. Follow all cultures. neg so far 8. Follow Surgery recommendations. 9. bicarbonate drip stopped by nephro. 10. Discussed with RN RECOMMENDATIONS: 1. cont vent support setting reviewed, not stable for sbt. We will make necessary adjustment based on ABGs. 2. cont pressors to keep map 65 3. protonix for stress ulcer prophylaxis. 4. Broad spectrum antibiotics per infectious disease recommendation. 5. Monitor renal function. Follow renal recommendations. 6. TPN per Nephrology. 7. Follow all cultures. 8. Follow Surgery recommendations. 9. bicarbonate drip per nephro. 10. Discussed with RN ISRRAEL WALTERS MD April 14, 2021 09:52
--- NOTE | 2021-04-14 10:26 | PDOC ---
GENERAL General: Patient examined chart reviewed today is hospital day 9 for this patient admitted from [facility] with severe sepsis secondary to bowel perforation. He was also found to have cirrhosis likely secondary to longstanding alcoholism. He is postop day 9 but has continued to clinically worsen she has been ventilator dependent since admission. We appreciate subspecialty support. The critical care team has spoken with family at length and the plan is to continue management through the weekend and if he does not improve we will plan on terminal extubation early next week. Patient has a dropping hemoglobin and given the extent of his illness unlikely to improve his situation with transfusion. We will continue to follow clinically and reassess labs in the morning. Problems: (1) Severe sepsis (2) Bowel perforation (3) Cirrhosis VITAL SIGNS Vital Signs/I&O: Vital Signs Date Time Temp Pulse Resp B/P (MAP) Pulse Ox O2 Delivery O2 Flow Rate FiO2 04/14/21 09:36 98 Ventilator 04/14/21 06:00 81 16 98/47 (64) 04/14/21 04:00 97.9 97.9 I & O 04/13/21 04/13/21 04/14/21 15:00 23:00 07:00 Intake Total 608.49 ml 832.01 ml 1064 ml Output Total 540 ml 980 ml 995 ml Balance 68.49 ml -147.99 ml 69 ml In general patient is intubated and sedated unresponsive on the ventilator Chest is clear to auscultation Heart S1-S2 normal regular rate and rhythm no murmurs or gallops are noted Abdomen tense hard and distended he has clear serous drainage from his abdominal drain Extremity exam is notable for cool distal extremity 1+ edema pulses weakly palpable ALLERGIES Allergies: Allergies Coded Allergies Type Severity Reaction Last Updated Verified No Known Drug Allergies 05/31/16 No MEDS Medications: Current Medications Medications (Trade) Dose Ordered Sig/Ada Start Time Stop Time Status Last Admin Dose Admin Albumin Human 500 ml @ 125 mls/hr 1X ONCE 04/13/21 09:30 04/13/21 13:29 DC 04/13/21 09:49 Bupivacaine HCl/ Epinephrine Bitart (Sensorcain-Epi 0.5%-1:699157 Mpf) 30 ml STK-MED ONCE 04/05/21 11:54 04/05/21 11:54 DC Dexamethasone Sodium Phosphate (Decadron) 4 mg STK-MED ONCE 04/05/21 09:22 04/05/21 09:22 DC Dextrose (Dextrose 50%-Water Syringe) 12.5 gm PRN Q15MIN PRN 04/12/21 17:45 Etomidate (Amidate) 20 mg STK-MED ONCE 04/05/21 09:22 04/05/21 09:22 DC Fentanyl Citrate 30 ml @ 0 mls/hr CONT PRN 04/06/21 08:30 04/14/21 01:50 Fentanyl Citrate (Fentanyl 2ml Vial) 100 mcg PRN Q2HR PRN 04/05/21 15:45 04/06/21 08:25 DC 04/06/21 02:53 Glycopyrrolate (Robinul) 1 mg STK-MED ONCE 04/05/21 13:35 04/05/21 13:35 DC Hydromorphone HCl (Dilaudid) 0.5 mg PRN Q10MIN PRN 04/05/21 09:00 04/05/21 18:00 DC Info (Tpn Per Pharmacy) 1 each PRN DAILY PRN 04/06/21 09:30 04/13/21 12:39 Insulin Human Lispro (HumaLOG) 0-5 UNITS Q6HRS 04/12/21 18:00 04/14/21 05:33 Lidocaine HCl (Lidocaine Pf 2% Vial) 5 ml STK-MED ONCE 04/05/21 12:58 04/05/21 12:59 DC Linezolid/Dextrose 300 ml @ 300 mls/hr Q12HR 04/06/21 11:00 04/10/21 08:07 DC 04/09/21 20:57 Magnesium Sulfate 50 ml @ 25 mls/hr PRN DAILY PRN 04/07/21 13:00 04/09/21 08:52 Methylene Blue (Provayblue) 10 ml STK-MED ONCE 04/05/21 13:14 04/05/21 13:14 DC Micafungin Sodium 100 mg/Dextrose 100 ml @ 100 mls/hr Q24H 04/06/21 12:00 04/10/21 08:07 DC 04/09/21 12:39 Midazolam HCl (Versed) 5 mg 1X ONCE 04/05/21 15:45 04/05/21 15:46 DC 04/05/21 15:46 Morphine Sulfate (Morphine Sulfate) 1 mg PRN Q10MIN PRN 04/05/21 09:00 04/05/21 18:00 DC 04/05/21 15:35 Multi-Ingred Cream/Lotion/Oil/ Oint (Artificial Tears Eye Ointment) 1 jennifer PRN Q1HR PRN 04/08/21 15:30 04/08/21 18:16 Neostigmine [place] (Neostigmine Methylsulfate) 5 mg STK-MED ONCE 04/05/21 13:36 04/05/21 13:36 DC Norepinephrine Bitartrate 8 mg/ Dextrose 258 ml @ 21.537 mls/ hr CONT PRN 04/05/21 16:15 04/13/21 03:08 Ondansetron HCl (Zofran) 4 mg STK-MED ONCE 04/05/21 09:22 04/05/21 09:22 DC Pantoprazole Sodium (PROTONIX VIAL for IV PUSH) 40 mg DAILYAC 04/06/21 07:30 04/13/21 07:44 Pantoprazole Sodium 80 mg/ Sodium Chloride 100 ml @ 10 mls/hr Q10H 04/05/21 04:00 04/05/21 16:46 DC 04/05/21 04:56 Phenylephrine HCl (Pavel-Synephrine Inj) 10 mg STK-MED ONCE 04/05/21 09:22 04/05/21 09:23 DC Piperacillin Sod/ Tazobactam Sod (Zosyn Per Pharmacy) 1 each PRN DAILY PRN 04/05/21 08:00 Piperacillin Sod/ Tazobactam Sod 2.25 gm/Sodium Chloride 50 ml @ 100 mls/hr Q6HRS 04/05/21 13:00 04/10/21 07:12 DC 04/10/21 05:39 Piperacillin Sod/ Tazobactam Sod 3.375 gm/Sodium Chloride 50 ml @ 100 mls/hr Q6HRS 04/10/21 12:00 04/14/21 05:31 Potassium Phosphate 10 mmol/ Sodium Chloride 103.3333 ml @ 51.667 m... Q2H 04/09/21 14:00 04/09/21 17:59 DC 04/09/21 17:05 Prochlorperazine Edisylate (Compazine) 5 mg PACU PRN PRN 04/05/21 09:00 04/05/21 18:00 DC Ringer's Solution 1,000 ml @ 30 mls/hr Q24H 04/05/21 09:00 04/05/21 20:59 DC Rocuronium [place] (Zemuron) 50 mg STK-MED ONCE 04/05/21 12:36 04/05/21 12:36 DC Sevoflurane (Ultane) 90 ml STK-MED ONCE 04/05/21 14:07 04/05/21 14:07 DC Sodium Bicarbonate 150 meq/Dextrose 1,150 ml @ 100 mls/hr [id number] 04/05/21 16:00 04/07/21 13:34 DC 04/07/21 03:21 Sodium Bicarbonate (Sodium Bicarb Adult 8.4% Syr) 100 meq 1X ONCE 04/14/21 09:30 04/14/21 09:31 DC Sodium Chloride 70 meq/Potassium Acetate 20 meq/ Potassium Phosphate 13.6 mmol/Magnesium Sulfate 8 meq/ Calcium Gluconate 10 meq/ Multivitamins 5 ml/Zinc/Copper/ Manganese/ Selenium 1 ml/ Total Parenteral Nutrition/Amino Acids/Dextrose/ Fat Emulsion Intravenous 1,512 ml @ 63 mls/hr TPN CONT 04/12/21 22:00 04/13/21 21:59 DC 04/12/21 22:39 Sodium Chloride 70 meq/Potassium Acetate 20 meq/ Potassium Phosphate 8 mmol/ Calcium Gluconate 10 meq/ Multivitamins 5 ml/Zinc/Copper/ Manganese/ Selenium 1 ml/ Total Parenteral Nutrition/Amino Acids/Dextrose/ Fat Emulsion Intravenous 1,512 ml @ 63 mls/hr TPN CONT 04/13/21 22:00 04/14/21 21:59 04/13/21 21:34 Sodium Chloride 90 meq/Potassium Chloride 20 meq/ Potassium Phosphate 18 mmol/ Magnesium Sulfate 13 meq/Calcium Gluconate 10 meq/ Multivitamins 5 ml/Zinc/Copper/ Manganese/ Selenium 1 ml/ Total Parenteral Nutrition/Amino Acids/Dextrose/ Fat Emulsion Intravenous 1,512 ml @ 63 mls/hr TPN CONT 04/11/21 22:00 04/12/21 21:59 DC 04/11/21 22:16 Sodium Chloride 90 meq/Potassium Chloride 35 meq/ Magnesium Sulfate 10 meq/Calcium Gluconate 10 meq/ Multivitamins 5 ml/Zinc/Copper/ Manganese/ Selenium 1 ml/ Total Parenteral Nutrition/Amino Acids/Dextrose 1,512 ml @ 63 mls/hr TPN CONT 04/06/21 22:00 04/07/21 21:59 DC 04/06/21 21:25 Sodium Chloride 90 meq/Potassium Chloride 50 meq/ Magnesium Sulfate 12 meq/Calcium Gluconate 10 meq/ Multivitamins 5 ml/Zinc/Copper/ Manganese/ Selenium 1 ml/ Total Parenteral Nutrition/Amino Acids/Dextrose 1,512 ml @ 63 mls/hr TPN CONT 04/07/21 22:00 04/08/21 21:59 DC 04/07/21 22:55 Sodium Chloride 90 meq/Potassium Chloride 50 meq/ Magnesium Sulfate 18 meq/Calcium Gluconate 10 meq/ Multivitamins 5 ml/Zinc/Copper/ Manganese/ Selenium 1 ml/ Potassium Phosphate 18 mmol/ Total Parenteral Nutrition/Amino Acids/Dextrose/ Fat Emulsion Intravenous 1,512 ml @ 63 mls/hr TPN CONT 04/10/21 22:00 04/11/21 21:59 DC 04/10/21 22:25 Sodium Chloride 90 meq/Potassium Chloride 70 meq/ Magnesium Sulfate 15 meq/Calcium Gluconate 10 meq/ Multivitamins 5 ml/Zinc/Copper/ Manganese/ Selenium 1 ml/ Potassium Phosphate 10 mmol/ Total Parenteral Nutrition/Amino Acids/Dextrose 1,512 ml @ 63 mls/hr TPN CONT 04/08/21 22:00 04/09/21 21:59 DC 04/08/21 22:08 Sodium Chloride 90 meq/Potassium Chloride 70 meq/ Magnesium Sulfate 20 meq/Calcium Gluconate 10 meq/ Multivitamins 5 ml/Zinc/Copper/ Manganese/ Selenium 1 ml/ Potassium Phosphate 18 mmol/ Total Parenteral Nutrition/Amino Acids/Dextrose 1,512 ml @ 63 mls/hr TPN CONT 04/09/21 22:00 04/10/21 21:59 DC 04/09/21 22:18 Vasopressin 20 unit/Dextrose 101 ml @ 12 mls/hr CONT PRN 04/06/21 08:30 04/14/21 01:46 Current Medications Medications (Trade) Dose Ordered Sig/Ada Route PRN Reason Start Time Stop Time Status Last Admin Dose Admin Sodium Chloride 70 meq/Potassium Acetate 20 meq/ Potassium Phosphate 8 mmol/ Calcium Gluconate 10 meq/ Multivitamins 5 ml/Zinc/Copper/ Manganese/ Selenium 1 ml/ Total Parenteral Nutrition/Amino Acids/Dextrose/ Fat Emulsion Intravenous 1,512 ml @ 63 mls/hr TPN CONT IV 04/13/21 22:00 04/14/21 21:59 04/13/21 21:34 LAB Lab: Laboratory Tests Test 04/13/21 12:53 04/13/21 17:14 04/13/21 23:28 04/14/21 05:30 Glucose (Fingerstick) 196 mg/dL (70-99) H 175 mg/dL (70-99) H 197 mg/dL (70-99) H 176 mg/dL (70-99) H Sodium Level 148 mmol/L (136-145) H Potassium Level 4.9 mmol/L (3.5-5.1) Chloride Level 116 mmol/L (98-107) H Carbon Dioxide Level 23 mmol/L (21-32) Anion Gap 9 (6-14) Blood Urea Nitrogen 109 mg/dL (8-26) H Creatinine 1.6 mg/dL (0.7-1.3) H Estimated GFR (Cockcroft-Gault) 45.8 Glucose Level 183 mg/dL (70-99) H Calcium Level 10.0 mg/dL (8.5-10.1) Phosphorus Level 4.9 mg/dL (2.6-4.7) H Magnesium Level 2.8 mg/dL (1.8-2.4) H Albumin 2.5 g/dL (3.4-5.0) L Test 04/14/21 06:00 04/14/21 08:00 White Blood Count 11.3 x10^3/uL (4.0-11.0) H Red Blood Count 1.71 x10^6/uL (4.30-5.70) L Hemoglobin 6.7 g/dL (13.0-17.5) *L Hematocrit 20.7 % (39.0-53.0) *L Mean Corpuscular Volume 121 fL (79-100) H Mean Corpuscular Hemoglobin 39 pg (25-35) H Mean Corpuscular Hemoglobin Concent 32 g/dL (31-37) Red Cell Distribution Width 19.1 % (11.5-14.5) H Platelet Count 78 x10^3/uL (140-400) L Neutrophils (%) (Auto) 71 % (31-73) Lymphocytes (%) (Auto) 13 % (24-48) L Monocytes (%) (Auto) 13 % (0-9) H Eosinophils (%) (Auto) 3 % (0-3) Basophils (%) (Auto) 1 % (0-3) Neutrophils # (Auto) 8.0 x10^3/uL (1.8-7.7) H Lymphocytes # (Auto) 1.5 x10^3/uL (1.0-4.8) Monocytes # (Auto) 1.4 x10^3/uL (0.0-1.1) H Eosinophils # (Auto) 0.3 x10^3/uL (0.0-0.7) Basophils # (Auto) 0.1 x10^3/uL (0.0-0.2) O2 Saturation 96 % (92-99) Arterial Blood pH 7.29 (7.35-7.45) L Arterial Blood pCO2 at Patient Temp 32 mmHg (35-46) L Arterial Blood pO2 at Patient Temp 100 mmHg (75-108) Arterial Blood HCO3 15 mmol/L (21-28) L Arterial Blood Base Excess -11 mmol/L (-3-3) L FiO2 30% vent Laboratory Tests 04/14/21 06:00 Laboratory Tests 04/14/21 05:30 ASSESSMENT & PLAN A&P Plan as noted above This note was created using [employer] and may have omissions and/or errors due to the nature of real-time voice ballistics professor. Justifications for Admission Other Justification ROSIE ROBLES MD April 14, 2021 10:26
--- NOTE | 2021-04-14 10:35 | PDOC ---
Renal-Progress Notes Subjective Notes Notes ON THE VENT History of Present Illness Hx of present illness STABLE Vitals Vitals Vital Signs Date Time Temp Pulse Resp B/P (MAP) Pulse Ox O2 Delivery O2 Flow Rate FiO2 04/14/21 09:36 98 Ventilator 04/14/21 06:00 81 16 98/47 (64) 04/14/21 04:00 97.9 97.9 Weight Weight [ ] I.O. Intake and Output Intake and Output 04/14/21 07:00 Intake Total 2504.50 ml Output Total 2515 ml Balance -10.50 ml IV Total 2504.50 ml Output Urine Total 1065 ml Gastric Drainage Total 650 ml Drainage Total 800 ml Labs Labs Laboratory Tests Test 04/13/21 12:53 04/13/21 17:14 04/13/21 23:28 04/14/21 05:30 Glucose (Fingerstick) 196 mg/dL (70-99) 175 mg/dL (70-99) 197 mg/dL (70-99) 176 mg/dL (70-99) Sodium Level 148 mmol/L (136-145) Potassium Level 4.9 mmol/L (3.5-5.1) Chloride Level 116 mmol/L (98-107) Carbon Dioxide Level 23 mmol/L (21-32) Anion Gap 9 (6-14) Blood Urea Nitrogen 109 mg/dL (8-26) Creatinine 1.6 mg/dL (0.7-1.3) Estimated GFR (Cockcroft-Gault) 45.8 Glucose Level 183 mg/dL (70-99) Calcium Level 10.0 mg/dL (8.5-10.1) Phosphorus Level 4.9 mg/dL (2.6-4.7) Magnesium Level 2.8 mg/dL (1.8-2.4) Albumin 2.5 g/dL (3.4-5.0) Test 04/14/21 06:00 04/14/21 08:00 White Blood Count 11.3 x10^3/uL (4.0-11.0) Red Blood Count 1.71 x10^6/uL (4.30-5.70) Hemoglobin 6.7 g/dL (13.0-17.5) Hematocrit 20.7 % (39.0-53.0) Mean Corpuscular Volume 121 fL (79-100) Mean Corpuscular Hemoglobin 39 pg (25-35) Mean Corpuscular Hemoglobin Concent 32 g/dL (31-37) Red Cell Distribution Width 19.1 % (11.5-14.5) Platelet Count 78 x10^3/uL (140-400) Neutrophils (%) (Auto) 71 % (31-73) Lymphocytes (%) (Auto) 13 % (24-48) Monocytes (%) (Auto) 13 % (0-9) Eosinophils (%) (Auto) 3 % (0-3) Basophils (%) (Auto) 1 % (0-3) Neutrophils # (Auto) 8.0 x10^3/uL (1.8-7.7) Lymphocytes # (Auto) 1.5 x10^3/uL (1.0-4.8) Monocytes # (Auto) 1.4 x10^3/uL (0.0-1.1) Eosinophils # (Auto) 0.3 x10^3/uL (0.0-0.7) Basophils # (Auto) 0.1 x10^3/uL (0.0-0.2) O2 Saturation 96 % (92-99) Arterial Blood pH 7.29 (7.35-7.45) Arterial Blood pCO2 at Patient Temp 32 mmHg (35-46) Arterial Blood pO2 at Patient Temp 100 mmHg (75-108) Arterial Blood HCO3 15 mmol/L (21-28) Arterial Blood Base Excess -11 mmol/L (-3-3) FiO2 30% vent Micro Micro Microbiology 04/06/21 Blood Culture - Final, Complete NO GROWTH AFTER 5 DAYS 04/05/21 Gram Stain - Final, Complete 04/05/21 Aerobic and Anaerobic Culture - Final, Complete Review of Systems Constitutional: yes: other (UNABLE TO OBTAIN) Physical Exam General Appearance: no apparent distress Skin: warm Respiratory: ventilator (Mode:A/C), decreased breath sounds Heart: S1S2 Abdomen: soft, other (HYPOACTIVE) Genitourinary: bladder flat, mcleod catheter Extremities: pulses present, no edema Musculoskeletal: Other Assessment Assessment MP EDDI-ATN-CR IMPROVED TO 1.1 FROM 3.5 MET ACIDOSIS-RESOLVED HYPERKALEMIA-RESOLVED MILD HYPERNATREMIA HYPOTENSION-STABLE PROB SEPSIS LEUCOCYTOSIS PNEUMOPERITONEUM S/P REPAIR AND PLACEMENT OF DRAIN PROB SBP ETOH ABUSE LIVER CIRRHOSIS COAGULOPATHY ANEMIA PLAN PRBC NEEDED ANTIBIOTICS PRESSORS NEEDED CONT TPN HOLD HIS ARB SURGERY EVALUATION VENT SUPPORT WILL FOLLOW HERVE CHAVEZ MD April 14, 2021 10:35
--- NOTE | 2021-04-14 12:10 | PDOC ---
G I PROGRESS NOTE Subjective Unresponsive on ventilator. Objective No reports of any GI bleeding, N, V. OG output bilious. Physical Exam Lungs clear anteriorly. RRR Abdomen flat with drain; output serous. Review of Relevant I have reviewed the following items jeff (where applicable) has been applied. Labs Laboratory Tests Test 04/12/21 17:34 04/13/21 00:07 04/13/21 05:05 04/13/21 05:12 Glucose (Fingerstick) 214 mg/dL (70-99) 180 mg/dL (70-99) 207 mg/dL (70-99) White Blood Count 14.1 x10^3/uL (4.0-11.0) Red Blood Count 2.03 x10^6/uL (4.30-5.70) Hemoglobin 7.8 g/dL (13.0-17.5) Hematocrit 24.4 % (39.0-53.0) Mean Corpuscular Volume 120 fL (79-100) Mean Corpuscular Hemoglobin 38 pg (25-35) Mean Corpuscular Hemoglobin Concent 32 g/dL (31-37) Red Cell Distribution Width 19.1 % (11.5-14.5) Platelet Count 110 x10^3/uL (140-400) Neutrophils (%) (Auto) 74 % (31-73) Lymphocytes (%) (Auto) 12 % (24-48) Monocytes (%) (Auto) 11 % (0-9) Eosinophils (%) (Auto) 2 % (0-3) Basophils (%) (Auto) 1 % (0-3) Neutrophils # (Auto) 10.4 x10^3/uL (1.8-7.7) Lymphocytes # (Auto) 1.7 x10^3/uL (1.0-4.8) Monocytes # (Auto) 1.5 x10^3/uL (0.0-1.1) Eosinophils # (Auto) 0.3 x10^3/uL (0.0-0.7) Basophils # (Auto) 0.1 x10^3/uL (0.0-0.2) Sodium Level 147 mmol/L (136-145) Potassium Level 5.0 mmol/L (3.5-5.1) Chloride Level 115 mmol/L (98-107) Carbon Dioxide Level 24 mmol/L (21-32) Anion Gap 8 (6-14) Blood Urea Nitrogen 84 mg/dL (8-26) Creatinine 1.1 mg/dL (0.7-1.3) Estimated GFR (Cockcroft-Gault) 70.6 Glucose Level 206 mg/dL (70-99) Calcium Level 9.6 mg/dL (8.5-10.1) Phosphorus Level 4.5 mg/dL (2.6-4.7) Magnesium Level 2.6 mg/dL (1.8-2.4) Albumin 2.5 g/dL (3.4-5.0) Test 04/13/21 07:30 04/13/21 12:53 04/13/21 17:14 04/13/21 23:28 O2 Saturation 98 % (92-99) Arterial Blood pH 7.35 (7.35-7.45) Arterial Blood pCO2 at Patient Temp 36 mmHg (35-46) Arterial Blood pO2 at Patient Temp 108 mmHg (75-108) Arterial Blood HCO3 19 mmol/L (21-28) Arterial Blood Base Excess -6 mmol/L (-3-3) FiO2 30/vent Glucose (Fingerstick) 196 mg/dL (70-99) 175 mg/dL (70-99) 197 mg/dL (70-99) Test 04/14/21 05:30 04/14/21 06:00 04/14/21 08:00 Sodium Level 148 mmol/L (136-145) Potassium Level 4.9 mmol/L (3.5-5.1) Chloride Level 116 mmol/L (98-107) Carbon Dioxide Level 23 mmol/L (21-32) Anion Gap 9 (6-14) Blood Urea Nitrogen 109 mg/dL (8-26) Creatinine 1.6 mg/dL (0.7-1.3) Estimated GFR (Cockcroft-Gault) 45.8 Glucose Level 183 mg/dL (70-99) Glucose (Fingerstick) 176 mg/dL (70-99) Calcium Level 10.0 mg/dL (8.5-10.1) Phosphorus Level 4.9 mg/dL (2.6-4.7) Magnesium Level 2.8 mg/dL (1.8-2.4) Albumin 2.5 g/dL (3.4-5.0) White Blood Count 11.3 x10^3/uL (4.0-11.0) Red Blood Count 1.71 x10^6/uL (4.30-5.70) Hemoglobin 6.7 g/dL (13.0-17.5) Hematocrit 20.7 % (39.0-53.0) Mean Corpuscular Volume 121 fL (79-100) Mean Corpuscular Hemoglobin 39 pg (25-35) Mean Corpuscular Hemoglobin Concent 32 g/dL (31-37) Red Cell Distribution Width 19.1 % (11.5-14.5) Platelet Count 78 x10^3/uL (140-400) Neutrophils (%) (Auto) 71 % (31-73) Lymphocytes (%) (Auto) 13 % (24-48) Monocytes (%) (Auto) 13 % (0-9) Eosinophils (%) (Auto) 3 % (0-3) Basophils (%) (Auto) 1 % (0-3) Neutrophils # (Auto) 8.0 x10^3/uL (1.8-7.7) Lymphocytes # (Auto) 1.5 x10^3/uL (1.0-4.8) Monocytes # (Auto) 1.4 x10^3/uL (0.0-1.1) Eosinophils # (Auto) 0.3 x10^3/uL (0.0-0.7) Basophils # (Auto) 0.1 x10^3/uL (0.0-0.2) O2 Saturation 96 % (92-99) Arterial Blood pH 7.29 (7.35-7.45) Arterial Blood pCO2 at Patient Temp 32 mmHg (35-46) Arterial Blood pO2 at Patient Temp 100 mmHg (75-108) Arterial Blood HCO3 15 mmol/L (21-28) Arterial Blood Base Excess -11 mmol/L (-3-3) FiO2 30% vent Laboratory Tests Test 04/13/21 12:53 04/13/21 17:14 04/13/21 23:28 04/14/21 05:30 Glucose (Fingerstick) 196 mg/dL (70-99) 175 mg/dL (70-99) 197 mg/dL (70-99) 176 mg/dL (70-99) Sodium Level 148 mmol/L (136-145) Potassium Level 4.9 mmol/L (3.5-5.1) Chloride Level 116 mmol/L (98-107) Carbon Dioxide Level 23 mmol/L (21-32) Anion Gap 9 (6-14) Blood Urea Nitrogen 109 mg/dL (8-26) Creatinine 1.6 mg/dL (0.7-1.3) Estimated GFR (Cockcroft-Gault) 45.8 Glucose Level 183 mg/dL (70-99) Calcium Level 10.0 mg/dL (8.5-10.1) Phosphorus Level 4.9 mg/dL (2.6-4.7) Magnesium Level 2.8 mg/dL (1.8-2.4) Albumin 2.5 g/dL (3.4-5.0) Test 04/14/21 06:00 04/14/21 08:00 White Blood Count 11.3 x10^3/uL (4.0-11.0) Red Blood Count 1.71 x10^6/uL (4.30-5.70) Hemoglobin 6.7 g/dL (13.0-17.5) Hematocrit 20.7 % (39.0-53.0) Mean Corpuscular Volume 121 fL (79-100) Mean Corpuscular Hemoglobin 39 pg (25-35) Mean Corpuscular Hemoglobin Concent 32 g/dL (31-37) Red Cell Distribution Width 19.1 % (11.5-14.5) Platelet Count 78 x10^3/uL (140-400) Neutrophils (%) (Auto) 71 % (31-73) Lymphocytes (%) (Auto) 13 % (24-48) Monocytes (%) (Auto) 13 % (0-9) Eosinophils (%) (Auto) 3 % (0-3) Basophils (%) (Auto) 1 % (0-3) Neutrophils # (Auto) 8.0 x10^3/uL (1.8-7.7) Lymphocytes # (Auto) 1.5 x10^3/uL (1.0-4.8) Monocytes # (Auto) 1.4 x10^3/uL (0.0-1.1) Eosinophils # (Auto) 0.3 x10^3/uL (0.0-0.7) Basophils # (Auto) 0.1 x10^3/uL (0.0-0.2) O2 Saturation 96 % (92-99) Arterial Blood pH 7.29 (7.35-7.45) Arterial Blood pCO2 at Patient Temp 32 mmHg (35-46) Arterial Blood pO2 at Patient Temp 100 mmHg (75-108) Arterial Blood HCO3 15 mmol/L (21-28) Arterial Blood Base Excess -11 mmol/L (-3-3) FiO2 30% vent Microbiology 04/06/21 Blood Culture - Final, Complete NO GROWTH AFTER 5 DAYS 04/05/21 Gram Stain - Final, Complete 04/05/21 Aerobic and Anaerobic Culture - Final, Complete Medications Current Medications Pantoprazole Sodium 80 mg/ Sodium Chloride 100 ml @ 10 mls/hr Q10H IV Last administered on 04/05/21at 04:56; Start 04/05/21 at 04:00; Stop 04/05/21 at 16:46; Status DC Sodium Chloride 500 ml @ 500 mls/hr 1X ONCE IV Last administered on 04/05/21at 05:31; Start 04/05/21 at 06:00; Stop 04/05/21 at 06:59; Status DC Piperacillin Sod/ Tazobactam Sod (Zosyn Per Pharmacy) 1 each PRN DAILY PRN MC SEE COMMENTS; Start 04/05/21 at 08:00 Piperacillin Sod/ Tazobactam Sod 3.375 gm/Sodium Chloride 50 ml @ 100 mls/hr Q6HRS IV Last administered on 04/05/21at 08:32; Start 04/05/21 at 08:00; Stop 04/05/21 at 10:49; Status DC Fentanyl Citrate (Fentanyl 2ml Vial) 25 mcg PRN Q5MIN PRN IVP MILD PAIN 1-3; Start 04/05/21 at 09:00; Stop 04/05/21 at 18:00; Status DC Fentanyl Citrate (Fentanyl 2ml Vial) 50 mcg PRN Q5MIN PRN IVP MODERATE PAIN 4- 6; Start 04/05/21 at 09:00; Stop 04/05/21 at 18:00; Status DC Morphine Sulfate (Morphine Sulfate) 1 mg PRN Q10MIN PRN IVP SEVERE PAIN 7-10 Last administered on 04/05/21at 15:35; Start 04/05/21 at 09:00; Stop 04/05/21 at 18:00; Status DC Ringer's Solution 1,000 ml @ 30 mls/hr Q24H IV ; Start 04/05/21 at 09:00; Stop 04/05/21 at 20:59; Status DC Hydromorphone HCl (Dilaudid) 0.5 mg PRN Q10MIN PRN IVP SEVERE PAIN 7-10, 2nd CHOICE; Start 04/05/21 at 09:00; Stop 04/05/21 at 18:00; Status DC Prochlorperazine Edisylate (Compazine) 5 mg PACU PRN PRN IVP NAUSEA, MRX1; Start 04/05/21 at 09:00; Stop 04/05/21 at 18:00; Status DC Etomidate (Amidate) 20 mg STK-MED ONCE IV ; Start 04/05/21 at 09:22; Stop 04/05/21 at 09:22; Status DC Dexamethasone Sodium Phosphate (Decadron) 4 mg STK-MED ONCE .ROUTE ; Start 04/05/21 at 09:22; Stop 04/05/21 at 09:22; Status DC Lidocaine HCl (Lidocaine Pf 2% Vial) 5 ml STK-MED ONCE .ROUTE ; Start 04/05/21 at 09:22; Stop 04/05/21 at 09:22; Status DC Ondansetron HCl (Zofran) 4 mg STK-MED ONCE .ROUTE ; Start 04/05/21 at 09:22; Stop 04/05/21 at 09:22; Status DC Rocuronium [place] (Zemuron) 50 mg STK-MED ONCE .ROUTE ; Start 04/05/21 at 09:22; Stop 04/05/21 at 09:22; Status DC Fentanyl Citrate (Fentanyl 2ml Vial) 100 mcg STK-MED ONCE .ROUTE ; Start 04/05/21 at 09:22; Stop 04/05/21 at 09:23; Status DC Phenylephrine HCl (Pavel-Synephrine Inj) 10 mg STK-MED ONCE .ROUTE ; Start 04/05/21 at 09:22; Stop 04/05/21 at 09:23; Status DC Sodium Chloride 1,000 ml @ 100 mls/hr Q10H IV Last administered on 04/06/21at 21:24; Start 04/05/21 at 10:45; Stop 04/07/21 at 13:34; Status DC Piperacillin Sod/ Tazobactam Sod 2.25 gm/Sodium Chloride 50 ml @ 100 mls/hr Q6HRS IV Last administered on 04/10/21at 05:39; Start 04/05/21 at 13:00; Stop 04/10/21 at 07:12; Status DC Bupivacaine HCl/ Epinephrine Bitart (Sensorcain-Epi 0.5%-1:[id number] Mpf) 30 ml STK-MED ONCE .ROUTE ; Start 04/05/21 at 11:34; Stop 04/05/21 at 11:34; Status DC Bupivacaine HCl/ Epinephrine Bitart (Sensorcain-Epi 0.5%-1:627769 Mpf) 30 ml STK-MED ONCE .ROUTE ; Start 04/05/21 at 11:54; Stop 04/05/21 at 11:54; Status DC Rocuronium [place] (Zemuron) 50 mg STK-MED ONCE .ROUTE ; Start 04/05/21 at 12:36; Stop 04/05/21 at 12:36; Status DC Lidocaine HCl (Lidocaine Pf 2% Vial) 5 ml STK-MED ONCE .ROUTE ; Start 04/05/21 at 12:58; Stop 04/05/21 at 12:59; Status DC Methylene Blue (Provayblue) 10 ml STK-MED ONCE .ROUTE ; Start 04/05/21 at 13:14; Stop 04/05/21 at 13:14; Status DC Glycopyrrolate (Robinul) 1 mg STK-MED ONCE .ROUTE ; Start 04/05/21 at 13:35; Stop 04/05/21 at 13:35; Status DC Neostigmine [place] (Neostigmine Methylsulfate) 5 mg STK-MED ONCE .ROUTE ; Start 04/05/21 at 13:36; Stop 04/05/21 at 13:36; Status DC Sevoflurane (Ultane) 90 ml STK-MED ONCE IH ; Start 04/05/21 at 14:07; Stop 04/05/21 at 14:07; Status DC Sodium Bicarbonate 150 meq/Dextrose 1,150 ml @ 100 mls/hr [id number] IV Last administered on 04/07/21at 03:21; Start 04/05/21 at 16:00; Stop 04/07/21 at 13:34; Status DC Sodium Bicarbonate (Sodium Bicarb Adult 8.4% Syr) 100 meq 1X ONCE IV Last administered on 04/05/21at 15:46; Start 04/05/21 at 15:45; Stop 04/05/21 at 15 :46; Status DC Midazolam HCl 100 ml @ 1 mls/hr CONT PRN IV SEE I/O RECORD Last administered on 04/14/21at 04:04; Start 04/05/21 at 16:00 Midazolam HCl (Versed) 5 mg 1X ONCE IV Last administered on 04/05/21at 15:46; Start 04/05/21 at 15:45; Stop 04/05/21 at 15:46; Status DC Fentanyl Citrate (Fentanyl 2ml Vial) 100 mcg PRN Q2HR PRN IVP PAIN Last administered on 04/06/21at 02:53; Start 04/05/21 at 15:45; Stop 04/06/21 at 08:25; Status DC Norepinephrine Bitartrate 8 mg/ Dextrose 258 ml @ 21.537 mls/ hr CONT PRN IV PER PROTOCOL Last administered on 04/13/21at 03:08; Start 04/05/21 at 16:15 Pantoprazole Sodium (PROTONIX VIAL for IV PUSH) 40 mg DAILYAC IVP Last administered on 04/13/21at 07:44; Start 04/06/21 at 07:30 Vasopressin 20 unit/Dextrose 101 ml @ 12 mls/hr CONT PRN IV SEE I/O RECORD Last administered on 04/14/21at 10:29; Start 04/06/21 at 08:30 Fentanyl Citrate 30 ml @ 0 mls/hr CONT PRN IV SEE PROTOCOL Last administered on 04/14/21at 01:50; Start 04/06/21 at 08:30 Info (Tpn Per Pharmacy) 1 each PRN DAILY PRN MC SEE COMMENTS Last administered on 04/13/21at 12:39; Start 04/06/21 at 09:30 Linezolid/Dextrose 300 ml @ 300 mls/hr Q12HR IV Last administered on 04/09/21at 20:57; Start 04/06/21 at 11:00; Stop 04/10/21 at 08:07; Status DC Micafungin Sodium 100 mg/Dextrose 100 ml @ 100 mls/hr Q24H IV Last administered on 04/09/21at 12:39; Start 04/06/21 at 12:00; Stop 04/10/21 at 08:07 ; Status DC Sodium Chloride 90 meq/Potassium Chloride 35 meq/ Magnesium Sulfate 10 meq/Calcium Gluconate 10 meq/ Multivitamins 5 ml/Zinc/Copper/ Manganese/ Selenium 1 ml/ Total Parenteral Nutrition/Amino Acids/Dextrose 1,512 ml @ 63 mls/hr TPN CONT IV Last administered on 04/06/21at 21:25; Start 04/06/21 at 22:00; Stop 04/07/21 at 21:59; Status DC Magnesium Sulfate 50 ml @ 25 mls/hr 1X ONCE IV Last administered on 04/07/21at 13:42; Start 04/07/21 at 13:00; Stop 04/07/21 at 14:59; Status DC Sodium Chloride 90 meq/Potassium Chloride 50 meq/ Magnesium Sulfate 12 meq/Calcium Gluconate 10 meq/ Multivitamins 5 ml/Zinc/Copper/ Manganese/ Selenium 1 ml/ Total Parenteral Nutrition/Amino Acids/Dextrose 1,512 ml @ 63 mls/hr TPN CONT IV Last administered on 04/07/21at 22:55; Start 04/07/21 at 22:00; Stop 04/08/21 at 21:59; Status DC Magnesium Sulfate 50 ml @ 25 mls/hr PRN DAILY PRN IV for Mag < 1.7 on am labs Last administered on 04/09/21at 08:52; Start 04/07/21 at 13:00 Albumin Human 100 ml @ 100 mls/hr TID IV Last administered on 04/09/21at 10:13; Start 04/07/21 at 14:00; Stop 04/09/21 at 09:59; Status DC Potassium Phosphate 10 mmol/ Sodium Chloride 103.3333 ml @ 51.667 m... Q2H IV Last administered on 04/08/21at 12:52; Start 04/08/21 at 09:00; Stop 04/08/21 at 13:00; Status DC Sodium Chloride 90 meq/Potassium Chloride 70 meq/ Magnesium Sulfate 15 meq/Calcium Gluconate 10 meq/ Multivitamins 5 ml/Zinc/Copper/ Manganese/ Selenium 1 ml/ Potassium Phosphate 10 mmol/ Total Parenteral Nutrition/Amino Acids/Dextrose 1,512 ml @ 63 mls/hr TPN CONT IV Last administered on 04/08/21at 22:08; Start 04/08/21 at 22:00; Stop 04/09/21 at 21:59; Status DC Multi-Ingred Cream/Lotion/Oil/ Oint (Artificial Tears Eye Ointment) 1 jennifer PRN Q1HR PRN OU DRY EYE Last administered on 04/08/21at 18:16; Start 04/08/21 at 15:30 Potassium Phosphate 10 mmol/ Sodium Chloride 103.3333 ml @ 51.667 m... Q2H IV Last administered on 04/09/21at 17:05; Start 04/09/21 at 14:00; Stop 04/09/21 at 17:59; Status DC Sodium Chloride 90 meq/Potassium Chloride 70 meq/ Magnesium Sulfate 20 meq/Calcium Gluconate 10 meq/ Multivitamins 5 ml/Zinc/Copper/ Manganese/ Selenium 1 ml/ Potassium Phosphate 18 mmol/ Total Parenteral Nutrition/Amino Acids/Dextrose 1,512 ml @ 63 mls/hr TPN CONT IV Last administered on 04/09/21at 22:18; Start 04/09/21 at 22:00; Stop 04/10/21 at 21:59; Status DC Piperacillin Sod/ Tazobactam Sod 3.375 gm/Sodium Chloride 50 ml @ 100 mls/hr Q6HRS IV Last administered on 04/14/21at 05:31; Start 04/10/21 at 12:00 Sodium Chloride 90 meq/Potassium Chloride 50 meq/ Magnesium Sulfate 18 meq/Calcium Gluconate 10 meq/ Multivitamins 5 ml/Zinc/Copper/ Manganese/ Selenium 1 ml/ Potassium Phosphate 18 mmol/ Total Parenteral Nutrition/Amino Acids/Dextrose/ Fat Emulsion Intravenous 1,512 ml @ 63 mls/hr TPN CONT IV Last administered on 04/10/21at 22:25; Start 04/10/21 at 22:00; Stop 04/11/21 at 21:59; Status DC Albumin Human 250 ml @ 62.5 mls/hr 1X ONCE IV Last administered on 04/10/21at 14:27; Start 04/10/21 at 13:30; Stop 04/10/21 at 17:29; Status DC Albumin Human 250 ml @ 62.5 mls/hr 1X ONCE IV Last administered on 04/10/21at 15:26; Start 04/10/21 at 13:30; Stop 04/10/21 at 17:29; Status DC Sodium Chloride 90 meq/Potassium Chloride 20 meq/ Potassium Phosphate 18 mmol/ Magnesium Sulfate 13 meq/Calcium Gluconate 10 meq/ Multivitamins 5 ml/Zinc/Copper/ Manganese/ Selenium 1 ml/ Total Parenteral Nutrition/Amino Acids/Dextrose/ Fat Emulsion Intravenous 1,512 ml @ 63 mls/hr TPN CONT IV Last administered on 04/11/21at 22:16; Start 04/11/21 at 22:00; Stop 04/12/21 at 21:59; Status DC Sodium Chloride 70 meq/Potassium Acetate 20 meq/ Potassium Phosphate 13.6 mmol/Magnesium Sulfate 8 meq/ Calcium Gluconate 10 meq/ Multivitamins 5 ml/Zinc/Copper/ Manganese/ Selenium 1 ml/ Total Parenteral Nutrition/Amino Ac ids/Dextrose/ Fat Emulsion Intravenous 1,512 ml @ 63 mls/hr TPN CONT IV Last administered on 04/12/21at 22:39; Start 04/12/21 at 22:00; Stop 04/13/21 at 21:59; Status DC Insulin Human Lispro (HumaLOG) 0-5 UNITS Q6HRS SQ Last administered on 04/14/21at 05:33; Start 04/12/21 at 18:00 Dextrose (Dextrose 50%-Water Syringe) 12.5 gm PRN Q15MIN PRN IV SEE COMMENTS; Start 04/12/21 at 17:45 Albumin Human 500 ml @ 125 mls/hr 1X ONCE IV Last administered on 04/13/21at 09:49; Start 04/13/21 at 09:30; Stop 04/13/21 at 13:29; Status DC Sodium Chloride 70 meq/Potassium Acetate 20 meq/ Potassium Phosphate 8 mmol/ Calcium Gluconate 10 meq/ Multivitamins 5 ml/Zinc/Copper/ Manganese/ Selenium 1 ml/ Total Parenteral Nutrition/Amino Acids/Dextrose/ Fat Emulsion Intravenous 1,512 ml @ 63 mls/hr TPN CONT IV Last administered on 04/13/21at 21:34; Start 04/13/21 at 22:00; Stop 04/14/21 at 21:59 Sodium Bicarbonate (Sodium Bicarb Adult 8.4% Syr) 100 meq 1X ONCE IV ; Start 04/14/21 at 09:30; Stop 5/22/21 at 09:31; Status DC Active Scripts Active Reported Proair Hfa Inhaler (Albuterol Sulfate) 8.5 Gm Hfa.aer.ad 2 Puff IH PRN Q4-6HRS PRN 21 Days Uloric (Febuxostat) 80 Mg Tablet 1 Tab PO DAILY 30 Days Losartan Potassium 100 Mg Tablet 100 Mg PO DAILY Folic Acid 1 Mg Tablet 1 Mg PO DAILY Amlodipine Besylate 10 Mg Tablet 10 Mg PO DAILY Losartan Potassium 100 Mg Tablet 100 Mg PO DAILY Colcrys (Colchicine) 0.6 Mg Tablet 0.6 Mg PO DAILY Uloric (Febuxostat) 40 Mg Tablet 1 Tab PO DAILY Vitals/I & O Vital Sign - Last 24 Hours 04/13/21 04/13/21 04/13/21 04/13/21 13:00 13:15 13:30 13:33 Pulse 94 94 94 Resp 16 B/P (MAP) 91/49 (63) 93/49 (64) 92/49 (63) Pulse Ox 98 99 O2 Delivery Ventilator Ventilator 04/13/21 04/13/21 04/13/21 04/13/21 13:45 13:59 14:00 14:30 Pulse 92 93 Resp 16 16 16 B/P (MAP) 90/49 (63) 90/45 (60) Pulse Ox 98 98 99 O2 Delivery Ventilator Ventilator Ventilator 04/13/21 04/13/21 04/13/21 04/13/21 15:00 15:46 15:58 16:00 Temp 98.2 98.2 Pulse 89 89 Resp 16 16 B/P (MAP) 90/47 (61) 85/45 (58) Pulse Ox 90 100 100 O2 Delivery Ventilator Ventilator Mechanical Ventilator Ventilator 04/13/21 04/13/21 04/13/21 04/13/21 17:00 18:00 18:16 19:00 Pulse 91 88 89 Resp 16 16 16 B/P (MAP) 91/46 (61) 85/44 (58) 82/43 (56) Pulse Ox 100 100 100 100 O2 Delivery Ventilator Ventilator Ventilator Ventilator 04/13/21 04/13/21 04/13/21 04/13/21 19:30 20:00 20:00 20:15 Pulse 86 Resp 16 B/P (MAP) 83/33 (50) 82/40 (54) Pulse Ox 100 100 O2 Delivery Mechanical Ventilator Ventilator Ventilator 04/13/21 04/13/21 04/13/21 04/14/21 21:00 22:00 23:00 00:00 Temp 98.3 98.3 Pulse 89 87 82 Resp 16 16 16 B/P (MAP) 93/46 (62) 100/49 (66) 112/56 (74) Pulse Ox 100 100 100 O2 Delivery Ventilator Ventilator Ventilator Mechanical Ventilator 04/14/21 04/14/21 04/14/21 04/14/21 00:00 00:00 01:00 01:15 Temp 97.7 97.7 Pulse 88 90 Resp 16 16 B/P (MAP) 100/47 (64) 107/52 (70) 109/50 (69) Pulse Ox 100 100 100 O2 Delivery Ventilator Ventilator Ventilator 04/14/21 04/14/21 04/14/21 04/14/21 01:50 02:22 02:30 03:00 Pulse 91 Resp 16 B/P (MAP) 101/49 (66) Pulse Ox 100 99 O2 Delivery Ventilator Ventilator Ventilator Ventilator 04/14/21 04/14/21 04/14/21 04/14/21 03:30 04:00 05:00 05:33 Temp 97.9 97.9 Pulse 88 92 Resp 16 16 B/P (MAP) 97/48 (64) 102/48 (66) Pulse Ox 99 98 100 O2 Delivery Mechanical Ventilator Ventilator Ventilator Ventilator 04/14/21 04/14/21 04/14/21 04/14/21 06:00 07:28 09:36 11:23 Pulse 81 Resp 16 B/P (MAP) 98/47 (64) Pulse Ox 97 97 98 98 O2 Delivery Ventilator Ventilator Ventilator Ventilator Intake and Output 04/13/21 04/13/21 04/14/21 15:00 23:00 07:00 Intake Total 608.49 ml 832.01 ml 1064 ml Output Total 540 ml 980 ml 995 ml Balance 68.49 ml -147.99 ml 69 ml Assessment Probable SBP. Plan of Care Note Continue support. Family to decide re: withdrawal of care next week. Justicifation of Admission Dx: Justifications for Admission: Justification of Admission Dx: Yes JOYA BURNETT MD April 14, 2021 12:10
[2021-04-14] MEDS: TPN PER PHARMACY MC PRN (12:27)
--- NOTE | 2021-04-14 15:50 | NUR ---
Pharmacy TPN Dosing Note S: ALEXANDREABHISHEK is a 50 year old M Currently receiving Central Continuous TPN started 04/06/21 B:Pertinent PMH: NPO- s/p ex lap Height: 5 feet, 11 inches Weight: 100.9 kg Current diet: NPO LABS: Sodium: 148 Potassium: 4.9 Chloride: 116 Calcium: 9.6 Corrected Calcium: 10.80 Magnesium: 2.8 CO2: 24 SCr: 1.1 Glucose: 180-214 Albumin: 2.5 AST: 158 (04/12) ALT: 78 (04/12) TPN FORMULA: TPN TYPE: Central Continuous AMINO ACIDS: 115 gm DEXTROSE: 225 gm LIPIDS: 20 gm SODIUM CHLORIDE: 50 mEq SODIUM ACETATE: -- mEq SODIUM PHOSPHATE: -- mmol POTASSIUM CHLORIDE: -- mEq POTASSIUM ACETATE: 20 mEq POTASSIUM PHOSPHATE: 4 mmol MAGNESIUM: -- mEq CALCIUM: 10 mEq INSULIN: -- units MULTIPLE VITAMIN: 5 ml TRACE ELEMENTS: 1 ml(s) TPN PLAN: decrease nacl 50 meq, phosphate to 4 mm R: Continue TPN AT 63ML/HR Will monitor electrolytes, glucose, and tolerance to TPN. CALE RIVERA [facility], 04/14/21 [id number]
[2021-04-14] MEDS ORDERED: DEXTROSE 70% IV SCH (22:00)
[2021-04-14] MEDS ORDERED: TOTAL PARENTERAL NUTRITION IV SCH (22:00)
[2021-04-14] MEDS ORDERED: AMINO ACID IV SCH (22:00)
[2021-04-14] MEDS ORDERED: [UNRECOGNIZED DRUG - OTHER] IV SCH (22:00)
[2021-04-15] VITALS (24 sets, daily range): BP systolic 86–118; BP diastolic 39–56
[2021-04-15] MEDS: VASOPRESSIN 20 UNIT in IV DEXTROSE 5% 100ML 100 ML IV PRN ×3 (03:14→21:55)
[2021-04-15] MEDS: PIPERACILLIN/TAZOBACTAM 3.375 GM in IV NORMAL SALINE 50ML 50 ML IV SCH ×2 (05:39→11:53)
[2021-04-15] MEDS: INSULIN LISPRO 300 UNITS/3 ML VIAL. SQ SCH ×2 (05:40→12:16)
[2021-04-15] MEDS: MIDAZOLAM 100mg/100ml NS BAG 100 ML IV PRN (06:04)
--- NOTE | 2021-04-15 06:07 | PDOC ---
Infectious Disease Note Subjective Subjective pt is sedated intubated on vent Vital Sign Vital Signs Vital Signs Date Time Temp Pulse Resp B/P (MAP) Pulse Ox O2 Delivery O2 Flow Rate FiO2 04/15/21 05:47 97 Ventilator 04/15/21 05:00 90 16 100/44 (62) 04/15/21 04:00 98.8 98.8 Physical Exam PHYSICAL EXAM GENERAL: Intubated and sedated. HEENT: Atraumatic. PERRL NECK: Right IJ clean. LUNGS: Decreased breath sounds at the bases, otherwise clear. No wheezing. HEART: S1, S2. ABDOMEN: Distended, laparoscopy dressing intact, not taken down. ROCIO drain in place. Bowel sounds hypoactive. : Hwang EXTREMITIES: No edema. Hyperpigmentation. GENITOURINARY: Hwang in place. No generalized rash except for above. PSYCHIATRIC: Unable to assess. The patient was alert, oriented x 3 prior to surgery. Labs Lab Laboratory Tests Test 04/14/21 08:00 04/14/21 18:51 04/14/21 23:25 04/15/21 05:38 O2 Saturation 96 % (92-99) Arterial Blood pH 7.29 (7.35-7.45) Arterial Blood pCO2 at Patient Temp 32 mmHg (35-46) Arterial Blood pO2 at Patient Temp 100 mmHg (75-108) Arterial Blood HCO3 15 mmol/L (21-28) Arterial Blood Base Excess -11 mmol/L (-3-3) FiO2 30% vent Glucose (Fingerstick) 207 mg/dL (70-99) 177 mg/dL (70-99) 183 mg/dL (70-99) Micro Microbiology 04/06/21 Blood Culture - Final, Complete NO GROWTH AFTER 5 DAYS 04/05/21 Gram Stain - Final, Complete 04/05/21 Aerobic and Anaerobic Culture - Final, Complete Objective Assessment 1. Severe sepsis. 2. Abdominal pain, nausea, vomiting. Pneumoperitoneum on CT, status post diagnostic laparoscopy, placement of abdominal drain. No evidence of perforated viscus. Findings were consistent with spontaneous bacterial peritonitis.04/05 3. Ascites and cirrhosis. 4. ETOH dependence. 5. Acute kidney injury with hyperkalemia. 6. Thrombocytopenia. 7. Coagulopathy. 8. Increased LFTs. 9. Postoperative intubation 30 % Fi02 and 5 PEEP Plan Plan of Care Consider placing PICC and D/c IJ (place 04/05) if aggressive measures are pursued cont zosyn, Anemia per primary cont supportive care family to decide on further coarse d/w RN LAURA STYLES MD April 15, 2021 06:07
[2021-04-15 06:50] LABS: MAGNESIUM 2.6 mg/dL (1.8-2.4); PHOSPHORUS 4.4 mg/dL (2.6-4.7)
[2021-04-15 06:52] LABS: ALBUMIN 2.4 g/dL (3.4-5.0); ALBUMIN/GLOBULIN RATIO 0.6 (1.0-1.7); CALCIUM 10.4 mg/dL (8.5-10.1); CREATININE 1.7 mg/dL (0.7-1.3); GFR 42.7; POTASSIUM 4.5 mmol/L (3.5-5.1); TOTAL BILIRUBIN 7.2 mg/dL (0.2-1.0); TOTAL PROTEIN 6.7 g/dL (6.4-8.2)
[2021-04-15 07:03] LABS: BASO # 0.3 x10^3/uL (0.0-0.2); BASO % 3 % (0-3); EOS # 0.3 x10^3/uL (0.0-0.7); EOS % 2 % (0-3); HEMATOCRIT 21.9 % (39.0-53.0); HEMOGLOBIN 7.1 g/dL (13.0-17.5); LYMPH # 2.2 x10^3/uL (1.0-4.8); LYMPH % 16 % (24-48); MEAN CORPUSCULAR HEMOGLOBIN 39 pg (25-35); MEAN CORPUSCULAR HGB CONC 32 g/dL (31-37); MEAN CORPUSCULAR VOLUME 120 fL (79-100); MONO # 2.4 x10^3/uL (0.0-1.1); MONO % 17 % (0-9); NEUT # 8.6 x10^3/uL (1.8-7.7); NEUT % 62 % (31-73); PLATELET COUNT 81 x10^3/uL (140-400); RED BLOOD COUNT 1.82 x10^6/uL (4.30-5.70); WHITE BLOOD COUNT 13.8 x10^3/uL (4.0-11.0)
--- NOTE | 2021-04-15 10:14 | PDOC ---
Renal-Progress Notes Subjective Notes Notes ON THE VENT History of Present Illness Hx of present illness STABLE Vitals Vitals Vital Signs Date Time Temp Pulse Resp B/P (MAP) Pulse Ox O2 Delivery O2 Flow Rate FiO2 04/15/21 09:19 97 Ventilator 04/15/21 06:00 90 16 109/46 (67) 04/15/21 04:00 98.8 98.8 Weight Weight [ ] I.O. Intake and Output Intake and Output 04/15/21 07:00 Intake Total 2317 ml Output Total 3535 ml Balance -1218 ml Intake Oral 0 ml IV Total 2317 ml Output Urine Total 2260 ml Gastric Drainage Total 400 ml Drainage Total 875 ml Labs Labs Laboratory Tests Test 04/14/21 18:51 04/14/21 23:25 04/15/21 05:38 04/15/21 06:00 Glucose (Fingerstick) 207 mg/dL (70-99) 177 mg/dL (70-99) 183 mg/dL (70-99) White Blood Count 13.8 x10^3/uL (4.0-11.0) Red Blood Count 1.82 x10^6/uL (4.30-5.70) Hemoglobin 7.1 g/dL (13.0-17.5) Hematocrit 21.9 % (39.0-53.0) Mean Corpuscular Volume 120 fL (79-100) Mean Corpuscular Hemoglobin 39 pg (25-35) Mean Corpuscular Hemoglobin Concent 32 g/dL (31-37) Red Cell Distribution Width 19.0 % (11.5-14.5) Platelet Count 81 x10^3/uL (140-400) Neutrophils (%) (Auto) 62 % (31-73) Lymphocytes (%) (Auto) 16 % (24-48) Monocytes (%) (Auto) 17 % (0-9) Eosinophils (%) (Auto) 2 % (0-3) Basophils (%) (Auto) 3 % (0-3) Neutrophils # (Auto) 8.6 x10^3/uL (1.8-7.7) Lymphocytes # (Auto) 2.2 x10^3/uL (1.0-4.8) Monocytes # (Auto) 2.4 x10^3/uL (0.0-1.1) Eosinophils # (Auto) 0.3 x10^3/uL (0.0-0.7) Basophils # (Auto) 0.3 x10^3/uL (0.0-0.2) Sodium Level 150 mmol/L (136-145) Potassium Level 4.5 mmol/L (3.5-5.1) Chloride Level 118 mmol/L (98-107) Carbon Dioxide Level 25 mmol/L (21-32) Anion Gap 7 (6-14) Blood Urea Nitrogen 133 mg/dL (8-26) Creatinine 1.7 mg/dL (0.7-1.3) Estimated GFR (Cockcroft-Gault) 42.7 BUN/Creatinine Ratio 78 (6-20) Glucose Level 183 mg/dL (70-99) Calcium Level 10.4 mg/dL (8.5-10.1) Phosphorus Level 4.4 mg/dL (2.6-4.7) Magnesium Level 2.6 mg/dL (1.8-2.4) Total Bilirubin 7.2 mg/dL (0.2-1.0) Aspartate Amino Transf (AST/SGOT) 161 U/L (15-37) Alanine Aminotransferase (ALT/SGPT) 90 U/L (16-63) Alkaline Phosphatase 86 U/L (46-116) Total Protein 6.7 g/dL (6.4-8.2) Albumin 2.4 g/dL (3.4-5.0) Albumin/Globulin Ratio 0.6 (1.0-1.7) Micro Micro Microbiology 04/06/21 Blood Culture - Final, Complete NO GROWTH AFTER 5 DAYS 04/05/21 Gram Stain - Final, Complete 04/05/21 Aerobic and Anaerobic Culture - Final, Complete Review of Systems Constitutional: yes: other (UNABLE TO OBTAIN) Physical Exam General Appearance: no apparent distress Skin: warm Respiratory: ventilator (Mode:A/C), decreased breath sounds Heart: S1S2 Abdomen: soft, other (HYPOACTIVE) Genitourinary: bladder flat, mcleod catheter Extremities: pulses present, no edema Musculoskeletal: Other Assessment Assessment MP EDDI-ATN-CR IMPROVED TO 1.7 FROM 3.5 MET ACIDOSIS-RESOLVED HYPERKALEMIA-RESOLVED MILD HYPERNATREMIA HYPOTENSION-STABLE PROB SEPSIS LEUCOCYTOSIS PNEUMOPERITONEUM S/P REPAIR AND PLACEMENT OF DRAIN PROB SBP ETOH ABUSE LIVER CIRRHOSIS COAGULOPATHY ANEMIA PLAN PRBC NEEDED ANTIBIOTICS PRESSORS NEEDED CONT TPN ADD FREE WATER HOLD HIS ARB SURGERY EVALUATION VENT SUPPORT WILL FOLLOW HERVE CHAVEZ MD April 15, 2021 10:14
[2021-04-15] MEDS: TPN PER PHARMACY MC PRN (10:27)
--- NOTE | 2021-04-15 10:27 | NUR ---
Pharmacy TPN Dosing Note S: ALEXANDREABHISHEK is a 50 year old M Currently receiving Central Continuous TPN started 04/06/21 B:Pertinent PMH: NPO- s/p ex lap Height: 5 feet, 11 inches Weight: 101.3 kg Current diet: NPO LABS: Sodium: 150 Potassium: 4.5 Chloride: 118 Calcium: 10.4 Corrected Calcium: 11.68 Magnesium: 2.6 CO2: 25 SCr: 1.7 Glucose: 183 Albumin: 2.4 AST: 161 ALT: 90 TPN FORMULA: TPN TYPE: Central Continuous AMINO ACIDS: 115 gm DEXTROSE: 225 gm LIPIDS: 20 gm SODIUM CHLORIDE: -- mEq SODIUM ACETATE: -- mEq SODIUM PHOSPHATE: -- mmol POTASSIUM CHLORIDE: -- mEq POTASSIUM ACETATE: 20 mEq POTASSIUM PHOSPHATE: 4 mmol MAGNESIUM: -- mEq CALCIUM: 5 mEq INSULIN: -- units MULTIPLE VITAMIN: 5 ml TRACE ELEMENTS: 1 ml(s) TPN PLAN: Sodium elevated- renal started D5W@75ml/hr; will remove NaCl from TPN Corrected Ca elevated- reduce to 5meq calcium gluconate Labs in the am R: Continue TPN as written above. Will monitor electrolytes, glucose, and tolerance to TPN. PAIGE RUBIO FORMERLY [facility] [place], 04/15/21 [id number]
[2021-04-15] MEDS: IV DEXTROSE 5% 1,000 ML IV SCH ×2 (10:30→23:50)
--- NOTE | 2021-04-15 10:30 | PDOC ---
PULMONARY PROGRESS NOTES DATE: 04/15/21 TIME: 10:28 Subjective Patient remains on ventilatory support Sedated with Versed and fentanyl Continues on vasopressor medications: on vasopressin and Levophed Nursing reports increased abdominal firmness and increased drainage from abdominal drains worsening LFT/ anemia Vitals Vital Signs Date Time Temp Pulse Resp B/P (MAP) Pulse Ox O2 Delivery O2 Flow Rate FiO2 04/15/21 09:19 97 Ventilator 04/15/21 06:00 90 16 109/46 (67) 04/15/21 04:00 98.8 98.8 Comments on vent sedated not able to obtain ros HEENT: Other (Orally intubated) Lungs: Crackles Cardiovascular: S1, S2 Abdomen: Non-tender, Other (Firm) Extremities: Other (edema ) Skin: Warm Labs Laboratory Tests Test 04/13/21 12:53 04/13/21 17:14 04/13/21 23:28 04/14/21 05:30 Glucose (Fingerstick) 196 mg/dL (70-99) 175 mg/dL (70-99) 197 mg/dL (70-99) 176 mg/dL (70-99) Sodium Level 148 mmol/L (136-145) Potassium Level 4.9 mmol/L (3.5-5.1) Chloride Level 116 mmol/L (98-107) Carbon Dioxide Level 23 mmol/L (21-32) Anion Gap 9 (6-14) Blood Urea Nitrogen 109 mg/dL (8-26) Creatinine 1.6 mg/dL (0.7-1.3) Estimated GFR (Cockcroft-Gault) 45.8 Glucose Level 183 mg/dL (70-99) Calcium Level 10.0 mg/dL (8.5-10.1) Phosphorus Level 4.9 mg/dL (2.6-4.7) Magnesium Level 2.8 mg/dL (1.8-2.4) Albumin 2.5 g/dL (3.4-5.0) Test 04/14/21 06:00 04/14/21 08:00 04/14/21 18:51 04/14/21 23:25 White Blood Count 11.3 x10^3/uL (4.0-11.0) Red Blood Count 1.71 x10^6/uL (4.30-5.70) Hemoglobin 6.7 g/dL (13.0-17.5) Hematocrit 20.7 % (39.0-53.0) Mean Corpuscular Volume 121 fL (79-100) Mean Corpuscular Hemoglobin 39 pg (25-35) Mean Corpuscular Hemoglobin Concent 32 g/dL (31-37) Red Cell Distribution Width 19.1 % (11.5-14.5) Platelet Count 78 x10^3/uL (140-400) Neutrophils (%) (Auto) 71 % (31-73) Lymphocytes (%) (Auto) 13 % (24-48) Monocytes (%) (Auto) 13 % (0-9) Eosinophils (%) (Auto) 3 % (0-3) Basophils (%) (Auto) 1 % (0-3) Neutrophils # (Auto) 8.0 x10^3/uL (1.8-7.7) Lymphocytes # (Auto) 1.5 x10^3/uL (1.0-4.8) Monocytes # (Auto) 1.4 x10^3/uL (0.0-1.1) Eosinophils # (Auto) 0.3 x10^3/uL (0.0-0.7) Basophils # (Auto) 0.1 x10^3/uL (0.0-0.2) O2 Saturation 96 % (92-99) Arterial Blood pH 7.29 (7.35-7.45) Arterial Blood pCO2 at Patient Temp 32 mmHg (35-46) Arterial Blood pO2 at Patient Temp 100 mmHg (75-108) Arterial Blood HCO3 15 mmol/L (21-28) Arterial Blood Base Excess -11 mmol/L (-3-3) FiO2 30% vent Glucose (Fingerstick) 207 mg/dL (70-99) 177 mg/dL (70-99) Test 04/15/21 05:38 04/15/21 06:00 Glucose (Fingerstick) 183 mg/dL (70-99) White Blood Count 13.8 x10^3/uL (4.0-11.0) Red Blood Count 1.82 x10^6/uL (4.30-5.70) Hemoglobin 7.1 g/dL (13.0-17.5) Hematocrit 21.9 % (39.0-53.0) Mean Corpuscular Volume 120 fL (79-100) Mean Corpuscular Hemoglobin 39 pg (25-35) Mean Corpuscular Hemoglobin Concent 32 g/dL (31-37) Red Cell Distribution Width 19.0 % (11.5-14.5) Platelet Count 81 x10^3/uL (140-400) Neutrophils (%) (Auto) 62 % (31-73) Lymphocytes (%) (Auto) 16 % (24-48) Monocytes (%) (Auto) 17 % (0-9) Eosinophils (%) (Auto) 2 % (0-3) Basophils (%) (Auto) 3 % (0-3) Neutrophils # (Auto) 8.6 x10^3/uL (1.8-7.7) Lymphocytes # (Auto) 2.2 x10^3/uL (1.0-4.8) Monocytes # (Auto) 2.4 x10^3/uL (0.0-1.1) Eosinophils # (Auto) 0.3 x10^3/uL (0.0-0.7) Basophils # (Auto) 0.3 x10^3/uL (0.0-0.2) Sodium Level 150 mmol/L (136-145) Potassium Level 4.5 mmol/L (3.5-5.1) Chloride Level 118 mmol/L (98-107) Carbon Dioxide Level 25 mmol/L (21-32) Anion Gap 7 (6-14) Blood Urea Nitrogen 133 mg/dL (8-26) Creatinine 1.7 mg/dL (0.7-1.3) Estimated GFR (Cockcroft-Gault) 42.7 BUN/Creatinine Ratio 78 (6-20) Glucose Level 183 mg/dL (70-99) Calcium Level 10.4 mg/dL (8.5-10.1) Phosphorus Level 4.4 mg/dL (2.6-4.7) Magnesium Level 2.6 mg/dL (1.8-2.4) Total Bilirubin 7.2 mg/dL (0.2-1.0) Aspartate Amino Transf (AST/SGOT) 161 U/L (15-37) Alanine Aminotransferase (ALT/SGPT) 90 U/L (16-63) Alkaline Phosphatase 86 U/L (46-116) Total Protein 6.7 g/dL (6.4-8.2) Albumin 2.4 g/dL (3.4-5.0) Albumin/Globulin Ratio 0.6 (1.0-1.7) Laboratory Tests Test 04/14/21 18:51 04/14/21 23:25 04/15/21 05:38 04/15/21 06:00 Glucose (Fingerstick) 207 mg/dL (70-99) 177 mg/dL (70-99) 183 mg/dL (70-99) White Blood Count 13.8 x10^3/uL (4.0-11.0) Red Blood Count 1.82 x10^6/uL (4.30-5.70) Hemoglobin 7.1 g/dL (13.0-17.5) Hematocrit 21.9 % (39.0-53.0) Mean Corpuscular Volume 120 fL (79-100) Mean Corpuscular Hemoglobin 39 pg (25-35) Mean Corpuscular Hemoglobin Concent 32 g/dL (31-37) Red Cell Distribution Width 19.0 % (11.5-14.5) Platelet Count 81 x10^3/uL (140-400) Neutrophils (%) (Auto) 62 % (31-73) Lymphocytes (%) (Auto) 16 % (24-48) Monocytes (%) (Auto) 17 % (0-9) Eosinophils (%) (Auto) 2 % (0-3) Basophils (%) (Auto) 3 % (0-3) Neutrophils # (Auto) 8.6 x10^3/uL (1.8-7.7) Lymphocytes # (Auto) 2.2 x10^3/uL (1.0-4.8) Monocytes # (Auto) 2.4 x10^3/uL (0.0-1.1) Eosinophils # (Auto) 0.3 x10^3/uL (0.0-0.7) Basophils # (Auto) 0.3 x10^3/uL (0.0-0.2) Sodium Level 150 mmol/L (136-145) Potassium Level 4.5 mmol/L (3.5-5.1) Chloride Level 118 mmol/L (98-107) Carbon Dioxide Level 25 mmol/L (21-32) Anion Gap 7 (6-14) Blood Urea Nitrogen 133 mg/dL (8-26) Creatinine 1.7 mg/dL (0.7-1.3) Estimated GFR (Cockcroft-Gault) 42.7 BUN/Creatinine Ratio 78 (6-20) Glucose Level 183 mg/dL (70-99) Calcium Level 10.4 mg/dL (8.5-10.1) Phosphorus Level 4.4 mg/dL (2.6-4.7) Magnesium Level 2.6 mg/dL (1.8-2.4) Total Bilirubin 7.2 mg/dL (0.2-1.0) Aspartate Amino Transf (AST/SGOT) 161 U/L (15-37) Alanine Aminotransferase (ALT/SGPT) 90 U/L (16-63) Alkaline Phosphatase 86 U/L (46-116) Total Protein 6.7 g/dL (6.4-8.2) Albumin 2.4 g/dL (3.4-5.0) Albumin/Globulin Ratio 0.6 (1.0-1.7) Medications Active Scripts Medications Dose Route/Sig Max Daily Dose Days Date Category Proair Hfa Inhaler (Albuterol Sulfate) 8.5 Gm Hfa.aer.ad 2 Puff IH PRN Q4-6HRS PRN 21 04/05/21 Reported Uloric (Febuxostat) 80 Mg Tablet 1 Tab PO DAILY 30 04/05/21 Reported Losartan Potassium 100 Mg Tablet 100 Mg PO DAILY 04/05/21 Reported Folic Acid 1 Mg Tablet 1 Mg PO DAILY 08/05/16 Reported Amlodipine Besylate 10 Mg Tablet 10 Mg PO DAILY 08/05/16 Reported Losartan Potassium 100 Mg Tablet 100 Mg PO DAILY 08/05/16 Reported Colcrys (Colchicine) 0.6 Mg Tablet 0.6 Mg PO DAILY 08/05/16 Reported Uloric (Febuxostat) 40 Mg Tablet 1 Tab PO DAILY 08/05/16 Reported Comments CXR IMPRESSION: 1. Bilateral infrahilar linear atelectasis or interstitial infiltrate. 2. Support lines and tubes, described above. Impression . IMPRESSION: 1. Acute hypoxic respiratory failure secondary to septic shock. 2. Septic shock secondary to spontaneous bacterial peritonitis in a patient who has alcoholism and cirrhosis along with ascites. s/p Diagnostic laparoscopy, culture abdominal fluid, placement of abdominal drain 04/05 3. Acute kidney injury. 4. Lactic acidosis secondary to septic shock, now improved. 5. History of tobaccoism. ? copd 6. History of alcoholism. 7. Cirrhosis secondary to alcoholism. 8. Coagulopathy secondary to cirrhosis. 9. COVID negative. 10. Worsening LFT 11. anemia Plan . updated 04/15/21 Continue current vent support, 16/500/5/35% Nebs Follow chest x-ray/ABG--no changes Continue vasopressors to keep MAP greater than 60--remains on Levophed and vasopressin Follow GI recommendations, monitor hemoglobin, transfuse as needed Follow nephrology recommendations Follow surgery recommendations--- status post diagnostic laparoscopic, follow abdominal cultures, continue drain to abdomen placed on 04/05 Continue antibiotics per infectious disease Continue TPN for nutritional support DVT/GI prophylaxis Discussed with RN and RT Family withdraw care by Friday if there is no clinical improvement. I concur with them. Patient with worsening multi system organ failure, unlikely to survive. Rec comfort care Friday updated 04/14/21 Continue current vent support, 16/500/5/35% Nebs Follow chest x-ray/ABG--no changes Continue vasopressors to keep MAP greater than 60--remains on Levophed and vasopressin Follow GI recommendations, monitor hemoglobin, transfuse as needed Follow nephrology recommendations Follow surgery recommendations--- status post diagnostic laparoscopic, follow abdominal cultures, continue drain to abdomen placed on 04/05 Continue antibiotics per infectious disease Continue TPN for nutritional support DVT/GI prophylaxis Discussed with RN and RT Family withdraw care by Friday if there is no clinical improvement. I concur with them. Patient with worsening multi system organ failure, unlikely to survive. Rec comfort care Friday updated 04/12/21 updated 04/13/21 Continue current vent support, 16/500/5/35% Nebs Follow chest x-ray/ABG--no changes Continue vasopressors to keep MAP greater than 60--remains on Levophed and vasopressin Follow GI recommendations, monitor hemoglobin, transfuse as needed Follow nephrology recommendations Follow surgery recommendations--- status post diagnostic laparoscopic, follow abdominal cultures, continue drain to abdomen placed on 04/05 Continue antibiotics per infectious disease Continue TPN for nutritional support DVT/GI prophylaxis Discussed with RN and RT Another discussion with family04/12. Both the daughters were present. They want to withdraw care by Friday if there is no clinical improvement. I concur with them. updated 04/12/21 Continue current vent support, 16/500/5/35% Nebs Follow chest x-ray/ABG--no changes Continue vasopressors to keep MAP greater than 65--remains on Levophed and vasopressin Follow GI recommendations, monitor hemoglobin, transfuse as needed Follow nephrology recommendations Follow surgery recommendations--- status post diagnostic laparoscopic, follow abdominal cultures, continue drain to abdomen placed on 04/05 Continue antibiotics per infectious disease Continue TPN for nutritional support DVT/GI prophylaxis Discussed with RN and RT I did long discussion with the patient's daughter at the bedside 04/11. Knowing patient's wishes she does not want to prolong current aggressive care if prognosis remains grim. The family is leaning towards comfort care if he does not make any clinical improvement. We will continue to review patient's clin ical status. In the meantime if patient has any cardiac arrest we will not do CPR. Patient will be DNR. Another discussion with family today. Both the daughters were present. They want to withdraw care by Friday if there is no clinical improvement. I concur with them. Critical care time 30 minutes updated 04/11/21 Continue current vent support, 16/500/5/35% Nebs Follow chest x-ray/ABG--no changes Continue vasopressors to keep MAP greater than 65--remains on Levophed and vasopressin Follow GI recommendations, monitor hemoglobin, transfuse as needed Follow nephrology recommendations Follow surgery recommendations--- status post diagnostic laparoscopic, follow abdominal cultures, continue drain to abdomen placed on 04/05 Continue antibiotics per infectious disease Continue TPN for nutritional support DVT/GI prophylaxis Discussed with RN and RT I do long discussion with the patient's daughter at the bedside. Knowing patient's wishes she does not want to prolong current aggressive care if prognosis remains grim. The family is leaning towards comfort care if he does not make any clinical improvement. We will continue to review patient's clinical status. In the meantime if patient has any cardiac arrest we will not do CPR. Patient will be DNR. Critical care time 30 minutes updated 04/09/21 Continue current vent support, 16/500/5/35% Nebs Follow chest x-ray/ABG--no changes Continue vasopressors to keep MAP greater than 65 Follow GI recommendations, monitor hemoglobin, transfuse as needed Follow nephrology recommendations Follow surgery recommendations--- status post diagnostic laparoscopic, follow abdominal cultures, continue drain to abdomen placed on 04/05 Continue antibiotics per infectious disease Continue TPN for nutritional support DVT/GI prophylaxis Discussed with RN and RT Critical care time 30 minutes updated 04/08 1. cont vent support setting reviewed, still on 2 pressors, not stable for sbt. abg reviewed no vent change 2. cont pressors to keep map 65 3. protonix for stress ulcer prophylaxis. 4. Broad spectrum antibiotics per infectious disease recommendation. 5. Monitor renal function. Follow renal recommendations. 6. TPN per Nephrology. 7. Follow all cultures. neg so far 8. Follow Surgery recommendations. 9. bicarbonate drip stopped by nephro. 10. Discussed with RN RECOMMENDATIONS: 1. cont vent support setting reviewed, not stable for sbt. We will make necessary adjustment based on ABGs. 2. cont pressors to keep map 65 3. protonix for stress ulcer prophylaxis. 4. Broad spectrum antibiotics per infectious disease recommendation. 5. Monitor renal function. Follow renal recommendations. 6. TPN per Nephrology. 7. Follow all cultures. 8. Follow Surgery recommendations. 9. bicarbonate drip per nephro. 10. Discussed with RN ISRRAEL WALTERS MD April 15, 2021 10:30
--- NOTE | 2021-04-15 11:08 | PDOC ---
GENERAL General: Patient examined chart reviewed discussed with nursing. Patient not improving despite maximal critical care support. We appreciate subspecialty support. It sounds like plan is for terminal extubation tomorrow. Conversations with the patient's family are outlined on several occasions in the critical care note from last week. Continue current management at this point otherwise. We will discontinue blood draws however his hemoglobin is stable this morning though low at 7.1. Problems: (1) Bowel perforation (2) Severe sepsis (3) Cirrhosis VITAL SIGNS Vital Signs/I&O: Vital Signs Date Time Temp Pulse Resp B/P (MAP) Pulse Ox O2 Delivery O2 Flow Rate FiO2 04/15/21 09:19 97 Ventilator 04/15/21 06:00 90 16 109/46 (67) 04/15/21 04:00 98.8 98.8 I & O 04/14/21 04/14/21 04/15/21 15:00 23:00 07:00 Intake Total 100 ml 2217 ml Output Total 900 ml 1655 ml 980 ml Balance -900 ml -1555 ml 1237 ml Patient is intubated and sedated on the ventilator does not respond on exam Chest clear to auscultation anteriorly Heart S1-S2 normal regular rate and rhythm no murmurs or gallops are noted Abdomen less induration than yesterday soft nondistended bowel sounds are absent. He has clear yellow fluid from his abdominal drain Extremity exam is unremarkable for acute abnormality ALLERGIES Allergies: Allergies Coded Allergies Type Severity Reaction Last Updated Verified No Known Drug Allergies 05/31/16 No MEDS Medications: Current Medications Medications (Trade) Dose Ordered Sig/Ada Start Time Stop Time Status Last Admin Dose Admin Albumin Human 500 ml @ 125 mls/hr 1X ONCE 04/13/21 09:30 04/13/21 13:29 DC 04/13/21 09:49 Bupivacaine HCl/ Epinephrine Bitart (Sensorcain-Epi 0.5%-1:[id number] Mpf) 30 ml STK-MED ONCE 04/05/21 11:54 04/05/21 11:54 DC Dexamethasone Sodium Phosphate (Decadron) 4 mg STK-MED ONCE 04/05/21 09:22 04/05/21 09:22 DC Dextrose 1,000 ml @ 75 mls/hr [id number] 04/15/21 10:30 Dextrose (Dextrose 50%-Water Syringe) 12.5 gm PRN Q15MIN PRN 04/12/21 17:45 Etomidate (Amidate) 20 mg STK-MED ONCE 04/05/21 09:22 04/05/21 09:22 DC Fentanyl Citrate 30 ml @ 0 mls/hr CONT PRN 04/06/21 08:30 04/15/21 00:59 Fentanyl Citrate (Fentanyl 2ml Vial) 100 mcg PRN Q2HR PRN 04/05/21 15:45 04/06/21 08:25 DC 04/06/21 02:53 Glycopyrrolate (Robinul) 1 mg STK-MED ONCE 04/05/21 13:35 04/05/21 13:35 DC Hydromorphone HCl (Dilaudid) 0.5 mg PRN Q10MIN PRN 04/05/21 09:00 04/05/21 18:00 DC Info (Tpn Per Pharmacy) 1 each PRN DAILY PRN 04/06/21 09:30 04/15/21 10:27 Insulin Human Lispro (HumaLOG) 0-5 UNITS Q6HRS 04/12/21 18:00 04/15/21 05:40 Lidocaine HCl (Lidocaine Pf 2% Vial) 5 ml STK-MED ONCE 04/05/21 12:58 04/05/21 12:59 DC Linezolid/Dextrose 300 ml @ 300 mls/hr Q12HR 04/06/21 11:00 04/10/21 08:07 DC 04/09/21 20:57 Magnesium Sulfate 50 ml @ 25 mls/hr PRN DAILY PRN 04/07/21 13:00 04/09/21 08:52 Methylene Blue (Provayblue) 10 ml STK-MED ONCE 04/05/21 13:14 04/05/21 13:14 DC Micafungin Sodium 100 mg/Dextrose 100 ml @ 100 mls/hr Q24H 04/06/21 12:00 04/10/21 08:07 DC 04/09/21 12:39 Midazolam HCl (Versed) 5 mg 1X ONCE 04/05/21 15:45 04/05/21 15:46 DC 04/05/21 15:46 Morphine Sulfate (Morphine Sulfate) 1 mg PRN Q10MIN PRN 04/05/21 09:00 04/05/21 18:00 DC 04/05/21 15:35 Multi-Ingred Cream/Lotion/Oil/ Oint (Artificial Tears Eye Ointment) 1 jennifer PRN Q1HR PRN 04/08/21 15:30 04/08/21 18:16 Neostigmine [place] (Neostigmine Methylsulfate) 5 mg STK-MED ONCE 04/05/21 13:36 04/05/21 13:36 DC Norepinephrine Bitartrate 8 mg/ Dextrose 258 ml @ 21.537 mls/ hr CONT PRN 04/05/21 16:15 04/13/21 03:08 Ondansetron HCl (Zofran) 4 mg STK-MED ONCE 04/05/21 09:22 04/05/21 09:22 DC Pantoprazole Sodium (PROTONIX VIAL for IV PUSH) 40 mg DAILYAC 04/06/21 07:30 04/14/21 07:30 Pantoprazole Sodium 80 mg/ Sodium Chloride 100 ml @ 10 mls/hr Q10H 04/05/21 04:00 04/05/21 16:46 DC 04/05/21 04:56 Phenylephrine HCl (Pavel-Synephrine Inj) 10 mg STK-MED ONCE 04/05/21 09:22 04/05/21 09:23 DC Piperacillin Sod/ Tazobactam Sod (Zosyn Per Pharmacy) 1 each PRN DAILY PRN 04/05/21 08:00 Piperacillin Sod/ Tazobactam Sod 2.25 gm/Sodium Chloride 50 ml @ 100 mls/hr Q6HRS 04/05/21 13:00 04/10/21 07:12 DC 04/10/21 05:39 Piperacillin Sod/ Tazobactam Sod 3.375 gm/Sodium Chloride 50 ml @ 100 mls/hr Q6HRS 04/10/21 12:00 04/15/21 05:39 Potassium Phosphate 10 mmol/ Sodium Chloride 103.3333 ml @ 51.667 m... Q2H 04/09/21 14:00 04/09/21 17:59 DC 04/09/21 17:05 Potassium Acetate 20 meq/Potassium Phosphate 4 mmol/ Calcium Gluconate 5 meq/ Multivitamins 5 ml/Zinc/Copper/ Manganese/ Selenium 1 ml/ Total Parenteral Nutrition/Amino Acids/Dextrose/ Fat Emulsion Intravenous 1,512 ml @ 63 mls/hr TPN CONT 04/15/21 22:00 04/16/21 21:59 Prochlorperazine Edisylate (Compazine) 5 mg PACU PRN PRN 04/05/21 09:00 04/05/21 18:00 DC Ringer's Solution 1,000 ml @ 30 mls/hr Q24H 04/05/21 09:00 04/05/21 20:59 DC Rocuronium [place] (Zemuron) 50 mg STK-MED ONCE 04/05/21 12:36 04/05/21 12:36 DC Sevoflurane (Ultane) 90 ml STK-MED ONCE 04/05/21 14:07 04/05/21 14:07 DC Sodium Bicarbonate 150 meq/Dextrose 1,150 ml @ 100 mls/hr [id number] 04/05/21 16:00 04/07/21 13:34 DC 04/07/21 03:21 Sodium Bicarbonate (Sodium Bicarb Adult 8.4% Syr) 100 meq 1X ONCE 04/14/21 09:30 04/14/21 09:31 DC 04/14/21 19:41 Sodium Chloride 50 meq/Potassium Acetate 20 meq/ Potassium Phosphate 4 mmol/ Calcium Gluconate 10 meq/ Multivitamins 5 ml/Zinc/Copper/ Manganese/ Selenium 1 ml/ Total Parenteral Nutrition/Amino Acids/Dextrose/ Fat Emulsion Intravenous 1,512 ml @ 63 mls/hr TPN CONT 04/14/21 22:00 04/15/21 21:59 04/14/21 21:50 Sodium Chloride 70 meq/Potassium Acetate 20 meq/ Potassium Phosphate 13.6 mmol/Magnesium Sulfate 8 meq/ Calcium Gluconate 10 meq/ Multivitamins 5 ml/Zinc/Copper/ Manganese/ Selenium 1 ml/ Total Parenteral Nutrition/Amino Acids/Dextrose/ Fat Emulsion Intravenous 1,512 ml @ 63 mls/hr TPN CONT 04/12/21 22:00 04/13/21 21:59 DC 04/12/21 22:39 Sodium Chloride 70 meq/Potassium Acetate 20 meq/ Potassium Phosphate 8 mmol/ Calcium Gluconate 10 meq/ Multivitamins 5 ml/Zinc/Copper/ Manganese/ Selenium 1 ml/ Total Parenteral Nutrition/Amino Acids/Dextrose/ Fat Emulsion Intravenous 1,512 ml @ 63 mls/hr TPN CONT 04/13/21 22:00 04/14/21 21:59 DC 04/13/21 21:34 Sodium Chloride 90 meq/Potassium Chloride 20 meq/ Potassium Phosphate 18 mmol/ Magnesium Sulfate 13 meq/Calcium Gluconate 10 meq/ Multivitamins 5 ml/Zinc/Copper/ Manganese/ Selenium 1 ml/ Total Parenteral Nutrition/Amino Acids/Dextrose/ Fat Emulsion Intravenous 1,512 ml @ 63 mls/hr TPN CONT 04/11/21 22:00 04/12/21 21:59 DC 04/11/21 22:16 Sodium Chloride 90 meq/Potassium Chloride 35 meq/ Magnesium Sulfate 10 meq/Calcium Gluconate 10 meq/ Multivitamins 5 ml/Zinc/Copper/ Manganese/ Selenium 1 ml/ Total Parenteral Nutrition/Amino Acids/Dextrose 1,512 ml @ 63 mls/hr TPN CONT 04/06/21 22:00 04/07/21 21:59 DC 04/06/21 21:25 Sodium Chloride 90 meq/Potassium Chloride 50 meq/ Magnesium Sulfate 12 meq/Calcium Gluconate 10 meq/ Multivitamins 5 ml/Zinc/Copper/ Manganese/ Selenium 1 ml/ Total Parenteral Nutrition/Amino Acids/Dextrose 1,512 ml @ 63 mls/hr TPN CONT 04/07/21 22:00 04/08/21 21:59 DC 04/07/21 22:55 Sodium Chloride 90 meq/Potassium Chloride 50 meq/ Magnesium Sulfate 18 meq/Calcium Gluconate 10 meq/ Multivitamins 5 ml/Zinc/Copper/ Manganese/ Selenium 1 ml/ Potassium Phosphate 18 mmol/ Total Parenteral Nutrition/Amino Acids/Dextrose/ Fat Emulsion Intravenous 1,512 ml @ 63 mls/hr TPN CONT 04/10/21 22:00 04/11/21 21:59 DC 04/10/21 22:25 Sodium Chloride 90 meq/Potassium Chloride 70 meq/ Magnesium Sulfate 15 meq/Calcium Gluconate 10 meq/ Multivitamins 5 ml/Zinc/Copper/ Manganese/ Selenium 1 ml/ Potassium Phosphate 10 mmol/ Total Parenteral Nutrition/Amino Acids/Dextrose 1,512 ml @ 63 mls/hr TPN CONT 04/08/21 22:00 04/09/21 21:59 DC 04/08/21 22:08 Sodium Chloride 90 meq/Potassium Chloride 70 meq/ Magnesium Sulfate 20 meq/Calcium Gluconate 10 meq/ Multivitamins 5 ml/Zinc/Copper/ Manganese/ Selenium 1 ml/ Potassium Phosphate 18 mmol/ Total Parenteral Nutrition/Amino Acids/Dextrose 1,512 ml @ 63 mls/hr TPN CONT 04/09/21 22:00 04/10/21 21:59 DC 04/09/21 22:18 Vasopressin 20 unit/Dextrose 101 ml @ 12 mls/hr CONT PRN 04/06/21 08:30 04/15/21 03:14 Current Medications Medications (Trade) Dose Ordered Sig/Ada Route PRN Reason Start Time Stop Time Status Last Admin Dose Admin Sodium Chloride 50 meq/Potassium Acetate 20 meq/ Potassium Phosphate 4 mmol/ Calcium Gluconate 10 meq/ Multivitamins 5 ml/Zinc/Copper/ Manganese/ Selenium 1 ml/ Total Parenteral Nutrition/Amino Acids/Dextrose/ Fat Emulsion Intravenous 1,512 ml @ 63 mls/hr TPN CONT IV 04/14/21 22:00 04/15/21 21:59 04/14/21 21:50 LAB Lab: Laboratory Tests Test 04/14/21 18:51 04/14/21 23:25 04/15/21 05:38 04/15/21 06:00 Glucose (Fingerstick) 207 mg/dL (70-99) H 177 mg/dL (70-99) H 183 mg/dL (70-99) H White Blood Count 13.8 x10^3/uL (4.0-11.0) H Red Blood Count 1.82 x10^6/uL (4.30-5.70) L Hemoglobin 7.1 g/dL (13.0-17.5) L Hematocrit 21.9 % (39.0-53.0) L Mean Corpuscular Volume 120 fL (79-100) H Mean Corpuscular Hemoglobin 39 pg (25-35) H Mean Corpuscular Hemoglobin Concent 32 g/dL (31-37) Red Cell Distribution Width 19.0 % (11.5-14.5) H Platelet Count 81 x10^3/uL (140-400) L Neutrophils (%) (Auto) 62 % (31-73) Lymphocytes (%) (Auto) 16 % (24-48) L Monocytes (%) (Auto) 17 % (0-9) H Eosinophils (%) (Auto) 2 % (0-3) Basophils (%) (Auto) 3 % (0-3) Neutrophils # (Auto) 8.6 x10^3/uL (1.8-7.7) H Lymphocytes # (Auto) 2.2 x10^3/uL (1.0-4.8) Monocytes # (Auto) 2.4 x10^3/uL (0.0-1.1) H Eosinophils # (Auto) 0.3 x10^3/uL (0.0-0.7) Basophils # (Auto) 0.3 x10^3/uL (0.0-0.2) H Platelet Estimate Pending Sodium Level 150 mmol/L (136-145) H Potassium Level 4.5 mmol/L (3.5-5.1) Chloride Level 118 mmol/L (98-107) H Carbon Dioxide Level 25 mmol/L (21-32) Anion Gap 7 (6-14) Blood Urea Nitrogen 133 mg/dL (8-26) H Creatinine 1.7 mg/dL (0.7-1.3) H Estimated GFR (Cockcroft-Gault) 42.7 BUN/Creatinine Ratio 78 (6-20) H Glucose Level 183 mg/dL (70-99) H Calcium Level 10.4 mg/dL (8.5-10.1) H Phosphorus Level 4.4 mg/dL (2.6-4.7) Magnesium Level 2.6 mg/dL (1.8-2.4) H Total Bilirubin 7.2 mg/dL (0.2-1.0) H Aspartate Amino Transferase (AST) 161 U/L (15-37) H Alanine Aminotransferase (ALT) 90 U/L (16-63) H Alkaline Phosphatase 86 U/L (46-116) Total Protein 6.7 g/dL (6.4-8.2) Albumin 2.4 g/dL (3.4-5.0) L Albumin/Globulin Ratio 0.6 (1.0-1.7) L Laboratory Tests 04/15/21 06:00 Laboratory Tests 04/15/21 06:00 ASSESSMENT & PLAN A&P Plan as noted above This note was created using [employer] and may have omissions and/or errors due to the nature of real-time voice radiographer mammographer. Justifications for Admission Other Justification ROSIE ROBLES MD April 15, 2021 11:08
[2021-04-15 11:36] LABS: % EOS 2 % (0-5); % LYMPHS 19 % (24-48); % MONOS 8 % (0-10); % SEGS 71 % (35-66)
--- NOTE | 2021-04-15 11:36 | PDOC ---
G I PROGRESS NOTE Subjective Sedated on ventilator. Objective No reports of any GI issues. Drain still serous. Physical Exam Lungs clear anteriorly. RRR Abdomen soft. Review of Relevant I have reviewed the following items jeff (where applicable) has been applied. Labs Laboratory Tests Test 04/13/21 12:53 04/13/21 17:14 04/13/21 23:28 04/14/21 05:30 Glucose (Fingerstick) 196 mg/dL (70-99) 175 mg/dL (70-99) 197 mg/dL (70-99) 176 mg/dL (70-99) Sodium Level 148 mmol/L (136-145) Potassium Level 4.9 mmol/L (3.5-5.1) Chloride Level 116 mmol/L (98-107) Carbon Dioxide Level 23 mmol/L (21-32) Anion Gap 9 (6-14) Blood Urea Nitrogen 109 mg/dL (8-26) Creatinine 1.6 mg/dL (0.7-1.3) Estimated GFR (Cockcroft-Gault) 45.8 Glucose Level 183 mg/dL (70-99) Calcium Level 10.0 mg/dL (8.5-10.1) Phosphorus Level 4.9 mg/dL (2.6-4.7) Magnesium Level 2.8 mg/dL (1.8-2.4) Albumin 2.5 g/dL (3.4-5.0) Test 04/14/21 06:00 04/14/21 08:00 04/14/21 18:51 04/14/21 23:25 White Blood Count 11.3 x10^3/uL (4.0-11.0) Red Blood Count 1.71 x10^6/uL (4.30-5.70) Hemoglobin 6.7 g/dL (13.0-17.5) Hematocrit 20.7 % (39.0-53.0) Mean Corpuscular Volume 121 fL (79-100) Mean Corpuscular Hemoglobin 39 pg (25-35) Mean Corpuscular Hemoglobin Concent 32 g/dL (31-37) Red Cell Distribution Width 19.1 % (11.5-14.5) Platelet Count 78 x10^3/uL (140-400) Neutrophils (%) (Auto) 71 % (31-73) Lymphocytes (%) (Auto) 13 % (24-48) Monocytes (%) (Auto) 13 % (0-9) Eosinophils (%) (Auto) 3 % (0-3) Basophils (%) (Auto) 1 % (0-3) Neutrophils # (Auto) 8.0 x10^3/uL (1.8-7.7) Lymphocytes # (Auto) 1.5 x10^3/uL (1.0-4.8) Monocytes # (Auto) 1.4 x10^3/uL (0.0-1.1) Eosinophils # (Auto) 0.3 x10^3/uL (0.0-0.7) Basophils # (Auto) 0.1 x10^3/uL (0.0-0.2) O2 Saturation 96 % (92-99) Arterial Blood pH 7.29 (7.35-7.45) Arterial Blood pCO2 at Patient Temp 32 mmHg (35-46) Arterial Blood pO2 at Patient Temp 100 mmHg (75-108) Arterial Blood HCO3 15 mmol/L (21-28) Arterial Blood Base Excess -11 mmol/L (-3-3) FiO2 30% vent Glucose (Fingerstick) 207 mg/dL (70-99) 177 mg/dL (70-99) Test 04/15/21 05:38 04/15/21 06:00 Glucose (Fingerstick) 183 mg/dL (70-99) White Blood Count 13.8 x10^3/uL (4.0-11.0) Red Blood Count 1.82 x10^6/uL (4.30-5.70) Hemoglobin 7.1 g/dL (13.0-17.5) Hematocrit 21.9 % (39.0-53.0) Mean Corpuscular Volume 120 fL (79-100) Mean Corpuscular Hemoglobin 39 pg (25-35) Mean Corpuscular Hemoglobin Concent 32 g/dL (31-37) Red Cell Distribution Width 19.0 % (11.5-14.5) Platelet Count 81 x10^3/uL (140-400) Neutrophils (%) (Auto) 62 % (31-73) Lymphocytes (%) (Auto) 16 % (24-48) Monocytes (%) (Auto) 17 % (0-9) Eosinophils (%) (Auto) 2 % (0-3) Basophils (%) (Auto) 3 % (0-3) Neutrophils # (Auto) 8.6 x10^3/uL (1.8-7.7) Lymphocytes # (Auto) 2.2 x10^3/uL (1.0-4.8) Monocytes # (Auto) 2.4 x10^3/uL (0.0-1.1) Eosinophils # (Auto) 0.3 x10^3/uL (0.0-0.7) Basophils # (Auto) 0.3 x10^3/uL (0.0-0.2) Sodium Level 150 mmol/L (136-145) Potassium Level 4.5 mmol/L (3.5-5.1) Chloride Level 118 mmol/L (98-107) Carbon Dioxide Level 25 mmol/L (21-32) Anion Gap 7 (6-14) Blood Urea Nitrogen 133 mg/dL (8-26) Creatinine 1.7 mg/dL (0.7-1.3) Estimated GFR (Cockcroft-Gault) 42.7 BUN/Creatinine Ratio 78 (6-20) Glucose Level 183 mg/dL (70-99) Calcium Level 10.4 mg/dL (8.5-10.1) Phosphorus Level 4.4 mg/dL (2.6-4.7) Magnesium Level 2.6 mg/dL (1.8-2.4) Total Bilirubin 7.2 mg/dL (0.2-1.0) Aspartate Amino Transf (AST/SGOT) 161 U/L (15-37) Alanine Aminotransferase (ALT/SGPT) 90 U/L (16-63) Alkaline Phosphatase 86 U/L (46-116) Total Protein 6.7 g/dL (6.4-8.2) Albumin 2.4 g/dL (3.4-5.0) Albumin/Globulin Ratio 0.6 (1.0-1.7) Laboratory Tests Test 04/14/21 18:51 04/14/21 23:25 04/15/21 05:38 04/15/21 06:00 Glucose (Fingerstick) 207 mg/dL (70-99) 177 mg/dL (70-99) 183 mg/dL (70-99) White Blood Count 13.8 x10^3/uL (4.0-11.0) Red Blood Count 1.82 x10^6/uL (4.30-5.70) Hemoglobin 7.1 g/dL (13.0-17.5) Hematocrit 21.9 % (39.0-53.0) Mean Corpuscular Volume 120 fL (79-100) Mean Corpuscular Hemoglobin 39 pg (25-35) Mean Corpuscular Hemoglobin Concent 32 g/dL (31-37) Red Cell Distribution Width 19.0 % (11.5-14.5) Platelet Count 81 x10^3/uL (140-400) Neutrophils (%) (Auto) 62 % (31-73) Lymphocytes (%) (Auto) 16 % (24-48) Monocytes (%) (Auto) 17 % (0-9) Eosinophils (%) (Auto) 2 % (0-3) Basophils (%) (Auto) 3 % (0-3) Neutrophils # (Auto) 8.6 x10^3/uL (1.8-7.7) Lymphocytes # (Auto) 2.2 x10^3/uL (1.0-4.8) Monocytes # (Auto) 2.4 x10^3/uL (0.0-1.1) Eosinophils # (Auto) 0.3 x10^3/uL (0.0-0.7) Basophils # (Auto) 0.3 x10^3/uL (0.0-0.2) Sodium Level 150 mmol/L (136-145) Potassium Level 4.5 mmol/L (3.5-5.1) Chloride Level 118 mmol/L (98-107) Carbon Dioxide Level 25 mmol/L (21-32) Anion Gap 7 (6-14) Blood Urea Nitrogen 133 mg/dL (8-26) Creatinine 1.7 mg/dL (0.7-1.3) Estimated GFR (Cockcroft-Gault) 42.7 BUN/Creatinine Ratio 78 (6-20) Glucose Level 183 mg/dL (70-99) Calcium Level 10.4 mg/dL (8.5-10.1) Phosphorus Level 4.4 mg/dL (2.6-4.7) Magnesium Level 2.6 mg/dL (1.8-2.4) Total Bilirubin 7.2 mg/dL (0.2-1.0) Aspartate Amino Transf (AST/SGOT) 161 U/L (15-37) Alanine Aminotransferase (ALT/SGPT) 90 U/L (16-63) Alkaline Phosphatase 86 U/L (46-116) Total Protein 6.7 g/dL (6.4-8.2) Albumin 2.4 g/dL (3.4-5.0) Albumin/Globulin Ratio 0.6 (1.0-1.7) Microbiology 04/06/21 Blood Culture - Final, Complete NO GROWTH AFTER 5 DAYS 04/05/21 Gram Stain - Final, Complete 04/05/21 Aerobic and Anaerobic Culture - Final, Complete Vitals/I & O Vital Sign - Last 24 Hours 04/14/21 04/14/21 04/14/21 04/14/21 12:00 12:00 13:00 13:06 Temp 98.6 98.6 Pulse 82 Resp 16 16 16 B/P (MAP) 95/46 (62) 102/49 (66) Pulse Ox 98 98 98 O2 Delivery Ventilator Mechanical Ventilator Ventilator Ventilator 04/14/21 04/14/21 04/14/21 04/14/21 13:25 13:36 14:00 15:00 Pulse 94 Resp 16 16 B/P (MAP) 107/49 (68) 106/50 (68) Pulse Ox 98 100 98 97 O2 Delivery Ventilator Ventilator Ventilator 04/14/21 04/14/21 04/14/21 04/14/21 15:37 16:00 16:00 17:49 Temp 98.0 98.0 Pulse 98 Resp 16 B/P (MAP) 112/48 (69) Pulse Ox 98 100 98 O2 Delivery Ventilator Ventilator Mechanical Ventilator Ventilator 04/14/21 04/14/21 04/14/21 04/14/21 19:34 20:00 20:00 20:00 Temp 98.3 98.3 Pulse 80 104 Resp 16 16 B/P (MAP) 121/50 (73) 115/52 (73) Pulse Ox 100 99 98 O2 Delivery Ventilator Ventilator Ventilator Mechanical Ventilator 04/14/21 04/14/21 04/14/21 04/14/21 21:00 22:00 22:00 23:00 Pulse 106 102 104 Resp 16 16 16 B/P (MAP) 113/49 (70) 103/47 (65) 106/47 (66) Pulse Ox 97 97 97 97 O2 Delivery Ventilator Ventilator Ventilator Ventilator 04/15/21 04/15/21 04/15/21 04/15/21 00:00 00:00 00:01 00:59 Temp 98.8 98.8 Pulse 91 Resp 16 B/P (MAP) 101/49 (66) Pulse Ox 97 97 O2 Delivery Ventilator Mechanical Ventilator Ventilator Ventilator 04/15/21 04/15/21 04/15/21 04/15/21 01:00 02:00 02:00 03:00 Pulse 97 91 94 Resp 16 16 16 B/P (MAP) 112/55 (74) 98/47 (64) 102/47 (65) Pulse Ox 97 97 97 97 O2 Delivery Ventilator Ventilator Ventilator Ventilator 04/15/21 04/15/21 04/15/21 04/15/21 03:30 04:00 04:00 05:00 Temp 98.8 98.8 Pulse 92 90 Resp 16 16 B/P (MAP) 99/46 (63) 100/44 (62) Pulse Ox 99 97 97 O2 Delivery Mechanical Ventilator Ventilator Ventilator Ventilator 04/15/21 04/15/21 04/15/21 04/15/21 05:47 06:00 07:34 09:19 Pulse 90 Resp 16 B/P (MAP) 109/46 (67) Pulse Ox 97 97 98 97 O2 Delivery Ventilator Ventilator Ventilator Ventilator Intake and Output 0 04/14/21 04/14/21 04/15/21 15:00 23:00 07:00 Intake Total 100 ml 2217 ml Output Total 900 ml 1655 ml 980 ml Balance -900 ml -1555 ml 1237 ml Assessment SBP/sepsis. Respiratory failure. No progress on intensive therapy. Plan of Care Note Note plans to possibly withdraw care; no objection to this. For now, continue support. Justicifation of Admission Dx: Justifications for Admission: Justification of Admission Dx: Yes JOYA BURNETT MD April 15, 2021 11:35
[2021-04-15 11:37] LABS: PLT ESTIMATE DECREASED (ADEQUATE)
[2021-04-15 11:38] LABS: ANISOCYTOSIS SLIGHT
[2021-04-15] MEDS: PANTOPRAZOLE IV PUSH 40 MG VIAL. IVP SCH (11:52)
[2021-04-15] MEDS: NOREPINEPHRINE VIAL 8 MG in IV DEXTROSE 5% 250 ML IV PRN (14:05)
[2021-04-15] MEDS ORDERED: DEXTROSE 70% IV SCH (22:00)
[2021-04-15] MEDS ORDERED: AMINO ACID IV SCH (22:00)
[2021-04-15] MEDS ORDERED: TOTAL PARENTERAL NUTRITION IV SCH (22:00)
[2021-04-15] MEDS ORDERED: [UNRECOGNIZED DRUG - OTHER] IV SCH (22:00)
[2021-04-16] VITALS (12 sets, daily range): BP systolic 59–106; BP diastolic 29–49
[2021-04-16] MEDS: PIPERACILLIN/TAZOBACTAM 3.375 GM in IV NORMAL SALINE 50ML 50 ML IV SCH ×3 (00:11→05:38)
[2021-04-16] MEDS: INSULIN LISPRO 300 UNITS/3 ML VIAL. SQ SCH ×3 (00:12→05:42)
[2021-04-16] MEDS: VASOPRESSIN 20 UNIT in IV DEXTROSE 5% 100ML 100 ML IV PRN (06:22)
[2021-04-16] MEDS: PANTOPRAZOLE IV PUSH 40 MG VIAL. IVP SCH (07:30)
--- NOTE | 2021-04-16 08:57 | PDOC ---
Infectious Disease Note Subjective: Subjective Sedated intubated on vent Vital Signs: Vital Signs Vital Signs Date Time Temp Pulse Resp B/P (MAP) Pulse Ox O2 Delivery O2 Flow Rate FiO2 04/16/21 08:00 96 Ventilator 04/16/21 07:00 96 16 85/42 (56) 04/16/21 04:00 98.5 98.5 Physical Exam: PHYSICAL EXAM GENERAL: Intubated and sedated. HEENT: Atraumatic. PERRL NECK: Right IJ clean. LUNGS: Decreased breath sounds at the bases, otherwise clear. No wheezing. HEART: S1, S2. ABDOMEN: Mildly Distended, laparoscopy dressing intact, not taken down. ROCIO drain in place. Bowel sounds hypoactive. : Hwang + EXTREMITIES: No edema. Hyperpigmentation. DERM: No generalized rash except for above. [employer] intubated/sedated Medications: Inpatient Meds: Medications reviewed. Labs: Lab Laboratory Tests Test 04/15/21 11:51 04/16/21 00:08 04/16/21 05:35 Glucose (Fingerstick) 177 mg/dL (70-99) 176 mg/dL (70-99) 206 mg/dL (70-99) Objective: Assessment: 1. Severe sepsis. 2. Abdominal pain, nausea, vomiting. Pneumoperitoneum on CT, status post diagnostic laparoscopy, placement of abdominal drain. No evidence of perforated viscus. Findings were consistent with spontaneous bacterial peritonitis.04/05 3. Ascites and cirrhosis. 4. ETOH dependence. 5. Acute kidney injury with hyperkalemia. 6. Thrombocytopenia. 7. Coagulopathy. 8. Increased LFTs. 9. Postoperative intubation 30 % Fi02 and 5 PEEP Plan: Plan of Care Consider placing PICC and D/C IJ (place 04/05) cont zosyn, Anemia per primary cont supportive care family to decide on further course MYRTLE BANSAL MD April 16, 2021 08:57
--- NOTE | 2021-04-16 09:37 | NUR ---
Nursing Note Pts two daughters,Doug and Eb, at bedside discussing comfort care with RN. Dr. Sanders at bedside for discussion. Both daughters expressing their wish to move forward with withdrawing care. Orders received. RT paged.
--- NOTE | 2021-04-16 10:01 | PDOC ---
PULMONARY PROGRESS NOTES DATE: 04/16/21 TIME: 09:59 Subjective Patient remains on ventilatory support Sedated with Versed and fentanyl Continues on vasopressor medications: on vasopressin and Levophed Nursing reports increased abdominal firmness and increased drainage from abdominal drains worsening LFT/ anemia Vitals Vital Signs Date Time Temp Pulse Resp B/P (MAP) Pulse Ox O2 Delivery O2 Flow Rate FiO2 04/16/21 08:00 96 Ventilator 04/16/21 07:00 96 16 85/42 (56) 04/16/21 04:00 98.5 98.5 Comments on vent sedated not able to obtain ros HEENT: Other (Orally intubated) Lungs: Crackles Cardiovascular: S1, S2 Abdomen: Non-tender, Other (Firm) Extremities: Other (edema ) Skin: Warm Labs Laboratory Tests Test 04/14/21 18:51 04/14/21 23:25 04/15/21 05:38 04/15/21 06:00 Glucose (Fingerstick) 207 mg/dL (70-99) 177 mg/dL (70-99) 183 mg/dL (70-99) White Blood Count 13.8 x10^3/uL (4.0-11.0) Red Blood Count 1.82 x10^6/uL (4.30-5.70) Hemoglobin 7.1 g/dL (13.0-17.5) Hematocrit 21.9 % (39.0-53.0) Mean Corpuscular Volume 120 fL (79-100) Mean Corpuscular Hemoglobin 39 pg (25-35) Mean Corpuscular Hemoglobin Concent 32 g/dL (31-37) Red Cell Distribution Width 19.0 % (11.5-14.5) Platelet Count 81 x10^3/uL (140-400) Neutrophils (%) (Auto) 62 % (31-73) Lymphocytes (%) (Auto) 16 % (24-48) Monocytes (%) (Auto) 17 % (0-9) Eosinophils (%) (Auto) 2 % (0-3) Basophils (%) (Auto) 3 % (0-3) Neutrophils # (Auto) 8.6 x10^3/uL (1.8-7.7) Lymphocytes # (Auto) 2.2 x10^3/uL (1.0-4.8) Monocytes # (Auto) 2.4 x10^3/uL (0.0-1.1) Eosinophils # (Auto) 0.3 x10^3/uL (0.0-0.7) Basophils # (Auto) 0.3 x10^3/uL (0.0-0.2) Segmented Neutrophils % 71 % (35-66) Lymphocytes % 19 % (24-48) Monocytes % 8 % (0-10) Eosinophils % 2 % (0-5) Dohle Bodies Few Platelet Estimate Decreased (ADEQUATE) Anisocytosis Slight Macrocytosis Marked Sodium Level 150 mmol/L (136-145) Potassium Level 4.5 mmol/L (3.5-5.1) Chloride Level 118 mmol/L (98-107) Carbon Dioxide Level 25 mmol/L (21-32) Anion Gap 7 (6-14) Blood Urea Nitrogen 133 mg/dL (8-26) Creatinine 1.7 mg/dL (0.7-1.3) Estimated GFR (Cockcroft-Gault) 42.7 BUN/Creatinine Ratio 78 (6-20) Glucose Level 183 mg/dL (70-99) Calcium Level 10.4 mg/dL (8.5-10.1) Phosphorus Level 4.4 mg/dL (2.6-4.7) Magnesium Level 2.6 mg/dL (1.8-2.4) Total Bilirubin 7.2 mg/dL (0.2-1.0) Aspartate Amino Transf (AST/SGOT) 161 U/L (15-37) Alanine Aminotransferase (ALT/SGPT) 90 U/L (16-63) Alkaline Phosphatase 86 U/L (46-116) Total Protein 6.7 g/dL (6.4-8.2) Albumin 2.4 g/dL (3.4-5.0) Albumin/Globulin Ratio 0.6 (1.0-1.7) Test 04/15/21 11:51 04/16/21 00:08 04/16/21 05:35 Glucose (Fingerstick) 177 mg/dL (70-99) 176 mg/dL (70-99) 206 mg/dL (70-99) Laboratory Tests Test 04/15/21 11:51 04/16/21 00:08 04/16/21 05:35 Glucose (Fingerstick) 177 mg/dL (70-99) 176 mg/dL (70-99) 206 mg/dL (70-99) Medications Active Scripts Medications Dose Route/Sig Max Daily Dose Days Date Category Proair Hfa Inhaler (Albuterol Sulfate) 8.5 Gm Hfa.aer.ad 2 Puff IH PRN Q4-6HRS PRN 21 04/05/21 Reported Uloric (Febuxostat) 80 Mg Tablet 1 Tab PO DAILY 30 04/05/21 Reported Losartan Potassium 100 Mg Tablet 100 Mg PO DAILY 04/05/21 Reported Folic Acid 1 Mg Tablet 1 Mg PO DAILY 08/05/16 Reported Amlodipine Besylate 10 Mg Tablet 10 Mg PO DAILY 08/05/16 Reported Losartan Potassium 100 Mg Tablet 100 Mg PO DAILY 08/05/16 Reported Colcrys (Colchicine) 0.6 Mg Tablet 0.6 Mg PO DAILY 08/05/16 Reported Uloric (Febuxostat) 40 Mg Tablet 1 Tab PO DAILY 08/05/16 Reported Comments CXR IMPRESSION: 1. Bilateral infrahilar linear atelectasis or interstitial infiltrate. 2. Support lines and tubes, described above. Impression . IMPRESSION: 1. Acute hypoxic respiratory failure secondary to septic shock. 2. Septic shock secondary to spontaneous bacterial peritonitis in a patient who has alcoholism and cirrhosis along with ascites. s/p Diagnostic laparoscopy, culture abdominal fluid, placement of abdominal drain 04/05 3. Acute kidney injury. 4. Lactic acidosis secondary to septic shock, now improved. 5. History of tobaccoism. ? copd 6. History of alcoholism. 7. Cirrhosis secondary to alcoholism. 8. Coagulopathy secondary to cirrhosis. 9. COVID negative. 10. Worsening LFT 11. anemia Plan . updated 04/16/21 Continue current vent support, 16/500/5/35% Nebs Follow chest x-ray/ABG--no changes Continue vasopressors to keep MAP greater than 60--remains on Levophed and vasopressin Follow GI recommendations, monitor hemoglobin, transfuse as needed Follow nephrology recommendations Follow surgery recommendations--- status post diagnostic laparoscopic, follow abdominal cultures, continue drain to abdomen placed on 04/05 Continue antibiotics per infectious disease Continue TPN for nutritional support DVT/GI prophylaxis Discussed with RN and RT I have discussed with both the daughters at the bedside. Patient remains on 2 vasopressors despite aggressive fluid resuscitation as well as broad-spectrum antibiotics. He remains in septic shock. He is evidence of multisystem organ dysfunction. But the daughters are ready to withdraw care. I concur with them. Patient is likely not going to survive the next 24 hours. Will use morphine and as needed Ativan. updated 04/15/21 Continue current vent support, 16/500/5/35% Nebs Follow chest x-ray/ABG--no changes Continue vasopressors to keep MAP greater than 60--remains on Levophed and vasopressin Follow GI recommendations, monitor hemoglobin, transfuse as needed Follow nephrology recommendations Follow surgery recommendations--- status post diagnostic laparoscopic, follow abdominal cultures, continue drain to abdomen placed on 04/05 Continue antibiotics per infectious disease Continue TPN for nutritional support DVT/GI prophylaxis Discussed with RN and RT Family withdraw care by Friday if there is no clinical improvement. I concur with them. Patient with worsening multi system organ failure, unlikely to survive. Rec comfort care Friday updated 04/14/21 Continue current vent support, 16/500/5/35% Nebs Follow chest x-ray/ABG--no changes Continue vasopressors to keep MAP greater than 60--remains on Levophed and vasopressin Follow GI recommendations, monitor hemoglobin, transfuse as needed Follow nephrology recommendations Follow surgery recommendations--- status post diagnostic laparoscopic, follow abdominal cultures, continue drain to abdomen placed on 04/05 Continue antibiotics per infectious disease Continue TPN for nutritional support DVT/GI prophylaxis Discussed with RN and RT Family withdraw care by Friday if there is no clinical improvement. I concur with them. Patient with worsening multi system organ failure, unlikely to survive. Rec comfort care Friday updated 04/12/21 updated 04/13/21 Continue current vent support, 16/500/5/35% Nebs Follow chest x-ray/ABG--no changes Continue vasopressors to keep MAP greater than 60--remains on Levophed and vasopressin Follow GI recommendations, monitor hemoglobin, transfuse as needed Follow nephrology recommendations Follow surgery recommendations--- status post diagnostic laparoscopic, follow abdominal cultures, continue drain to abdomen placed on 04/05 Continue antibiotics per infectious disease Continue TPN for nutritional support DVT/GI prophylaxis Discussed with RN and RT Another discussion with family04/12. Both the daughters were present. They want to withdraw care by Friday if there is no clinical improvement. I concur with them. updated 04/12/21 Continue current vent support, 16/500/5/35% Nebs Follow chest x-ray/ABG--no changes Continue vasopressors to keep MAP greater than 65--remains on Levophed and vasopressin Follow GI recommendations, monitor hemoglobin, transfuse as needed Follow nephrology recommendations Follow surgery recommendations--- status post diagnostic laparoscopic, follow abdominal cultures, continue drain to abdomen placed on 04/05 Continue antibiotics per infectious disease Continue TPN for nutritional support DVT/GI prophylaxis Discussed with RN and RT I did long discussion with the patient's daughter at the bedside 04/11. Knowing patient's wishes she does not want to prolong current aggressive care if prognosis remains grim. The family is leaning towards comfort care if he does not make any clinical improvement. We will continue to review patient's clinical status. In the meantime if patient has any cardiac arrest we will not do CPR. Patient will be DNR. Another discussion with family today. Both the daughters were present. They want to withdraw care by Friday if there is no clinical improvement. I concur with them. Critical care time 30 minutes updated 04/11/21 Continue current vent support, 500/5/35% Nebs Follow chest x-ray/ABG--no changes Continue vasopressors to keep MAP greater than 65--remains on Levophed and vasopressin Follow GI recommendations, monitor hemoglobin, transfuse as needed Follow nephrology recommendations Follow surgery recommendations--- status post diagnostic laparoscopic, follow abdominal cultures, continue drain to abdomen placed on 04/05 Continue antibiotics per infectious disease Continue TPN for nutritional support DVT/GI prophylaxis Discussed with RN and RT I do long discussion with the patient's daughter at the bedside. Knowing patient's wishes she does not want to prolong current aggressive care if prognosis remains grim. The family is leaning towards comfort care if he does not make any clinical improvement. We will continue to review patient's clinical status. In the meantime if patient has any cardiac arrest we will not do CPR. Patient will be DNR. Critical care time 30 minutes updated 04/09/21 Continue current vent support, 16/500/5/35% Nebs Follow chest x-ray/ABG--no changes Continue vasopressors to keep MAP greater than 65 Follow GI recommendations, monitor hemoglobin, transfuse as needed Follow nephrology recommendations Follow surgery recommendations--- status post diagnostic laparoscopic, follow abdominal cultures, continue drain to abdomen placed on 04/05 Continue antibiotics per infectious disease Continue TPN for nutritional support DVT/GI prophylaxis Discussed with RN and RT Critical care time 30 minutes updated 04/08 1. cont vent support setting reviewed, still on 2 pressors, not stable for sbt. abg reviewed no vent change 2. cont pressors to keep map 65 3. protonix for stress ulcer prophylaxis. 4. Broad spectrum antibiotics per infectious disease recommendation. 5. Monitor renal function. Follow renal recommendations. 6. TPN per Nephrology. 7. Follow all cultures. neg so far 8. Follow Surgery recommendations. 9. bicarbonate drip stopped by nephro. 10. Discussed with RN RECOMMENDATIONS: 1. cont vent support setting reviewed, not stable for sbt. We will make necessary adjustment based on ABGs. 2. cont pressors to keep map 65 3. protonix for stress ulcer prophylaxis. 4. Broad spectrum antibiotics per infectious disease recommendation. 5. Monitor renal function. Follow renal recommendations. 6. TPN per Nephrology. 7. Follow all cultures. 8. Follow Surgery recommendations. 9. bicarbonate drip per nephro. 10. Discussed with RN ISRRAEL WALTERS MD April 16, 2021 10:01
[2021-04-16] MEDS: MORPHINE SULFATE 10 MG/ML VIAL. IV PRN ×4 (10:42→14:15)
--- NOTE | 2021-04-16 10:43 | PDOC ---
[facility] [facility] PROGRESS NOTE Date of Service DOS: DATE: 04/16/21 TIME: 10:38 Chief Complaint Chief Complaint A/P: Sepsis Respiratory failure Postop exploratory laparotomy Severe cirrhosis Coagulopathy Pneumoperitoneum Suspect spontaneous bacterial peritonitis Leukocytosis Duodenitis Ascites Cholelithiasis History alcohol abuse History COPD Severe malnutrition Dispo -pulmonary critical care physician Dr. Sanders discussed with family plan to withdraw care History of Present Illness History of Present Illness Patient remains on ventilatory support, sedated with Versed and fentanyl. LFTs and anemia worsening despite broad spectrum antibiotics. still on 2 pressors. Abdominal drain output increased and abdominal tension increased. Dr. Sanders has discussed with family futility of care and have d/w family they wish to withdraw aggressive care today. 04/13/2021 Patient seen and examined in the ICU He remains mechanically ventilated Assist-control//30 percent with 5 of PEEP Sedated with Versed and fentanyl Has IV vasopressin Also has IV TPN Also has IV albumin Discussed with RN Discussed with case management He remains critically ill 04/12/2021 Patient seen and examined in the ICU He remains mechanically ventilated AC//30 percent with 5 of PEEP Has a right lower quadrant ROCIO drain His abdominal wounds look clean Has NG to suction On IV vasopressin and Levophed Sedated with fentanyl and Versed He has 2 daughters present with Valyssa and Camacho They are very good support for him Chart reviewed Discussed with RN Discussed with case management He remains very critically ill Advance Care Planning: Total time spent [id number] with patient greater than 16 minutes in discussion with goals of care, comfort care, end-of-life care, pain management, code status 04/11/2021 Patient seen and examined in the ICU He remains mechanically ventilated AC//30 5% with 5 of PEEP Has IV Zosyn hanging Sedated with fentanyl and Versed Has IV TPN On vasopressin and Levophed Has Hwang bedside drainage Abdomen distended Chart reviewed Discussed with RN Remains very critically ill 04/10/2021 Patient seen and examined in the ICU He is still mechanically ventilated AC/500/30 5% with 5 of PEEP Sedated with Versed fentanyl On epinephrine drip and vasopressin drip Also getting IV TPN Also on IV micafungin and IV antibiotics Discussed with RN Discussed with case management Chart reviewed He remains extremely critically ill 04/09/2021 Patient seen and examined in the ICU He remains mechanically ventilated AC/16/500/30 5% with 5 of PEEP Discussed with case management Discussed with RN Chart reviewed He is sedated with fentanyl He is on IV vasopressin Has TPN hanging Abdomen with 4 clean dry intact trocar sites and a ROCIO drain in the lower right quadrant He remains critically ill Patient is a 50-year-old male with past medical history alcohol abuse, who presents as a transfer from [facility] due to pneumoperitoneum. Initially at [facility] ER he complained of abdominal pain and abdominal swelling over the past week, 07/03. He reports associated nausea and vomiting over this time, and is not amenable to take his home medications. Patient also reports noticing some discoloration of his eyes, discoloration of the skin, and dark urine over the past several days. He denies recent NSAID use. He was transferred to [facility] and admitted to the ICU for further medical management. 04/08/2021 Patient remains intubated, FiO2 35%, PEEP 5. Afebrile. Continue antibiotics, per ID. Abdominal fluid cultures and blood cultures with no growth to date. 30 minutes critical care time spent, reviewing labs, reviewing charts, and discussion with RN. 04/07/2021 Afebrile. Intubated, with FiO2 40%, PEEP 5. Requiring 2 vasopressors. Abdominal drain with clear serous output. Continue Zosyn, Zyvox, and micafungin, per ID. Blood cultures and abdominal fluid cultures with no growth to date. 30 minutes critical care time spent reviewing charts, reviewing labs, and discussion with RN. 04/06/2021 Patient seen in ICU s/p diagnostic laparoscopy with culture abdominal fluid and placement of abdominal drain. Suspect spontaneous bacterial peritonitis. He is currently on 2 vasopressors. Continue linezolid, Zosyn, and micafungin, per ID. No organisms seen on Gram stain of abdominal fluid and preliminary abdominal fluid cultures with no growth to date. 30 minutes critical care time spent reviewing charts, reviewing labs, reviewing imaging, and discussion with RN. Vitals/I&O Vitals/I&O: Vital Signs Date Time Temp Pulse Resp B/P (MAP) Pulse Ox O2 Delivery O2 Flow Rate FiO2 04/16/21 08:00 Mechanical Ventilator 04/16/21 08:00 96 04/16/21 07:00 96 16 85/42 (56) 04/16/21 04:00 98.5 98.5 I & O 04/15/21 04/15/21 04/16/21 15:00 23:00 07:00 Intake Total 100 ml 1015 ml Output Total 1080 ml 1285 ml 910 ml Balance -980 ml -1285 ml 105 ml Physical Exam Physical Exam: GENERAL: Intubated and sedated. HEENT: Atraumatic. PERRL NECK: Right IJ clean. LUNGS: Decreased breath sounds at the bases, otherwise clear. No wheezing. HEART: S1, S2. ABDOMEN: Mildly Distended, laparoscopy dressing intact, not taken down. ROCIO drain in place. Bowel sounds hypoactive. : Hwang + EXTREMITIES: No edema. Hyperpigmentation. DERM: No generalized rash except for above. [employer] intubated/sedated General: Other (sedated ) Heart: Regular rate Lungs: Crackles Abdomen: Soft, Other (drain serous ) Extremities: No cyanosis Skin: No rashes Labs Labs: Laboratory Tests Test 04/15/21 11:51 04/16/21 00:08 04/16/21 05:35 Glucose (Fingerstick) 177 mg/dL (70-99) 176 mg/dL (70-99) 206 mg/dL (70-99) Comment Review of Relevant I have reviewed the following items jeff (where applicable) has been applied. Medications: Current Medications Medications (Trade) Dose Ordered Sig/Ada Route PRN Reason Start Time Stop Time Status Last Admin Dose Admin Potassium Acetate 20 meq/Potassium Phosphate 4 mmol/ Calcium Gluconate 5 meq/ Multivitamins 5 ml/Zinc/Copper/ Manganese/ Selenium 1 ml/ Total Parenteral Nutrition/Amino Acids/Dextrose/ Fat Emulsion Intravenous 1,512 ml @ 63 mls/hr TPN CONT IV 04/15/21 22:00 04/16/21 09:38 DC 04/15/21 22:03 Justifications for Admission Other Justification CHERIE CASTLE MD April 16, 2021 10:43
--- NOTE | 2021-04-16 11:06 | PDOC ---
Date of Service: DATE: 04/16/21 TIME: 11:03 Objective: Objective: D/w nurse - plans to withdraw care today. Reviewed chart. Vital Signs: Vital Signs Date Time Temp Pulse Resp B/P (MAP) Pulse Ox O2 Delivery O2 Flow Rate FiO2 04/16/21 08:00 Mechanical Ventilator 04/16/21 08:00 96 04/16/21 07:00 96 16 85/42 (56) 04/16/21 04:00 98.5 98.5 Labs: Laboratory Tests Test 04/15/21 11:51 04/16/21 00:08 04/16/21 05:35 Glucose (Fingerstick) 177 mg/dL 176 mg/dL 206 mg/dL PE: GEN: intubated - family present A/P: SBP/alcoholic liver disease -- Plans as above, GI will sign off. Justicifation of Admission Dx: Justifications for Admission: Justification of Admission Dx: Yes CHRISTIANE BRIONES April 16, 2021 11:06
[2021-04-16] MEDS ORDERED: fentaNYL PF VIAL 100 MCG/2 ML VIAL IVP PRN (12:00)
[2021-04-16] MEDS ORDERED: NALOXONE 0.4 MG/ML VIAL. IV PRN (14:15)
[2021-04-16] MEDS ORDERED: IV NORMAL SALINE 1000ML BAG 1,000 ML IV SCH (14:15)
[2021-04-16] MEDS: MORPHINE SULFATE 30 ML IV PRN ×2 (14:45→19:13)
[2021-04-16] MEDS ORDERED: ATROPINE 1% OPHTH SOLUTION 5ML BOTTLE. SL PRN (18:15)
[2021-04-16] MEDS ORDERED: SCOPOLAMINE 1.5MG PATCH. TD SCH (18:15)
--- NOTE | 2021-04-16 20:15 | NUR ---
Walked into room seen pt not breathing. Caroid pulse checked with no pulse felt. Pupils nonreactive. Asked MARGOTH Prince to assess pt with this RN. This RN and MARGOTH Prince listened to heart sounds with no heart beat heard x 2 minutes. Call of 2019. MARGOTH Prince notified family.
--- NOTE | 2021-04-16 23:16 | PDOC3 ---
Discharge Summary Visit Information Date of Admission: April 05, 2021 Date of Discharge: April 16, 2021 Admitting Diagnosis: Acute decompensated cirrhosis Final Diagnosis Acute decompensated cirrhosis Brief Hospital Course Allergies Allergies Coded Allergies Type Severity Reaction Last Updated Verified No Known Drug Allergies 05/31/16 No Vital Signs Vital Signs Date Time Temp Pulse Resp B/P (MAP) Pulse Ox O2 Delivery O2 Flow Rate FiO2 04/16/21 19:51 101.8 92 16 59/29 (39) 92 Ventilator 101.8 Lab Results Laboratory Tests Test 04/14/21 23:25 04/15/21 05:38 04/15/21 06:00 04/15/21 11:51 Glucose (Fingerstick) 177 mg/dL (70-99) 183 mg/dL (70-99) 177 mg/dL (70-99) White Blood Count 13.8 x10^3/uL (4.0-11.0) Red Blood Count 1.82 x10^6/uL (4.30-5.70) Hemoglobin 7.1 g/dL (13.0-17.5) Hematocrit 21.9 % (39.0-53.0) Mean Corpuscular Volume 120 fL (79-100) Mean Corpuscular Hemoglobin 39 pg (25-35) Mean Corpuscular Hemoglobin Concent 32 g/dL (31-37) Red Cell Distribution Width 19.0 % (11.5-14.5) Platelet Count 81 x10^3/uL (140-400) Neutrophils (%) (Auto) 62 % (31-73) Lymphocytes (%) (Auto) 16 % (24-48) Monocytes (%) (Auto) 17 % (0-9) Eosinophils (%) (Auto) 2 % (0-3) Basophils (%) (Auto) 3 % (0-3) Neutrophils # (Auto) 8.6 x10^3/uL (1.8-7.7) Lymphocytes # (Auto) 2.2 x10^3/uL (1.0-4.8) Monocytes # (Auto) 2.4 x10^3/uL (0.0-1.1) Eosinophils # (Auto) 0.3 x10^3/uL (0.0-0.7) Basophils # (Auto) 0.3 x10^3/uL (0.0-0.2) Segmented Neutrophils % 71 % (35-66) Lymphocytes % 19 % (24-48) Monocytes % 8 % (0-10) Eosinophils % 2 % (0-5) Dohle Bodies Few Platelet Estimate Decreased (ADEQUATE) Anisocytosis Slight Macrocytosis Marked Sodium Level 150 mmol/L (136-145) Potassium Level 4.5 mmol/L (3.5-5.1) Chloride Level 118 mmol/L (98-107) Carbon Dioxide Level 25 mmol/L (21-32) Anion Gap 7 (6-14) Blood Urea Nitrogen 133 mg/dL (8-26) Creatinine 1.7 mg/dL (0.7-1.3) Estimated GFR (Cockcroft-Gault) 42.7 BUN/Creatinine Ratio 78 (6-20) Glucose Level 183 mg/dL (70-99) Calcium Level 10.4 mg/dL (8.5-10.1) Phosphorus Level 4.4 mg/dL (2.6-4.7) Magnesium Level 2.6 mg/dL (1.8-2.4) Total Bilirubin 7.2 mg/dL (0.2-1.0) Aspartate Amino Transf (AST/SGOT) 161 U/L (15-37) Alanine Aminotransferase (ALT/SGPT) 90 U/L (16-63) Alkaline Phosphatase 86 U/L (46-116) Total Protein 6.7 g/dL (6.4-8.2) Albumin 2.4 g/dL (3.4-5.0) Albumin/Globulin Ratio 0.6 (1.0-1.7) Test 04/16/21 00:08 04/16/21 05:35 Glucose (Fingerstick) 176 mg/dL (70-99) 206 mg/dL (70-99) Laboratory Tests Test 04/16/21 00:08 04/16/21 05:35 Glucose (Fingerstick) 176 mg/dL (70-99) 206 mg/dL (70-99) Brief Hospital Course Mr Anand is a 50-year-old male with past medical history alcohol abuse, who presents as a transfer to [facility] on 04/05/21 from [facility] due to concern for pneumoperitoneum. Initially at [facility] ER he complained of abdominal pain and abdominal swelling over the past week, 07/03. He reports associated nausea and vomiting over this time, and is not amenable to take his home medications. Patient also reports noticing some discoloration of his eyes, discoloration of the skin, and dark urine over the past several days. He denies recent NSAID use. He was transferred to [facility] and admitted to the ICU for further medical management. 04/06: S/p diagnostic laparoscopy with culture abdominal fluid and placement of abdominal drain. Suspect spontaneous bacterial peritonitis. He is currently on 2 vasopressors. Continue linezolid, Zosyn, and micafungin, per ID. No organisms seen on Gram stain of abdominal fluid 04/07: Afebrile. Intubated, with FiO2 40%, PEEP 5. Requiring 2 vasopressors. Abdominal drain with clear serous output. Continue Zosyn, Zyvox, and micafungin, per ID. Blood cultures and abdominal fluid cultures with no growth to date. 04/08: Patient remains intubated, FiO2 35%, PEEP 5. Afebrile. Continue antibiotics, per ID. Abdominal fluid cultures and blood cultures with no growth to date. 04/09: Patient seen and examined in the ICU, He remains mechanically ventilated, AC/16/500/30 5% with 5 of PEEP. Abdomen with 4 clean dry intact trocar sites and a ROCIO drain in the lower right quadrant 04/10 Patient seen and examined in the ICU. He is still mechanically ventilated. AC/16/500/30 5% with 5 of PEEP. Sedated with Versed fentanyl. On epinephrine drip and vasopressin drip. Also getting IV TPN. Also on IV micafungin and IV antibiotics 04/11: He remains mechanically ventilated, AC/16/500/30 5% with 5 of PEEP 04/12: Patient seen and examined in the ICU. He remains mechanically ventilated. AC/16/500/30 percent with 5 of PEEP. He has 2 daughters present with Valyssa and Camacho. They are very good support for him 04/13: He remains mechanically ventilated, Assist-control/16/500/30 percent with 5 of PEEP. Has IV vasopressin and Also has IV TPN and Also has IV albumin. He remains critically ill 04/16 in AM: Patient remains on ventilatory support, sedated with Versed and fentanyl. LFTs and anemia worsening despite broad spectrum antibiotics. still on 2 pressors. Abdominal drain output increased and abdominal tension increased. Dr. Sanders has discussed with family futility of care and have d/w family they wish to withdraw aggressive care today. Patient was extubated and continued decline with irregular respirations throughout the day on 04/16/2021 prior morphine for pain. 04/16/2021 at 2020 was noted with no spontaneous respiration respirations are cardiac activity for time of Consults: Surgery, GI, ID, Pulm, Nephrology Problem list: Sepsis Respiratory failure Postop exploratory laparotomy Severe cirrhosis Coagulopathy Pneumoperitoneum Suspect spontaneous bacterial peritonitis Leukocytosis Duodenitis Ascites Cholelithiasis History alcohol abuse History COPD Severe malnutrition Greater than 30 minutes spent on patient care on day of patient . Discharge Information Condition at Discharge: / Disposition/Orders: Scheduled Amlodipine Besylate (Amlodipine Besylate) 10 Mg Tablet, 10 MG PO DAILY, (Reported) Entered as Reported by: KEISHA GUERRERO on 08/05/16 132 Colchicine (Colcrys) 0.6 Mg Tablet, 0.6 MG PO DAILY, (Reported) Entered as Reported by: KEISHA GUERRERO on 08/05/16 132 Febuxostat (Uloric) 40 Mg Tablet, 1 TAB PO DAILY, #90 Ref 3 (Reported) Entered as Reported by: KEISHA GUERRERO on 08/05/16 1323 Febuxostat (Uloric) 80 Mg Tablet, 1 TAB PO DAILY for gout for 30 Days, #30 Ref 0 (Reported) Entered as Reported by: SONIA LAYTON on 04/05/21403 Last Taken: Unknown Dose on 04/04/21 Last Action: New Order on 04/05/21403 by SONIA LAYTON Folic Acid (Folic Acid) 1 Mg Tablet, 1 MG PO DAILY, (Reported) Entered as Reported by: KEISHA GUERRERO on 08/05/161322 Losartan Potassium (Losartan Potassium) 100 Mg Tablet, 100 MG PO DAILY, (Reported) Entered as Reported by: KEISHA GUERRERO on 08/05/161322 Losartan Potassium (Losartan Potassium) 100 Mg Tablet, 100 MG PO DAILY for HYPER TENSION, (Reported) Entered as Reported by: SONIA LAYTON on 04/05/21403 Last Taken: Unknown Dose on 04/05/21 Last Action: New Order on 04/05/21403 by SONIA LAYTON Scheduled PRN Albuterol Sulfate (Proair Hfa Inhaler) 8.5 Gm Hfa.aer.ad, 2 PUFF IH PRN Q4-6HRS PRN for wheezing for 21 Days, #1 Ref 0 (Reported) Entered as Reported by: SONIA LAYTON on 04/05/21403 Last Taken: Unknown Dose on Unknown Date & Time Last Action: New Order on 04/05/21403 by SONIA LAYTON Justicifation of Admission Dx: Justifications for Admission: Justification of Admission Dx: Yes CHERIE CASTLE MD April 16, 2021 23:16
== END 2021-04-16 20:20 | DRG 853 ==
LOC: 1 WEST ICU 03:06 → 4 NORTH 04-16 14:30
PROVIDERS: ADMIT Internal Medicine; ATTEND Internal Medicine
PROC: 0BH17EZ Insertion of Endotracheal Airway into Trachea, Via Natural or Artificial Opening (ICD-10-PCS; 2021-04-05)
PROC: 0W9G40Z Drainage of Peritoneal Cavity with Drainage Device, Percutaneous Endoscopic Approach (ICD-10-PCS; 2021-04-05)
PROC: 02HV33Z Insertion of Infusion Device into Superior Vena Cava, Percutaneous Approach (ICD-10-PCS; 2021-04-05)
PROC: 5A1955Z Respiratory Ventilation, Greater than 96 Consecutive Hours (ICD-10-PCS; principal; 2021-04-05 11:30)
PROC: 30233K1 Transfusion of Nonautologous Frozen Plasma into Peripheral Vein, Percutaneous Approach (ICD-10-PCS; 2021-04-09)
PROC: 30233N1 Transfusion of Nonautologous Red Blood Cells into Peripheral Vein, Percutaneous Approach (ICD-10-PCS; 2021-04-09)
DX: A41.9 Sepsis, unspecified organism (principal); E43 Unspecified severe protein-calorie malnutrition; J96.01 Acute respiratory failure with hypoxia; K65.2 Spontaneous bacterial peritonitis; N17.0 Acute kidney failure with tubular necrosis; R65.21 Severe sepsis with septic shock; D68.4 Acquired coagulation factor deficiency; E87.0 Hyperosmolality and hypernatremia; J98.11 Atelectasis; K61.1 Rectal abscess; D64.9 Anemia, unspecified; D69.6 Thrombocytopenia, unspecified; E87.5 Hyperkalemia; F10.20 Alcohol dependence, uncomplicated; F17.210 Nicotine dependence, cigarettes, uncomplicated; I10 Essential (primary) hypertension; J44.9 Chronic obstructive pulmonary disease, unspecified; K21.9 Gastro-esophageal reflux disease without esophagitis; K70.31 Alcoholic cirrhosis of liver with ascites; K80.20 Calculus of gallbladder without cholecystitis without obstruction; M10.9 Gout, unspecified; N20.0 Calculus of kidney; Z20.822 Contact with and (suspected) exposure to COVID-19; Z79.899 Other long term (current) drug therapy; Z86.73 Personal history of transient ischemic attack (TIA), and cerebral infarction without residual deficits; Z87.442 Personal history of urinary calculi; Z68.30 Body mass index [BMI] 30.0-30.9, adult; K29.80 Duodenitis without bleeding
CPT/HCPCS: 36415; 36430; 36600; 71045; 80048; 80053; 80069; 82805; 82962; 83605; 83735; 84100; 84478; 85007; 85018; 85025; 85027; 85610; 86850; 86900; 86901; 86920; 86927; 87040; 87071; 87075; 87426; 94002; 94003; 94760; A4213; A4215; A4314; A4322; A4364; A4452; A4556; A4930; A6219; A6402; C1751; C9113; J0610; J1100; J1815; J2020; J2060; J2248; J2250; J2270; J2370; J2405; J2543; J2710; J3010; J3475; J3480; J3490; J7030; J7040; J7060; P9016; P9017; P9041; P9045; P9046; Q9968; G0378